=== PATIENT | male | born 1945 | race Caucasian/White ===

== ENCOUNTER 2019-05-20 14:52 | Outpatient (RCR) | payer SELFPAY | END 2019-06-13 23:59 | disposition home or self-care (01) | LOC: CR 14:52 | PROVIDERS: Family Provider Family Medicine; Referring Provider Internal Medicine Cardiovascular Disease; Visit Provider Internal Medicine Cardiovascular Disease | DX: I21.9 Acute myocardial infarction, unspecified (principal) ==

== ENCOUNTER 2020-01-30 13:54 | Outpatient (CLI) | payer MEDICARE, OTHER, SELFPAY ==
--- NOTE | 2020-01-30 14:00 | USCV_ITS ---
Rafy Sierra Age: 75 Gender: M : 1945 Exam Date: 01/30/2020 14:07 Ordering Phys: Allegra Jimenez MD Technologist: Harvey Rahman Exam Location: [facility] – [place] Indication: PAIN IN LLE RIGHT LEFT Brachial 131.00 mmHg Brachial 133.00 mmHg Pressure (mmHg) Waveform Pressure (mmHg) Waveform 118.00 Above Knee 104.00 126.00 Below Knee 107.00 136.00 NATUROPATH 122.00 130.00 DPA 112.00 1.02 Ankle/Brachial Index 0.92 93.00 Pre-Exercise Toe Pressure 57.00 Pre-Exercise Toe/Brachial Index 0.43 0.70 FINDINGS Normal resting JENNIE and TBI on the right side. Slightly diminished resting JENNIE on the left side with a diminished TBI Loss of dicrotic notch bilaterally on the PVR waveforms CONCLUSIONS Features of mild to moderate peripheral artery disease on the left side No significant arterial obstruction on the right side Features of extensive arterial sclerosis. No similar previous studies are available for comparison Dr Josephine Sewell MD LOCATED WITHIN [facility] (Electronically Signed) Final Date: 01 February 2020 19:04 S
== END 2020-01-30 13:55 | disposition home or self-care (01) ==
LOC: US 13:57
PROVIDERS: PCP Family Medicine; Visit Provider Family Medicine
DX: M79.662 Pain in left lower leg (principal)
CPT/HCPCS: 93923

== ENCOUNTER 2022-12-15 13:09 | Outpatient (CLI) | payer MEDICARE, OTHER, SELFPAY ==
--- NOTE | 2022-12-15 13:27 | XR_ITS ---
WS: [id number] Chest with left rib detail, 3 views, 12/15/2022 Clinical Data: CHONDROCOSTAL JUNCTION SYNDROME Comparison: Two-view chest, 03/04/2019 Findings: The lungs show no nodules, masses, or effusions. The heart is slightly enlarged. No pneumonia or pneu mothorax is seen. There is a left lateral seventh rib fracture of indeterminate age. The fracture line shows resorption which implies an old fracture.No subcutaneous emphysema is seen. XR/XR ribs LT mn 3V w CXR1V [id number] Impression: 1. Cardiomegaly. 2. Left lateral seventh rib fracture of indeterminate age.
== END 2022-12-15 13:10 | disposition home or self-care (01) ==
LOC: RAD 13:11
PROVIDERS: PCP Family Medicine; Visit Provider Family Medicine
DX: M94.0 Chondrocostal junction syndrome [Tietze] (principal); I51.7 Cardiomegaly; S22.32XD Fracture of one rib, left side, subsequent encounter for fracture with routine healing; X58.XXXD Exposure to other specified factors, subsequent encounter
CPT/HCPCS: 71101

== ENCOUNTER 2023-02-28 16:16 | Outpatient (CLI) | payer MEDICARE, OTHER, SELFPAY ==
--- NOTE | 2023-02-28 16:53 | CTR_ITS ---
PROCEDURE INFORMATION: Exam: CT Chest Without Contrast; Diagnostic Exam date and time: 02/28/2023 5:12 PM Age: 78 years old Clinical indication: Left-sided; Patient HX: Left side abdominal pain, patient says he hurt his rib back in September and thats when the pain started. ; Additional info: Chronic cough, costochondritis TECHNIQUE: Imaging protocol: Diagnostic computed tomography of the chest without contrast. Radiation optimization: All CT scans at this facility use at least one of these dose optimization techniques: automated exposure control; mA and/or kV adjustment per patient size (includes targeted exams where dose is matched to clinical indication); or iterative reconstruction. REPORTING DATA: Count of CT and Cardiac NM exams in prior 12 months: This patient has received 0 known CTs and 0 known cardiac nuclear medicine studies in the 12 months prior to the current study. COMPARISON: CR XR ribs LT mn 3V w CXR1V [id number] 12/15/2022 1:30 PM RADIATION DOSE METRICS: Total DLP (mGy-cm): 612.74 FINDINGS: Lungs: Tree-in-bud airspace opacities in the left upper lobe represent nonspecific inflammatory changes in the distal bronchial tree. A 2 cm peripheral mass or scar in the right lung apex. No lobar consolidation or pulmonary edema. Pleural spaces: Unremarkable. No pneumothorax. No pleural effusion. Heart: Unremarkable. No cardiomegaly. No pericardial effusion. Coronary arteries: Coronary artery calcifications. Lymph nodes: Unremarkable. No enlarged lymph nodes. Vasculature: Thoracic aorta calcifications. No thoracic aorta aneurysm. Bones/joints: A 3.2 cm osteolytic mass in T9 vertebral body, a 1.7 cm osteolytic mass in T11 vertebral body and a 2.6 cm osteolytic mass in the manubrium, suggestive of metastases. Soft tissues: Bilateral gynecomastia. CT/CT chest wo con [id number] IMPRESSION: 1. A 3.2 cm osteolytic mass in T9 vertebral body, a 1.7 cm osteolytic mass in T11 vertebral body and a 2.6 cm osteolytic mass in the manubrium, suggestive of metastases. 2. Tree-in-bud airspace opacities in the left upper lobe represent nonspecific inflammatory changes in the distal bronchial tree. 3. A 2 cm irregular peripheral mass in the left lung apex is known to represent lung cancer. 4. After conversation with Dr. Loya, I was informed that the patient has known metastatic right lung cancer. 5. The ordering physician, Dr. Loya was informed by phone by Dr. Be about the findings and recommendations on 03/01/2023 at 4:06 AM CDT. The ordering physician verbalized understanding.
--- NOTE | 2023-02-28 16:53 | CTR_ITS ---
PROCEDURE INFORMATION: Exam: CT Abdomen And Pelvis With Contrast Exam date and time: 02/28/2023 5:15 PM Age: 78 years old Clinical indication: Abdominal pain; Localized; Patient HX: Left abd pain; Additional info: Abdominal pain, rectal pain, rectosigmoid cancer TECHNIQUE: Imaging protocol: Computed tomography of the abdomen and pelvis with contrast. Radiation optimization: All CT scans at this facility use at least one of these dose optimization techniques: automated exposure control; mA and/or kV adjustment per patient size (includes targeted exams where dose is matched to clinical indication); or iterative reconstruction. Contrast material: OMNI 350; Contrast volume: 95 ml; Contrast route: INTRAVENOUS (IV); REPORTING DATA: Count of CT and Cardiac NM exams in prior 12 months: This patient has received 0 known CTs and 0 known cardiac nuclear medicine studies in the 12 months prior to the current study. COMPARISON: CT chest wo con [id number] 02/28/2023 5:12 PM RADIATION DOSE METRICS: Total DLP (mGy-cm): 878.68 FINDINGS: Lungs: Multiple punctate calcifications in the spleen suggestive of previous granulomatous process. Liver: Normal. No mass. Gallbladder and bile ducts: Small gallstones in the gallbladder. No gallbladder wall thickening or pericholecystic fluid. No common bile duct dilatation. Pancreas: Normal. No ductal dilation. Spleen: Normal. No splenomegaly. Adrenal glands: Normal. No mass. Kidneys and ureters: Normal. No hydronephrosis. Stomach and bowel: Unremarkable. No obstruction. No mucosal thickening. Appendix: No evidence of appendicitis. Intraperitoneal space: Unremarkable. No free air. No significant fluid collection. Vasculature: Atherosclerotic calcifications in the abdominal aorta, abdominal and pelvic arteries. Lymph nodes: Unremarkable. No enlarged lymph nodes. Urinary bladder: Unremarkable as visualized. Reproductive: Unremarkable as visualized. Bones/joints: An 8.1 cm x 4.5 cm by 4 cm soft tissue mass is seen in the left sacrum, extending into the left posterior pelvis, which likely represents a metastasis. A 3.2 cm osteolytic mass is partially seen in T9 vertebral body, which likely represents a metastasis. Soft tissues: There is an incidental benign 7.6 cm lipoma in the right upper lateral abdominal wall. A 1.8 cm fat containing umbilical hernia, which does not contain any bowel. CT/CT abdomen pelvis w con* [id number] IMPRESSION: 1. An 8.1 cm x 4.5 cm by 4 cm soft tissue mass is seen in the left sacrum, extending into the left posterior pelvis, which likely represents a metastasis. A 3.2 cm osteolytic mass is partially seen in T9 vertebral body, which likely represents a metastasis. 2. No acute findings. 3. Small gallstones in the gallbladder. No gallbladder wall thickening or pericholecystic fluid. No common bile duct dilatation. 4. A 1.8 cm fat containing umbilical hernia, which does not contain any bowel.
[2023-02-28] MEDS: iohexol 350 mg/mL 500 mL Btl (per mL) IV (17:31)
[2023-02-28] MEDS: iohexol 350 mg/mL 500 mL Btl (per mL) PO (17:31)
== END 2023-02-28 16:17 | disposition home or self-care (01) ==
PROVIDERS: PCP Family Medicine; Visit Provider Family Medicine
DX: C19 Malignant neoplasm of rectosigmoid junction (principal); M89.9 Disorder of bone, unspecified; R10.9 Unspecified abdominal pain; R05.3 Chronic cough; M94.0 Chondrocostal junction syndrome [Tietze]; C78.01 Secondary malignant neoplasm of right lung; K42.9 Umbilical hernia without obstruction or gangrene; K80.20 Calculus of gallbladder without cholecystitis without obstruction
CPT/HCPCS: 71250; 74177; Q9967

== ENCOUNTER 2023-03-01 02:30 | Emergency (ER) | payer MEDICARE, OTHER, SELFPAY ==
[2023-03-01 02:36] VITALS: BP 99/46; PULSE 66; RESP 20; O2SAT 94; BMI 36.3
--- NOTE | 2023-03-01 02:43 | W.ED.ABDPA2 ---
HPI - Abdominal Pain General: Chief Complaint: Abdominal Pain Stated Complaint: Abd Pain From Broken Rib In September Source: patient Mode of arrival: ambulatory Limitations: no limitations History of Present Illness: 78-year-old male who states has been having abdominal pain over the last 4 weeks. States been on his left side going down to his left bellybutton he states he actually had a CT scan done here yesterday outpatient CT has not been formally read yet. States that the pain did worsen a little at night was a 7 out of 10 he is resting comfortably currently Associated Symptoms: Denies chills, diarrhea, dysuria, fever(s), nausea and vomiting Review of Systems Const: Denies: fever(s), chills, body aches or change in appetite Eyes: Denies: blurry vision or eye discomfort ENMT: Denies: throat pain or dental pain Card: Denies: chest pain Resp: Denies: dyspnea GI: Reports: abdominal pain; Denies: nausea, vomiting or diarrhea : Denies: dysuria Musc: Denies: neck pain or back pain Skin/Breast: Denies: rash Neuro: Denies: headache(s) Physical Exam Const: COMMON NORMALS: no acute distress, patient oriented x3 and healthy appearing HENMT: COMMON NORMALS: normocephalic and atraumatic HEAD & SCALP: normocephalic and atraumatic Eye: COMMON NORMALS: Equal, round and reactive pupils present and EOMs intact bilaterally PUPIL: Yes Equal, round and reactive pupils present Neck/C-Spine: COMMON NORMALS: full ROM and supple Chest: COMMONS NORMALS: normal inspection of the chest and normal palpation of entire chest wall Resp: COMMON NORMALS: normal respiratory effort, No retractions, No use of accessory muscles and clear to auscultation bilaterally AUSCULTATION: clear to auscultation bilaterally Cardio: COMMON NORMALS: regular rate, regular rhythm and No murmurs present (Cardio) RATE: regular rate RHYTHM: regular rhythm GI: COMMON NORMALS: Normal to inspection, nondistended, normoactive bowel sounds present, Soft to palpation, non-tender and no masses PALPATION: Yes Soft to palpation Extremity: COMMON NORMALS: normal to inspection and full ROM Neuro: COMMON NORMALS: patient oriented x3, moves all extremities and no focal motor deficits Psych: COMMON NORMALS: mental status grossly normal, Normal thought process present and cooperative THOUGHT PROCESS: Normal thought process present Skin: COMMON NORMALS: no rashes or lesions noted and no wounds GENERAL SKIN EXAM: no rashes or lesions noted Course Vital Signs: Vital signs: Vital Signs Pulse Rate 56 L 03/01/23 04:34 Respiratory Rate 17 03/01/23 02:53 Blood Pressure 110/60 03/01/23 04:34 Pulse Oximetry 96 03/01/23 03:20 Oxygen Delivery Me thod Room Air 03/01/23 03:20 MDM - Abdominal Pain Medical Decision Making Patient presents here with left-sided rib and abdominal and flank pain CT does show a lung mass with likely mets that are new I did inform patient he states he seen the oncologist before in [place] would like to follow-up back today states he is in to talk to his primary care doctor tomorrow about it we will write him pain meds at this time Lab Data 03/01/23 02:45 03/01/23 02:45 Labs/Radiology: Laboratory Results WBC 5.21 10^3/uL (3.29-11.43) 03/01/23 02:45 RBC 3.18 10^6/uL (3.85-5.65) L 03/01/23 02:45 Hgb 10.70 g/dL (11.27-16.99) L 03/01/23 02:45 Hct 32.5 % (37-53) L 03/01/23 02:45 MCV 102.2 fl (82-101) H 03/01/23 02:45 MCH 33.6 pg (27-33) H 03/01/23 02:45 MCHC 32.9 g/dL (30-55) 03/01/23 02:45 RDW 14.0 % (12.1-15.1) 03/01/23 02:45 Plt Count 125 10^3/cmm (157-399) L 03/01/23 02:45 MPV 9.6 fL (7.4-10.4) 03/01/23 02:45 Neut % (Auto) 51.4 % 03/01/23 02:45 Lymph % (Auto) 27.3 % 03/01/23 02:45 [place] % (Auto) 13.6 % 03/01/23 02:45 Eos % (Auto) 6.5 % 03/01/23 02:45 Baso % (Auto) 0.4 % 03/01/23 02:45 Neut # (Auto) 2.68 10^3/uL (1.8-7.7) 03/01/23 02:45 Lymph # (Auto) 1.4 10^3/uL (0.8-4.8) 03/01/23 02:45 [place] # (Auto) 0.7 10^3/uL (0.2-0.9) 03/01/23 02:45 Eos # (Auto) 0.3 10^3/uL (0.0-0.8) 03/01/23 02:45 Baso # (Auto) 0.0 10^3/uL (0.0-0.1) 03/01/23 02:45 Nucleated RBC % (auto) 0 % 03/01/23 02:45 Nucleated RBCs # 0.0 /100WBC 03/01/23 02:45 Sodium 131 mmol/L (136-145) L 03/01/23 02:45 Potassium 4.7 mmol/L (3.5-5.1) 03/01/23 02:45 Chloride 98 mmol/L (98-107) 03/01/23 02:45 Carbon Dioxide 28 mmol/L (22-29) 03/01/23 02:45 Anion Gap 9.7 (5-19) 03/01/23 02:45 BUN 20 mg/dL (8-23) 03/01/23 02:45 Creatinine 1.1 mg/dL (0.7-1.2) 03/01/23 02:45 GFR Calculation Not Reportable 03/01/23 02:45 Glucose 118 mg/dL (65-115) H 03/01/23 02:45 Calculated Osmolality 276 mOsm/kg (285-295) L 03/01/23 02:45 Calcium 9.0 mg/dL (8.5-10.5) 03/01/23 02:45 Total Bilirubin 0.4 mg/dL (0.15-1.2) 03/01/23 02:45 AST 23 U/L (0-40) 03/01/23 02:45 ALT 9 U/L (0-41) 03/01/23 02:45 Alkaline Phosphatase 95 U/L (40-130) 03/01/23 02:45 Total Protein 9.5 g/dL (6.6-8.7) H 03/01/23 02:45 Albumin 3.7 g/dL (3.5-5.2) 03/01/23 02:45 Globulin 5.8 g/dL (1.3-4.6) H 03/01/23 02:45 Lipase 11 U/L (13-60) L 03/01/23 02:45 Urine Color Yellow (Yellow) 03/01/23 02:25 Urine Appearance Clear (CLEAR) 03/01/23 02:25 Urine pH 7 (5-7) 03/01/23 02:25 Ur Specific [place] 1.005 (1.005-1.030) 03/01/23 02:25 Urine Protein Neg (Negative) 03/01/23 02:25 Urine Glucose (UA) Norm (Normal) 03/01/23 02:25 Urine Ketones Negative (Negative) 03/01/23 02:25 Urine Blood Neg (Negative) 03/01/23 02:25 Urine Nitrate Negative (Negative) 03/01/23 02:25 Urine Bilirubin Neg (Negative) 03/01/23 02:25 Urine Urobilinogen 1 mg/dL (Negative) H 03/01/23 02:25 Ur Leukocyte Esterase Negative (Negative) 03/01/23 02:25 All radiology interpretation(s) finalized by discharge Discharge Plan Discharge Patient Disposition: Home Clinical Impression: Bone lesion, Lung mass Condition: Stable Prescriptions: New hydrocodone-acetaminophen 5-325 mg tablet 1 tab PO Q6H PRN (Reason: pain) Qty: 14 0RF Discharge Orders: Discharge ED (Routine); Ordered 03/01/23 Ordered By: Nasrin Feng Referrals: Allegra Jimenez MD [Primary Care Provider] - 1-3 days Discharge Diet: Advance as tolerated Discharge Activity: Resume usual activity Patient Instructions: Brain Metastasis (DC), Opioid Safety 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
[2023-03-01 02:49] LABS: Basophils % 0.4 %; Eosinophils # 0.3 10^3/uL (0.0-0.8); Eosinophils % 6.5 %; Hematocrit 32.5 % (37-53); Lymphocytes # 1.4 10^3/uL (0.8-4.8); Lymphocytes % 27.3 %; Mean Corpuscular HGB Conc 32.9 g/dL (30-55); Mean Corpuscular Hemoglobin 33.6 pg (27-33); Mean Corpuscular Volume 102.2 fl (82-101); Mean Platelet Volume 9.6 fL (7.4-10.4); Monocytes # 0.7 10^3/uL (0.2-0.9); Monocytes % 13.6 %; Neutrophils # 2.68 10^3/uL (1.8-7.7); Neutrophils % 51.4 %; Nucleated Red Blood Cells % 0 %; Platelet Count 125 10^3/cmm (157-399); Red Blood Count 3.18 10^6/uL (3.85-5.65); White Blood Count 5.21 10^3/uL (3.29-11.43)
[2023-03-01] MEDS: sodium chloride 0.9% 1,000 ML 999 ML IV (02:52)
[2023-03-01 02:53] VITALS: RESP 17
[2023-03-01] MEDS: morphine 4 mg/mL SDV 1 mL IVP (02:53)
[2023-03-01] MEDS: ondansetron 2 mg/ML SDV 2 mL 4 MG IVP (02:53)
[2023-03-01 03:06] LABS: Alanine Aminotransferase 9 U/L (0-41); Albumin Level 3.7 g/dL (3.5-5.2); Alkaline Phosphatase 95 U/L (40-130); Anion Gap 9.7 (5-19); Aspartate Amino Transferase 23 U/L (0-40); Blood Urea Nitrogen 20 mg/dL (8-23); Carbon Dioxide 28 mmol/L (22-29); Chloride 98 mmol/L (98-107); Globulin 5.8 g/dL (1.3-4.6); Glucose 118 mg/dL (65-115); Lipase 11 U/L (13-60); Osmolality Calculated 276 mOsm/kg (285-295); Potassium 4.7 mmol/L (3.5-5.1); Sodium 131 mmol/L (136-145); Total Bilirubin 0.4 mg/dL (0.15-1.2); Total Protein 9.5 g/dL (6.6-8.7)
[2023-03-01 03:20] VITALS: PULSE 51; O2SAT 96
[2023-03-01 03:30] LABS: Add Urine Microscopic? NO; Charge for UA Resulting for Rev
[2023-03-01 03:34] LABS: Bilirubin Urine Neg (Negative); Blood Urine Neg (Negative); Glucose Urine UA Norm (Normal); Ketones Urine Negative (Negative); Leukocyte Esterase Urine Negative (Negative); Nitrate Urine Negative (Negative); Protein Urine Neg (Negative); Specific Gravity, Urine 1.005 (1.005-1.030); Urine Appearance Clear (CLEAR); Urine Color Yellow (Yellow); Urobilinogen Urine 1 mg/dL (Negative); pH Urine 7 (5-7)
[2023-03-01 04:34] VITALS: BP 110/60; PULSE 56
== END 2023-03-01 04:36 | disposition home or self-care (01) ==
PROVIDERS: Emergency Provider Emergency Medicine; PCP Family Medicine
DX: M89.9 Disorder of bone, unspecified (principal); R91.8 Other nonspecific abnormal finding of lung field
CPT/HCPCS: 80053; 81003; 83690; 85025; 96374; 96375; 99284; J2270; J2405; J7030

== ENCOUNTER 2023-03-17 03:14 | Emergency (ER) | payer MEDICARE, OTHER, SELFPAY ==
[2023-03-17 03:15] VITALS: BP 113/67; PULSE 85; RESP 18; TEMP 36.7; O2SAT 97; BMI 36.6
--- NOTE | 2023-03-17 03:44 | XRR_ITS ---
PROCEDURE INFORMATION: Exam: XR Left Ankle Exam date and time: 03/17/2023 3:55 AM Age: 78 years old Clinical indication: Patient HX: C/O left ankle pain. History of colorectal cancer. ; Additional info: Ankle pain HX of cancer TECHNIQUE: Imaging protocol: Radiologic exam of the left ankle. Views: 1 or 2 views. COMPARISON: No relevant prior studies available. FINDINGS: Bones/joints: Large calcaneal insertional enthesophyte posteriorly. Corticated bone fragment at the inferior margin of the medial tibia. Negative for acute fracture. Unremarkable ankle mortise alignment. No bone erosion. Focal osseous spurring of the anterior distal tibia. Soft tissues: Mild diffuse soft tissue swelling. XR/XR ankle LT 2V [id number] IMPRESSION: Negative for acute osseous pathology.
--- NOTE | 2023-03-17 03:52 | W.ED.BACK ---
HPI - Back Pain/Injury General: Chief Complaint: Back Pain/Injury Stated Complaint: BACK PAIN Time Seen by Provider: 03/17/23 03:18 Source: patient and family History of Present Illness: 78-year-old male with known metastatic colon cancer to his sacrum pelvis and T9. He has outpatient PET scan set up for a week to 10 days from now. He presents after getting up to urinate around 2 AM, and having uncontrolled pain with generalized weakness associated with this. He notes it was hard to move. No significant numbness or tingling. His pain is improved currently. He is getting around with a walker. Last week he did not have to use his walker. MD elicited complaint: back pain Associated symptoms: Reports nausea; Deny abdominal pain, chills, fever(s) or vomiting Review of Systems Const: Denies: fever(s) or chills Eyes: Denies: change in vision ENMT: Denies: throat pain or uvular edema Card: Reports: chest pain and palpitations Resp: Reports: dyspnea; Denies: productive cough or non-productive cough GI: Reports: nausea; Denies: abdominal pain or vomiting : Reports: urinary frequency and urinary dribbling Musc: Reports: back pain and extremity pain; Denies: neck pain Skin/Breast: Denies: rash Physical Exam Const: COMMON NORMALS: no acute distress GENERAL APPEARANCE: cooperative and frail appearing; not ill appearing NUTRITIONAL APPEARANCE: overweight ORIENTATION/CONSCIOUSNESS: Yes awake, Yes oriented to person, Yes oriented to place and Yes oriented to time; not confused HENMT: COMMON NORMALS: normocephalic and atraumatic HEAD & SCALP: normocephalic and atraumatic THROAT: no uvular edema Eye: COMMON NORMALS: Equal, round and reactive pupils present and EOMs intact bilaterally PUPIL: Yes Equal, round and reactive pupils present Neck/C-Spine: COMMON NORMALS: full ROM Chest: COMMONS NORMALS: normal palpation of the breasts BREAST/AXILLA PALPATION: Yes normal palpation of the breasts Resp: COMMON NORMALS: normal respiratory effort, No retractions, No use of accessory muscles and clear to auscultation bilaterally AUSCULTATION: clear to auscultation bilaterally Cardio: COMMON NORMALS: regular rate and regular rhythm RATE: regular rate RHYTHM: regular rhythm GI: COMMON NORMALS: Normal to inspection, nondistended, normoactive bowel sounds present, Soft to palpation and non-tender INSPECTION: Yes normal to inspection PALPATION: Yes Soft to palpation Back/Pelvis: OTHER: Tenderness to palpation over the left greater than right sacrum. No deformity. Extremity: NARRATIVE EXTREMITY EXAM: Minimally reproducible tenderness in the left distal tibia and ankle. No joint effusion. No warmth. No deformity. Sensation and pulses are intact. Neuro: SENSORIUM/ORIENTATION: Yes oriented to person, Yes oriented to place and Yes oriented to time Course Vital Signs: Vital signs: Vital Signs Temperature 98.1 F 03/17/23 03:15 Pulse Rate 85 03/17/23 03:15 Respiratory Rate 18 03/17/23 03:15 Blood Pressure 113/67 03/17/23 03:15 Pulse Oximetry 97 03/17/23 03:15 Oxygen Delivery Me thod Room Air 03/17/23 03:15 MDM - Back Pain/Injury Medical Decision Making CT from prior shows sacral mass/lytic lesion consistent with malignancy. Ankle x-ray is negative for any acute change. Pain in the leg is likely radicular pain from sacral area. Treating with dexamethasone/Depo-Medrol injection. Home pain medication. A lift belt so that his can help him up will be prescribed. Close outpatient follow-up. Return for worsening symptoms despite that treatment. XR interpretation done by ED provider, pending radiology final review Discharge Plan Discharge Patient Disposition: Home Clinical Impression: Lumbosacral radiculitis Condition: Stable Prescriptions: No Action hydrocodone-acetaminophen 5-325 mg tablet 1 tab PO Q6H PRN (Reason: pain) Qty: 14 0RF Discharge Orders: Discharge ED (Routine); Ordered 03/17/23 Ordered By: Lacho Estrada Referrals: Allegra Jimenez MD [Primary Care Provider] - 1-3 days Patient Instructions: Opioid Safety, Pain Management Activity Restrictions/Additional Instructions: Your leg pain is coming from an irritated nerve in your lower back/sacrum. Medication you were injected with should begin to help this pain to some degree. Use your prescribed home pain medication as well. Ice may help to some degree. Follow-up with your doctor on Sunday. Let them know you were seen here. Return for fever, mental status changes, worsening weakness, inability to control pain, other concerning symptoms. 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
[2023-03-17] MEDS: HYDROmorphone 1 mg/mL INJ 1 mL IM (04:39)
[2023-03-17] MEDS: dexamethasone 10 mg/mL INJ 8 MG IM (05:08)
[2023-03-17] MEDS: methylPREDNISolone (DEPO) 80 MG/ML INJ 1 mL IM (05:08)
== END 2023-03-17 06:08 | disposition home or self-care (01) ==
PROVIDERS: Emergency Provider Emergency Medicine; PCP Family Medicine
DX: M54.17 Radiculopathy, lumbosacral region (principal); C18.9 Malignant neoplasm of colon, unspecified; C79.51 Secondary malignant neoplasm of bone
CPT/HCPCS: 73600; 96372; 99284; J1040; J1100; J1170

== ENCOUNTER 2023-08-05 21:18 | Inpatient (IN) | payer MEDICARE, OTHER, SELFPAY ==
[2023-08-05 21:23] VITALS: BP 113/63; PULSE 108; RESP 22; TEMP 37.1; O2SAT 96; BMI 36.6
[2023-08-05 21:42] VITALS: PULSE 83
--- NOTE | 2023-08-05 21:42 | XRR_ITS ---
PROCEDURE INFORMATION: Exam: XR Chest Exam date and time: 08/05/2023 9:50 PM Age: 78 years old Clinical indication: Cough and shortness of breath and wheezing; Prior surgery; Surgery date: 6+ months; Surgery type: Cardiac stent; Patient HX: SOB; Cough; Auditory rales TECHNIQUE: Imaging protocol: Radiologic exam of the chest. Views: 1 view. COMPARISON: [facility] [id number] 02/28/2023 5:12 PM FINDINGS: Lungs: Mild central vascular congestion. Nonspecific diffuse interstitial prominence. Patchy opacities in the lung bases , also nonspecific. Pleural spaces: Probable trace effusions. No pneumothorax. Heart/Mediastinum: Mild cardiomegaly. Bones/joints: Unremarkable. XR/XR chest 1V portable [id number] IMPRESSION: 1. Cardiomegaly with central vascular congestion and nonspecific interstitial prominence likely reflecting pulmonary edema. Trace effusions. Correlate with CHF. 2. Patchy basilar opacities likely reflecting confluent areas of edema though developing consolidation could have this appearance.
--- NOTE | 2023-08-05 21:58 | ED_ITS ---
HPI - SOB/Dyspnea 2 General: Chief Complaint: Shortness of Breath/Dyspnea Stated Complaint: RESP. DISTRESS Time Seen by Provider: 08/05/23 21:24 History of Present Illness: HPI Narrative: 78-year-old male patient with a history of multiple myeloma, and also history of recent GI bleed requiring hospitalization, presenting with shortness of breath. His notes that he has been short of breath for the past week to week and a half, but much worse the last couple of days. He exhibits noisy fast breathing on exam. He denies fever. Some cough but no sputum production. No chest pain. He has swollen legs he says. He has a history of atrial fibrillation, and was taken off his Xarelto recently due to the GI bleed. Associated symptoms: Deny abdominal pain, chest pain, fever(s), nausea, palpitations or vomiting Review of Systems 2 Const: Denies: fever(s) or chills ENMT: Denies: throat pain Card: Reports: irregular heart rhythm; Denies: chest pain or palpitations Resp: Reports: dyspnea and non-productive cough GI: Denies: abdominal pain, nausea or vomiting Musc: Reports: back pain Physical Exam 2 Const: GENERAL APPEARANCE: cooperative, ill appearing and frail appearing HENMT: COMMON NORMALS: normocephalic, atraumatic and Normal external nose present HEAD & SCALP: normocephalic and atraumatic FACE & SINUS: face symmetric NOSE: Normal external nose present Eye: COMMON NORMALS: Equal, round and reactive pupils present and EOMs intact bilaterally PUPIL: Yes Equal, round and reactive pupils present Neck/C-Spine: GENERAL: Yes trachea midline Chest: CHEST: Yes Symmetrical chest wall rise Resp: EFFORT & INSPECTION: Yes tachypneic and Yes labored AUSCULTATION: r ales diffuse Cardio: RATE: tachycardic RHYTHM: abnormal rhythm irregularly irregular GI: COMMON NORMALS: Normal to inspection, nondistended, normoactive bowel sounds present and Soft to palpation PALPATION: Yes Soft to palpation Extremity: GENERAL: Yes edema Course 2 Vital Signs: Vital signs: Vital Signs Temperature 98.7 F 08/05/23 21:23 Pulse Rate 85 08/05/23 23:34 Respiratory Rate 18 08/05/23 23:34 Blood Pressure 115/70 08/05/23 23:34 Pulse Oximetry 95 08/05/23 23:34 Oxygen Delivery Me thod Room Air 08/05/23 23:34 Oxygen Flow Rate 2 08/05/23 23:10 MDM - SOB/Dyspnea Medical Decision Making 78-year-old male with significant shortness of breath. He has rales on exam. His hemoglobin is down to 8.3. White blood cell count is 16. He has a significant elevation in his BNP as well as his troponin. His troponin elevation is likely rate dependent, as he was quite tachycardic on arrival, but with oxygenation, his heart rate is below 100 now. He is still in atrial fibrillation. Blood pressure is 108/65. Potassium is 3.8. Creatinine is 1.5. He is given 80 mg of Lasix IV in the ER with some diuresis here. He is on oxygen. He will be admitted for hypoxic respiratory failure, A-fib with RVR, pulmonary edema which is present on chest x-ray. Hospitalist will see the patient. Lab Data 08/05/23 21:07 08/05/23 21:07 Labs/Radiology: Radiology Impressions Chest X-Ray 08/05/23 21:42 IMPRESSION: 1. Cardiomegaly with central vascular congestion and nonspecific interstitial prominence likely reflecting pulmonary edema. Trace effusions. Correlate with CHF. 2. Patchy basilar opacities likely reflecting confluent areas of edema though developing consolidation could have this appearance. Laboratory Results WBC 16.12 10^3/uL (3.29-11.43) H 08/05/23 21:07 RBC 2.03 10^6/uL (3.85-5.65) L 08/05/23 21:07 Hgb 8.30 g/dL (11.27-16.99) L 08/05/23 21:07 Hct 22.1 % (37-53) L 08/05/23 21:07 MCV 108.9 fl (82-101) H 08/05/23 21:07 MCH 40.9 pg (27-33) H 08/05/23 21:07 MCHC 37.6 g/dL (30-55) 08/05/23 21:07 RDW 23.7 % (12.1-15.1) H 08/05/23 21:07 Plt Count 54 10^3/cmm (157-399) L 08/05/23 21:07 MPV Not Reportable 08/05/23 21:07 Neut % (Auto) 91.0 % 08/05/23 21:07 Lymph % (Auto) 1.0 % 08/05/23 21:07 [place] % (Auto) 7.1 % 08/05/23 21:07 Eos % (Auto) 0.1 % 08/05/23 21:07 Baso % (Auto) 0.2 % 08/05/23 21:07 Neut # (Auto) 14.68 10^3/uL (1.8-7.7) H 08/05/23 21:07 Lymph # (Auto) 0.2 10^3/uL (0.8-4.8) L 08/05/23 21:07 [place] # (Auto) 1.1 10^3/uL (0.2-0.9) H 08/05/23 21:07 Eos # (Auto) 0.0 10^3/uL (0.0-0.8) 08/05/23 21:07 Baso # (Auto) 0.0 10^3/uL (0.0-0.1) 08/05/23 21:07 Nucleated RBC % (auto) 0.2 % 08/05/23 21:07 Nucleated RBCs # 0.0 /100WBC 08/05/23 21:07 D-Dimer 0.82 ug/mLFEU (0-0.59) H 08/05/23 21:03 Sodium 132 mmol/L (136-145) L 08/05/23 21:07 Potassium 3.8 mmol/L (3.5-5.1) 08/05/23 21:07 Chloride 96 mmol/L (98-107) L 08/05/23 21:07 Carbon Dioxide 23 mmol/L (22-29) 08/05/23 21:07 Anion Gap 16.8 (5-19) 08/05/23 21:07 BUN 23 mg/dL (8-23) 08/05/23 21:07 Creatinine 1.5 mg/dL (0.7-1.2) H 08/05/23 21:07 GFR Calculation Not Reportable 08/05/23 21:07 Glucose 156 mg/dL (65-115) H 08/05/23 21:07 Estimat Average Glucose 103 08/05/23 21:03 Hemoglobin A1c 5.2 % (4.0-6.0) 08/05/23 21:03 Calculated Osmolality 281 mOsm/kg (285-295) L 08/05/23 21:07 Lactic Acid 2.1 mmol/L (0.5-2.2) 08/05/23 21:07 Calcium 8.0 mg/dL (8.5-10.5) L 08/05/23 21:07 Total Bilirubin 0.8 mg/dL (0.15-1.2) 08/05/23 21:07 AST 31 U/L (0-40) 08/05/23 21:07 ALT 17 U/L (0-41) 08/05/23 21:07 Alkaline Phosphatase 119 U/L (40-130) 08/05/23 21:07 Troponin T Baseline 115 ng/L (0-15) H* 08/05/23 21:07 Troponin T 120 Minute 104.1 ng/L (0-15) H 08/05/23 22:45 Delta Troponin T -10.9 ABS# (0-10) L 08/05/23 22:45 NT-Pro-B Natriuret Pep 4861 pg/mL (0-450) H 08/05/23 21:07 Total Protein 5.4 g/dL (6.6-8.7) L 08/05/23 21:07 Albumin 3.4 g/dL (3.5-5.2) L 08/05/23 21:07 Globulin 2.0 g/dL (1.3-4.6) 08/05/23 21:07 Blood Type A Positive 08/05/23 22:45 Rho(D) Type Rh positive 08/05/23 22:45 All radiology interpretation(s) finalized by discharge Discharge Plan Discharge Patient Disposition: Admitted As Inpatient Clinical Impression: Pulmonary edema, Anemia, Atrial fibrillation with rapid ventricular response, Acute hypoxemic respiratory failure Condition: Serious Coding Level of Care Code ED [employer] Inspector for Guerrero Tinoco
[2023-08-05 21:59] LABS: Basophils % 0.2 %; Eosinophils % 0.1 %; Hematocrit 22.1 % (37-53); Lymphocytes # 0.2 10^3/uL (0.8-4.8); Mean Corpuscular HGB Conc 37.6 g/dL (30-55); Mean Corpuscular Hemoglobin 40.9 pg (27-33); Mean Corpuscular Volume 108.9 fl (82-101); Monocytes # 1.1 10^3/uL (0.2-0.9); Monocytes % 7.1 %; Neutrophils # 14.68 10^3/uL (1.8-7.7); Nucleated Red Blood Cells % 0.2 %; Platelet Count 54 10^3/cmm (157-399); Red Blood Count 2.03 10^6/uL (3.85-5.65); Red Cell Distribution Width 23.7 % (12.1-15.1); White Blood Count 16.12 10^3/uL (3.29-11.43)
[2023-08-05 22:08] LABS: Lactic Sepsis W/Reflex 2.1 mmol/L (0.5-2.2)
[2023-08-05] MEDS: FUROsemide 10 mg/mL SDV 10mL 80 MG IVP (22:11)
[2023-08-05 22:21] VITALS: BP 110/69; PULSE 95; RESP 18; O2SAT 96
[2023-08-05 22:23] LABS: Troponin(5th) Baseline 115 ng/L (0-15)
[2023-08-05 22:29] LABS: Alanine Aminotransferase 17 U/L (0-41); Albumin Level 3.4 g/dL (3.5-5.2); Alkaline Phosphatase 119 U/L (40-130); Anion Gap 16.8 (5-19); Aspartate Amino Transferase 31 U/L (0-40); Blood Urea Nitrogen 23 mg/dL (8-23); Carbon Dioxide 23 mmol/L (22-29); Chloride 96 mmol/L (98-107); Creatinine Clr Calc Pharmacy 45.6194; Glucose 156 mg/dL (65-115); NT Pro B Type Natriuretic Pept 4861 pg/mL (0-450); Osmolality Calculated 281 mOsm/kg (285-295); Potassium 3.8 mmol/L (3.5-5.1); Sodium 132 mmol/L (136-145); Total Bilirubin 0.8 mg/dL (0.15-1.2); Total Protein 5.4 g/dL (6.6-8.7)
[2023-08-05 23:10] VITALS: BP 109/48; PULSE 103; RESP 20; O2SAT 96
[2023-08-05 23:32] LABS: Troponin 5 2HR Delta -10.9 ABS# (0-10)
[2023-08-05 23:33] LABS: Troponin 5 2HR 104.1 ng/L (0-15)
--- NOTE | 2023-08-05 23:33 | PM.HP ---
Providers/Chief Complaint Primary Care Provider: Allegra Jimenez MD Chief Complaint: RESP. DISTRESS History of Present Illness Rafy Sierra is a 78 year old male with history of multiple myeloma, currently on immunotherapy, finished 2 cycles, he is due for third cycle on 08/06, his oncologist and talent acquisition assistant both are at [facility], presented today with chief complaint orthopnea PND and shortness of breath. At baseline he does not use oxygen. He does not have any history of CHF but has established coronary disease with stent placed few years ago. Patient was at [facility] where he had EGD done with clipping of gastric and duodenal ulcer as per the family, we do not have the details, patient was given 2 units of blood as well. As per the platelets were lower than 50,000. Patient has not experienced fever, vomiting but endorsing diarrhea, shortness of breath orthopnea PND, wet cough, does not use oxygen at baseline, no chest pain at all. Patient wanted to go to [facility] but they do not have any beds as of now Troponin significantly elevated Not a good candidate to be started on aspirin Plavix or heparin at this point secondary to thrombocytopenia and anemia I would like him to be above 9 considering CHF and coronary disease He is in congestive heart failure with pulm edema requiring 2 L, Received IV Lasix I will place Disla catheter start him on BiPAP Review of Systems Const: Denies: fever(s) Eyes: Denies: change in vision ENMT: Denies: throat pain Card: Reports: swelling of feet/ankles Resp: Reports: dyspnea GI: Reports: diarrhea : Denies: flank pain Musc: Denies: neck pain Skin/Breast: Denies: rash Medications/Allergies Home Medications Medication Instructions Recorded Confirmed Last Taken Type hydrocodone 5 mg-acetaminophen 325 1 tab PO Q6H PRN pain #14 tabs 03/01/23 Unknown Rx mg tablet Allergies Allergy/AdvReac Type Severity Reaction Status Date / Time No Known Allergies Allergy Verified 08/05/23 22:17 PFSH Acute PFSH: Medical History (Updated 08/06/23 @ 00:39 by Keron Russell MD) Gastric ulcer GI bleed Multiple myeloma Coronary artery disease Surgical History (Updated 08/06/23 @ 00:39 by Keron Russell MD) H/O esophagogastroduodenoscopy Vitals/I&O/Wt Last Vital Signs Temp 98.7 F 08/05/23 21:23 Pulse 103 H 08/05/23 23:10 Resp 20 H 08/05/23 23:10 BP 109/48 08/05/23 23:10 Pulse Ox 96 08/05/23 23:10 O2 Del Method Nasal Cannula 08/05/23 23:10 O2 Flow Rate 2 08/05/23 23:10 Weight last 48 hrs Weight 102.965 kg Physical Exam Narrative: Clinical signs of fluid overload Conversational dyspnea Currently on 2 L GCS 15 3+ edema of legs Anasarca S1, S2 A-fib RVR Pleasant cooperative Nonfocal neuroexam Abdomen distended Wearing adult diapers Extremities are edematous Data 08/05/23 21:07 08/05/23 21:07 Micro: Microbiology 08/05/23 22:18 Blood Culture - Preliminary Blood SPECIMEN COLLECTED 08/05/23 22:17 Blood Culture - Preliminary Blood SPECIMEN COLLECTED A&P Assessment and plan (1) Atrial fibrillation with rapid ventricular response: (2) Anemia: (3) Pulmonary edema: (4) Acute hypoxemic respiratory failure: (5) Non-STEMI (non-ST elevated myocardial infarction): (6) Thrombocytopenia: (7) ARIE (acute kidney injury): Plan New onset CHF EF unknown No active chest pain Troponin similarly elevated Patient will need coronary angiogram for further evaluation Has history of coronary disease I will start him on IV Lasix To decrease work of breathing I will put him on BiPAP Acute hypoxia related to pulm edema BiPAP for now, Concern for pulmonary infiltrate with significant leukocytosis I will add ceftriaxone as well Request procalcitonin He is afebrile Acute on chronic anemia 5 weeks ago required 2 unit PRBC I would like to keep his hemoglobin above 9, will give him 1 unit PRBC in the morning for now I would like to diurese him Non-STEMI: Significant additional troponin, troponin trending down No active chest pain Ischemia or infarctive changes not evident on the EKG Not a candidate to be on anticoagulating agent secondary to anemia and thrombocytopenia New onset A-fib with RVR Not a candidate to be on anticoagulation Secondary to anemia and thrombocytopenia Requested echo TSH and B12 and mag level Multiple myeloma Finished 2 cycles of immunotherapy, third cycle to be started on 08/[address] [facility] GI bleed EGD was done 4 to 5 weeks ago, showed gastric and duodenal ulcer required 2 unit PRBC as well Chronic thrombocytopenia as per the family ARIE: Cardiorenal anticipate improvement with diuresis Full code Cardiac diet Will keep trying to get a bed at [facility], we tried to transfer him from the ER but [facility] has no beds at this point His talent acquisition assistant is Dr. Fields at [facility] DVT prophylaxis covered with SCDs Attestations Medical Necessity Statement*: More than 2 midnights anticipated Diagnoses Atrial fibrillation with rapid ventricular response I48.91 Anemia D64.9 Pulmonary edema J81.1 Acute hypoxemic respiratory failure J96.01 Non-STEMI (non-ST elevated myocardial infarction) I21.4 Thrombocytopenia D69.6 ARIE (acute kidney injury) N17.9
[2023-08-05 23:34] VITALS: BP 115/70; PULSE 85; RESP 18; O2SAT 95
[2023-08-05 23:35] LABS: Reflex Lactate Order REFLEX LACTIC ORDERD
--- NOTE | 2023-08-05 23:42 | ECG_ITS ---
[facility] Test Date: 2023-08-05 Pat Name: Rafy Sierra Department: Room: Gender: Male Sole Layer Hand: : 1945 Requested By: Lacho Becerra Order Number: [id number] Prince MD: Homar Tapia M.D. Measurements Intervals [place] Rate: 112 P: 0 PA: 0 QRS: 165 QRSD: 139 T: 33 QT: 359 QTc: 492 Interpretive Statements ATRIAL FIBRILLATION WITH RAPID VENTRICULAR RESPONSE WITH ABERRANT CONDUCTION OR VENTRICULAR PREMATURE COMPLEXES INTRAVENTRICULAR CONDUCTION DELAY [130+ ms QRS DURATION] POSSIBLE RIGHT VENTRICULAR HYPERTROPHY [SOME/ALL OF: PROMINENT R IN V1, LATE TRANSITION, RAD, TANVIR, SSS] ANTEROSEPTAL MYOCARDIAL INFARCTION , OF INDETERMINATE AGE [40+ ms Q WAVE IN V1-V4] ST DEPRESSION, CONSIDER SUBENDOCARDIAL INJURY [0.1+ mV ST DEPRESSION] No previous ECG available for comparison Electronically Signed On 08-05-2023 23:57:15 CDT by Homar Tapia M.D. [id number]
[2023-08-06] VITALS (102 sets, daily range): BP systolic 101–126; BP diastolic 55–83; PULSE 78–107; RESP 14–30; TEMP 36.6–36.7; O2SAT 89–98
[2023-08-06] LABS: D Dimer 0.82 ug/mLFEU (0-0.59)
[2023-08-06 00:07] LABS: Lactic Acid level (Lactate) 2.4 mmol/L (0.5-2.2)
[2023-08-06 00:07] LABS: Estmated Average Glucose 103; Hemoglobin A1C 5.2 % (4.0-6.0)
[2023-08-06 00:12] LABS: Thyroid Stimulating Hormone 0.72 uIU/mL (0.27-4.20)
[2023-08-06 01:03] LABS: Vitamin B12 1139 pg/mL (232-1245)
[2023-08-06] MEDS: pantoprazole 40 mg SDV IVP ×2 (02:07→12:54)
[2023-08-06 05:15] LABS: Basophils % 0.1 %; Hematocrit 21.7 % (37-53); Lymphocytes # 0.1 10^3/uL (0.8-4.8); Lymphocytes % 0.5 %; Mean Corpuscular HGB Conc 37.3 g/dL (30-55); Mean Corpuscular Hemoglobin 41.1 pg (27-33); Mean Corpuscular Volume 110.2 fl (82-101); Mean Platelet Volume 14.2 fL (7.4-10.4); Monocytes # 0.9 10^3/uL (0.2-0.9); Monocytes % 6.7 %; Neutrophils # 12.41 10^3/uL (1.8-7.7); Neutrophils % 91.5 %; Nucleated Red Blood Cells % 0 %; Platelet Count 50 10^3/cmm (157-399); Red Blood Count 1.97 10^6/uL (3.85-5.65); Red Cell Distribution Width 24.7 % (12.1-15.1); White Blood Count 13.57 10^3/uL (3.29-11.43)
[2023-08-06 05:25] LABS: Troponin 5 6HR 96.57 ng/L (0-15); Troponin 5 6HR Delta -18.43 ng/L (0-12)
[2023-08-06 05:35] LABS: Anion Gap 18.2 (5-19); Blood Urea Nitrogen 23 mg/dL (8-23); Calcium 7.8 mg/dL (8.5-10.5); Carbon Dioxide 24 mmol/L (22-29); Chloride 98 mmol/L (98-107); Creatinine Clr Calc Pharmacy 47.2964; Glucose 150 mg/dL (65-115); Magnesium 2.1 mg/dL (1.7-2.3); Osmolality Calculated 289 mOsm/kg (285-295); Potassium 4.2 mmol/L (3.5-5.1); Sodium 136 mmol/L (136-145)
[2023-08-06] MEDS: sucralfate 1 gm Tablet PO ×4 (06:21→20:47)
--- NOTE | 2023-08-06 07:42 | P.PN_ITS ---
Documented by User: MICHAEL Grimm STDSHELLY 08/06/23 09:50 Subjective 2 Subjective: Patient resting in bed on 1.5L nasal cannula, noted to be at bedside. Mr. Sierra reports that he is feeling overall better this morning, he is having easier time breathing than yesterday. Currently denies chest pain, nausea, and palpitations. Medications: Reviewed: Yes Vitals/I&O/Wt Last Vital Signs Temp 97.8 F 08/06/23 04:13 Pulse 83 08/06/23 06:00 Resp 17 08/06/23 04:13 BP 116/67 08/06/23 04:13 Pulse Ox 98 08/06/23 04:13 O2 Del Method Nasal Cannula 08/06/23 04:13 O2 Flow Rate 2 08/05/23 23:10 08/05/23 08/06/23 08/06/23 22:59 06:59 14:59 Output Total 1200 / 1200 Balance -1200 / -1200 Weight last 48 hrs Weight 245 lb Weight 243 lb 1.6 oz Weight 227 lb Physical Exam 2 Narrative: General exam is a white male, on 1.5 L NC. HEENT: Atraumatic normocephalic. Oropharynx clear. Neck is supple, no lymphadenopathy thyromegaly Cardiovascular currently regular, occasional premature beat, no murmur Lungs sounds noted to have expiratory wheezes. Denies coughing up anything. Abdomen is soft, non-tender with positive bowel sounds. exams deferred Extremities edema 2+ lower legs, cap refill brisk. Skin no rash Neuro no obvious focal deficits Urinary Catheter Management: Disla: Cath Placed During This Visit: yes Reason for Continuing Indwelling Catheter: Accurate Measurement of Urinary Output in Critically Ill Patients Urinary Catheter Date of Insertion: 08/06/23 Urinary Catheter Time of Insertion: 00:55 Data 08/06/23 04:12 08/06/23 04:12 Micro: Microbiology 08/05/23 22:18 Blood Culture - Preliminary Blood SPECIMEN COLLECTED 08/05/23 22:17 Blood Culture - Preliminary Blood SPECIMEN COLLECTED A&P Assessment and plan (1) Atrial fibrillation with rapid ventricular response: New onset A-fib with RVR. Patient not a candidate to be on anticoagulation, secondary to anemia and thrombocytopenia Echo ordered. TSH- 0.72 B12- 1139 Mag level- 2.1 (2) Anemia: Acute on chronic anemia Patient noted to have GI bleed, EGD was done 4 to 5 weeks ago. Showed gastric and duodenal ulcer required 2 unit PRBC as well Goal hemoglobin above 9 Plan to transfuse 1 unit PRBC in the morning 1100 Requested medical records from [facility]. (3) Pulmonary edema: New onset CHF, patient noted to have 1,200mL out in urine overnight. EF unknown, Echo ordered. No active chest pain Troponin similarly elevated on admission, trending down. Patient will need coronary angiogram for further evaluation, has known history of coronary disease Continue IV Lasix Requires 1.5 L nasal cannula, denies wearing oxygen at home BiPAP as needed (4) Acute hypoxemic respiratory failure: Acute hypoxia secondary to pulmonary edema On 2 L nasal cannula Concern for pulmonary infiltrate with significant leukocytosis, continue ceftriaxone (5) Non-STEMI (non-ST elevated myocardial infarction): Non-STEMI: Significant additional troponin on admission, troponin trending down Denies chest pain, palpitations currently. Ischemia or infarctive changes not evident on the EKG Not a candidate to be on anticoagulating agent secondary to anemia and thrombocytopenia (6) Thrombocytopenia: Chronic thrombocytopenia as per the family (7) ARIE (acute kidney injury): Cardiorenal anticipate improvement with diuresis Continue to monitor closely, CMP for am. Plan Multiple myeloma Finished 2 cycles of immunotherapy, third cycle to be started on 08/06, chemo precautions Oncologist at [facility] He is agreeable to staying for management here. His sap portal developer is Dr. Fields at [facility]. Add physical therapy. Full code Cardiac diet DVT prophylaxis covered with SCDs Close follow-up of electrolytes as he is on IV Lasix which is potentially renal toxic medication. High complexity. Coding Level of Care Code 36260 Diagnoses Atrial fibrillation with rapid ventricular response I48.91 Anemia D64.9 Pulmonary edema J81.1 Acute hypoxemic respiratory failure J96.01 Non-STEMI (non-ST elevated myocardial infarction) I21.4 Thrombocytopenia D69.6 ARIE (acute kidney injury) N17.9 Time Spent (min) 36 Documented by User: Todd Jimenez MD 08/06/23 10:03 Subjective 2 Subjective: Patient resting in bed on 1.5L nasal cannula, noted to be at bedside. Mr. Sierra reports that he is feeling overall better this morning, and is having easier time breathing than yesterday. Currently denies chest pain, nausea, and palpitations. Physical Exam 2 Urinary Catheter Management: Disla: Cath Placed During This Visit: yes Data 08/06/23 04:12 08/06/23 04:12 A&P Assessment and plan (1) Atrial fibrillation with rapid ventricular response: New onset A-fib with RVR. Patient not a candidate to be on anticoagulation, secondary to anemia and thrombocytopenia Repeat EKG this morning demonstrates sinus rhythm. In looking back on his previous EKG I wonder if he has sinus tachycardia with frequent PACs Echo ordered. Will need to compare to previous echo. TSH- 0.72 B12- 1139 Mag level- 2.1 (2) Anemia: Acute on chronic anemia Patient noted to have GI bleed, EGD and colonoscopy was done 4 to 5 weeks ago. He received 2 units of blood at that time. Goal hemoglobin above 9 Plan to transfuse 1 unit PRBC in the morning 1100 Requested medical records from [facility]. They were concerned at that time that he had a cecal erosion causing bleeding. EGD was unremarkable. (3) Pulmonary edema: New onset CHF, patient noted to have 1,200mL out in urine overnight. EF unknown, Echo ordered. No active chest pain Troponin similarly elevated on admission, trending down. Patient will need coronary angiogram for further evaluation, has known history of coronary disease Continue IV Lasix Requires 1.5 L nasal cannula, denies wearing oxygen at home BiPAP as needed He has acute systolic heart failure. Echocardiogram at [facility] recently done demonstrated EF of 40 to 45%, moderate to severe aortic stenosis, moderate to severe mitral regurgitation. Aortic valve area 0.6 (4) Acute hypoxemic respiratory failure: Acute hypoxia secondary to pulmonary edema On 2 L nasal cannula Concern for pulmonary infiltrate with significant leukocytosis, continue ceftriaxone Wean off oxygen as tolerated (5) Non-STEMI (non-ST elevated myocardial infarction): Appears to be a type II elevation Denies chest pain, palpitations currently. Ischemia or infarctive changes not evident on the EKG Not a candidate to be on anticoagulating agent secondary to anemia and thrombocytopenia Consider low-dose aspirin, but will need to review history of hospitalization at [facility] (6) Thrombocytopenia: (7) ARIE (acute kidney injury): Plan Multiple myeloma Finished 2 cycles of immunotherapy, third cycle to be started on 08/06 Oncologist at [facility] He is agreeable to staying for management here. His sap portal developer is Dr. Fields at [facility]. Add physical therapy. Full code Cardiac diet DVT prophylaxis covered with SCDs Close follow-up of electrolytes as he is on IV Lasix which is potentially renal toxic medication. High complexity. Attestations 2 Medical Necessity Statement*: Needs continued hospitalization for transfusion, diuresis secondary to acute heart failure, unknown type. Diagnoses Atrial fibrillation with rapid ventricular response I48.91 Anemia D64.9 Pulmonary edema J81.1 Acute hypoxemic respiratory failure J96.01 Non-STEMI (non-ST elevated myocardial infarction) I21.4 Thrombocytopenia D69.6 ARIE (acute kidney injury) N17.9 Time Spent (min) 36
--- NOTE | 2023-08-06 07:49 | ECG_ITS ---
[facility] Test Date: 2023-08-06 Pat Name: Rafy Sierra Department: Room: 105 Gender: Male Rehabilitation Services Director: : 1945 Requested By: Todd Teresa Order Number: [id number] Prince MD: Homar Tapia M.D. Measurements Intervals [place] Rate: 79 P: 81 MI: 224 QRS: 150 QRSD: 133 T: 70 QT: 416 QTc: 479 Interpretive Statements SINUS RHYTHM WITH FIRST DEGREE AV BLOCK RIGHT AXIS DEVIATION [QRS AXIS > 100] RIGHT BUNDLE BRANCH BLOCK [120+ ms QRS DURATION, UPRIGHT V1, 40+ ms S IN I/aVL/V4/V5/V6] SEPTAL MYOCARDIAL INFARCTION , PROBABLY OLD [40+ ms Q WAVE IN V1/V2] Compared to ECG 08/05/2023 22:04:47 First degree AV block now present Right-axis deviation now present Aberrant conduction of supraventricular beat(s) no longer present Ventricular premature complex(es) no longer present ST (T wave) deviation no longer present Myocardial infarct finding still present Electronically Signed On 08-06-2023 11:26:16 CDT by Homar Tapia M.D. [id number]
--- NOTE | 2023-08-06 07:49 | PC.PHAR ---
SPOUSE BROUGHT IN CANCER MEDICATION LENALIDOMIDE 10MG, IN CASE SHE NEEDS TO PROVIDE IT TODAY. 08/06/23
--- NOTE | 2023-08-06 09:00 | USCV_ITS ---
Rafy Sierra Age: 78 Gender: M : 1945 Exam Date: 08/06/2023 08:29 Ordering Phys: Keron Russell MD Technologist: Exam Location: [facility] [place] Indication: chf BP: 116 / 67 HR: 74 Rhythm: Sinus Technical Quality: Adequate MEASUREMENTS (Male / Female) Normal Values 2D ECHO LV Diastolic Diameter PLAX 5.4 cm 4.2 - 5.9 / 3.9 - 5.3 cm IVS Diastolic Thickness 1.3 cm 0.6 - 1.0 / 0.6 - 0.9 cm IVS Systolic Thickness 1.6 cm LVPW Diastolic Thickness 1.2 cm 0.6 - 1.0 / 0.6 - 0.9 cm LVPW Systolic Thickness 1.7 cm LVOT Diameter 2.0 cm LV Ejection Fraction 2D Teich 50.9 % LV Ejection Fraction MOD 2C 56.8 % LV Ejection Fraction 2C AL 54.4 % LA Diameter 3.8 cm RA Systolic Volume 4C AL 49.8 ml RA Systolic Volume 4C MOD 49.3 ml Aorta at Sinotubular Diameter 2.6 cm M-MODE LA Ao Ratio MM 1.3 AV Cusp Separation MM 1.3 cm DOPPLER AV Peak Velocity 322.0 cm/s AV Area Cont Eq vti 1.1 cm squared AV Area Cont Eq pk 0.9 cm squared MV Peak Velocity 330.7 cm/s MV Area PHT 3.8 cm squared Mitral E to A Ratio 1.2 TR Peak Velocity 315.0 cm/s TR Peak Gradient 39.7 mmHg PV Peak Velocity 124.0 cm/s FINDINGS Left Ventricle Mildly dilated LV cavity. Mild diffuse hypokinesia of the left ventricle. Ejection fraction of 45 to 50% Right Ventricle The right ventricle is normal in size and function. Right Atrium The right atrium is normal in size. Left Atrium Mildly increased left atrial size. Mitral Valve Mild mitral annular calcification. Possibly severe eccentric mitral regurgitation with the regurgitant jet circling around the left atrium. Moderate prolapse of the anterior mitral leaflet Aortic Valve Moderate aortic valve stenosis, mean gradient 20.4 mmHg, ANIKA 1.1 cm squared. Peak velocity of 3.22 m/s Tricuspid Valve Eair-em-xocrwkke tricuspid valve regurgitation. Pulmonic Valve Pulmonic valve not well visualized. Pericardium Normal pericardium without effusion. Aorta Normal ascending aorta dimension. IVC Dilated IVC with decreased respiratory variation. CONCLUSIONS Mildly dilated LV cavity. Mild diffuse hypokinesia of the left ventricle. Ejection fraction of 45 to 50%. Possibly severe eccentric mitral regurgitation with the regurgitant jet circling around the left atrium. Moderate prolapse of the anterior mitral leaflet. Mild mitral annular calcification. Moderate aortic valve stenosis, mean gradient 20.4 mmHg, ANIKA 1.1 cm squared. Peak velocity of 3.22 m/s. [id number] tricuspid valve regurgitation. Estimated pulmonary artery peak systolic pressure 55 mmHg- moderate pulmonary hypertension There is no pericardial effusion. There are no intracardiac masses. No similar previous studies are available for comparison Dr Josephine Sewell MD [facility] (Electronically Signed) Final Date: 06 August 2023 20:46 S
[2023-08-06] MEDS: ipratropium-albuterol 3 mL Neb INHALATION ×3 (09:24→20:19)
[2023-08-06] MEDS: atorvastatin 40 mg Tablet 80 MG PO (10:00)
[2023-08-06] MEDS: FUROsemide 10 mg/mL SDV 4mL 40 MG IVP ×3 (10:00→20:46)
[2023-08-06] MEDS: sennosides-docusate Tablet 1 TAB PO (10:00)
[2023-08-06] MEDS: gabapentin 300 mg Capsule 600 MG PO ×2 (10:00→18:40)
[2023-08-06] MEDS: sodium chloride 0.9% 100 mL Bag 50 ML IV (11:15)
[2023-08-06 12:49] LABS: Bilirubin Urine Neg (Negative); Blood Urine 3+ (Negative); Glucose Urine UA Norm (Normal); Ketones Urine Negative (Negative); Leukocyte Esterase Urine Negative (Negative); Nitrate Urine Negative (Negative); Protein Urine Trace (Negative); Urine Appearance Clear (CLEAR); Urine Color Yellow (Yellow); Urobilinogen Urine Norm (Negative); pH Urine 5 (5-7)
[2023-08-06 12:50] LABS: Add Urine Culture? No; Bacteria Urine TRACE /hpf; RBC Urine 0-4 /hpf (0-2)
[2023-08-06] MEDS: acyclovir 400 mg Tablet PO (18:40)
[2023-08-07] VITALS (11 sets, daily range): BP systolic 106–139; BP diastolic 57–80; PULSE 76–105; RESP 16–35; TEMP 36.3–36.9; O2SAT 92–96
[2023-08-07] MEDS: pantoprazole 40 mg SDV IVP ×2 (01:55→11:45)
[2023-08-07 03:53] LABS: Eosinophils % 0.2 %; Hematocrit 26.9 % (37-53); Lymphocytes # 0.2 10^3/uL (0.8-4.8); Lymphocytes % 1.9 %; Mean Corpuscular HGB Conc 33.1 g/dL (30-55); Mean Corpuscular Hemoglobin 32.1 pg (27-33); Mean Corpuscular Volume 97.1 fl (82-101); Monocytes # 0.9 10^3/uL (0.2-0.9); Monocytes % 9.1 %; Neutrophils # 8.14 10^3/uL (1.8-7.7); Nucleated Red Blood Cells % 0 %; Platelet Count 60 10^3/cmm (157-399); Red Blood Count 2.77 10^6/uL (3.85-5.65); Red Cell Distribution Width 18.8 % (12.1-15.1); White Blood Count 9.36 10^3/uL (3.29-11.43)
[2023-08-07 04:24] LABS: Alanine Aminotransferase 15 U/L (0-41); Albumin Level 3.2 g/dL (3.5-5.2); Alkaline Phosphatase 97 U/L (40-130); Anion Gap 15.6 (5-19); Aspartate Amino Transferase 27 U/L (0-40); Blood Urea Nitrogen 25 mg/dL (8-23); Calcium 7.5 mg/dL (8.5-10.5); Carbon Dioxide 25 mmol/L (22-29); Chloride 95 mmol/L (98-107); Creatinine Clr Calc Pharmacy 50.8867; Globulin 2.4 g/dL (1.3-4.6); Glucose 107 mg/dL (65-115); Osmolality Calculated 279 mOsm/kg (285-295); Potassium 3.6 mmol/L (3.5-5.1); Sodium 132 mmol/L (136-145); Total Bilirubin 1.1 mg/dL (0.15-1.2); Total Protein 5.6 g/dL (6.6-8.7)
[2023-08-07] MEDS: sucralfate 1 gm Tablet PO ×2 (06:46→11:45)
--- NOTE | 2023-08-07 07:55 | P.PN_ITS ---
Documented by User: MICHAEL Grimm STDSHELLY 08/07/23 08:33 Subjective 2 Subjective: Patient resting in bed on room air, noted to be at bedside. Mr. Sierra still complains of shortness of breath and states he has been using a flutter value intermittently and reports he is finally able to cough up sputum. Sputum noted to be thick and dark. Patient stated he got up in a chair yesterday and does plan to do the same today. Medications: Reviewed: Yes Vitals/I&O/Wt Last Vital Signs Temp 98.4 F 08/07/23 04:00 Pulse 81 08/07/23 06:00 Resp 16 08/07/23 04:00 BP 115/57 08/07/23 04:00 Pulse Ox 92 08/07/23 04:00 O2 Del Method Nasal Cannula 08/07/23 04:00 O2 Flow Rate 1.5 08/06/23 07:45 08/06/23 08/07/23 08/07/23 22:59 06:59 14:59 Intake Total 240 / 830 380 / 1210 Output Total 1200 / 1550 800 / 2350 Balance -960 / -720 -420 / -1140 Weight last 48 hrs Weight 236 lb 8 oz Weight 245 lb Weight 243 lb 1.6 oz Weight 227 lb Physical Exam 2 Narrative: General exam is a white male, on room air. No apparent distress. HEENT: Atraumatic normocephalic. Oropharynx clear. Neck is supple, no lymphadenopathy thyromegaly Cardiovascular currently regular, occasional premature beat, no murmur Lungs sounds noted to have expiratory wheezes. Reports coughing up thick dark sputum today. Abdomen is soft, non-tender with positive bowel sounds. exams deferred Extremities trace edema lower legs, cap refill brisk. Skin no rash Neuro no obvious focal deficits Urinary Catheter Management: Disla: Cath Placed During This Visit: yes Reason for Continuing Indwelling Catheter: Accurate Measurement of Urinary Output in Critically Ill Patients Urinary Catheter Date of Insertion: 08/06/23 Urinary Catheter Time of Insertion: 00:55 Data 08/07/23 03:23 08/07/23 03:23 Micro: Microbiology 08/05/23 22:18 Blood Culture - Preliminary Blood NEGATIVE TO DATE 08/05/23 22:17 Blood Culture - Preliminary Blood NEGATIVE TO DATE A&P Assessment and plan (1) Atrial fibrillation with rapid ventricular response: New onset A-fib with RVR. Patient not a candidate to be on anticoagulation, secondary to anemia and thrombocytopenia Repeat EKG 08/06/23 demonstrates sinus rhythm. In looking back on his previous EKG I wonder if he has sinus tachycardia with frequent PACs Echo 08/06/23 EF of 45-50% with severe eccentric Mitral regurgitation and moderate aortic valve stenosis. (2) Anemia: Acute on chronic anemia Patient noted to have GI bleed, EGD and colonoscopy was done 4 to 5 weeks ago. He received 2 units of blood at that time. Goal hemoglobin above 9 Patient received 1 unit of blood yesterday morning, hemoglobin 08/07/23 is 8.9 Requested medical records from [facility]. They were concerned at that time that he had a cecal erosion causing bleeding. EGD was unremarkable. (3) Pulmonary edema: New onset CHF, patient noted to have 1,210mL out in urine overnight. Echo this admission 08/07/23 demonstrated an EF of 45-50% with severe eccentric Mitral regurgitation and moderate aortic valve stenosis No active chest pain Patient will need coronary angiogram for further evaluation, has known history of coronary disease Continue IV Lasix 40mg BID Currently on room air, reports coughing up sputum this am He has acute systolic heart failure. Echocardiogram at [facility] recently done 5-6 Weeks ago demonstrated EF of 40 to 45%, moderate to severe aortic stenosis, moderate to severe mitral regurgitation. Aortic valve area 0.6 (4) Acute hypoxemic respiratory failure: Acute hypoxia secondary to pulmonary edema On room air, not requiring oxygen supplementation. Concern for pulmonary infiltrate with significant leukocytosis, Patient reports coughing up thick dark sputum this morning. Obtain sputum sample Initiate Rocephin IV and doxycycline PO Obtain Respiratory Panel Obtain MRSA swab (5) Non-STEMI (non-ST elevated myocardial infarction): Appears to be a type II elevation Denies chest pain, palpitations currently. Ischemia or infarctive changes not evident on the EKG Not a candidate to be on anticoagulating agent secondary to anemia and thrombocytopenia *Consider low-dose aspirin, but will need to review history of hospitalization at [facility] (6) Thrombocytopenia: Chronic thrombocytopenia as per the family (7) ARIE (acute kidney injury): Cardiorenal anticipate improvement with diuresis Continue to monitor closely, CMP for am. BUN 25, creatinine 1.5 this am (8) Pneumonia: Plan Multiple myeloma Finished 2 cycles of immunotherapy, third cycle to be started on 08/06, Reverse Isolation precautions. Oncologist at [facility] He is agreeable to staying for management here. His resp therapist is Dr. Fields at [facility]. Continue physical therapy. Full code Cardiac diet DVT prophylaxis covered with SCDs Close follow-up of electrolytes as he is on IV Lasix which is potentially renal toxic medication. High complexity. Coding Level of Care Code 28854 Diagnoses Atrial fibrillation with rapid ventricular response I48.91 Anemia D64.9 Pulmonary edema J81.1 Acute hypoxemic respiratory failure J96.01 Non-STEMI (non-ST elevated myocardial infarction) I21.4 Thrombocytopenia D69.6 ARIE (acute kidney injury) N17.9 Pneumonia J18.9 Time Spent (min) 22 Documented by User: Todd Jimenez MD 08/07/23 09:31 Physical Exam 2 Narrative: General exam is a white male, on room air. No apparent distress. HEENT: Atraumatic normocephalic. Oropharynx clear. Neck is supple, no lymphadenopathy thyromegaly Cardiovascular currently regular, occasional premature beat, no murmur Lungs sounds noted to have expiratory wheezes. Reports coughing up thick dark sputum today. Abdomen is soft, non-tender with positive bowel sounds. exam Disla noted Extremities trace edema lower legs, cap refill brisk. Skin no rash Neuro no obvious focal deficits Urinary Catheter Management: Disla: Cath Placed During This Visit: yes Data 08/07/23 03:23 08/07/23 03:23 A&P Assessment and plan (1) Atrial fibrillation with rapid ventricular response: New onset A-fib with RVR. Patient not a candidate to be on anticoagulation, secondary to anemia and thrombocytopenia Repeat EKG 08/06/23 demonstrates sinus rhythm. In looking back on his previous EKG I wonder if he has sinus tachycardia with frequent PACs Echo 08/06/23 EF of 45-50% with severe eccentric Mitral regurgitation and moderate aortic valve stenosis. This is similar to his echocardiogram at [facility]. Overall heart rate is controlled (2) Anemia: Acute on chronic anemia Patient noted to have GI bleed, EGD and colonoscopy was done 4 to 5 weeks ago. He received 2 units of blood at that time. Patient received 1 unit of blood 08/05, hemoglobin 08/07/23 is 8.9 Requested medical records from [facility]. They were concerned at that time that he had a cecal erosion causing bleeding. EGD was unremarkable. (3) Pulmonary edema: New onset CHF, patient noted to have 1,210mL out in urine overnight. Echo this admission 08/07/23 demonstrated an EF of 45-50% with severe eccentric Mitral regurgitation and moderate aortic valve stenosis No active chest pain Continue IV Lasix 40mg BID Currently on room air, reports coughing up sputum this am He has acute systolic heart failure. (4) Acute hypoxemic respiratory failure: Acute hypoxia secondary to pulmonary edema On room air, not requiring oxygen supplementation. Concern for pulmonary infiltrate with significant leukocytosis, Patient reports coughing up thick dark sputum this morning. Obtain sputum sample Initiate Rocephin IV and doxycycline PO Obtain Respiratory Panel Obtain MRSA swab Clinically consistent with pneumonia (5) Non-STEMI (non-ST elevated myocardial infarction): Appears to be a type II elevation Denies chest pain, palpitations currently. Ischemia or infarctive changes not evident on the EKG Not a candidate to be on anticoagulating agent secondary to anemia and thrombocytopenia *Consider low-dose aspirin. (6) Thrombocytopenia: Chronic thrombocytopenia as per the family. Improving slightly. His lenalidomide is also been held. (7) ARIE (acute kidney injury): Cardiorenal anticipate improvement with diuresis Continue to monitor closely, CMP for am. BUN 25, creatinine 1.4 this am (8) Pneumonia: See notations under hypoxic respiratory failure Attestations 2 Medical Necessity Statement*: Needs continued hospital stay for diuresis secondary to acute systolic heart failure with valvular dysfunction Diagnoses Atrial fibrillation with rapid ventricular response I48.91 Anemia D64.9 Pulmonary edema J81.1 Acute hypoxemic respiratory failure J96.01 Non-STEMI (non-ST elevated myocardial infarction) I21.4 Thrombocytopenia D69.6 ARIE (acute kidney injury) N17.9 Pneumonia J18.9 Time Spent (min) 22
[2023-08-07] MEDS: atorvastatin 40 mg Tablet 80 MG PO (08:48)
[2023-08-07] MEDS: gabapentin 300 mg Capsule 600 MG PO ×2 (08:48→16:44)
[2023-08-07] MEDS: doxycycline 100 mg Tablet PO ×2 (08:49→16:44)
[2023-08-07] MEDS: cefTRIAXone 1,000 MG in sodium chloride 0.9% (plus) 50 ML 100 MG IV (08:49)
[2023-08-07] MEDS: FUROsemide 10 mg/mL SDV 4mL 40 MG IVP (08:49)
[2023-08-07] MEDS: acyclovir 400 mg Tablet PO ×2 (08:49→16:44)
--- NOTE | 2023-08-07 10:00 | PC.CHAP ---
Pastoral Care Encounter/Spiritual Assessment Type of Contact [] Declined monument erector visit [] Patient/Family/Request visit [] Outpatient visit [] Follow-up visit [] Physician referral [] Code/Alert [x] Routine visit [] Staff referral [] Actively dying [] Patient sleeping [] Family support [] [] Out of room [] Palliative care [] [] Receiving care in room [] Pre-surgical visit [] Trauma [] Long length of stay [] ICU visit [] Other: Relational/Emotional Strength [x] Patient feels connected with others/family/visitors/staff [] Distress [] Loneliness/isolation [] Abandonment Spirituality of Patient [x] Person of Jennifer [] Attends Holiness of their Jennifer [x] Believes in Prayer [] Reads Bible or Methodist materials [] There are Spiritual issues to be addressed Wage Adjuster Interventions [x] Prayer [x] Active listening [] Non-anxious presence [x] Spiritual/emotional support [] Crisis/trauma care [] Spiritual counseling [] Bereavement support [] Provided bereavement packet [] Provided Bible/devotional materials [] Provided toy/stuffed animal, coloring book to patient or family member [] Provided Communion [] Anointing/[place] [] Salvation [x] Completed spiritual assessment [] Other: Impact on Illness or Injury [] Angry [] Fearful [] Anxious [] Often cries [] Exhaustion [] Unable to work [] Unable to attend gnosticist [] Unable to walk/stand [] Unable to read [] Unable to drive [] Unable to eat/drink [] Unable to sleep [] Unable to be with family [] Patient intubated [] Other: Summary Time spent with patient 5 min
[2023-08-07 14:10] LABS: Adenovirus Not Detected (NOT DETECT); Chlamydia Pneumoniae Not Detected (NOT DETECT); Coronavirus 229E,HKU1,NL63,OC4 Not Detected (NOT DETECT); Human Metapneumovirus Not Detected (NOT DETECT); Human Rhinovirus/Enterovirus Not Detected (NOT DETECT); Influenza A Not Detected (NOT DETECT); Influenza A H1 Not Detected (NOT DETECT); Influenza A H1-2009 Not Detected (NOT DETECT); Influenza A H3 Not Detected (NOT DETECT); Influenza B Not Detected (NOT DETECT); Mycoplasma Pneumoniae Not Detected (NOT DETECT); Parainfluenza Virus Type 1 Not Detected (NOT DETECT); Parainfluenza Virus Type 2 Not Detected (NOT DETECT); Parainfluenza Virus Type 3 Not Detected (NOT DETECT); Parainfluenza Virus Type 4 Not Detected (NOT DETECT); Respiratory Syncytial Virus A Not Detected (NOT DETECT); Respiratory Syncytial Virus B Not Detected (NOT DETECT); SARS-COV-2 Not Detected (NOT DETECT)
[2023-08-07] MEDS: sucralfate 1 gm/10 mL Oral Liq UDC PO ×2 (17:30→20:52)
[2023-08-07] MEDS: FUROsemide 10 mg/mL SDV 4mL 60 MG IVP (20:53)
[2023-08-08] VITALS (11 sets, daily range): BP systolic 86–119; BP diastolic 56–77; PULSE 61–115; RESP 16–29; TEMP 36.6–36.9; O2SAT 93–97; BMI 38.0
[2023-08-08] MEDS: pantoprazole 40 mg SDV IVP (01:11)
[2023-08-08 03:51] LABS: Basophils % 0.1 %; Eosinophils # 0.1 10^3/uL (0.0-0.8); Eosinophils % 1.3 %; Hematocrit 27.2 % (37-53); Lymphocytes # 0.2 10^3/uL (0.8-4.8); Lymphocytes % 2.3 %; Mean Corpuscular HGB Conc 32.4 g/dL (30-55); Mean Corpuscular Hemoglobin 31.7 pg (27-33); Mean Corpuscular Volume 97.8 fl (82-101); Mean Platelet Volume 13.7 fL (7.4-10.4); Monocytes # 1.1 10^3/uL (0.2-0.9); Neutrophils # 6.66 10^3/uL (1.8-7.7); Neutrophils % 81.7 %; Nucleated Red Blood Cells % 0 %; Platelet Count 74 10^3/cmm (157-399); Red Blood Count 2.78 10^6/uL (3.85-5.65); Red Cell Distribution Width 18.6 % (12.1-15.1); White Blood Count 8.16 10^3/uL (3.29-11.43)
[2023-08-08 04:26] LABS: Alanine Aminotransferase 16 U/L (0-41); Alkaline Phosphatase 100 U/L (40-130); Anion Gap 14.1 (5-19); Aspartate Amino Transferase 30 U/L (0-40); Blood Urea Nitrogen 27 mg/dL (8-23); Calcium 7.5 mg/dL (8.5-10.5); Carbon Dioxide 27 mmol/L (22-29); Chloride 95 mmol/L (98-107); Creatinine Clr Calc Pharmacy 53.7797; Globulin 2.6 g/dL (1.3-4.6); Glucose 94 mg/dL (65-115); Magnesium 1.9 mg/dL (1.7-2.3); Osmolality Calculated 281 mOsm/kg (285-295); Potassium 3.1 mmol/L (3.5-5.1); Sodium 133 mmol/L (136-145); Total Bilirubin 0.9 mg/dL (0.15-1.2); Total Protein 5.6 g/dL (6.6-8.7)
[2023-08-08] MEDS: ipratropium-albuterol 3 mL Neb INHALATION ×2 (04:35→07:32)
[2023-08-08] MEDS: sucralfate 1 gm/10 mL Oral Liq UDC PO ×4 (06:40→20:20)
[2023-08-08] MEDS: potassium chloride ER 20 mEq Tablet 40 MEQ PO ×2 (08:51→13:06)
[2023-08-08] MEDS: metoprolol tartrate 25 mg Tablet 12.5 MG PO (08:51)
[2023-08-08] MEDS: gabapentin 300 mg Capsule 600 MG PO ×2 (08:51→17:36)
[2023-08-08] MEDS: atorvastatin 40 mg Tablet 80 MG PO (08:51)
[2023-08-08] MEDS: doxycycline 100 mg Tablet PO ×2 (08:52→17:36)
[2023-08-08] MEDS: cefTRIAXone 1,000 MG in sodium chloride 0.9% (plus) 50 ML 100 MG IV (08:52)
[2023-08-08] MEDS: acyclovir 400 mg Tablet PO ×2 (08:52→17:36)
[2023-08-08] MEDS: aspirin 81 mg EC Tablet PO (08:52)
[2023-08-08] MEDS: FUROsemide 10 mg/mL SDV 4mL 60 MG IVP (08:52)
[2023-08-08] MEDS: sennosides-docusate Tablet 1 TAB PO (08:52)
--- NOTE | 2023-08-08 09:10 | PM.PN ---
Documented by User: MICHAEL Grimm STDSHELLY 08/08/23 09:38 Subjective Subjective: Patient is resting in bed on room air, noted to be at bed side this morning. Mr. Sierra states he feels he is having an easier time breathing this morning and complains of difficulty sleeping overnight due to some trouble breathing. He received a breathing treatment over night that help him significantly. Denies chest pain, palpitations, nausea this am. Medications: Reviewed: Yes Vitals/I&O/Wt Last Vital Signs Temp 97.8 F 08/08/23 04:44 Pulse 109 H 08/08/23 07:32 Resp 22 H 08/08/23 07:32 BP 114/60 08/08/23 04:44 Pulse Ox 96 08/08/23 07:32 O2 Del Method Room Air 08/08/23 07:32 O2 Flow Rate 1.5 08/06/23 07:45 08/07/23 08/08/23 08/08/23 22:59 06:59 14:59 Intake Total 600 / 1010 Output Total 2100 / 2100 400 / 2500 Balance -1500 / -1090 -400 / -1490 Weight last 48 hrs Weight 235 lb 5 oz Weight 236 lb 8 oz Physical Exam Narrative: General exam is a white male, on room air. No apparent distress. Neck is supple, no lymphadenopathy thyromegaly Cardiovascular currently regular, occasional premature beat, no murmur, intermittent tachycardia. Lungs sounds noted to be diminished. Reports breathing easier today. Abdomen is soft, non-tender with positive bowel sounds. exam Disla noted Extremities trace edema lower legs, cap refill brisk. Urinary Catheter Management: Disla: Cath Placed During This Visit: yes Reason for Continuing Indwelling Catheter: Other Urinary Catheter Date of Insertion: 08/06/23 Urinary Catheter Time of Insertion: 00:55 Data 08/08/23 03:25 08/08/23 03:25 A&P Assessment and plan (1) Atrial fibrillation with rapid ventricular response: New onset A-fib with RVR. Patient not a candidate to be on anticoagulation, secondary to anemia and thrombocytopenia Repeat EKG on 08/06/23 demonstrates sinus rhythm. In looking back on his previous EKG I wonder if he has sinus tachycardia with frequent PACs Echo 08/06/23 EF of 45-50% with severe eccentric Mitral regurgitation and moderate aortic valve stenosis. This is similar to his echocardiogram at [facility]. Heart rate this morning noted to have intermittent regulated tachycardia with frequent PVCs , initiate beta-rocio of metoprolol 12.5mg BID. (2) Anemia: Acute on chronic anemia Patient noted to have GI bleed, EGD and colonoscopy was done 4 to 5 weeks ago. He received 2 units of blood at that time. Patient received 1 unit of blood 08/05, hemoglobin 08/08/23 is 8.8 Requested medical records from [facility]. They were concerned at that time that he had a cecal erosion causing bleeding. EGD was unremarkable. (3) Pulmonary edema: New onset CHF. Echo this admission 08/07/23 demonstrated an EF of 45-50% with severe eccentric Mitral regurgitation and moderate aortic valve stenosis No active chest pain Continue IV Lasix 40mg BID. Potassium 3.1 08/08/23 supplemented with 40meq of oral potassium this morning and additional 40meq of potassium this afternoon. CMP in am, follow up. He has acute systolic heart failure. (4) Acute hypoxemic respiratory failure: Acute hypoxia secondary to pulmonary edema On room air, not requiring oxygen supplementation. Concern for pulmonary infiltrate with significant leukocytosis, Patient reports coughing up thick dark sputum this morning. Sputum sample pending. Continue Rocephin IV and doxycycline PO Respiratory Panel unremarkable 08/07/23 MRSA swab pending Clinically consistent with pneumonia (5) Non-STEMI (non-ST elevated myocardial infarction): Appears to be a type II elevation Denies chest pain, palpitations currently. Ischemia or infarctive changes not evident on the EKG Not a candidate to be on anticoagulating agent secondary to anemia and thrombocytopenia Discussion this morning about restarting aspirin 81mg this morning, patient is agreeable. (6) Thrombocytopenia: Chronic thrombocytopenia as per the family. Improving slightly. Continue to hold his lenalidomide is also been held. Discussion this morning about restarting aspirin 81mg this morning, patient is agreeable. CBC in am. (7) RAIE (acute kidney injury): Cardiorenal anticipate improvement with diuresis Continue to monitor closely, CMP for am. BUN 27, creatinine 1.3. this am (8) Pneumonia: See notations under hypoxic respiratory failure Plan Multiple myeloma Finished 2 cycles of immunotherapy, third cycle to be started on 08/13/23, Reverse Isolation precautions. Oncologist at [facility] He is agreeable to staying for management here. His senior qa tester is Dr. Fields at [facility]. Continue physical therapy. Full code Cardiac diet DVT prophylaxis covered with SCDs Close follow-up of electrolytes as he is on IV Lasix which is potentially renal toxic medication. High complexity. Coding Level of Care Code 61154 Diagnoses Atrial fibrillation with rapid ventricular response I48.91 Anemia D64.9 Pulmonary edema J81.1 Acute hypoxemic respiratory failure J96.01 Non-STEMI (non-ST elevated myocardial infarction) I21.4 Thrombocytopenia D69.6 ARIE (acute kidney injury) N17.9 Pneumonia J18.9 Time Spent (min) 26 Documented by User: Todd Jimenez MD 08/08/23 10:15 Physical Exam Urinary Catheter Management: Disla: Cath Placed During This Visit: yes Data 08/08/23 03:25 08/08/23 03:25 A&P Assessment and plan (1) Atrial fibrillation with rapid ventricular response: (2) Anemia: (3) Pulmonary edema: New onset CHF. Echo this admission 08/07/23 demonstrated an EF of 45-50% with severe eccentric Mitral regurgitation and moderate aortic valve stenosis No active chest pain Continue IV Lasix 60mg BID. Potassium 3.1 08/08/23 supplemented with 40meq of oral potassium this morning and additional 40meq of potassium this afternoon. Magnesium level is normal. CMP in am, follow up. He has acute systolic heart failure. (4) Acute hypoxemic respiratory failure: (5) Non-STEMI (non-ST elevated myocardial infarction): (6) Thrombocytopenia: Chronic thrombocytopenia as per the family. Continues to slowly improve, now up to 74,000 Continue to hold his lenalidomide. Discussion this morning about restarting aspirin 81mg this morning, patient is agreeable. CBC in am. (7) ARIE (acute kidney injury): (8) Pneumonia: Attestations Medical Necessity Statement*: Needs continued hospitalization for further diuresis secondary to acute systolic heart failure Diagnoses Atrial fibrillation with rapid ventricular response I48.91 Anemia D64.9 Pulmonary edema J81.1 Acute hypoxemic respiratory failure J96.01 Non-STEMI (non-ST elevated myocardial infarction) I21.4 Thrombocytopenia D69.6 ARIE (acute kidney injury) N17.9 Pneumonia J18.9 Time Spent (min) 26
--- NOTE | 2023-08-08 09:27 | PC.SOCIAL ---
IMM Update Pg. 2 of IMM updated and reviewed with patient and his . Copy provided. Copy in chart updated.
[2023-08-08 14:10] LABS: Methicillin-Resist S.aureu PCR NOT DETECTED (NOT DETECTED)
--- NOTE | 2023-08-08 17:15 | PC.NURSE ---
Physician orders: Discontinue lasix and metoprolol
[2023-08-08] MEDS: pantoprazole DR 40 mg Tablet PO (17:36)
[2023-08-09] VITALS (11 sets, daily range): BP systolic 98–121; BP diastolic 59–69; PULSE 68–103; RESP 16–23; TEMP 36.4–36.9; O2SAT 94–96
[2023-08-09 04:14] LABS: Eosinophils # 0.1 10^3/uL (0.0-0.8); Eosinophils % 2.5 %; Hematocrit 26.7 % (37-53); Lymphocytes # 0.2 10^3/uL (0.8-4.8); Lymphocytes % 3.3 %; Mean Corpuscular Hemoglobin 31.7 pg (27-33); Mean Platelet Volume 13.8 fL (7.4-10.4); Monocytes # 0.8 10^3/uL (0.2-0.9); Monocytes % 14.4 %; Neutrophils # 4.47 10^3/uL (1.8-7.7); Neutrophils % 78.2 %; Nucleated Red Blood Cells % 0 %; Platelet Count 100 10^3/cmm (157-399); Red Blood Count 2.78 10^6/uL (3.85-5.65); Red Cell Distribution Width 18.7 % (12.1-15.1); White Blood Count 5.71 10^3/uL (3.29-11.43)
[2023-08-09 04:33] LABS: Anion Gap 13.5 (5-19); Blood Urea Nitrogen 27 mg/dL (8-23); Calcium 7.4 mg/dL (8.5-10.5); Carbon Dioxide 26 mmol/L (22-29); Chloride 95 mmol/L (98-107); Creatinine Clr Calc Pharmacy 49.8057; Glucose 97 mg/dL (65-115); Magnesium 1.8 mg/dL (1.7-2.3); Osmolality Calculated 277 mOsm/kg (285-295); Potassium 3.5 mmol/L (3.5-5.1); Sodium 131 mmol/L (136-145)
[2023-08-09] MEDS: ipratropium-albuterol 3 mL Neb INHALATION (04:50)
[2023-08-09] MEDS: sucralfate 1 gm/10 mL Oral Liq UDC PO ×4 (06:42→20:35)
--- NOTE | 2023-08-09 08:39 | P.PN_ITS ---
Documented by User: MICHAEL Grimm STD 08/09/23 12:25 Subjective 2 Subjective: Patient resting in bed on room air, noted to be at the bedside. He states he is feeling overall better did report some trouble sleeping due to having some low blood pressure overnight. Medications to be readjusted. Denies chest pain, palpitations. Medications: Reviewed: Yes Vitals/I&O/Wt Last Vital Signs Temp 97.5 F L 08/09/23 08:08 Pulse 103 H 08/09/23 08:08 Resp 23 H 08/09/23 08:08 BP 103/59 08/09/23 08:08 Pulse Ox 96 08/09/23 08:08 O2 Del Method Room Air 08/09/23 04:50 O2 Flow Rate 1.5 08/06/23 07:45 08/08/23 08/09/23 08/09/23 22:59 06:59 14:59 Intake Total 400 / 690 Output Total 750 / 750 350 / 1100 Balance -750 / -460 50 / -410 Weight last 48 hrs Weight 229 lb 6.4 oz Weight 235 lb 5 oz Physical Exam 2 Narrative: General exam is a white male, on room air. No apparent distress. Neck is supple, no lymphadenopathy thyromegaly Cardiovascular currently regular, intermittent tachycardia. Lungs sounds noted to have wheezes at bases. Abdomen is soft, non-tender with positive bowel sounds. exam Disla noted Extremities trace edema lower legs, cap refill brisk. Urinary Catheter Management: Disla: Cath Placed During This Visit: yes Reason for Continuing Indwelling Catheter: Accurate Measurement of Urinary Output in Critically Ill Patients Urinary Catheter Date of Insertion: 08/06/23 Urinary Catheter Time of Insertion: 00:55 Data 08/09/23 03:37 08/09/23 03:37 Micro: Microbiology 08/08/23 04:13 Gram Stain - Final Sputum - Expectorated Sputum A&P Assessment and plan (1) Atrial fibrillation with rapid ventricular response: New onset A-fib with RVR. Patient not a candidate to be on anticoagulation, secondary to anemia and thrombocytopenia Repeat EKG on 08/06/23 demonstrates sinus rhythm. In looking back on his previous EKG I wonder if he has sinus tachycardia with frequent PACs Echo 08/06/23 EF of 45-50% with severe eccentric Mitral regurgitation and moderate aortic valve stenosis. This is similar to his echocardiogram at [facility]. Heart rate this morning noted to have intermittent regulated tachycardia with frequent PVCs , started a beta-rocio of metoprolol 12.5mg BID on 08/08/23. Patient blood pressure dropped overnight, readjust metoprolol dose to 12.5 dly ER. Patient agreeable. (2) Anemia: Acute on chronic anemia Patient noted to have GI bleed, EGD and colonoscopy was done 4 to 5 weeks ago. He received 2 units of blood at that time. Patient received 1 unit of blood 08/05, hemoglobin 08/09/23 is 8.8. Requested medical records from [facility]. They were concerned at that time that he had a cecal erosion causing bleeding. EGD was unremarkable. (3) Pulmonary edema: New onset CHF. Echo this admission 08/07/23 demonstrated an EF of 45-50% with severe eccentric Mitral regurgitation and moderate aortic valve stenosis IV Lasix discontinued, Bumex 1mg PO ordered. Potassium 3.5 08/09/23 supplemented with 40meq of oral potassium this morning. Magnesium level is normal at 1.8. CMP in am, follow up. He has acute systolic heart failure. (4) Acute hypoxemic respiratory failure: Acute hypoxia secondary to pulmonary edema On room air, not requiring oxygen supplementation. Concern for pulmonary infiltrate with significant leukocytosis, Patient reports he is not coughing up less sputum. Sputum sample pending. Continue Rocephin IV and doxycycline PO Respiratory Panel unremarkable 08/07/23 MRSA swab not detected. Clinically consistent with pneumonia (5) Non-STEMI (non-ST elevated myocardial infarction): Appears to be a type II elevation Denies chest pain, palpitations currently. Ischemia or infarctive changes not evident on the EKG Not a candidate to be on anticoagulating agent secondary to anemia and thrombocytopenia Continue aspirin 81mg (6) Thrombocytopenia: Chronic thrombocytopenia as per the family. Continues to slowly improve, now up to 74,000 Continue to hold his lenalidomide. Discussion this morning about restarting aspirin 81mg this morning, patient is agreeable. CBC in am. (7) ARIE (acute kidney injury): Cardiorenal anticipate improvement with diuresis Continue to monitor closely, CMP for am. BUN 27, creatinine 1.4. this am (8) Pneumonia: See notations under hypoxic respiratory failure Plan Multiple myeloma Finished 2 cycles of immunotherapy, third cycle to be started on 08/13/23, Reverse Isolation precautions. Oncologist at [facility] He is agreeable to staying for management here. His time study engineer is Dr. Fields at [facility] Continue physical therapy. Full code Cardiac diet DVT prophylaxis covered with SCDs Close follow-up of electrolytes as he is on IV Lasix which is potentially renal toxic medication. High complexity. Attestations 2 Medical Necessity Statement*: Needs continued hospitalization due needing transition to oral medication for arrhythmia and diuretics in this patient with borderline blood pressures. Coding Level of Care Code 38451 Diagnoses Atrial fibrillation with rapid ventricular response I48.91 Anemia D64.9 Pulmonary edema J81.1 Acute hypoxemic respiratory failure J96.01 Non-STEMI (non-ST elevated myocardial infarction) I21.4 Thrombocytopenia D69.6 ARIE (acute kidney injury) N17.9 Pneumonia J18.9 Time Spent (min) 23 Documented by User: Todd Jimenez MD 08/09/23 12:27 Physical Exam 2 Urinary Catheter Management: Disla: Cath Placed During This Visit: yes Data 08/09/23 03:37 08/09/23 03:37 A&P Assessment and plan (1) Atrial fibrillation with rapid ventricular response: (2) Anemia: (3) Pulmonary edema: (4) Acute hypoxemic respiratory failure: (5) Non-STEMI (non-ST elevated myocardial infarction): (6) Thrombocytopenia: Chronic thrombocytopenia as per the family. Continues to slowly improve, now up to 74,000 Continue to hold his lenalidomide. Continue aspirin CBC in am. (7) ARIE (acute kidney injury): (8) Pneumonia: Diagnoses Atrial fibrillation with rapid ventricular response I48.91 Anemia D64.9 Pulmonary edema J81.1 Acute hypoxemic respiratory failure J96.01 Non-STEMI (non-ST elevated myocardial infarction) I21.4 Thrombocytopenia D69.6 ARIE (acute kidney injury) N17.9 Pneumonia J18.9 Time Spent (min) 23
[2023-08-09] MEDS: metoprolol succinate ER (24 HR) 25 mg Tablet 12.5 MG PO (08:54)
[2023-08-09] MEDS: acyclovir 400 mg Tablet PO ×2 (08:54→17:36)
[2023-08-09] MEDS: bumetanide 1 mg Tablet PO (08:54)
[2023-08-09] MEDS: doxycycline 100 mg Tablet PO ×2 (08:54→17:36)
[2023-08-09] MEDS: atorvastatin 40 mg Tablet 80 MG PO (08:54)
[2023-08-09] MEDS: aspirin 81 mg EC Tablet PO (08:54)
[2023-08-09] MEDS: gabapentin 300 mg Capsule 600 MG PO ×2 (08:54→17:36)
[2023-08-09] MEDS: cefTRIAXone 1,000 MG in sodium chloride 0.9% (plus) 50 ML 100 MG IV (08:55)
[2023-08-09] MEDS: pantoprazole DR 40 mg Tablet PO ×2 (08:55→17:36)
[2023-08-09] MEDS: potassium chloride ER 20 mEq Tablet 40 MEQ PO (12:21)
[2023-08-10] VITALS (7 sets, daily range): BP systolic 122–130; BP diastolic 60–72; PULSE 76–100; RESP 15–20; TEMP 36.5–36.7; O2SAT 96–97
[2023-08-10] MEDS: ipratropium-albuterol 3 mL Neb INHALATION (02:43)
[2023-08-10 04:14] LABS: Basophils % 0.2 %; Eosinophils # 0.1 10^3/uL (0.0-0.8); Eosinophils % 2.1 %; Hematocrit 28.1 % (37-53); Lymphocytes # 0.3 10^3/uL (0.8-4.8); Lymphocytes % 5.3 %; Mean Corpuscular HGB Conc 33.1 g/dL (30-55); Mean Corpuscular Hemoglobin 32.2 pg (27-33); Mean Corpuscular Volume 97.2 fl (82-101); Mean Platelet Volume 13.4 fL (7.4-10.4); Monocytes # 0.9 10^3/uL (0.2-0.9); Monocytes % 16.9 %; Neutrophils # 3.97 10^3/uL (1.8-7.7); Neutrophils % 74.7 %; Nucleated Red Blood Cells % 0 %; Platelet Count 104 10^3/cmm (157-399); Red Blood Count 2.89 10^6/uL (3.85-5.65); Red Cell Distribution Width 18.6 % (12.1-15.1); White Blood Count 5.31 10^3/uL (3.29-11.43)
[2023-08-10 04:27] LABS: Anion Gap 14.3 (5-19); Blood Urea Nitrogen 24 mg/dL (8-23); Calcium 7.3 mg/dL (8.5-10.5); Carbon Dioxide 24 mmol/L (22-29); Chloride 98 mmol/L (98-107); Creatinine Clr Calc Pharmacy 62.5492; Glucose 104 mg/dL (65-115); Osmolality Calculated 280 mOsm/kg (285-295); Potassium 3.3 mmol/L (3.5-5.1); Sodium 133 mmol/L (136-145)
[2023-08-10] MEDS: sucralfate 1 gm/10 mL Oral Liq UDC PO (06:02)
[2023-08-10] MEDS: potassium chloride ER 20 mEq Tablet 40 MEQ PO (08:49)
[2023-08-10] MEDS: atorvastatin 40 mg Tablet 80 MG PO (08:51)
[2023-08-10] MEDS: bumetanide 1 mg Tablet 2 MG PO (08:51)
[2023-08-10] MEDS: acyclovir 400 mg Tablet PO (08:52)
[2023-08-10] MEDS: levoFLOXacin 750 mg Tablet PO (08:52)
[2023-08-10] MEDS: gabapentin 300 mg Capsule 600 MG PO (08:52)
[2023-08-10] MEDS: metoprolol succinate ER (24 HR) 25 mg Tablet 12.5 MG PO (08:52)
[2023-08-10] MEDS: pantoprazole DR 40 mg Tablet PO (08:53)
[2023-08-10] MEDS: aspirin 81 mg EC Tablet PO (08:53)
--- NOTE | 2023-08-10 10:12 | PC.SOCIAL ---
IMM Updated Updated pt on IMM. No questions voiced. Provided pt a copy. Initialed, dated, & timed copy in chart.
--- NOTE | 2023-08-10 10:13 | P.DS_ITS ---
Discharge Providers Date of Admission: 08/06/23 00:04 Date of Discharge: August 10, 2023 Attending Provider at Admission: Keron Russell MD Attending Provider at Discharge: Todd Jimenez MD Primary Care Provider: Allegra Jimenez MD Diagnoses at Discharge Discharge Diagnosis (1) Atrial fibrillation with rapid ventricular response: Status: Acute (2) Anemia: Status: Acute (3) Pulmonary edema: Status: Acute (4) Acute hypoxemic respiratory failure: Status: Acute (5) Non-STEMI (non-ST elevated myocardial infarction): Status: Acute (6) Thrombocytopenia: Status: Acute (7) ARIE (acute kidney injury): Status: Acute (8) Pneumonia: Status: Acute Reason for Visit Reason for Visit: RESP. DISTRESS Hospital Course Hospital Course Mr. Sierra presented to the hospital through the emergency department on August 04 with hypoxemia, pulmonary edema, concern of atrial fibrillation, acute kidney injury, thrombocytopenia, and significant anemia. For anemia he was given a unit of blood. Diuresis was initiated shortly after. His lenalidomide which she was on for multiple myeloma was held. With this treatment he had gradual improvement. Hemoglobin came up appropriately with blood transfusion and no further transfusions were needed during his hospital course. Platelet count slowly rebounded after holding his lenalidomide. He continued to be diuresed, but this was limited somewhat by his blood pressure. Very low-dose beta-rocio and aspirin were added back during his hospital course. Antibiotics were added secondary to increased cough, with sputum production and sputum culture was obtained. This ultimately showed Pseudomonas and he will be discharged on Levaquin for this. By time of discharge she was feeling much better. He was able to ambulate in the room. He still had approximately 1+ edema in his lower extremities. Further attempts at removal all of the edema was difficult secondary to his valvular heart disease and moderate to severe aortic stenosis and severe mitral regurgitation. His Lasix was changed to Bumex and transition the day prior to discharge which she tolerated. At discharge he and his were given opportunity ask questions, and a treatment plan was laid out for close follow-up with his primary care provider, lab work, as well as home health. They agreed with the plan. Echocardiogram performed while in the hospital demonstrated findings similar to previous 1 done at [facility]. Ejection fraction 45 to 50%, moderate aortic stenosis, severe mitral regurgitation. He is not a candidate for anticoagulation at this time. He will be on a 1500 cc fluid restriction at discharge. Physical Exam Narrative: General exam no distress Neck is supple Cardiovascular regular in rhythm with 2/6 systolic murmur Lungs clear Abdomen is soft extremities show 1+ edema. Urinary Catheter Management: Disla: Cath Placed During This Visit: yes Reason for Continuing Indwelling Catheter: Accurate Measurement of Urinary Output in Critically Ill Patients Urinary Catheter Date of Insertion: 08/06/23 Urinary Catheter Time of Insertion: 00:55 Discharge Data Studies Completed and Pending Completed Studies During Hospitalization Category Date Time Status XR chest 1V portable [id number] Stat Exams 08/05/23 21:42 Completed CV. echo complete* [id number] Routine Ultrasound 08/06/23 09:00 Completed Pending at discharge Category Date Time Status Blood Culture Stat Lab 08/05/23 22:18 Results Sputum Culture and Gram Stain Routine Lab 08/07/23 07:58 Results Radiology Impressions Chest X-Ray 08/05/23 21:42 IMPRESSION: 1. Cardiomegaly with central vascular congestion and nonspecific interstitial prominence likely reflecting pulmonary edema. Trace effusions. Correlate with CHF. 2. Patchy basilar opacities likely reflecting confluent areas of edema though developing consolidation could have this appearance. Laboratory Results WBC 5.31 10^3/uL (3.29-11.43) 08/10/23 03:16 RBC 2.89 10^6/uL (3.85-5.65) L 08/10/23 03:16 Hgb 9.30 g/dL (11.27-16.99) L 08/10/23 03:16 Hct 28.1 % (37-53) L 08/10/23 03:16 MCV 97.2 fl (82-101) 08/10/23 03:16 MCH 32.2 pg (27-33) 08/10/23 03:16 MCHC 33.1 g/dL (30-55) 08/10/23 03:16 RDW 18.6 % (12.1-15.1) H 08/10/23 03:16 Plt Count 104 10^3/cmm (157-399) L 08/10/23 03:16 MPV 13.4 fL (7.4-10.4) H 08/10/23 03:16 Neut % (Auto) 74.7 % 08/10/23 03:16 Lymph % (Auto) 5.3 % 08/10/23 03:16 [place] % (Auto) 16.9 % 08/10/23 03:16 Eos % (Auto) 2.1 % 08/10/23 03:16 Baso % (Auto) 0.2 % 08/10/23 03:16 Neut # (Auto) 3.97 10^3/uL (1.8-7.7) 08/10/23 03:16 Lymph # (Auto) 0.3 10^3/uL (0.8-4.8) L 08/10/23 03:16 [place] # (Auto) 0.9 10^3/uL (0.2-0.9) 08/10/23 03:16 Eos # (Auto) 0.1 10^3/uL (0.0-0.8) 08/10/23 03:16 Baso # (Auto) 0.0 10^3/uL (0.0-0.1) 08/10/23 03:16 Nucleated RBC % (auto) 0 % 08/10/23 03:16 Nucleated RBCs # 0.0 /100WBC 08/10/23 03:16 D-Dimer 0.82 ug/mLFEU (0-0.59) H 08/05/23 21:03 Sodium 133 mmol/L (136-145) L 08/10/23 03:16 Potassium 3.3 mmol/L (3.5-5.1) L 08/10/23 03:16 Chloride 98 mmol/L (98-107) 08/10/23 03:16 Carbon Dioxide 24 mmol/L (22-29) 08/10/23 03:16 Anion Gap 14.3 (5-19) 08/10/23 03:16 BUN 24 mg/dL (8-23) H 08/10/23 03:16 Creatinine 1.1 mg/dL (0.7-1.2) 08/10/23 03:16 GFR Calculation Not Reportable 08/10/23 03:16 Glucose 104 mg/dL (65-115) 08/10/23 03:16 Estimat Average Glucose 103 08/05/23 21:03 Hemoglobin A1c 5.2 % (4.0-6.0) 08/05/23 21:03 Calculated Osmolality 280 mOsm/kg (285-295) L 08/10/23 03:16 Lactic Acid 2.1 mmol/L (0.5-2.2) 08/05/23 21:07 Lactic Acid (Sepsis) 2.4 mmol/L (0.5-2.2) H 08/05/23 22:45 Calcium 7.3 mg/dL (8.5-10.5) L 08/10/23 03:16 Phosphorus 3.0 mg/dL (2.5-4.5) 08/06/23 04:12 Magnesium 1.8 mg/dL (1.7-2.3) 08/09/23 03:37 Total Bilirubin 0.9 mg/dL (0.15-1.2) 08/08/23 03:25 AST 30 U/L (0-40) 08/08/23 03:25 ALT 16 U/L (0-41) 08/08/23 03:25 Alkaline Phosphatase 100 U/L (40-130) 08/08/23 03:25 Troponin T Baseline 115 ng/L (0-15) H* 08/05/23 21:07 Troponin T 120 Minute 104.1 ng/L (0-15) H 08/05/23 22:45 Delta Troponin T -10.9 ABS# (0-10) L 08/05/23 22:45 Troponin T Hi Sens 6Hr 96.57 ng/L (0-15) H 08/06/23 04:12 Troponin T Hi Sens 6Hr Delta -18.43 ng/L (0-12) L 08/06/23 04:12 NT-Pro-B Natriuret Pep 4861 pg/mL (0-450) H 08/05/23 21:07 Total Protein 5.6 g/dL (6.6-8.7) L 08/08/23 03:25 Albumin 3.0 g/dL (3.5-5.2) L 08/08/23 03:25 Globulin 2.6 g/dL (1.3-4.6) 08/08/23 03:25 Vitamin B12 1139 pg/mL (232-1245) 08/05/23 21:03 TSH 0.72 uIU/mL (0.27-4.20) 08/05/23 21:03 Urine Color Yellow (Yellow) 08/06/23 11:35 Urine Appearance Clear (CLEAR) 08/06/23 11:35 Urine pH 5 (5-7) 08/06/23 11:35 Ur Specific [place] 1.010 (1.005-1.030) 08/06/23 11:35 Urine Protein Trace (Negative) 08/06/23 11:35 Urine Glucose (UA) Norm (Normal) 08/06/23 11:35 Urine Ketones Negative (Negative) 08/06/23 11:35 Urine Blood 3+ (Negative) H 08/06/23 11:35 Urine Nitrate Negative (Negative) 08/06/23 11:35 Urine Bilirubin Neg (Negative) 08/06/23 11:35 Urine Urobilinogen Norm mg/dL (Negative) 08/06/23 11:35 Ur Leukocyte Esterase Negative (Negative) 08/06/23 11:35 Urine RBC 0-4 /hpf (0-2) H 08/06/23 11:35 Urine WBC None /hpf (0-5) 08/06/23 11:35 Ur Squamous Epith Cells None /hpf (0-5) 08/06/23 11:35 Amorphous Sediment Not Reportable 08/06/23 11:35 Urine Bacteria Trace /hpf (NONE) 08/06/23 11:35 Adenovirus (PCR) Not detected (NOT DETECT) 08/07/23 12:11 C. pneumoniae DNA (PCR) Not detected (NOT DETECT) 08/07/23 12:11 Coronavirus 229E (PCR) Not detected (NOT DETECT) 08/07/23 12:11 Human Metapneumovir PCR Not detected (NOT DETECT) 08/07/23 12:11 Influenza A (H1) PCR Not detected (NOT DETECT) 08/07/23 12:11 Influ A (H1/09) PCR Not detected (NOT DETECT) 08/07/23 12:11 Influenza A (H3) PCR Not detected (NOT DETECT) 08/07/23 12:11 Influenza Type A (PCR) Not detected (NOT DETECT) 08/07/23 12:11 Influenza Type B (PCR) Not detected (NOT DETECT) 08/07/23 12:11 M. pneumoniae (PCR) Not detected (NOT DETECT) 08/07/23 12:11 Parainfluenza 1 (PCR) Not detected (NOT DETECT) 08/07/23 12:11 Parainfluenza 2 (PCR) Not detected (NOT DETECT) 08/07/23 12:11 Parainfluenza 3 (PCR) Not detected (NOT DETECT) 08/07/23 12:11 Parainfluenza 4 (PCR) Not detected (NOT DETECT) 08/07/23 12:11 RSV Type A (PCR) Not detected (NOT DETECT) 08/07/23 12:11 RSV Type B (PCR) Not detected (NOT DETECT) 08/07/23 12:11 Entero/Rhino (PCR) Not detected (NOT DETECT) 08/07/23 12:11 SARS-CoV-2 (PCR) Not detected (NOT DETECT) 08/07/23 12:11 MRSA (PCR) Not detected (NOT DETECTED) 08/07/23 12:11 Blood Type A Positive 08/06/23 00:52 Rho(D) Type Rh positive 08/06/23 00:52 Antibody Screen Positive 08/06/23 00:52 Prewarmed Antibody Srcn Negative 08/06/23 00:52 Antibody Identification Cold Auto Aintobody 08/06/23 00:52 Cold Antibody Screen Positive 08/06/23 00:52 NICHOLE, IgG Interpret Negative 08/06/23 00:52 NICHOLE, Poly Interpret Pos-polyspecific 08/06/23 00:52 NICHOLE, Complement Interp Pos-complement 08/06/23 00:52 Crossmatch See Detail 08/06/23 00:52 Vitals Last Vital Signs Temp 97.8 F 08/10/23 08:00 Pulse 100 08/10/23 08:00 Resp 15 08/10/23 08:00 BP 124/68 08/10/23 08:00 Pulse Ox 96 08/10/23 08:00 O2 Del Method Nasal Cannula 08/10/23 08:00 O2 Flow Rate 1.5 08/06/23 07:45 Discharge Plan Discharge Patient Disposition: Home Condition: Stable Prescriptions: New aspirin 81 mg Tablet,Delayed Release (Dr/Ec) 81 mg PO DAILY Qty: 30 0RF pantoprazole 40 mg Tablet,Delayed Release (Dr/Ec) 40 mg PO BID Qty: 60 0RF metoprolol succinate 25 mg Tablet Extended Release 24 Hr 12.5 mg PO DAILY Qty: 15 0RF levofloxacin 750 mg Tablet 750 mg PO DAILY@0600 Qty: 6 0RF bumetanide 1 mg tablet 1.5 mg PO DAILY Qty: 45 0RF potassium chloride 20 mEq tablet extended release 20 meq PO DAILY Qty: 30 0RF Continued atorvastatin 80 mg Tablet 80 mg PO QAM loperamide 2 mg Tablet 4 mg PO BID acyclovir 400 mg Tablet 400 mg PO BID sulfamethoxazole-trimethoprim [Bactrim DS] 800-160 mg Tablet 1 tab PO DIRECTED Rx Instructions: ON SUNDAY, SUNDAY, AND SUNDAY spironolactone 25 mg Tablet 25 mg PO QAM gabapentin 300 mg Capsule 600 mg PO BID sertraline 25 mg Tablet 12.5 mg PO QPM loratadine 10 mg Capsule 10 mg PO QAM Mag-Lactate SR 84 mg tablet 84 mg PO BID Men's Multivitamin 400-20-300 mcg Tablet 1 tab PO QAM Discontinued furosemide 40 mg Tablet 40 mg PO BID potassium chloride [Klor-Con M20] 20 mEq Tablet,Er Particles/Crystals 20 meq PO DIRECTED Rx Instructions: ON SUNDAY, SUNDAY, AND SUNDAY lenalidomide 10 mg Capsule 10 mg PO QNOON Rx Instructions: swallow whole with glass of water; do not open, crush, chew , break, or dissolve Discharge Orders: Discharge Order (Routine); Ordered 08/10/23 Ordered By: Todd Jimenez Referrals: Allegra Jimenez MD [Primary Care Provider] - 4-7 days (Follow-up Sunday with visit, CBC, CMP) Discharge Diet: Cardiac Discharge Activity: Increase activity as tolerated Patient Instructions: Opioid Safety, CHF Stoplight Activity Restrictions/Additional Instructions: Take all medicine as prescribed. 1500 cc fluid restriction daily CBC, CMP and physician visit on Sunday Return for any concerns Weigh yourself daily. If not greater than 2 pounds, 2 days, call your primary care provider Discharge Attestations Time Spent in Discharge Care*: greater than 30 min Quality Metrics Clinical Quality Measures [ No reported AMI, CVA or VTE this stay] Coding Level of Care Code 96876 Total time (in minutes) for Discharge: 37 Diagnoses Atrial fibrillation with rapid ventricular response I48.91 Anemia D64.9 Pulmonary edema J81.1 Acute hypoxemic respiratory failure J96.01 Non-STEMI (non-ST elevated myocardial infarction) I21.4 Thrombocytopenia D69.6 ARIE (acute kidney injury) N17.9 Pneumonia J18.9
--- NOTE | 2023-08-10 12:21 | PC.NURSE ---
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 educated pt and spouse in regards to chf s/s and its meds. provided pt with discharge packet for chf, afib, and chf stoplight. all belongings sent with pt and his .
== END 2023-08-10 12:20 | disposition home health service (06) | DRG 280 ==
LOC: ER 08-06 00:09 → CSU 08-06 00:33
PROVIDERS: Admitting Provider Internal Medicine; Emergency Provider Emergency Medicine; PCP Family Medicine; Visit Provider Internal Medicine
DX: I48.20 Chronic atrial fibrillation, unspecified (principal); I50.21 Acute systolic (congestive) heart failure; I21.4 Non-ST elevation (NSTEMI) myocardial infarction; J96.01 Acute respiratory failure with hypoxia; J15.1 Pneumonia due to Pseudomonas; N17.9 Acute kidney failure, unspecified; C90.00 Multiple myeloma not having achieved remission; K92.2 Gastrointestinal hemorrhage, unspecified; D64.9 Anemia, unspecified; D69.6 Thrombocytopenia, unspecified; I35.0 Nonrheumatic aortic (valve) stenosis; I34.0 Nonrheumatic mitral (valve) insufficiency; I25.10 Atherosclerotic heart disease of native coronary artery without angina pectoris; Z95.5 Presence of coronary angioplasty implant and graft
CPT/HCPCS: 36415; 36430; 51702; 71045; 80048; 80053; 80503; 81001; 82607; 83036; 83605; 83735; 83880; 84100; 84443; 84484; 85025; 85378; 86850; 86870; 86880; 86900; 86920; 87040; 87070; 87077; 87186; 87205; 87486; 87581; 87633; 87641; 93005; 93306; 94640; 96374; 96376; 97110; 97116; 97161; 99285; A9270; C9113; J0696; J1940; J8499; P9016

== ENCOUNTER 2023-11-01 09:48 | Emergency (ER) | payer MEDICARE, OTHER, SELFPAY ==
[2023-11-01 09:51] VITALS: BP 106/64; PULSE 72; RESP 18; TEMP 36.8; O2SAT 98; BMI 32.8
--- NOTE | 2023-11-01 09:56 | ED_ITS ---
HPI - Fall 2 General: Chief Complaint: Fall Stated Complaint: fall Time Seen by Provider: 11/01/23 09:50 Source: patient Mode of arrival: ambulatory History of Present Illness: 78-year-old male was using his cane dhaval g into a local business stumbled over a curb had a ground-level mechanical fall landed on the asphalt. He was wearing glasses at the time he has some superficial abrasion at and superficial lacerations on the left lateral orbital area. He did not lose consciousness he denies any other injury or any other pain. No chest pain no abdominal pain no difficulty breathing. He normally uses a walker but for the sake of convenience had use the cane when he left at home today. He was previously on anticoagulants but had stopped them and is only taking aspirin and they were stopped because of GI bleeding per family members. He has a history of atrial fibrillation he has taken all of his medications today has not had any rapid or racing heart rates. MD complaint: fall Onset (ago): minute(s) Fall from: standing Fall witnessed: no Place fall occurred: street Loss of consciousness: None Prolonged down time: no Symptoms prior to fall: none Context: tripped/slipped Location of injury: face Associated symptoms-after fall: Reports neck pain; Denies abdominal pain, chest pain, confusion, difficulty walking, headache(s), short of breath or vertigo Review of Systems 2 Const: Denies: fever(s) or chills Card: Denies: chest pain Resp: Denies: dyspnea GI: Denies: abdominal pain : Denies: dysuria, urinary frequency or urinary urgency Musc: Reports: neck pain; Denies: back pain Skin/Breast: Denies: rash Neuro: Denies: headache(s), difficulty walking, vertigo or confusion PFSH ED 2 PFSH: Medical History Gastric ulcer GI bleed Multiple myeloma Coronary artery disease Surgical History H/O esophagogastroduodenoscopy Physical Exam 2 Const: GENERAL APPEARANCE: cooperative and comfortable O RIENTATION/CONSCIOUSNESS: Yes awake, Yes oriented to person, Yes oriented to place and Yes oriented to time HENMT: COMMON NORMALS: normocephalic and hearing grossly normal bilaterally HEAD & SCALP: normocephalic OTHER: Superficial laceration abrasion lateral orbit on the left. He also has a small subconjunctival hematoma on the left left inferior temporal quadrant of the eye no hyphema Extraocular moods intact pupils equal reactive Resp: COMMON NORMALS: normal respiratory effort, No retractions, No use of accessory muscles and clear to auscultation bilaterally AUSCULTATION: clear to auscultation bilaterally Cardio: COMMON NORMALS: regular rate, regular rhythm and No murmurs present (Cardio) RATE: regular rate RHYTHM: regular rhythm GI: COMMON NORMALS: Soft to palpation and No hepatosplenomegaly present A USCULTATION: Yes normoactive bowel sounds PALPATION: Yes Soft to palpation, No Tenderness to palpation present (GI), No Guarding due to palpation present (GI) and Yes No hepatosplenomegaly present Extremity: COMMON NORMALS: normal to inspection, capillary refill normal, no clubbing, cyanosis or edema, no calf tenderness and no pedal edema OTHER: Full range of motion all extremities no deformities or pain. Skin tears on the left forearm. Neuro: SENSORIUM/ORIENTATION: Yes oriented to person, Yes oriented to place and Yes oriented to time Skin: COMMON NORMALS: no rashes or lesions noted GENERAL SKIN EXAM: no rashes or lesions noted Course 2 Vital Signs: Vital signs: Vital Signs Temperature 98.3 F 11/01/23 12:22 Pulse Rate 79 11/01/23 12:22 Respiratory Rate 16 11/01/23 12:22 Blood Pressure 108/70 11/01/23 12:22 Pulse Oximetry 99 11/01/23 12:22 Oxygen Delivery Me thod Room Air 11/01/23 09:59 MDM - Fall Medical Decision Making Tetanus updated. Abrasions at the left side of the eye do not require sutures at this point. Have him apply topical antibiotic ointment he also has skin tears on the left forearm these are not full-thickness and not amenable to suturing either can apply topical antibiotics. Imaging normal labs reviewed patient is anemic however this is chronic. Ground-level mechanical fall without significant injury at this time. Will discharge patient home have him follow-up with his primary care doctor return if is worsening or changes symptoms. Medical Records I reviewed the patient's medical records. Lab Data I reviewed the patient's lab results. 11/01/23 09:56 11/01/23 09:56 Radiology Impressions Cervical Spine CT 11/01/23 10:01 IMPRESSION: No acute findings. Face CT 11/01/23 10:01 IMPRESSION: No acute findings. Head CT 11/01/23 10:03 IMPRESSION: No acute intracranial abnormality. Laboratory Results WBC 4.79 10^3/uL (3.29-11.43) 11/01/23 09:56 RBC 2.74 10^6/uL (3.85-5.65) L 11/01/23 09:56 Hgb 9.10 g/dL (11.27-16.99) L 11/01/23 09:56 Hct 28.0 % (37-53) L 11/01/23 09:56 MCV 102.2 fl (82-101) H 11/01/23 09:56 MCH 33.2 pg (27-33) H 11/01/23 09:56 MCHC 32.5 g/dL (30-55) 11/01/23 09:56 RDW 17.8 % (12.1-15.1) H 11/01/23 09:56 Plt Count 108 10^3/cmm (157-399) L 11/01/23 09:56 MPV 12.4 fL (7.4-10.4) H 11/01/23 09:56 Neut % (Auto) 71.9 % 11/01/23 09:56 Lymph % (Auto) 11.5 % 11/01/23 09:56 [place] % (Auto) 11.1 % 11/01/23 09:56 Eos % (Auto) 3.8 % 11/01/23 09:56 Baso % (Auto) 1.5 % 11/01/23 09:56 Neut # (Auto) 3.45 10^3/uL (1.8-7.7) 11/01/23 09:56 Lymph # (Auto) 0.6 10^3/uL (0.8-4.8) L 11/01/23 09:56 [place] # (Auto) 0.5 10^3/uL (0.2-0.9) 11/01/23 09:56 Eos # (Auto) 0.2 10^3/uL (0.0-0.8) 11/01/23 09:56 Baso # (Auto) 0.1 10^3/uL (0.0-0.1) 11/01/23 09:56 Nucleated RBC % (auto) 0 % 11/01/23 09:56 Nucleated RBCs # 0.0 /100WBC 11/01/23 09:56 Sodium 136 mmol/L (136-145) 11/01/23 09:56 Potassium 4.2 mmol/L (3.5-5.1) 11/01/23 09:56 Chloride 100 mmol/L (98-107) 11/01/23 09:56 Carbon Dioxide 23 mmol/L (22-29) 11/01/23 09:56 Anion Gap 17.2 (5-19) 11/01/23 09:56 BUN 23 mg/dL (8-23) 11/01/23 09:56 Creatinine 1.9 mg/dL (0.7-1.2) H 11/01/23 09:56 GFR Calculation Not Reportable 11/01/23 09:56 Glucose 99 mg/dL (65-115) 11/01/23 09:56 Calculated Osmolality 286 mOsm/kg (285-295) 11/01/23 09:56 Calcium 7.6 mg/dL (8.5-10.5) L 11/01/23 09:56 Total Bilirubin 0.5 mg/dL (0.15-1.2) 11/01/23 09:56 AST 24 U/L (0-40) 11/01/23 09:56 ALT 11 U/L (0-41) 11/01/23 09:56 Alkaline Phosphatase 96 U/L (40-130) 11/01/23 09:56 Total Protein 5.9 g/dL (6.6-8.7) L 11/01/23 09:56 Albumin 3.7 g/dL (3.5-5.2) 11/01/23 09:56 Globulin 2.2 g/dL (1.3-4.6) 11/01/23 09:56 All radiology interpretation(s) finalized by discharge Discharge Plan Discharge Patient Disposition: Home Clinical Impression: Abrasion of face, Traumatic subconjunctival hemorrhage of left eye, Fall Condition: Stable Prescriptions: No Action atorvastatin 80 mg Tablet 80 mg PO QAM loperamide 2 mg Tablet 4 mg PO BID acyclovir 400 mg Tablet 400 mg PO BID sulfamethoxazole-trimethoprim [Bactrim DS] 800-160 mg Tablet 1 tab PO DIRECTED Rx Instructions: ON SUNDAY, SUNDAY, AND SUNDAY spironolactone 25 mg Tablet 25 mg PO QAM gabapentin 300 mg Capsule 600 mg PO BID sertraline 25 mg Tablet 12.5 mg PO QPM loratadine 10 mg Capsule 10 mg PO QAM Mag-Lactate SR 84 mg tablet 84 mg PO BID [id number] K-lycop 400-20-300 mcg Tablet 1 tab PO QAM aspirin 81 mg Tablet,Delayed Release (Dr/Ec) 81 mg PO DAILY Qty: 30 0RF pantoprazole 40 mg Tablet,Delayed Release (Dr/Ec) 40 mg PO BID Qty: 60 0RF metoprolol succinate 25 mg Tablet Extended Release 24 Hr 12.5 mg PO DAILY Qty: 15 0RF levofloxacin 750 mg Tablet 750 mg PO DAILY@0600 Qty: 6 0RF bumetanide 1 mg tablet 1.5 mg PO DAILY Qty: 45 0RF potassium chloride 20 mEq tablet extended release 20 meq PO DAILY Qty: 30 0RF Discharge Orders: Discharge ED (Routine); Ordered 11/01/23 Ordered By: Artem Nath Referrals: Allegra Jimenez MD [Primary Care Provider] - Discharge Diet: Usual diet Discharge Activity: Resume usual activity Patient Instructions: Opioid Safety, Pain Management Activity Restrictions/Additional Instructions: Thank you for choosing [facility] for your healthcare needs today. It is very important that you follow up as instructed or that you return to the Emergency Department should you have concerns or if your condition changes or worsens in any way. You were seen today after a fall CT of the head face and neck did not show any acute fractures. You do have a small subconjunctival hematoma (this is the blood in the white of the eye on the outer portion of the left eyeball). He also has some facial abrasions and superficial lacerations do not require suturing at this time. Recommend you apply topical antibiotic ointment to the wounds twice a day. We did update your tetanus as well. Coding Level of Care Code ED Yeast Supervisor for Guerrero Tinoco
[2023-11-01 09:59] VITALS: BP 106/64; PULSE 72; RESP 18; TEMP 36.8; O2SAT 98
--- NOTE | 2023-11-01 10:01 | CTR_ITS ---
PROCEDURE INFORMATION: Exam: CT Maxillofacial Without Contrast Exam date and time: 11/01/2023 10:42 AM Age: 78 years old Clinical indication: Injury or trauma; Fall; Blunt trauma (contusions or hematomas); Orbit/periorbital; Injury details: PT tripped over a curve and fell this am. PT has a lac and bruising around left eye TECHNIQUE: Imaging protocol: Computed tomography of the face without contrast. Radiation optimization: All CT scans at this facility use at least one of these dose optimization techniques: automated exposure control; mA and/or kV adjustment per patient size (includes targeted exams where dose is matched to clinical indication); or iterative reconstruction. COMPARISON: CT head wo con* [id number] 11/01/2023 10:42 AM RADIATION DOSE METRICS: Total DLP (mGy-cm): 690.7 FINDINGS: Orbital cavities: Orbits are normal. Globes are unremarkable. Paranasal sinuses: Chronic sinusitis with moderately opacified maxillary sinuses. There is viscous fluid also seen on the left. Minimal ethmoid mucosal thickening. Vasculature: Heavy carotid arterial calcifications. Bones: No acute fracture. Soft tissues: Unremarkable. CT/CT facial bones wo con* [id number] IMPRESSION: No acute findings.
--- NOTE | 2023-11-01 10:01 | CTR_ITS ---
PROCEDURE INFORMATION: Exam: CT Cervical Spine Without Contrast Exam date and time: 11/01/2023 10:42 AM Age: 78 years old Clinical indication: Injury or trauma; Fall; Blunt trauma; Injury details: PT tripped over a curve and fell this am. PT has a lac and bruising around left eye TECHNIQUE: Imaging protocol: Computed tomography of the cervical spine without contrast. Radiation optimization: All CT scans at this facility use at least one of these dose optimization techniques: automated exposure control; mA and/or kV adjustment per patient size (includes targeted exams where dose is matched to clinical indication); or iterative reconstruction. COMPARISON: CT facial bones wo con* [id number] 11/01/2023 10:42 AM RADIATION DOSE METRICS: Total DLP (mGy-cm): 591.7 FINDINGS: Bones: No acute fracture. Normal alignment. No significant disc bulge or herniation. No severe spinal canal stenosis. Mild disc space narrowing C4 through T1. Anterior spurring greatest at C3-C4. Cyst within the odontoid process. No lytic or sclerotic bone lesion. No significant neural foraminal narrowing. Lungs: Lung apices are normal. Vasculature: Heavy carotid artery calcifications. Soft tissues: Unremarkable. CT/CT cervical spin wo con* [id number] IMPRESSION: No acute findings.
--- NOTE | 2023-11-01 10:03 | CTR_ITS ---
PROCEDURE INFORMATION: Exam: CT Head Without Contrast Exam date and time: 11/01/2023 10:42 AM Age: 78 years old Clinical indication: Injury or trauma; Fall; Blunt trauma (contusions or hematomas); Injury details: PT tripped over a curve and fell this am. PT has a lac and bruising around left eye TECHNIQUE: Imaging protocol: Computed tomography of the head without contrast. Radiation optimization: All CT scans at this facility use at least one of these dose optimization techniques: automated exposure control; mA and/or kV adjustment per patient size (includes targeted exams where dose is matched to clinical indication); or iterative reconstruction. COMPARISON: CT facial bones wo con* [id number] 11/01/2023 10:42 AM RADIATION DOSE METRICS: Total DLP (mGy-cm): 2777.68 FINDINGS: Brain: Normal. No hemorrhage. Unremarkable white matter. No mass effect. Cerebral ventricles: No ventriculomegaly. Ventricular prominence proportionate to the degree of atrophy observed. Paranasal sinuses: Visualized sinuses are unremarkable. No fluid levels. Mastoid air cells: Visualized mastoid air cells are well aerated. Bones: Unremarkable. No acute fracture. Soft tissues: Unremarkable. CT/CT head wo con* [id number] IMPRESSION: No acute intracranial abnormality.
[2023-11-01 10:16] LABS: Basophils # 0.1 10^3/uL (0.0-0.1); Basophils % 1.5 %; Eosinophils # 0.2 10^3/uL (0.0-0.8); Eosinophils % 3.8 %; Lymphocytes # 0.6 10^3/uL (0.8-4.8); Lymphocytes % 11.5 %; Mean Corpuscular HGB Conc 32.5 g/dL (30-55); Mean Corpuscular Hemoglobin 33.2 pg (27-33); Mean Corpuscular Volume 102.2 fl (82-101); Mean Platelet Volume 12.4 fL (7.4-10.4); Monocytes # 0.5 10^3/uL (0.2-0.9); Monocytes % 11.1 %; Neutrophils # 3.45 10^3/uL (1.8-7.7); Neutrophils % 71.9 %; Nucleated Red Blood Cells % 0 %; Platelet Count 108 10^3/cmm (157-399); Red Blood Count 2.74 10^6/uL (3.85-5.65); Red Cell Distribution Width 17.8 % (12.1-15.1); White Blood Count 4.79 10^3/uL (3.29-11.43)
[2023-11-01 10:26] LABS: Alanine Aminotransferase 11 U/L (0-41); Albumin Level 3.7 g/dL (3.5-5.2); Alkaline Phosphatase 96 U/L (40-130); Anion Gap 17.2 (5-19); Aspartate Amino Transferase 24 U/L (0-40); Blood Urea Nitrogen 23 mg/dL (8-23); Calcium 7.6 mg/dL (8.5-10.5); Carbon Dioxide 23 mmol/L (22-29); Chloride 100 mmol/L (98-107); Creatinine Clr Calc Pharmacy 35.2428; Globulin 2.2 g/dL (1.3-4.6); Glucose 99 mg/dL (65-115); Osmolality Calculated 286 mOsm/kg (285-295); Potassium 4.2 mmol/L (3.5-5.1); Sodium 136 mmol/L (136-145); Total Bilirubin 0.5 mg/dL (0.15-1.2); Total Protein 5.9 g/dL (6.6-8.7)
[2023-11-01] MEDS: tetanus-dipt-pertussis 0.5 mL SDV IM (11:52)
[2023-11-01 12:22] VITALS: BP 108/70; PULSE 79; RESP 16; TEMP 36.8; O2SAT 99
== END 2023-11-01 12:12 | disposition home or self-care (01) ==
PROVIDERS: Emergency Provider Family Medicine; PCP Family Medicine
DX: S00.212A Abrasion of left eyelid and periocular area, initial encounter (principal); S51.812A Laceration without foreign body of left forearm, initial encounter; H11.32 Conjunctival hemorrhage, left eye; Z79.82 Long term (current) use of aspirin; I25.10 Atherosclerotic heart disease of native coronary artery without angina pectoris; W18.39XA Other fall on same level, initial encounter; Z23 Encounter for immunization
CPT/HCPCS: 70450; 70486; 72125; 80053; 85025; 90715; 99284

== ENCOUNTER → 2023-12-19 15:05 | Outpatient (BNVA) | payer MEDICARE, OTHER, SELFPAY | PROVIDERS: PCP Family Medicine; Visit Provider Podiatrist Foot & Ankle Surgery | DX: L60.3 Nail dystrophy (principal); G62.9 Polyneuropathy, unspecified; I73.9 Peripheral vascular disease, unspecified; M21.372 Foot drop, left foot | CPT/HCPCS: 99203 ==

== ENCOUNTER → 2024-01-01 14:43 | Outpatient (BNVA) | payer MEDICARE, OTHER, SELFPAY | PROVIDERS: PCP Family Medicine; Visit Provider Podiatrist Foot & Ankle Surgery | DX: Z51.89 Encounter for other specified aftercare (principal) | CPT/HCPCS: 99213 ==

== ENCOUNTER → 2024-02-21 13:47 | Outpatient (BNVA) | payer MEDICARE, OTHER, SELFPAY | PROVIDERS: PCP Family Medicine; Visit Provider Podiatrist Foot & Ankle Surgery | DX: L60.3 Nail dystrophy (principal); I73.9 Peripheral vascular disease, unspecified | CPT/HCPCS: 11721 ==

== ENCOUNTER → 2024-04-24 14:30 | Outpatient (BNVA) | payer MEDICARE, OTHER, SELFPAY | PROVIDERS: PCP Family Medicine; Visit Provider Podiatrist Foot & Ankle Surgery | DX: L60.3 Nail dystrophy (principal); I73.9 Peripheral vascular disease, unspecified | CPT/HCPCS: 11721 ==

== ENCOUNTER 2024-06-18 12:12 | Outpatient (CLI) | payer MEDICARE, OTHER, SELFPAY ==
--- NOTE | 2024-06-18 12:24 | XR_ITS ---
WS: [id number] PA and lateral chest, 06/18/2024 Clinical Data: rib pain right side, cough Comparison: Portable chest, 08/05/2023 Findings: There are bilateral pleural effusions and bilateral basilar opacities unchanged. The heart is enlarged. The pulmonary vascularity is minimally prominent. The aortic arch and descending thoracic aorta show calcification and tortuosity. No pneumothorax is seen. There is an old left lateral seventh rib fracture. There is a 1.2 cm oval calcification to the left of the L1-L2 disc level which could be in the left kidney. XR/XR chest 2V* [id number] Impression: 1. Cardiomegaly with pulmonary vascular congestion unchanged. 2. Bilateral pulmonary opacities with bilateral pleural effusions unchanged. 3. Atherosclerosis.
== END 2024-06-18 12:13 | disposition home or self-care (01) ==
LOC: RAD 12:22
PROVIDERS: PCP Family Medicine; Visit Provider Nurse Practitioner Family
DX: R07.81 Pleurodynia (principal); R05.9 Cough, unspecified; I51.7 Cardiomegaly; R09.89 Other specified symptoms and signs involving the circulatory and respiratory systems; R91.8 Other nonspecific abnormal finding of lung field; J90 Pleural effusion, not elsewhere classified; I70.0 Atherosclerosis of aorta; Q25.46 Tortuous aortic arch; Z87.81 Personal history of (healed) traumatic fracture; R93.89 Abnormal findings on diagnostic imaging of other specified body structures
CPT/HCPCS: 71046

== ENCOUNTER → 2024-06-26 14:21 | Outpatient (BNVA) | payer MEDICARE, OTHER, SELFPAY | PROVIDERS: PCP Family Medicine; Visit Provider Podiatrist Foot & Ankle Surgery | DX: I73.9 Peripheral vascular disease, unspecified (principal); L60.3 Nail dystrophy; L84 Corns and callosities | CPT/HCPCS: 11055; 11721 ==

== ENCOUNTER → 2024-09-08 13:34 | Outpatient (BNVA) | payer MEDICARE, OTHER, SELFPAY | PROVIDERS: PCP Family Medicine; Visit Provider Podiatrist Foot & Ankle Surgery | DX: I73.9 Peripheral vascular disease, unspecified (principal); L60.8 Other nail disorders; L60.3 Nail dystrophy; L84 Corns and callosities | CPT/HCPCS: 11055; 11721 ==

== ENCOUNTER 2024-09-09 10:48 | Outpatient (CLI) | payer MEDICARE, OTHER, SELFPAY ==
--- NOTE | 2024-09-09 10:58 | XRR_ITS ---
PROCEDURE INFORMATION: Exam: XR Chest Exam date and time: 09/09/2024 11:45 AM Age: 79 years old Clinical indication: Dyspnea and shortness of breath; HX of multiple myeloma. X2 weeks SOB, no cough or wheeze, SOB has happened before but subsided; Additional info: Dyspnea/edema TECHNIQUE: Imaging protocol: Radiologic exam of the chest. Views: 2 views. COMPARISON: CR XR chest 2V* [id number] 06/18/2024 12:29 PM FINDINGS: Lungs: Bibasilar atelectasis or infiltrates are stable. Pleural spaces: Slightly increasing right pleural effusion. Stable left pleural effusion. Each effusion is small. Heart/Mediastinum: Unremarkable. No cardiomegaly. Bones/joints: Unremarkable. XR/XR chest 2V* [id number] IMPRESSION: Slightly increasing right effusion. Otherwise no change.
[2024-09-09 11:39] LABS: Basophils # 0.1 10^3/uL (0.0-0.1); Basophils % 1.9 %; Eosinophils # 0.1 10^3/uL (0.0-0.8); Eosinophils % 4.4 %; Hematocrit 27.9 % (37-53); Lymphocytes # 0.4 10^3/uL (0.8-4.8); Lymphocytes % 15.9 %; Mean Corpuscular HGB Conc 32.3 g/dL (30-55); Mean Corpuscular Hemoglobin 35.2 pg (27-33); Mean Platelet Volume 12.6 fL (7.4-10.4); Monocytes # 0.5 10^3/uL (0.2-0.9); Monocytes % 17.8 %; Neutrophils # 1.62 10^3/uL (1.8-7.7); Nucleated Red Blood Cells % 0 %; Platelet Count 58 10^3/cmm (157-399); Red Blood Count 2.56 10^6/uL (3.85-5.65); Red Cell Distribution Width 17.5 % (12.1-15.1)
[2024-09-09 12:10] LABS: Anion Gap 15.1 (5-19); Blood Urea Nitrogen 26 mg/dL (8-23); Calcium 8.6 mg/dL (8.5-10.5); Carbon Dioxide 26 mmol/L (22-29); Chloride 99 mmol/L (98-107); Ferritin 171 ng/mL (30-400); Glucose 87 mg/dL (65-115); Iron 73 ug/dL (59-158); NT Pro B Type Natriuretic Pept 12703 pg/mL (0-450); Osmolality Calculated 286 mOsm/kg (285-295); Potassium 4.1 mmol/L (3.5-5.1); Sodium 136 mmol/L (136-145)
== END 2024-09-09 10:49 | disposition home or self-care (01) ==
LOC: LAB 10:54
PROVIDERS: PCP Family Medicine; Visit Provider Family Medicine
DX: R06.00 Dyspnea, unspecified (principal); D64.9 Anemia, unspecified; R60.9 Edema, unspecified; R91.8 Other nonspecific abnormal finding of lung field; J90 Pleural effusion, not elsewhere classified
CPT/HCPCS: 36415; 71046; 80048; 82728; 83540; 83880; 85025; 85378

== ENCOUNTER 2024-09-12 09:18 | Outpatient (CLI) | payer MEDICARE, OTHER, SELFPAY ==
--- NOTE | 2024-09-12 09:24 | CT_ITS ---
WS: [id number] CTA scan of the chest with IV contrast. Additional two-dimensional coronal and sagittal reconstruction and MIP images was performed. 09/12/2024 Clinical Data: SHORTNESS OF BREATH/HIGH D DIMER-? PE Comparison: CT chest, 02/28/2023 DLP: 366.[address] scans at [facility] use at least one of these dose optimization techniques: automated exposure control; mA and/or kV adjustment per patient size (includes targeted exams where dose is matched to clinical indication); or iterative reconstruction. Findings: The central pulmonary arteries arteries fill normally, but the peripheral pulmonary arteries do not fill, suggestive of small peripheral pulmonary embolic disease. There are large bilateral pleural effusions.. The heart size is enlarged with no pericardial effusion. The pulmonary arterial system and th oracic aorta are not dilatated. There is no axillary or significant mediastinal adenopathy. The trachea bifurcates into the bronchi. The thoracic spine shows multiple lytic lesions, more than the prior CT scan. The lytic lesion of the manubrium has increased in size. There is bilateral gynecomastia. The upper abdomen shows no abnormalities. The visualized liver, spleen, pancreas, gallbladder, adrenal glands and superior poles of the kidneys are not remarkable. There is a subcutaneous 3.3 cm cyst on the right side of the abdomen unchanged. CT/CT angio chest PE protcl [id number] Impression: 1. Probable small peripheral pulmonary embolic disease. 2. Cardiomegaly and large pleural effusions. 3. Lytic lesions of the thoracic vertebral bodies and the manubrium which have increased in size.
[2024-09-12] MEDS: iohexol 350 mg/mL 500 mL Btl (per mL) IV (10:02)
== END 2024-09-12 09:19 | disposition home or self-care (01) ==
PROVIDERS: PCP Family Medicine; Visit Provider Family Medicine
DX: Z53.9 Procedure and treatment not carried out, unspecified reason (principal)
CPT/HCPCS: 71275

== ENCOUNTER 2024-09-12 10:54 | Inpatient (IN) | payer MEDICARE, OTHER, SELFPAY ==
[2024-09-12] VITALS (10 sets, daily range): BP systolic 90–133; BP diastolic 54–74; PULSE 56–97; RESP 16–25; TEMP 36.3–36.7; O2SAT 94–99; BMI 27.8
--- NOTE | 2024-09-12 10:59 | ECG_ITS ---
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 Measurements Intervals [place] Rate: 64 P: 145 [place]: 110 QRS: 150 QRSD: 140 T: 20 QT: 483 QTc: 500 Interpretive Statements SINUS RHYTHM WITH SHORT [place] INTERVAL WITH FREQUENT SUPRAVENTRICULAR PREMATURE COMPLEXES RIGHT BUNDLE BRANCH BLOCK [120+ ms QRS DURATION, UPRIGHT V1, 40+ ms S IN I/aVL/V4/V5/V6] LEFT POSTERIOR FASCICULAR BLOCK [QRS AXIS > 109, INFERIOR Q] ANTEROSEPTAL MYOCARDIAL INFARCTION , PROBABLY OLD [40+ ms Q WAVE IN V1-V4] ST DEPRESSION, CONSIDER SUBENDOCARDIAL INJURY [0.1+ mV ST DEPRESSION] Compared to ECG 08/06/2023 09:18:07 Short [place] interval now present Left posterior fascicular block now present Right-axis deviation no longer present Myocardial infarct finding still present Electronically Signed On 09-15-2024 09:26:16 CDT by Homar Tapia M.D. [id number] [id number]
--- NOTE | 2024-09-12 11:07 | W.ED.SOB ---
HPI - SOB/Dyspnea General: Chief Complaint: Shortness of Breath/Dyspnea Stated Complaint: sob refer from [place] Time Seen by Provider: 09/12/24 10:58 Source: patient Mode of arrival: ambulatory Limitations: no limitations History of Present Illness: HPI Narrative: 79-year-old male states he has had some exertional dyspnea over the last week he had an elevated D-dimer and is PCP did order a CT scan that was done today that shows pleural effusions and a probable PE. Denies any chest pain denies any shortness of breath really at rest is mainly with exertion denies any cough or fever Associated symptoms: Deny abdominal pain, chest pain, fever(s), nausea or vomiting Related Data Home Medications ?Medication ?Instructions ?Recorded ?Confirmed Mag-Lactate SR 84 mg PO BID 08/06/23 09/08/24 acyclovir 400 mg tablet 400 mg PO BID 08/06/23 09/12/24 atorvastatin 80 mg tablet 80 mg PO QAM 08/06/23 09/12/24 gabapentin 300 mg capsule 600 mg PO BID 08/06/23 09/08/24 loperamide 2 mg tablet 4 mg PO BID 08/06/23 09/08/24 loratadine 10 mg capsule 10 mg PO QAM 08/06/23 09/08/24 acedwgrx-pnfgznbx-oiopj acid 400 1 tab PO QAM 08/06/23 09/08/24 mcg-vit K 20 mcg-lycop 300 mcg tablet sertraline 25 mg tablet 12.5 mg PO QPM 08/06/23 09/08/24 spironolactone 25 mg tablet 25 mg PO QAM 08/06/23 09/08/24 sulfamethoxazole 800 1 tab PO DIRECTED 08/06/23 09/08/24 mg-trimethoprim 160 mg tablet (Bactrim DS) doxycycline hyclate 100 mg capsule 100 mg PO BID 09/12/24 09/12/24 lenalidomide 10 mg capsule mg PO 09/12/24 Previous Rx's ?Medication ?Instructions ?Recorded aspirin 81 mg tablet,delayed 81 mg PO DAILY #30 tabs 08/10/23 release bumetanide 1 mg tablet 1.5 mg (1.5 x 1 mg) PO DAILY #45 08/10/23 tabs metoprolol succinate 25 mg 12.5 mg (1/2 x 25 mg) PO DAILY #15 08/10/23 tablet,extended release 24 hr tabs pantoprazole 40 mg tablet,delayed 40 mg PO BID #60 tabs 08/10/23 release potassium chloride 20 mEq 20 meq PO DAILY #30 tabs 08/10/23 tablet,extended release Left AFO #1 ea 12/19/23 Allergies Allergy/AdvReac Type Severity Reaction Status Date / Time No Known Allergies Allergy Verified 09/08/24 13:36 Review of Systems Const: Denies: fever(s), chills, body aches or change in appetite ENMT: Denies: throat pain or dental pain Card: Denies: chest pain Resp: Reports: dyspnea GI: Denies: abdominal pain, nausea, vomiting or diarrhea : Denies: dysuria Musc: Denies: neck pain or back pain Skin/Breast: Denies: rash Neuro: Denies: headache(s) PFSH ED PFSH: Medical History Gastric ulcer GI bleed Multiple myeloma Coronary artery disease Surgical History H/O esophagogastroduodenoscopy Social History Smoking and tobacco/nicotine status: former use of tobacco/nicotine Physical Exam Const: COMMON NORMALS: no acute distress, patient oriented x3 and healthy appearing HENMT: COMMON NORMALS: normocephalic and atraumatic HEAD & SCALP: normocephalic and atraumatic Eye: COMMON NORMALS: conjunctivae normal CONJUNCTIVA: Yes conjunctivae normal Neck/C-Spine: COMMON NORMALS: full ROM and supple Chest: COMMONS NORMALS: normal inspection of the chest Resp: COMMON NORMALS: No retractions, No use of accessory muscles and clear to auscultation bilaterally AUSCULTATION: clear to auscultation bilaterally Cardio: COMMON NORMALS: regular rate, regular rhythm and No murmurs present (Cardio) RATE: regular rate RHYTHM: regular rhythm Extremity: COMMON NORMALS: normal to inspection and full ROM Neuro: COMMON NORMALS: patient oriented x3, moves all extremities and no focal motor deficits Psych: COMMON NORMALS: mental status grossly normal, Normal thought process present and cooperative THOUGHT PROCESS: Normal thought process present Skin: COMMON NORMALS: no rashes or lesions noted and no wounds GENERAL SKIN EXAM: no rashes or lesions noted Course Vital Signs: Vital signs: Vital Signs Temperature 98.1 F 09/12/24 10:57 Pulse Rate 57 L 09/12/24 11:52 Respiratory Rate 17 09/12/24 11:52 Blood Pressure 120/58 09/12/24 11:52 Pulse Oximetry 97 09/12/24 11:52 Oxygen Delivery Me thod Room Air 09/12/24 11:52 MDM - SOB/Dyspnea Medical Decision Making Patient presents for shortness of breath he had an outpatient CTA showed pulmonary emboli along with pleural effusions of spoke to the hospitalist started patient on heparin will admit at this time Medical Records I reviewed the patient's medical records. Lab Data I reviewed the patient's lab results. 09/12/24 11:05 09/12/24 11:05 Labs/Radiology: Laboratory Results WBC 2.80 10^3/uL (3.29-11.43) L 09/12/24 11:05 RBC 2.72 10^6/uL (3.85-5.65) L 09/12/24 11:05 Hgb 9.70 g/dL (11.27-16.99) L 09/12/24 11:05 Hct 29.6 % (37-53) L 09/12/24 11:05 MCV 108.8 fl (82-101) H 09/12/24 11:05 MCH 35.7 pg (27-33) H 09/12/24 11:05 MCHC 32.8 g/dL (30-55) 09/12/24 11:05 RDW 17.2 % (12.1-15.1) H 09/12/24 11:05 Plt Count 60 10^3/cmm (157-399) L 09/12/24 11:05 MPV 13.2 fL (7.4-10.4) H 09/12/24 11:05 Neut % (Auto) 59.2 % 09/12/24 11:05 Lymph % (Auto) 16.8 % 09/12/24 11:05 [place] % (Auto) 15.4 % 09/12/24 11:05 Eos % (Auto) 6.4 % 09/12/24 11:05 Baso % (Auto) 1.8 % 09/12/24 11:05 Neut # (Auto) 1.66 10^3/uL (1.8-7.7) L 09/12/24 11:05 Lymph # (Auto) 0.5 10^3/uL (0.8-4.8) L 09/12/24 11:05 [place] # (Auto) 0.4 10^3/uL (0.2-0.9) 09/12/24 11:05 Eos # (Auto) 0.2 10^3/uL (0.0-0.8) 09/12/24 11:05 Baso # (Auto) 0.1 10^3/uL (0.0-0.1) 09/12/24 11:05 Nucleated RBC % (auto) 0 % 09/12/24 11:05 Nucleated RBCs # 0.0 /100WBC 09/12/24 11:05 PT 14.40 SECONDS (12.1-14.9) 09/12/24 11:05 INR 1.05 (0.8-1.2) 09/12/24 11:05 Sodium 135 mmol/L (136-145) L 09/12/24 11:05 Potassium 3.7 mmol/L (3.5-5.1) 09/12/24 11:05 Chloride 96 mmol/L (98-107) L 09/12/24 11:05 Carbon Dioxide 27 mmol/L (22-29) 09/12/24 11:05 Anion Gap 15.7 (5-19) 09/12/24 11:05 BUN 30 mg/dL (8-23) H 09/12/24 11:05 Creatinine 1.7 mg/dL (0.7-1.2) H 09/12/24 11:05 GFR Calculation Not Reportable 09/12/24 11:05 Glucose 91 mg/dL (65-115) 09/12/24 11:05 Calculated Osmolality 286 mOsm/kg (285-295) 09/12/24 11:05 Calcium 8.2 mg/dL (8.5-10.5) L 09/12/24 11:05 Total Bilirubin 1.2 mg/dL (0.15-1.2) 09/12/24 11:05 AST 21 U/L (0-40) 09/12/24 11:05 ALT 10 U/L (0-41) 09/12/24 11:05 Alkaline Phosphatase 89 U/L (40-130) 09/12/24 11:05 Troponin T Baseline 147 ng/L (0-15) H* 09/12/24 11:05 NT-Pro-B Natriuret Pep 9578 pg/mL (0-450) H 09/12/24 11:05 Total Protein 5.4 g/dL (6.6-8.7) L 09/12/24 11:05 Albumin 3.7 g/dL (3.5-5.2) 09/12/24 11:05 Globulin 1.7 g/dL (1.3-4.6) 09/12/24 11:05 All radiology interpretation(s) finalized by discharge Discharge Plan Discharge Patient Disposition: Admitted As Inpatient Clinical Impression: Pulmonary embolism, Breath shortness Condition: Stable Coding Level of Care Code ED Supervisor Braiding for Guerrero Tinoco
[2024-09-12 11:12] LABS: Basophils # 0.1 10^3/uL (0.0-0.1); Basophils % 1.8 %; Eosinophils # 0.2 10^3/uL (0.0-0.8); Eosinophils % 6.4 %; Hematocrit 29.6 % (37-53); Lymphocytes # 0.5 10^3/uL (0.8-4.8); Lymphocytes % 16.8 %; Mean Corpuscular HGB Conc 32.8 g/dL (30-55); Mean Corpuscular Hemoglobin 35.7 pg (27-33); Mean Corpuscular Volume 108.8 fl (82-101); Mean Platelet Volume 13.2 fL (7.4-10.4); Monocytes # 0.4 10^3/uL (0.2-0.9); Monocytes % 15.4 %; Neutrophils # 1.66 10^3/uL (1.8-7.7); Neutrophils % 59.2 %; Nucleated Red Blood Cells % 0 %; Platelet Count 60 10^3/cmm (157-399); Red Blood Count 2.72 10^6/uL (3.85-5.65); Red Cell Distribution Width 17.2 % (12.1-15.1)
[2024-09-12 11:22] LABS: INR 1.05 (0.8-1.2)
[2024-09-12 11:35] LABS: Troponin(5th) Baseline 147 ng/L (0-15)
[2024-09-12 11:37] LABS: Alanine Aminotransferase 10 U/L (0-41); Albumin Level 3.7 g/dL (3.5-5.2); Alkaline Phosphatase 89 U/L (40-130); Anion Gap 15.7 (5-19); Aspartate Amino Transferase 21 U/L (0-40); Blood Urea Nitrogen 30 mg/dL (8-23); Calcium 8.2 mg/dL (8.5-10.5); Carbon Dioxide 27 mmol/L (22-29); Chloride 96 mmol/L (98-107); Creatinine Clr Calc Pharmacy 35.8602; Globulin 1.7 g/dL (1.3-4.6); Glucose 91 mg/dL (65-115); NT Pro B Type Natriuretic Pept 9578 pg/mL (0-450); Osmolality Calculated 286 mOsm/kg (285-295); Potassium 3.7 mmol/L (3.5-5.1); Sodium 135 mmol/L (136-145); Total Bilirubin 1.2 mg/dL (0.15-1.2); Total Protein 5.4 g/dL (6.6-8.7)
[2024-09-12] MEDS: heparin 5,000 unit/mL INJ 1 mL IVP (12:01)
[2024-09-12] MEDS: heparin drip 25,000 UNIT/500 ML PREMIX 22 UNIT IV (12:05)
--- NOTE | 2024-09-12 12:59 | ECG_ITS ---
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 Measurements Intervals [place] Rate: 61 P: -46 SD: 147 QRS: 154 QRSD: 166 T: 40 QT: 514 QTc: 521 Interpretive Statements SINUS RHYTHM WITH OCCASIONAL SUPRAVENTRICULAR PREMATURE COMPLEXES RIGHT BUNDLE BRANCH BLOCK [120+ ms QRS DURATION, UPRIGHT V1, 40+ ms S IN I/aVL/V4/V5/V6] LEFT POSTERIOR FASCICULAR BLOCK [QRS AXIS > 109, INFERIOR Q] POSSIBLE ANTERIOR MYOCARDIAL INFARCTION , PROBABLY OLD [30 ms Q WAVE IN V3/V4, OR R < 0.2 mV IN V4] Compared to ECG 09/12/2024 12:07:15 Short SD interval no longer present ST (T wave) deviation no longer present Myocardial infarct finding still present Electronically Signed On 09-15-2024 10:28:50 CDT by Homar Tapia M.D. [id number] [id number]
[2024-09-12 13:02] LABS: Troponin 5 2HR 127.7 ng/L (0-15); Troponin 5 2HR Delta -19.3 ABS# (0-10)
--- NOTE | 2024-09-12 16:39 | PM.HP ---
Providers/Chief Complaint Admitting Physician: Valerie Fuentes MD Primary Care Provider: Allegra Jimenez MD Chief Complaint: sob refer from [facility] History of Present Illness Rafy Sierra is a 79 year old male with past medical history of multiple myeloma, congestive heart failure with a EF of 45%, anemia, history of CAD post PCI presents to the ER today because of difficulty in breathing which has been getting worse for the last 2 weeks. Difficulty in breathing get worse on laying down flat. He was sent into the ER to get a CT imaging by her PCP. In this CTA he was found to have pulmonary embolism along with concerns for bilateral pleural effusion. Seen on [facility] floor. Currently saturating well on room air on heparin drip. Denies any active chest pain. Seen with spouse at bedside. States recently he has not been maintaining his lifestyle modification. He has been taking more salt and liquids than usual. He has been checking his weight regularly which has been stable but has not been noticing or monitoring for any lower limb edema. Review of Systems General: Reports: 10 or more systems reviewed and unremarkable except in HPI and below Const: Denies: fever(s), chills, body aches, change in appetite, change in weight, malaise, night sweats, diaphoresis, change in sleep pattern, daytime sleepiness or snoring Eyes: Denies: change in vision, blurry vision, photophobia, eye discomfort or eye discharge ENMT: Denies: throat pain, enlarged tonsils, hoarseness, mouth pain, oral sores, dry mouth, tinnitus, nasal congestion or post nasal drip Card: Denies: chest pain, palpitations, irregular heart rhythm, edema, swelling of feet/ankles, lightheadedness, syncope, pre-syncope, dyspnea on exertion, orthopnea, leg pain with exertion or acrocyanosis Resp: Denies: dyspnea, productive cough, non-productive cough, wheezing, stridor, pain on inspiration, change in phlegm color, hemoptysis or chest congestion GI: Denies: abdominal pain, nausea, vomiting, hematemesis, coffee ground emesis, dysphagia, heartburn, diarrhea, constipation, bloating, GI cramping, change in bowel habits, pain on defecation, hematochezia or melena : Denies: flank pain, difficulty urinating, dysuria, urinary frequency, urinary urgency, urinary hesitancy, urinary dribbling, difficulty starting urination, change in urine stream, nocturia or hematuria Musc: Denies: neck pain, back pain, extremity pain, joint pain, joint swelling, joint redness, joint stiffness or limited range of motion Neuro: Denies: headache(s), numbness in extremities, weakness in extremities, sensory changes, lack of coordination, difficulty walking, frequent falls, dizziness, vertigo, confusion, Slurred speech present, difficulty communicating thoughts or seizure-like activity Psych: Denies: anxiety, depression, mood swings, panic attacks, hopelessness or irritability Endo: Denies: polyuria, polydipsia, tired all the time, cold intolerance, excessive sweating, flushing or heat intolerance Jorge/Lymph: Denies: easy bruising or easy bleeding All/Imm: Denies: tongue swelling, facial swelling or acute wheezing Medications/Allergies Home Medications ?Medication ?Instructions ?Recorded ?Confirmed ?Last Taken ?Type Mag-Lactate SR 84 mg PO BID 08/06/23 09/12/24 09/12/24 History acyclovir 400 mg tablet 400 mg PO BID 08/06/23 09/12/24 09/12/24 07:00 History atorvastatin 80 mg tablet 80 mg PO [facility] 08/06/23 09/12/24 09/12/24 07:00 History gabapentin 300 mg capsule 600 mg PO TID 08/06/23 09/12/24 09/12/24 History loperamide 2 mg tablet 4 mg PO BID 08/06/23 09/12/24 09/11/24 History loratadine 10 mg capsule 10 mg PO [facility] 08/06/23 09/12/24 09/12/24 History nmmotdws-usanowbk-wtmgg acid 400 1 tab PO [facility] 08/06/23 09/12/24 09/12/24 History mcg-vit K 20 mcg-lycop 300 mcg tablet sertraline 25 mg tablet 12.5 mg PO QPM 08/06/23 09/12/24 09/12/24 History spironolactone 25 mg tablet 25 mg PO [facility] 08/06/23 09/12/24 09/12/24 History aspirin 81 mg tablet,delayed 81 mg PO DAILY #30 tabs 08/10/23 09/12/24 09/11/24 20:00 Rx release bumetanide 1 mg tablet 1.5 mg (1.5 x 1 mg) PO DAILY #45 08/10/23 09/12/24 09/12/24 Rx tabs metoprolol succinate 25 mg 12.5 mg (1/2 x 25 mg) PO DAILY #15 08/10/23 09/12/24 09/12/24 Rx tablet,extended release 24 hr tabs pantoprazole 40 mg tablet,delayed 40 mg PO BID #60 tabs 08/10/23 09/12/24 09/12/24 Rx release potassium chloride 20 mEq 20 meq PO DAILY #30 tabs 08/10/23 09/12/24 09/12/24 Rx tablet,extended release Left AFO #1 ea 12/19/23 09/12/24 Unknown Rx acetaminophen 325 mg tablet 325 - 350 mg PO QID PRN Pain 09/12/24 09/12/24 Unknown History (Tylenol) albuterol sulfate 2.5 mg/3 mL 2.5 mg inhalation Q4H PRN 09/12/24 09/12/24 Unknown History (0.083 %) solution for nebulization Shortness Of Breath daratumumab 20 mg/mL intravenous 20 mg IV Q30D 09/12/24 09/12/24 08/22/24 History solution (Darzalex) diphenoxylate-atropine 2.5 1 tab PO QID PRN loose stools 09/12/24 09/12/24 09/11/24 History mg-0.025 mg tablet doxycycline hyclate 100 mg capsule 100 mg PO BID 09/12/24 09/12/24 09/12/24 History lenalidomide 10 mg capsule 10 mg PO DAILY 09/12/24 09/12/24 09/12/24 History zoledronic acid 4 mg intravenous 4 mg IV Q3M 09/12/24 09/12/24 Unknown History solution Allergies Allergy/AdvReac Type Severity Reaction Status Date / Time No Known Allergies Allergy Verified 09/08/24 13:36 PFSH Acute PFSH: Medical History (Updated 09/12/24 @ 17:20 by Joe Rubalcava MD) CKD (chronic kidney disease) Mitral valve prolapse Systolic congestive heart failure Gastric ulcer GI bleed Multiple myeloma Coronary artery disease Surgical History H/O esophagogastroduodenoscopy Social History Smoking and tobacco/nicotine status: former use of tobacco/nicotine Vitals/I&O/Wt Last Vital Signs Temp 97.6 F 09/12/24 15:38 Pulse 56 L 09/12/24 15:38 Resp 18 09/12/24 15:38 BP 117/56 09/12/24 15:38 Pulse Ox 99 09/12/24 15:38 O2 Del Method Room Air 09/12/24 15:38 Weight last 48 hrs Weight 80.739 kg Physical Exam Narrative: General: No acute distress, AO x3 HEENT: PERRLA, pupils bilaterally equal and reactive Chest: Normal vesicular breath sounds, no added sounds, decreased air entry bilaterally in lower zone, right more than left CVS: S1-S2 regular, no murmurs, no tachycardia, no gallops, no rubs Abdomen: Soft, nontender, no organomegaly, bowel sounds present Neuro: No focal deficits, no facial deformity, AO x3, power 5/5 in all limbs Lower limb extremity: 1+ bilateral pitting edema Data 09/12/24 11:05 09/12/24 11:05 A&P Assessment and plan (1) Breath shortness: In setting of congestive heart failure with EF last known of 45%, new diagnosis of pulm embolism. Orthopnea positive. Supplementation keeping saturation over 90%. (2) Pulmonary embolism: Seen on CTA. Low concerns for right heart strain. Check echocardiogram. Continue with heparin drip for now. Will transition to full dose Eliquis 10 mg twice daily for 7 days followed by 5 mg twice daily on discharge. (3) Systolic congestive heart failure: Last echocardiogram showed EF of 45 to 50%. Showed eccentric MR with possible prolapse of left AML. Fluid restriction to less than 1500 cc. IV Bumex 2 mg twice daily. Strict input charting, daily weights. Monitor BMP daily. (4) Mitral valve prolapse: (5) CKD (chronic kidney disease): Baseline creatinine 1.4-1.7. Currently 1.7. Monitor BMP daily. Monitor electrolytes. Medical reconciliation done for nephrotoxic drugs. (6) Elevated troponin: Most likely in setting of type II OR. Baseline troponin more than 140. Trending down in 2 hours. Continue to monitor. Patient already on heparin drip. Continue home dose of aspirin, statin. Patient denies any chest pain. If troponin continues to trend down most likely will get outpatient stress test with advised to follow-up with his outpatient endorsement clerk. (7) Pleural effusion: Most likely in setting of systolic congestive heart failure. Patient remains on room air. No need for thoracentesis for now. Plan Continue other chronic medications including aspirin, atorvastatin, gabapentin. Hypertension: Goal blood pressure less than 140/90 mmHg. Continue with home dose of metoprolol for now. Telemetry. Full code Cardiac diet Fluid restriction. Heparin drip will be sufficient for DVT prophylaxis and Protonix OPD prophylaxis. PDMP PDMP Reviewed: Not Reviewed Attestations Medical Necessity Statement*: Admission for more than 2 midnights for management shortness of breath in setting of pulmonary embolism, pleural effusion, systolic congestive heart failure Diagnoses Breath shortness R06.02 Pulmonary embolism I26.99 Systolic congestive heart failure I50.20 Mitral valve prolapse I34.1 CKD (chronic kidney disease) N18.9 Elevated troponin R79.89 Pleural effusion J90
--- NOTE | 2024-09-12 17:11 | ECG_ITS ---
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 Measurements Intervals [place] Rate: 66 P: 4 SC: 181 QRS: 163 QRSD: 166 T: 28 QT: 515 QTc: 541 Interpretive Statements SINUS RHYTHM WITH OCCASIONAL VENTRICULAR PREMATURE COMPLEXES RIGHT BUNDLE BRANCH BLOCK [120+ ms QRS DURATION, UPRIGHT V1, 40+ ms S IN I/aVL/V4/V5/V6] LEFT POSTERIOR FASCICULAR BLOCK [QRS AXIS > 109, INFERIOR Q] POSSIBLE ANTERIOR MYOCARDIAL INFARCTION , PROBABLY OLD [30 ms Q WAVE IN V3/V4, OR R < 0.2 mV IN V4] Compared to ECG 09/12/2024 12:53:44 Ventricular premature complex(es) now present Myocardial infarct finding still present Electronically Signed On 09-15-2024 10:26:42 CDT by Homar Tapia M.D. [id number]
[2024-09-12 17:33] LABS: Estmated Average Glucose 85; Hemoglobin A1C 4.6 % (4.0-6.0)
[2024-09-12 17:55] LABS: Procalcitonin 0.11 ng/mL (0-0.5); Thyroid Stimulating Hormone 0.96 uIU/mL (0.27-4.20); Vitamin B12 507 pg/mL (232-1245)
[2024-09-12 17:57] LABS: Troponin 5 6HR 130.9 ng/L (0-15); Troponin 5 6HR Delta -16.1 ng/L (0-12)
[2024-09-12] MEDS: cefTRIAXone 1,000 mg SDV 1000 MG IVP (17:59)
[2024-09-12] MEDS: azithromycin 250 mg Tablet 500 MG PO (17:59)
[2024-09-12] MEDS: bumetanide 0.25 mg/mL SDV 10 mL 2 MG IVP (18:00)
[2024-09-12] MEDS: pantoprazole DR 40 mg Tablet PO (18:00)
[2024-09-12 18:06] LABS: Iron 75 ug/dL (59-158); Percent Saturation 30.2 % (20-50); Total Iron Binding Capacity 248 mcg/dl; Unsaturated Iron Binding 173 ug/dL (112-347)
[2024-09-12 18:12] LABS: Partial Thromboplastin Time > 250.0 SECONDS (23.9-36.7)
--- NOTE | 2024-09-12 18:19 | PC.NURSE ---
Critical of greater then 250 was called on this patient Heparin drip. Dr. Martin notified. Dr. Martin states to stop the Heparin drip for 3 hours and restart it at half the dose it was at. It currently running at 22. At 2100 restart the Heparin drip at 11 and repeat the PTT at 4 hours.
[2024-09-12 19:50] LABS: MRSA PCR OZH (swab) NOT DETECTED (Negative)
[2024-09-12] MEDS: budesonide 0.5 mg/2 mL Neb INHALATION (20:04)
[2024-09-12] MEDS: gabapentin 300 mg Capsule 600 MG PO (20:45)
[2024-09-12 21:20] LABS: Partial Thromboplastin Time 46.5 SECONDS (23.9-36.7)
--- NOTE | 2024-09-12 21:35 | PC.NURSE ---
Heparin drip paused, by previous shift, prior to titration. Heparin drip restarted by this nurse at 11 ml/hr per doctor's order. PTT to be redrawn in 4 hours.
--- NOTE | 2024-09-13 00:14 | ECG_ITS ---
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 Measurements Intervals [place] Rate: 83 P: 0 MD: 0 QRS: 164 QRSD: 170 T: 36 QT: 469 QTc: 554 Interpretive Statements ATRIAL FIBRILLATION RIGHT BUNDLE BRANCH BLOCK [120+ ms QRS DURATION, UPRIGHT V1, 40+ ms S IN I/aVL/V4/V5/V6] LEFT POSTERIOR FASCICULAR BLOCK [QRS AXIS > 109, INFERIOR Q] Compared to ECG 09/12/2024 17:11:45 Sinus rhythm no longer present Ventricular premature complex(es) no longer present Myocardial infarct finding no longer present Electronically Signed On 09-15-2024 09:21:43 CDT by Homar Tapia M.D. [email or web address]
[2024-09-13 00:23] VITALS: BP 98/65
[2024-09-13 00:43] VITALS: PULSE 99
[2024-09-13 01:36] LABS: Basophils # 0.1 10^3/uL (0.0-0.1); Basophils % 2.3 %; Eosinophils # 0.2 10^3/uL (0.0-0.8); Eosinophils % 6.9 %; Hematocrit 28.2 % (37-53); Lymphocytes # 0.5 10^3/uL (0.8-4.8); Mean Corpuscular HGB Conc 32.3 g/dL (30-55); Mean Corpuscular Volume 108.5 fl (82-101); Monocytes # 0.4 10^3/uL (0.2-0.9); Monocytes % 16.2 %; Neutrophils # 1.41 10^3/uL (1.8-7.7); Neutrophils % 54.2 %; Nucleated Red Blood Cells % 0 %; Platelet Count 56 10^3/cmm (157-399); Red Cell Distribution Width 17.3 % (12.1-15.1)
[2024-09-13 01:50] LABS: Alanine Aminotransferase 10 U/L (0-41); Albumin Level 3.6 g/dL (3.5-5.2); Alkaline Phosphatase 86 U/L (40-130); Anion Gap 15.4 (5-19); Aspartate Amino Transferase 21 U/L (0-40); Blood Urea Nitrogen 32 mg/dL (8-23); Calcium 8.5 mg/dL (8.5-10.5); Carbon Dioxide 27 mmol/L (22-29); Chloride 98 mmol/L (98-107); Creatinine Clr Calc Pharmacy 35.8602; Glucose 103 mg/dL (65-115); Magnesium 1.8 mg/dL (1.7-2.3); Osmolality Calculated 291 mOsm/kg (285-295); Phosphorus 3.5 mg/dL (2.5-4.5); Potassium 3.4 mmol/L (3.5-5.1); Sodium 137 mmol/L (136-145); Total Bilirubin 0.8 mg/dL (0.15-1.2); Total Protein 5.6 g/dL (6.6-8.7)
[2024-09-13 02:04] LABS: Chol HDL Ratio 1.65 mg/dL (1.0-5.00); Cholesterol 91 mg/dL (0-200); HDL Cholesterol 55 mg/dL (60-100); LDL Cholesterol Calculated 23 mg/dL (50-129); LDL HDL Ratio 0.42 RATIO (0.00-3.22); Triglycerides 63 mg/dL (0-150)
[2024-09-13] MEDS: heparin 5,000 unit/mL INJ 1 mL IVP (02:12)
[2024-09-13 02:25] LABS: Procalcitonin 0.11 ng/mL (0-0.5)
[2024-09-13 02:36] LABS: Folate Level 15.1 ng/mL (4.5-32.2)
[2024-09-13 04:00] VITALS: BP 106/67; PULSE 58; RESP 16; TEMP 36.7; O2SAT 98
[2024-09-13] MEDS: sodium chloride 0.9% 500 ML IV (04:01)
[2024-09-13] MEDS: atorvastatin 40 mg Tablet 80 MG PO (06:31)
[2024-09-13] MEDS: spironolactone 25 mg Tablet PO (06:31)
[2024-09-13 06:41] VITALS: PULSE 58
[2024-09-13 08:00] VITALS: BP 139/81; PULSE 68; RESP 18; TEMP 36.4; O2SAT 95
--- NOTE | 2024-09-13 08:09 | USR_ITS ---
PROCEDURE INFORMATION: Exam: US Duplex Lower Extremity Veins, Bilateral Exam date and time: 09/13/2024 8:17 AM Age: 79 years old Clinical indication: Screening exam; Dvt TECHNIQUE: Imaging protocol: Real-time duplex ultrasound of the bilateral extremities with 2-D hemphill scale, color Doppler flow and spectral waveform analysis including responses to compression and other maneuvers (when performed) with image documentation. Complete exam focused on the lower extremity veins. COMPARISON: CT abdomen pelvis w con* [id number] 02/28/2023 5:15 PM FINDINGS: The common femoral, femoral, popliteal and posterior tibial veins are patent. There is appropriate compression and augmentation. Doppler interogation reveals venous blood flow. US/[place] [id number] IMPRESSION: No evidence of deep venous thrombosis.
--- NOTE | 2024-09-13 08:10 | USCV_ITS ---
Rafy Sierra Age: 79 Gender: M : 1945 Exam Date: 09/13/2024 08:57 Ordering Phys: Joe Rubalcava MD Technologist: Harvey Rahman Exam Location: [facility] [place] Indication: chf, pe BP: 106 / 67 HR: 67 Rhythm: Atrial fibrillation Technical Quality: Adequate MEASUREMENTS (Male / Female) Normal Values 2D ECHO LV Diastolic Diameter PLAX 5.3 cm 4.2 - 5.9 / 3.9 - 5.3 cm IVS Diastolic Thickness 0.8 cm 0.6 - 1.0 / 0.6 - 0.9 cm IVS Systolic Thickness 1.0 cm LVPW Diastolic Thickness 0.9 cm 0.6 - 1.0 / 0.6 - 0.9 cm LVPW Systolic Thickness 1.2 cm LVOT Diameter 2.0 cm LV Ejection Fraction 2D Teich 50.2 % LV Ejection Fraction MOD 4C 38.1 % LV Ejection Fraction MOD 2C 42.4 % LV Ejection Fraction 2C AL 39.5 % LA Diameter 3.8 cm RA Systolic Volume 4C AL 46.7 ml RA Systolic Volume 4C MOD 47.2 ml LA Sys Volume AL 50.2 cm cubed LA Sys Volume Index AL 25.4 cm cubed/m squared Aorta at Sinotubular Diameter 2.0 cm IVC Diameter 1.8 cm M-MODE LA Ao Ratio MM 1.5 AV Cusp Separation MM 0.6 cm DOPPLER AV Peak Velocity 456.0 cm/s LVOT Peak Velocity 94.0 cm/s AV Area Cont Eq vti 0.5 cm squared AV Area Cont Eq pk 0.7 cm squared MV Peak Velocity 225.0 cm/s MV Area PHT 3.7 cm squared Mitral E to A Ratio 2.5 TV Peak Velocity 318.0 cm/s TR Peak Velocity 360.0 cm/s TR Peak Gradient 51.8 mmHg TR Mean Velocity 272.0 cm/s TR Mean Gradient 33.3 mmHg TR Velocity Time Integral 101.6 cm PV Peak Velocity 103.0 cm/s RV Ejection Time 0.3 s FINDINGS Left Ventricle Left ventricle is normal in size. LV systolic function is moderately reduced with EF of 35-40%. Moderate global hypokinesis. Right Ventricle Normal in size and function Right Atrium Normal in size Left Atrium Normal in size Mitral Valve Severe mitral annular calcification. Mild to moderate mitral stenosis with mean gradient across mitral valve of 5.11mmHg. Severe eccentric mitral regurgitation. Aortic Valve Severe aortic valve calcification. Severe low flow low gradient aortic stenosis with aortic valve area of 0.73cm2 and mean grandient across aortic valve of 35mmHg. Vmax is 3.56m/s. Mild aortic regurgitation. Tricuspid Valve Insuffiecient TR jet to calculate RVSP Pulmonic Valve Not well visualized Pericardium Normal Aorta Normal in size IVC Appears to be normal CONCLUSIONS LV systolic function is moderately reduced with EF of 35-40% Mild to moderate mitral stenosis Severe eccentric mitral regurgitation Severe low flow low gradient aortic stenosis Compared to prior echcoardiogram from 2023, patient has lower LV function, aortic stenosis has progressed and has mild to moderate mitral stenosis Homar Tapia MD (Electronically Signed) Final Date: 13 Sep 2024 21:37 S
[2024-09-13 08:26] LABS: Partial Thromboplastin Time 99.6 SECONDS (23.9-36.7)
[2024-09-13] MEDS: budesonide 0.5 mg/2 mL Neb INHALATION (08:35)
[2024-09-13] MEDS: aspirin 81 mg EC Tablet PO (09:54)
[2024-09-13] MEDS: gabapentin 300 mg Capsule 600 MG PO (09:54)
[2024-09-13] MEDS: azithromycin 250 mg Tablet 500 MG PO (09:54)
[2024-09-13] MEDS: pantoprazole DR 40 mg Tablet PO (09:55)
[2024-09-13] MEDS: bumetanide 0.25 mg/mL SDV 10 mL 2 MG IVP (09:55)
--- NOTE | 2024-09-13 11:33 | P.DS_ITS ---
Discharge Providers Date of Admission: 09/12/24 13:16 Date of Discharge: September 13, 2024 Attending Provider at Admission: Valerie Fuentes MD Attending Provider at Discharge: Joe Rubalcava MD Primary Care Provider: Allegra Jimenez MD Diagnoses at Discharge Discharge Diagnosis (1) Breath shortness: Status: Acute (2) Pulmonary embolism: Status: Acute (3) Systolic congestive heart failure: Status: Acute (4) Mitral valve prolapse: Status: Acute (5) CKD (chronic kidney disease): Status: Chronic (6) Elevated troponin: Status: Acute (7) Pleural effusion: Status: Acute Reason for Visit Reason for Visit: sob refer from [facility] Hospital Course Hospital Course Rafy Sierra is a 79 year old male with past medical history of multiple myeloma, congestive heart failure with a EF of 45%, anemia, history of CAD post PCI presents to the ER today because of difficulty in breathing which has been getting worse for the last 2 weeks. Difficulty in breathing get worse on laying down flat. He was sent into the ER to get a CT imaging by her PCP. In this CTA he was found to have pulmonary embolism along with concerns for bilateral pleural effusion. Seen on [facility] floor. Currently saturating well on room air on heparin drip. Denies any active chest pain. Seen with spouse at bedside. States recently he has not been maintaining his lifestyle modification. He has been taking more salt and liquids than usual. He has been checking his weight regularly which has been stable but has not been noticing or monitoring for any lower limb edema. Patient was sent to the hospital evaluation and management of shortness of breath in setting of pulmonary embolism and acute decompensated chronic heart failure. He was started on IV Bumex. He was continued on heparin drip for PE. Echocardiogram was done though results are awaited. Patient responded well to the treatment and his shortness of breath improved quicker than expected. He has been discharged in hemodynamically stable condition on oral Bumex 2 mg twice daily for next 2 weeks and after that 2 mg daily. He has been counseled in detail about lifestyle modification with congestive heart failure. He will be discharged on Eliquis 10 mg twice daily for next 7 days followed by 5 mg twice daily. He is to follow-up with his primary care provider within next 1 week. Physical Exam Narrative: General: No acute distress, AO x3 HEENT: PERRLA, pupils bilaterally equal and reactive Chest: Normal vesicular breath sounds, no added sounds, decreased air entry bilaterally in lower zone, right more than left CVS: S1-S2 regular, no murmurs, no tachycardia, no gallops, no rubs Abdomen: Soft, nontender, no organomegaly, bowel sounds present Neuro: No focal deficits, no facial deformity, AO x3, power 5/5 in all limbs Lower limb extremity: 1+ bilateral pitting edema Discharge Data Studies Completed and Pending Completed Studies During Hospitalization Category [place] [id number] Routine Ultrasound 09/13/24 08:09 Completed Pending at discharge Category Date Time Status Complete Blood Count w/Auto AM LABS Lab 09/14/24 04:00 Ordered Complete Blood Count w/Auto AM LABS Lab 09/15/24 04:00 Ordered Comprehensive Metabolic Panel AM LABS Lab 09/14/24 04:00 Ordered Comprehensive Metabolic Panel AM LABS Lab 09/15/24 04:00 Ordered Magnesium AM LABS Lab 09/14/24 04:00 Ordered Magnesium AM LABS Lab 09/15/24 04:00 Ordered PTT [Partial Thromboplastin Time] Timed Lab 09/13/24 13:45 Ordered Phosphorus AM LABS Lab 09/14/24 04:00 Ordered Phosphorus AM LABS Lab 09/15/24 04:00 Ordered Platelet Count Q2D Lab 09/14/24 04:00 Ordered Platelet Count Q2D Lab 09/16/24 04:00 Ordered Urinalysis Routine Lab 09/12/24 16:36 Ordered CV. echo complete* [id number] Routine Ultrasound 09/13/24 08:10 Taken Radiology Impressions Venous Duplex 09/13/24 08:09 IMPRESSION: No evidence of deep venous thrombosis. Laboratory Results WBC 2.60 10^3/uL (3.29-11.43) L 09/13/24 01:20 RBC 2.60 10^6/uL (3.85-5.65) L 09/13/24 01:20 Hgb 9.10 g/dL (11.27-16.99) L 09/13/24 01:20 Hct 28.2 % (37-53) L 09/13/24 01:20 MCV 108.5 fl (82-101) H 09/13/24 01:20 MCH 35.0 pg (27-33) H 09/13/24 01:20 MCHC 32.3 g/dL (30-55) 09/13/24 01:20 RDW 17.3 % (12.1-15.1) H 09/13/24 01:20 Plt Count 56 10^3/cmm (157-399) L 09/13/24 01:20 MPV 12.0 fL (7.4-10.4) H 09/13/24 01:20 Neut % (Auto) 54.2 % 09/13/24 01:20 Lymph % (Auto) 20.0 % 09/13/24 01:20 [place] % (Auto) 16.2 % 09/13/24 01:20 Eos % (Auto) 6.9 % 09/13/24 01:20 Baso % (Auto) 2.3 % 09/13/24 01:20 Neut # (Auto) 1.41 10^3/uL (1.8-7.7) L 09/13/24 01:20 Lymph # (Auto) 0.5 10^3/uL (0.8-4.8) L 09/13/24 01:20 [place] # (Auto) 0.4 10^3/uL (0.2-0.9) 09/13/24 01:20 Eos # (Auto) 0.2 10^3/uL (0.0-0.8) 09/13/24 01:20 Baso # (Auto) 0.1 10^3/uL (0.0-0.1) 09/13/24 01:20 Nucleated RBC % (auto) 0 % 09/13/24 01:20 Nucleated RBCs # 0.0 /100WBC 09/13/24 01:20 PT 14.40 SECONDS (12.1-14.9) 09/12/24 11:05 INR 1.05 (0.8-1.2) 09/12/24 11:05 APTT 99.6 SECONDS (23.9-36.7) H D 09/13/24 07:57 Sodium 137 mmol/L (136-145) 09/13/24 01:20 Potassium 3.4 mmol/L (3.5-5.1) L 09/13/24 01:20 Chloride 98 mmol/L (98-107) 09/13/24 01:20 Carbon Dioxide 27 mmol/L (22-29) 09/13/24 01:20 Anion Gap 15.4 (5-19) 09/13/24 01:20 BUN 32 mg/dL (8-23) H 09/13/24 01:20 Creatinine 1.7 mg/dL (0.7-1.2) H 09/13/24 01:20 GFR Calculation Not Reportable 09/13/24 01:20 Glucose 103 mg/dL (65-115) 09/13/24 01:20 Estimat Average Glucose 85 09/12/24 11:05 Hemoglobin A1c 4.6 % (4.0-6.0) 09/12/24 11:05 Calculated Osmolality 291 mOsm/kg (285-295) 09/13/24 01:20 Lactic Acid 1.0 mmol/L (0.5-2.2) 09/12/24 17:25 Calcium 8.5 mg/dL (8.5-10.5) 09/13/24 01:20 Phosphorus 3.5 mg/dL (2.5-4.5) 09/13/24 01:20 Magnesium 1.8 mg/dL (1.7-2.3) 09/13/24 01:20 Iron 75 ug/dL (59-158) 09/12/24 11:05 TIBC 248 mcg/dl 09/12/24 11:05 % Saturation 30.2 % (20-50) 09/12/24 11:05 Unsat Iron Binding 173 ug/dL (112-347) 09/12/24 11:05 Total Bilirubin 0.8 mg/dL (0.15-1.2) 09/13/24 01:20 AST 21 U/L (0-40) 09/13/24 01:20 ALT 10 U/L (0-41) 09/13/24 01:20 Alkaline Phosphatase 86 U/L (40-130) 09/13/24 01:20 Troponin T Baseline 147 ng/L (0-15) H* 09/12/24 11:05 Troponin T 120 Minute 127.7 ng/L (0-15) H 09/12/24 12:33 Delta Troponin T -19.3 ABS# (0-10) L 09/12/24 12:33 Troponin T Hi Sens 6Hr 130.9 ng/L (0-15) H 09/12/24 17:25 Troponin T Hi Sens 6Hr Delta -16.1 ng/L (0-12) L 09/12/24 17:25 NT-Pro-B Natriuret Pep 9578 pg/mL (0-450) H 09/12/24 11:05 Total Protein 5.6 g/dL (6.6-8.7) L 09/13/24 01:20 Albumin 3.6 g/dL (3.5-5.2) 09/13/24 01:20 Globulin 2.0 g/dL (1.3-4.6) 09/13/24 01:20 Triglycerides 63 mg/dL (0-150) 09/13/24 01:20 Cholesterol 91 mg/dL (0-200) 09/13/24 01:20 LDL Cholesterol, Calc 23 mg/dL (50-129) L 09/13/24 01:20 HDL Cholesterol 55 mg/dL (60-100) L 09/13/24 01:20 LDL/HDL Ratio 0.42 RATIO (0.00-3.22) 09/13/24 01:20 Cholesterol/HDL Ratio 1.65 mg/dL (1.0-5.00) 09/13/24 01:20 Vitamin B12 507 pg/mL (232-1245) 09/12/24 11:05 Folate 15.1 ng/mL (4.5-32.2) 09/13/24 01:20 Procalcitonin 0.11 ng/mL (0-0.5) 09/13/24 01:20 TSH 0.96 uIU/mL (0.27-4.20) 09/12/24 11:05 Nasal MRSA (PCR) Not detected (Negative) 09/12/24 18:25 Vitals Last Vital Signs Temp 97.6 F 09/13/24 08:00 Pulse 68 09/13/24 08:00 Resp 18 09/13/24 08:00 BP 139/81 09/13/24 08:00 Pulse Ox 95 09/13/24 08:00 O2 Del Method Room Air 09/13/24 08:00 Discharge Plan Discharge Patient Disposition: Home Condition: Stable Prescriptions: New Eliquis 5 mg tablet 5 mg PO BID Qty: 90 3RF Rx Instructions: 10 bid for 7 days then 5 mg bid Continued (DME) Left AFO See Rx Instructions .Route .MEDSUPPLY Qty: 1 0RF Rx Instructions: As directed to the buck huang lenalidomide 10 mg capsule 10 mg PO DAILY diphenoxylate-atropine 2.5-0.025 mg tablet 1 tab PO QID PRN (Reason: loose stools) zoledronic acid 4 mg Recon Soln 4 mg IV Q3M Darzalex 20 mg/mL Solution 20 mg IV Q30D acetaminophen [Tylenol] 325 mg Tablet 325 - 350 mg PO QID PRN (Reason: Pain) albuterol sulfate 2.5 mg /3 mL (0.083 %) solution for nebulization 2.5 mg inhalation Q4H PRN (Reason: Shortness Of Breath) atorvastatin 80 mg Tablet 80 mg PO QAM loperamide 2 mg Tablet 4 mg PO BID acyclovir 400 mg Tablet 400 mg PO BID spironolactone 25 mg Tablet 25 mg PO QAM gabapentin 300 mg Capsule 600 mg PO TID sertraline 25 mg Tablet 12.5 mg PO QPM loratadine 10 mg Capsule 10 mg PO QAM Mag-Lactate SR 84 mg tablet 84 mg PO BID lvatrkoh-ikh-koead-vit K-lycop 400-20-300 mcg Tablet 1 tab PO QAM aspirin 81 mg Tablet,Delayed Release (Dr/Ec) 81 mg PO DAILY Qty: 30 0RF pantoprazole 40 mg Tablet,Delayed Release (Dr/Ec) 40 mg PO BID Qty: 60 0RF metoprolol succinate 25 mg Tablet Extended Release 24 Hr 12.5 mg PO DAILY Qty: 15 0RF potassium chloride 20 mEq tablet extended release 20 meq PO DAILY Qty: 30 0RF Changed bumetanide 1 mg tablet 2 mg PO DAILY 30 Days Qty: 60 0RF Discontinued doxycycline hyclate 100 mg capsule 100 mg PO BID Discharge Orders: Discharge Order (Routine); Ordered 09/13/24 Ordered By: Joe Rubalcava Referrals: Allegra Jimenez MD [Primary Care Provider, Family Practice] - 4-7 days Referral Note: We have notified your physician's clinic of the need for a follow-up appointment to be scheduled. If you have not heard from them within the next 2 business days, please call them directly. Discharge Diet: Cardiac Discharge Activity: Resume usual activity and Increase activity as tolerated Patient Instructions: Apixaban (By mouth), Pulmonary Embolism (DC), Pulmonary Edema (DC), Opioid Safety Activity Restrictions/Additional Instructions: For next 2 weeks take Bumex 2 mg twice daily. After that start taking Bumex 2 mg oral daily. Your body weight in next 1 week will be your dry weight. Restrict fluid intake to less than 1500 cc, salt intake to less than 2 g daily. Advised to check his weight daily at home. Is advised that weight today would be the dry weight and if body weight increases by around 3 pounds, patient is to take an extra dose of Bumex daily till body weight comes down to weight today. If not able to come down to dry body weight in 1 week, then is to call cardiology office for further recommendations. Patient was counseled in detail to take medications regularly as prescribed. Take Eliquis 10 mg twice daily for next 1 week followed by 5 mg twice daily. Discharge Attestations Time Spent in Discharge Care*: greater than 30 min Specific Discharge Activities: educating patient, educating and/or supporting family/caregiver, discussing with pcp/other providers, discussing with rehabilitation case coordinator/social workers/dc planners, documenting/other paperwork and evaluating patient/reviewing data Status at Discharge: Cognitive status at discharge: cognitively intact , Behavioral status at discharge: cooperative , Functional status at discharge: independent ambulation , Overall status at discharge: patient is back to baseline Quality Metrics Clinical Quality Measures [ Venous Thromboembolism { Contraindication to Overlap Therapy: None; Overlap threrpy ordered; VTE Discharge Education: Education about anticoagulant therapy/Care Notes given, Education about treatment options/disease process, Medication side effects education, INR/lab monitoring education as applicable, Follow-up arranged, Other; Deep Vein Thrombosis/Pulmonary Embolism Present on Admission: Yes;}. No reported AMI, CVA or VTE this stay] Coding Level of Care Code 20985 Total time (in minutes) for Discharge: 70 Diagnoses Breath shortness R06.02 Pulmonary embolism I26.99 Systolic congestive heart failure I50.20 Mitral valve prolapse I34.1 CKD (chronic kidney disease) N18.9 Elevated troponin R79.89 Pleural effusion J90
[2024-09-13] MEDS: heparin drip 25,000 UNIT/500 ML PREMIX 8 UNIT IV (11:57)
== END 2024-09-13 13:58 | disposition home or self-care (01) | DRG 175 ==
LOC: ER 12:19 → MEDSURG 13:16
PROVIDERS: Admitting Provider Student in an Organized Health Care Education/Training Program; Emergency Provider Emergency Medicine; PCP Family Medicine; Visit Provider Student in an Organized Health Care Education/Training Program
DX: I26.99 Other pulmonary embolism without acute cor pulmonale (principal); I21.A1 Myocardial infarction type 2; I50.23 Acute on chronic systolic (congestive) heart failure; I13.0 Hypertensive heart and chronic kidney disease with heart failure and stage 1 through stage 4 chronic kidney disease, or unspecified chronic kidney disease; C90.00 Multiple myeloma not having achieved remission; N18.9 Chronic kidney disease, unspecified; I34.1 Nonrheumatic mitral (valve) prolapse; I25.10 Atherosclerotic heart disease of native coronary artery without angina pectoris; D63.1 Anemia in chronic kidney disease; Z95.5 Presence of coronary angioplasty implant and graft; Z79.82 Long term (current) use of aspirin; Z79.60 Long term (current) use of unspecified immunomodulators and immunosuppressants
CPT/HCPCS: 36415; 80053; 80061; 82607; 82746; 83036; 83540; 83550; 83605; 83735; 83880; 84100; 84145; 84443; 84484; 85025; 85610; 85730; 93005; 93306; 93970; 94640; 94664; 96365; 96366; 96375; 99285; 99291; J0696; J1644; J3490; J7040; J7626; J9999; Q0144

== ENCOUNTER → 2024-09-23 12:58 | Outpatient (BNVA) | payer MEDICARE, OTHER, SELFPAY | PROVIDERS: PCP Family Medicine; Visit Provider Podiatrist Foot & Ankle Surgery | DX: L60.8 Other nail disorders (principal); L60.3 Nail dystrophy; I73.9 Peripheral vascular disease, unspecified | CPT/HCPCS: 99213 ==

== ENCOUNTER 2024-09-27 23:44 | Inpatient (IN) | payer MEDICARE, OTHER, SELFPAY ==
[2024-09-27 23:45] VITALS: BP 106/52; PULSE 74; RESP 16; TEMP 36.3; O2SAT 95; BMI 28.5
[2024-09-28] VITALS (26 sets, daily range): BP systolic 96–148; BP diastolic 42–79; PULSE 50–69; RESP 15–26; TEMP 35.9–36.5; O2SAT 94–100; BMI 28.5
--- NOTE | 2024-09-28 00:09 | XRR_ITS ---
PROCEDURE INFORMATION: Exam: XR Chest Exam date and time: 09/28/2024 12:52 AM Age: 79 years old Clinical indication: Shortness of breath; C/O SOB. Wearing external heart monitor. Recent hospitalization for pleural effusion. TECHNIQUE: Imaging protocol: Radiologic exam of the chest. Views: 1 view. COMPARISON: CT angio chest PE protcl [id number] 09/12/2024 9:59 AM FINDINGS: Lungs: No infiltrate. Pleural spaces: [id number]-ib-[id number] bilateral pleural effusions. Heart/Mediastinum: There is moderate cardiomegaly with vascular congestion. Bones/joints: Unremarkable. XR/XR chest 1V portable [id number] IMPRESSION: 1. Moderate cardiomegaly with vascular congestion. 2. Yprro-ob-esrwpaqy bilateral pleural effusions.
[2024-09-28 00:20] LABS: Basophils # 0.1 10^3/uL (0.0-0.1); Basophils % 1.4 %; Eosinophils # 0.2 10^3/uL (0.0-0.8); Eosinophils % 5.4 %; Hematocrit 25.3 % (37-53); Lymphocytes # 0.8 10^3/uL (0.8-4.8); Lymphocytes % 21.4 %; Mean Corpuscular HGB Conc 32.4 g/dL (30-55); Mean Corpuscular Hemoglobin 36.9 pg (27-33); Mean Platelet Volume 12.8 fL (7.4-10.4); Monocytes # 0.6 10^3/uL (0.2-0.9); Monocytes % 15.4 %; Neutrophils # 2.08 10^3/uL (1.8-7.7); Neutrophils % 56.1 %; Nucleated Red Blood Cells % 0 %; Platelet Count 80 10^3/cmm (157-399); Red Blood Count 2.22 10^6/uL (3.85-5.65); Red Cell Distribution Width 17.3 % (12.1-15.1)
[2024-09-28 00:54] LABS: Alanine Aminotransferase 14 U/L (0-41); Albumin Level 3.7 g/dL (3.5-5.2); Alkaline Phosphatase 105 U/L (40-130); Anion Gap 15.2 (5-19); Aspartate Amino Transferase 27 U/L (0-40); Blood Urea Nitrogen 35 mg/dL (8-23); Calcium 8.2 mg/dL (8.5-10.5); Carbon Dioxide 27 mmol/L (22-29); Chloride 96 mmol/L (98-107); Creatinine Clr Calc Pharmacy 35.0822; Globulin 2.2 g/dL (1.3-4.6); Glucose 156 mg/dL (65-115); Osmolality Calculated 289 mOsm/kg (285-295); Potassium 4.2 mmol/L (3.5-5.1); Sodium 134 mmol/L (136-145); Total Bilirubin 0.7 mg/dL (0.15-1.2); Total Protein 5.9 g/dL (6.6-8.7)
[2024-09-28 01:00] LABS: NT Pro B Type Natriuretic Pept 12378 pg/mL (0-450)
[2024-09-28 01:05] LABS: Influenza A NEGATIVE (Negative); Influenza B NEGATIVE (Negative); Respiratory Syncytial Virus Ce NEGATIVE (Negative); SARS-CoV-2 PCR NEGATIVE (Negative)
[2024-09-28] MEDS: bumetanide 0.25 mg/mL SDV 10 mL 2 MG IVP ×2 (02:05→17:49)
--- NOTE | 2024-09-28 02:13 | W.ED.SOB ---
HPI - SOB/Dyspnea General: Chief Complaint: Shortness of Breath/Dyspnea Stated Complaint: sob Time Seen by Provider: 09/28/24 00:04 History of Present Illness: HPI Narrative: 79-year-old male patient with a history of anemia, pulmonary embolism, heart failure. He presents with shortness of breath worsening over the last few days. He was recently admitted here for pulmonary embolism. He does not use oxygen normally. He states that his shortness of breath is worsened. He had been taking 4 mg of Bumex twice daily. He had just yesterday move down to 2 mg of Bumex twice daily. Shortness of breath seemed worse tonight. He denies fever. He denies cough or sputum production. His legs are mildly swollen. Related Data Home Medications ?Medication ?Instructions ?Recorded ?Confirmed Mag-Lactate SR 84 mg PO BID 08/06/23 09/23/24 acyclovir 400 mg tablet 400 mg PO BID 08/06/23 09/23/24 atorvastatin 80 mg tablet 80 mg PO QAM 08/06/23 09/23/24 gabapentin 300 mg capsule 600 mg PO TID 08/06/23 09/23/24 loperamide 2 mg tablet 4 mg PO BID 08/06/23 09/23/24 loratadine 10 mg capsule 10 mg PO QAM 08/06/23 09/23/24 exlxyfsg-pkucgaxu-tedjc acid 400 1 tab PO QAM 08/06/23 09/23/24 mcg-vit K 20 mcg-lycop 300 mcg tablet sertraline 25 mg tablet 12.5 mg PO QPM 08/06/23 09/23/24 spironolactone 25 mg tablet 25 mg PO QAM 08/06/23 09/23/24 acetaminophen 325 mg tablet 325 - 350 mg PO QID PRN Pain 09/12/24 09/23/24 (Tylenol) albuterol sulfate 2.5 mg/3 mL 2.5 mg inhalation Q4H PRN 09/12/24 09/23/24 (0.083 %) solution for nebulization Shortness Of Breath daratumumab 20 mg/mL intravenous 20 mg IV Q30D 09/12/24 09/23/24 solution (Darzalex) diphenoxylate-atropine 2.5 1 tab PO QID PRN loose stools 09/12/24 09/23/24 mg-0.025 mg tablet lenalidomide 10 mg capsule 10 mg PO DAILY 09/12/24 09/23/24 zoledronic acid 4 mg intravenous 4 mg IV Q3M 09/12/24 09/23/24 solution Previous Rx's ?Medication ?Instructions ?Recorded aspirin 81 mg tablet,delayed 81 mg PO DAILY #30 tabs 08/10/23 release metoprolol succinate 25 mg 12.5 mg (1/2 x 25 mg) PO DAILY #15 08/10/23 tablet,extended release 24 hr tabs pantoprazole 40 mg tablet,delayed 40 mg PO BID #60 tabs 08/10/23 release potassium chloride 20 mEq 20 meq PO DAILY #30 tabs 08/10/23 tablet,extended release Left AFO #1 ea 12/19/23 apixaban 5 mg tablet (Eliquis) 5 mg PO BID #90 tabs 09/13/24 bumetanide 1 mg tablet 2 mg (2 x 1 mg) PO DAILY 30 days 09/13/24 #60 tabs Allergies Allergy/AdvReac Type Severity Reaction Status Date / Time No Known Allergies Allergy Verified 09/23/24 13:02 PFS ED PFSH: Medical History CKD (chronic kidney disease) Mitral valve prolapse Systolic congestive heart failure Gastric ulcer GI bleed Multiple myeloma Coronary artery disease Surgical History H/O esophagogastroduodenoscopy Social History Smoking and tobacco/nicotine status: former use of tobacco/nicotine Physical Exam Const: GENERAL APPEARANCE: cooperative, ill appearing and frail appearing HENMT: COMMON NORMALS: normocephalic, atraumatic and Normal external nose present HEAD & SCALP: normocephalic and atraumatic FACE & SINUS: normal facial exam and face symmetric NOSE: Normal external nose present Eye: COMMON NORMALS: Equal, round and reactive pupils present and EOMs intact bilaterally PUPIL: Yes Equal, round and reactive pupils present Neck/C-Spine: GENERAL: Yes trachea midline Chest: CHEST: Yes Symmetrical chest wall rise Resp: COMMON NORMALS: normal respiratory effort, No retractions, No use of accessory muscles and clear to auscultation bilaterally AUSCULTATION: clear to auscultation bilaterally Cardio: COMMON NORMALS: regular rate and regular rhythm RATE: regular rate RHYTHM: regular rhythm HEART SOUNDS: Murmur heart sound present GI: COMMON NORMALS: Normal to inspection, nondistended, normoactive bowel sounds present Extremity: GENERAL: Yes edema (1+) Neuro: RADHA COMA SCALE: document GCS findings [place] coma scale eye opening: Spontaneous Radha coma scale verbal response: Orientated [place] coma scale motor response: Obey commands [place] coma scale total score: 15 SENSORY EXAM: Yes extremities (intact) Psych: COMMON NORMALS: speech normal SPEECH: Yes normal speech Skin: COMMON NORMALS: no rashes or lesions noted GENERAL SKIN EXAM: no rashes or lesions noted Course Vital Signs: Vital signs: Vital Signs Temperature 97.4 F L 09/27/24 23:45 Pulse Rate 61 09/28/24 02:23 Respiratory Rate 21 H 09/28/24 02:23 Blood Pressure 104/59 09/28/24 02:09 Pulse Oximetry 96 09/28/24 02:23 Oxygen Delivery Me thod Nasal Cannula 09/28/24 02:23 MDM - SOB/Dyspnea Medical Decision Making Creatinine is 1.7 which is near baseline. However BNP is up to 12,000, which is significantly increased. Chest x-ray shows pulmonary edema. His hemoglobin is down to 8.2. This is concerning given his history of heart failure, and shortness of breath. He is on oxygen currently. He is given IV Bumex. He is starting to diurese. He will be admitted. Hospitalist agrees and will see the patient. Lab Data 09/28/24 00:00 09/28/24 00:00 Labs/Radiology: Laboratory Results WBC 3.70 10^3/uL (3.29-11.43) 09/28/24 00:00 RBC 2.22 10^6/uL (3.85-5.65) L 09/28/24 00:00 Hgb 8.20 g/dL (11.27-16.99) L 09/28/24 00:00 Hct 25.3 % (37-53) L 09/28/24 00:00 MCV 114.0 fl (82-101) H 09/28/24 00:00 MCH 36.9 pg (27-33) H 09/28/24 00:00 MCHC 32.4 g/dL (30-55) 09/28/24 00:00 RDW 17.3 % (12.1-15.1) H 09/28/24 00:00 Plt Count 80 10^3/cmm (157-399) L 09/28/24 00:00 MPV 12.8 fL (7.4-10.4) H 09/28/24 00:00 Neut % (Auto) 56.1 % 09/28/24 00:00 Lymph % (Auto) 21.4 % 09/28/24 00:00 [place] % (Auto) 15.4 % 09/28/24 00:00 Eos % (Auto) 5.4 % 09/28/24 00:00 Baso % (Auto) 1.4 % 09/28/24 00:00 Neut # (Auto) 2.08 10^3/uL (1.8-7.7) 09/28/24 00:00 Lymph # (Auto) 0.8 10^3/uL (0.8-4.8) 09/28/24 00:00 [place] # (Auto) 0.6 10^3/uL (0.2-0.9) 09/28/24 00:00 Eos # (Auto) 0.2 10^3/uL (0.0-0.8) 09/28/24 00:00 Baso # (Auto) 0.1 10^3/uL (0.0-0.1) 09/28/24 00:00 Nucleated RBC % (auto) 0 % 09/28/24 00:00 Nucleated RBCs # 0.0 /100WBC 09/28/24 00:00 Sodium 134 mmol/L (136-145) L 09/28/24 00:00 Potassium 4.2 mmol/L (3.5-5.1) 09/28/24 00:00 Chloride 96 mmol/L (98-107) L 09/28/24 00:00 Carbon Dioxide 27 mmol/L (22-29) 09/28/24 00:00 Anion Gap 15.2 (5-19) 09/28/24 00:00 BUN 35 mg/dL (8-23) H 09/28/24 00:00 Creatinine 1.7 mg/dL (0.7-1.2) H 09/28/24 00:00 GFR Calculation Not Reportable 09/28/24 00:00 Glucose 156 mg/dL (65-115) H 09/28/24 00:00 Calculated Osmolality 289 mOsm/kg (285-295) 09/28/24 00:00 Calcium 8.2 mg/dL (8.5-10.5) L 09/28/24 00:00 Total Bilirubin 0.7 mg/dL (0.15-1.2) 09/28/24 00:00 AST 27 U/L (0-40) 09/28/24 00:00 ALT 14 U/L (0-41) 09/28/24 00:00 Alkaline Phosphatase 105 U/L (40-130) 09/28/24 00:00 NT-Pro-B Natriuret Pep 73776 pg/mL (0-450) H 09/28/24 00:00 Total Protein 5.9 g/dL (6.6-8.7) L 09/28/24 00:00 Albumin 3.7 g/dL (3.5-5.2) 09/28/24 00:00 Globulin 2.2 g/dL (1.3-4.6) 09/28/24 00:00 Influenza A (PCR) Negative (Negative) 09/28/24 00:15 Influenza Type B (PCR) Negative (Negative) 09/28/24 00:15 RSV (PCR) Negative (Negative) 09/28/24 00:15 SARS-CoV-2 (PCR) Negative (Negative) 09/28/24 00:15 No radiology studies performed this visit Discharge Plan Discharge Patient Disposition: Admitted As Inpatient Clinical Impression: Anemia, Pleural effusion, Pulmonary edema Condition: Fair Coding Level of Care Code 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
--- NOTE | 2024-09-28 02:21 | PM.HP ---
Providers/Chief Complaint Admitting Physician: Patricia Lincoln MD Primary Care Provider: Allegra Jimenez MD Chief Complaint: sob History of Present Illness Mrs. 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 The patient states that after discharge, he was doing well, and then he began to progressively feel dypsnea with exertion and dizzy and light headed. He decided to go to bed and lie on his side instead of on his back because he would be dyspneic when lying down. On lying on his side, he became dyspneic, panicked and his helped him get up and called the EMS. He endorses pedal edema, but states that he did not have a lot of pedal edema when he was discharged 09/13/2024 and that the pedal edema has not changed since 09/13/2024. He denies f/c, headaches, syncope, coughing, wheezing, palpitations, malaise. He states that every once in a while, he would have an occasional nonpleuritic, non-positional, sharp but fleeting, L. sided chest pain that lasts about a second that is associated w/ the SOB. He states that sometimes when he eats, it rosales, but states it is milder than when he was getting chemo for his rectal cancer in 2011. He states that a heart monitor was placed at [facility] in [place]. In the ED, patient was tachypneic to 26, but did not require O2. His CXR showed moderate cardiomegaly with vascular congestion and small to moderate b/l pleural effusions. His troponin T was initially moderately elevated but trended downwards. His proBNP was 12, 378. He was given Bumex 2mg IVP x 1 and admitted. On admission, acetazolamide was added to his inhospital list. Review of Systems Const: Reports: malaise; Denies: fever(s), chills or change in appetite Eyes: Reports: blurry vision (chronic - b/l R>L cataracts); Denies: change in vision ENMT: Reports: nasal discharge (chronic ) and other (no dysphagia); Denies: odynophagia, ear or mastoid pain, ear discharge or nasal congestion Card: Reports: chest pain and palpitations Resp: Reports: dyspnea; Denies: productive cough, non-productive cough or wheezing GI: Denies: abdominal pain, nausea, vomiting, diarrhea, constipation, hematochezia or melena : Denies: difficulty urinating, dysuria, urinary frequency, urinary urgency or hematuria Musc: Reports: other (no myalgias); Denies: joint pain Skin/Breast: Denies: rash or new lesions Neuro: Reports: dizziness; Denies: headache(s) Psych: Denies: anxiety, depression, suicidal ideation or homicidal ideation Endo: Denies: cold intolerance or heat intolerance Jorge/Lymph: Reports: easy bruising and easy bleeding (on eliquis) All/Imm: Denies: food intolerance Medications/Allergies Home Medications ?Medication ?Instructions ?Recorded ?Confirmed ?Last Taken ?Type acyclovir 400 mg tablet 400 mg PO BID 08/06/23 09/28/24 09/27/24 History atorvastatin 80 mg tablet 80 mg PO [facility] 08/06/23 09/28/24 09/27/24 History gabapentin 300 mg capsule 600 mg PO TID 08/06/23 09/28/24 09/27/24 History loratadine 10 mg capsule 10 mg PO [facility] 08/06/23 09/28/24 09/12/24 History ypnqsmiu-mfrpbfxv-dotlw acid 400 1 tab PO QA 08/06/23 09/28/24 09/27/24 History mcg-vit K 20 mcg-lycop 300 mcg tablet sertraline 25 mg tablet 12.5 mg PO QPM 08/06/23 09/28/24 09/27/24 History spironolactone 25 mg tablet 25 mg PO QA 08/06/23 09/28/24 09/27/24 History aspirin 81 mg tablet,delayed 81 mg PO DAILY #30 tabs 0309/28/24 09/27/24 Rx release metoprolol succinate 25 mg 12.5 mg (1/2 x 25 mg) PO DAILY #15 08/10/23 09/28/24 09/27/24 Rx tablet,extended release 24 hr tabs pantoprazole 40 mg tablet,delayed 40 mg PO BID #60 tabs 08/10/23 09/28/24 09/27/24 Rx release potassium chloride 20 mEq 20 meq PO DAILY #30 tabs 08/10/23 09/28/24 09/27/24 Rx tablet,extended release Left AFO #1 ea 12/19/23 09/28/24 Unknown Rx acetaminophen 325 mg tablet 325 - 350 mg PO QID PRN Pain 09/12/24 09/28/24 Unknown History (Tylenol) albuterol sulfate 2.5 mg/3 mL 2.5 mg inhalation Q4H PRN 09/12/24 09/28/24 Unknown History (0.083 %) solution for nebulization Shortness Of Breath daratumumab 20 mg/mL intravenous 20 mg IV Q30D 09/12/24 09/28/24 09/19/24 History solution (Darzalex) lenalidomide 10 mg capsule 10 mg PO DAILY 09/12/24 09/28/24 09/27/24 History zoledronic acid 4 mg intravenous 4 mg IV Q3M 09/12/24 09/28/24 Unknown History solution apixaban 5 mg tablet (Eliquis) 5 mg PO BID #90 tabs 09/13/24 09/28/24 09/27/24 Rx bumetanide 1 mg tablet 2 mg (2 x 1 mg) PO DAILY 30 days 09/13/24 09/28/24 09/27/24 Rx #60 tabs diphenoxylate-atropine 2.5 1 tab PO DAILY PRN loose stools 09/28/24 09/28/24 09/27/24 History mg-0.025 mg tablet (Lomotil) magnesium L-lactate 84 mg 84 mg PO DAILY 09/28/24 09/28/24 09/27/24 History tablet,extended release Allergies Allergy/AdvReac Type Severity Reaction Status Date / Time No Known Allergies Allergy Verified 09/23/24 13:02 PFSH Acute PFSH: Medical History CKD (chronic kidney disease) Mitral valve prolapse Systolic congestive heart failure Gastric ulcer GI bleed Multiple myeloma Coronary artery disease Surgical History H/O esophagogastroduodenoscopy Social History Smoking and tobacco/nicotine status: former use of tobacco/nicotine Vitals/I&O/Wt Last Vital Signs Temp 97.4 F L 09/27/24 23:45 Pulse 60 09/28/24 02:09 Resp 26 H 09/28/24 02:09 BP 104/59 09/28/24 02:09 Pulse Ox 97 09/28/24 02:09 O2 Del Method Nasal Cannula 09/27/24 23:45 09/27/24 09/27/24 09/28/24 14:59 22:59 06:59 Intake Total 0 / 0 Balance 0 / 0 Weight last 48 hrs Weight 80.286 kg Physical Exam Const: GENERAL APPEARANCE: cooperative and comfortable ORIENTATION/CONSCIOUSNESS: Yes awake, Yes oriented to person, Yes oriented to place and Yes oriented to time HENMT: HEAD & SCALP: normocephalic and atraumatic NOSE: Normal external nose present EXTERNAL EAR: Yes external ears normal MOUTH: Normal oral and palatal mucosa present THROAT: posterior oropharynx normal Eye: CONJUNCTIVA: Yes conjunctivae normal PUPIL: Yes Equal, round and reactive pupils present EOM: No EOM abnormal Neck/C-Spine: THYROID: Thyroid normal CAROTIDS: No bruit CERVICAL SPINE: Yes cervical ROM normal Lymph: OTHER: no cervical or supraclavicular LAD Resp: OTHER: Decreased breath sounds in the R. lower lung yost. Cardio: OTHER: Irregular rate and rhythm, rate controlled. heart murmurs appreciated. 2+ radial and DP pulses. GI: OTHER: BS+, NT, ND, no guarding, no rigidity, no rebound tenderness or hepatosplenomegaly. Extremity: GENERAL: No clubbing, No cyanosis and No edema Neuro: CRANIAL NERVES: Yes CN normal except as noted SPEECH: speech normal SENSORY EXAM: No sensory level loss detected MOTOR EXAM: 5/5 motor strength present throughout and Normal motor muscle tone present throughout Psych: APPEARANCE: Yes grossly normal ATTITUDE: Yes calm and Yes engaged SPEECH: Yes normal speech MOOD & AFFECT: Yes euthymic mood THOUGHT PROCESS: Normal thought process present THOUGHT CONTENT: Yes Normal thought content present ATTENTION/CONCENTRATION: Yes attention grossly intact MEMORY/COGNITION: Yes memory grossly intact Skin: GENERAL SKIN EXAM: no rashes or lesions noted Data 09/28/24 06:11 09/28/24 06:11 A&P Assessment and plan (1) Acute on chronic HFrEF (heart failure with reduced ejection fraction): Plan Rafy Sierra is a 79 year old male w/ rectal surgery s/p radiation, surgery (requiring creation of a colostomy that was later reversed), chemo in 2011, Multiple Myeloma w/ lytic lesions to the bone on Lenalidomide, CAD, [place] in 2013 during a cruise s/p 1 stent, chronic HFrEF (EF 35-40%) w/ severe mitral regurg, PE dx'ed on 09/12/2024, who presents on 09/27/2024 w/ progressive SOB that worsened in the last 2 days. #Acute on chronic HFrEF (EF 35-40%) w/ severe mitral regurg - Started Lasix w/ albumin, metolazone and acetazolamide. Held Bumex and Spironolactone - Strict Is and Os. - duonebs q4h prn. #CKDIII - Monitor renal function and avoid nephrotoxins #Rate controlled Afib #PE dx'ed on 09/12/2024 - On Apixaban at home. Started full dose Lovenox - On Toprol xl at home. Held. 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 Resume #Allergic rhinitis - Resume home meds DVT ppx: PDMP PDMP Reviewed: Not Reviewed Attestations Medical Necessity Statement*: The patient will need to be hospitalized for greater than 2 midnights for acute on chronic HFrEF. Coding Level of Care Code 88968 High Time for a total of 80 minutes, includes reviewing past or interval history, examining/interviewing patient, placing orders, counseling patient/family/other support, updating patient/family/other support, discussing plan of care with staff, communicating with other healthcare providers, documenting encounter and coordinating care Other Coding Information Focused coding review requested Diagnoses Acute on chronic HFrEF (heart failure with reduced ejection fraction) I50.23
[2024-09-28] MEDS: acetaZOLAMIDE 250 mg Tablet 500 MG PO (02:36)
[2024-09-28 06:18] LABS: Basophils % 1.2 %; Eosinophils # 0.2 10^3/uL (0.0-0.8); Eosinophils % 5.3 %; Hematocrit 24.4 % (37-53); Lymphocytes # 0.6 10^3/uL (0.8-4.8); Lymphocytes % 17.7 %; Mean Corpuscular HGB Conc 32.4 g/dL (30-55); Mean Corpuscular Hemoglobin 36.7 pg (27-33); Mean Corpuscular Volume 113.5 fl (82-101); Mean Platelet Volume 12.2 fL (7.4-10.4); Monocytes # 0.5 10^3/uL (0.2-0.9); Monocytes % 16.8 %; Neutrophils # 1.89 10^3/uL (1.8-7.7); Neutrophils % 58.7 %; Nucleated Red Blood Cells % 0 %; Platelet Count 77 10^3/cmm (157-399); Red Blood Count 2.15 10^6/uL (3.85-5.65); Red Cell Distribution Width 17.4 % (12.1-15.1); White Blood Count 3.22 10^3/uL (3.29-11.43)
[2024-09-28 06:33] LABS: INR 1.52 (0.8-1.2)
[2024-09-28 06:34] LABS: Partial Thromboplastin Time 34.7 SECONDS (23.9-36.7)
[2024-09-28 06:35] LABS: Anion Gap 12.7 (5-19); Blood Urea Nitrogen 33 mg/dL (8-23); Calcium 8.1 mg/dL (8.5-10.5); Carbon Dioxide 29 mmol/L (22-29); Chloride 97 mmol/L (98-107); Glucose 107 mg/dL (65-115); Osmolality Calculated 288 mOsm/kg (285-295); Phosphorus 3.6 mg/dL (2.5-4.5); Potassium 3.7 mmol/L (3.5-5.1); Sodium 135 mmol/L (136-145)
[2024-09-28 06:41] LABS: Creatinine Clr Calc Pharmacy 35.0822
[2024-09-28] MEDS: pantoprazole DR 40 mg Tablet PO ×2 (07:34→17:33)
[2024-09-28] MEDS: pantoprazole 40 mg SDV IVP (07:34)
[2024-09-28] MEDS: atorvastatin 40 mg Tablet 80 MG PO (07:34)
[2024-09-28] MEDS: albumin 25 G/100 ML BAG 60 G IV (09:35)
[2024-09-28] MEDS: acyclovir 400 mg Tablet PO ×2 (09:42→17:33)
[2024-09-28] MEDS: aspirin 81 mg EC Tablet PO (09:43)
[2024-09-28] MEDS: metOLazone 5 MG Tablet PO (09:43)
[2024-09-28] MEDS: gabapentin 300 mg Capsule 600 MG PO ×3 (09:43→20:21)
[2024-09-28] MEDS: docusate sodium 100 mg Capsule 200 MG PO (09:44)
[2024-09-28] MEDS: enoxaparin 100 mg/mL Syringe 80 MG SUBCUT (09:45)
--- NOTE | 2024-09-28 10:04 | PC.NURSE ---
Spoke with Dr. Martin regarding possibly placing a phipps in the patient since he is incontinent and we are giving him diuretics. Dr. Martin agreed with placing a phipps if the pt wants it. Dr. Martin also instructed me not to give the patient the Diamox that was ordered since he had been given a different diuretic.
--- NOTE | 2024-09-28 11:25 | ECG_ITS ---
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 Measurements Intervals [place] Rate: 64 P: -67 TN: 194 QRS: 174 QRSD: 134 T: 66 QT: 458 QTc: 473 Interpretive Statements ECTOPIC ATRIAL RHYTHM RIGHT BUNDLE BRANCH BLOCK [120+ ms QRS DURATION, UPRIGHT V1, 40+ ms S IN I/aVL/V4/V5/V6] LEFT POSTERIOR FASCICULAR BLOCK [QRS AXIS > 109, INFERIOR Q] ANTEROLATERAL MYOCARDIAL INFARCTION , PROBABLY OLD [40+ ms Q WAVE IN I/aVL/V3-V6] Compared to ECG 09/13/2024 00:14:48 Ectopic atrial rhythm now present Myocardial infarct finding now present Baseline artifacts, need to repeat Electronically Signed On 09-30-2024 06:35:06 CDT by Josephine Sewell M.D. [email or web address]
--- OUTSIDE RECORDS SUMMARY | 2024-09-28 13:54 | XMS_ITS | Clinical Summary ---
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
--- OUTSIDE RECORDS SUMMARY | 2024-09-28 13:54 | XMS_ITS | Encounter Summary ---
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[employer]ic Name Role Phone Unavailable Primary Care Provider Unavailabl e Encounter Details Date Type Department Care Team (Latest Contact Info) Description 09/06/2006 Outpatient Historical [facility] [address] [place] [address] Umesh Collins MD [address] [place] [address] Benign Neoplasm of Skin of Trunk, except Scrotum (Primary Dx) Social History Tobacco Use Types Packs/Day Years Used Date Smoking Tobacco: Never Assessed Sex and Gender Information Value Date Recorded Sex Assigned at Not on file 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
--- NOTE | 2024-09-28 19:04 | PC.NURSE ---
pt has phipps with worsening hematuria, notified dr. joseph, received order to flush phipps and to hold pts 2100 dose of lovenox
[2024-09-29] VITALS (9 sets, daily range): BP systolic 91–123; BP diastolic 55–88; PULSE 64–92; RESP 17–19; TEMP 36.6–37.1; O2SAT 94–96
[2024-09-29 04:10] LABS: Basophils # 0.1 10^3/uL (0.0-0.1); Basophils % 1.4 %; Eosinophils # 0.2 10^3/uL (0.0-0.8); Eosinophils % 5.4 %; Hematocrit 23.2 % (37-53); Lymphocytes # 0.4 10^3/uL (0.8-4.8); Mean Corpuscular HGB Conc 32.3 g/dL (30-55); Mean Corpuscular Hemoglobin 36.6 pg (27-33); Mean Corpuscular Volume 113.2 fl (82-101); Mean Platelet Volume 11.7 fL (7.4-10.4); Monocytes # 0.5 10^3/uL (0.2-0.9); Monocytes % 13.1 %; Neutrophils # 2.37 10^3/uL (1.8-7.7); Neutrophils % 67.5 %; Nucleated Red Blood Cells % 0 %; Platelet Count 63 10^3/cmm (157-399); Red Blood Count 2.05 10^6/uL (3.85-5.65); Red Cell Distribution Width 17.3 % (12.1-15.1); White Blood Count 3.51 10^3/uL (3.29-11.43)
[2024-09-29 04:29] LABS: INR 1.39 (0.8-1.2)
[2024-09-29 04:30] LABS: Partial Thromboplastin Time 38.6 SECONDS (23.9-36.7)
[2024-09-29 04:44] LABS: Alanine Aminotransferase 11 U/L (0-41); Albumin Level 3.4 g/dL (3.5-5.2); Alkaline Phosphatase 83 U/L (40-130); Aspartate Amino Transferase 20 U/L (0-40); Blood Urea Nitrogen 31 mg/dL (8-23); Calcium 8.3 mg/dL (8.5-10.5); Carbon Dioxide 29 mmol/L (22-29); Chloride 95 mmol/L (98-107); Creatinine Clr Calc Pharmacy 35.0822; Globulin 1.8 g/dL (1.3-4.6); Glucose 97 mg/dL (65-115); Magnesium 2.2 mg/dL (1.7-2.3); Osmolality Calculated 286 mOsm/kg (285-295); Phosphorus 3.8 mg/dL (2.5-4.5); Sodium 135 mmol/L (136-145); Total Protein 5.2 g/dL (6.6-8.7)
[2024-09-29] MEDS: atorvastatin 40 mg Tablet 80 MG PO (05:41)
[2024-09-29] MEDS: pantoprazole DR 40 mg Tablet PO ×2 (06:34→17:23)
--- NOTE | 2024-09-29 09:52 | P.PN_ITS ---
Subjective 2 Subjective: No acute events overnight. Seen with spouse at bedside. States feeling a lot better. Did have episode of hematuria after Disla catheter placement yesterday which seems to be resolving. Vitals/I&O/Wt Last Vital Signs Temp 98.1 F 09/29/24 08:49 Pulse 64 09/29/24 08:49 Resp 18 09/29/24 08:49 BP 91/59 09/29/24 08:49 Pulse Ox 96 09/29/24 08:49 O2 Del Method Room Air 09/29/24 08:49 O2 Flow Rate 2 09/28/24 04:58 09/28/24 09/29/24 09/29/24 22:59 06:59 14:59 Intake Total 240 / 340 480 / 480 Output Total 3750 / 3750 1000 / 4750 Balance -3510 / -3410 -1000 / -4410 480 / 480 Weight last 48 hrs Weight 80.343 kg Weight 80.286 kg Weight 80.286 kg Physical Exam 2 Narrative: General: No acute distress, AO x3, pleasant HEENT: PERRLA, pupils bilaterally equal and reactive Chest: Normal vesicular breath sounds, mildly decreased air entry bilaterally in lower zone, equal good air entry bilaterally CVS: S1-S2 regular, Ejection systolic murmur at aortic region radiating to carotids 2/6, no tachycardia, no gallops, no rubs Abdomen: Soft, nontender, no organomegaly, bowel sounds present Neuro: No focal deficits, no facial deformity, AO x3, power 5/5 in all limbs Urinary Catheter Management: 2-way Urethral: Cath Placed During This Visit: yes Reason for Continuing Indwelling Catheter: Other Urinary Catheter Date of Insertion: 09/28/24 Data 09/29/24 03:29 09/29/24 03:29 A&P Assessment and plan (1) Acute on chronic HFrEF (heart failure with reduced ejection fraction): (2) Symptomatic severe aortic stenosis with low ejection fraction: (3) Mitral stenosis with regurgitation: (4) Hematuria: (5) CKD (chronic kidney disease): (6) Pulmonary embolism: (7) Chronic anticoagulation: Plan Rafy Sierra is a 79 year old male w/ rectal surgery s/p radiation, surgery (requiring creation of a colostomy that was later reversed), chemo in 2011, 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 #Acute on chronic HFrEF (EF 35-40%) w/ severe mitral regurg and severe low-flow aortic stenosis Fluid restriction to less than 1500 cc. IV Bumex 2 mg twice daily. Patient takes 2 mg daily Bumex at home which was recently decreased from twice daily after which he started having difficulty in breathing. Continue with metolazone 5 mg oral daily for 1 more day. Strict input output charting, daily weights. Hematuria: Most likely in setting of traumatic Disla catheterization. Resolving. Hold off on full dose anticoagulation for 1 more day. Monitor hemoglobin daily for now. Continue with flushing of Disla catheter #CKDIII: Baseline creatinine seems to be around 1.7-2. Currently at 1.7. Medical reconciliation done for nephrotoxic drugs. - Monitor renal function and avoid nephrotoxins #Rate controlled Afib: Telemetry. #PE dx'ed on 09/12/2024 - On Apixaban at home. Holding off on Lovenox as above. Continue with home dose of metoprolol. Switch to tartrate 12.5 mg twice daily. 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 Resume #Allergic rhinitis - Resume home meds SCD for DVT prophylaxis Cardiac diet. Fluid restriction. Protonix OPD prophylaxis PDMP PDMP Reviewed: Not Reviewed Attestations 2 Medical Necessity Statement*: Requires further hospitalization for management of acute on chronic systolic heart failure with severe aortic stenosis, mitral stenosis with MR, hematuria, CKD Diagnoses Acute on chronic HFrEF (heart failure with reduced ejection fraction) I50.23 Symptomatic severe aortic stenosis with low ejection fraction I35.0 Mitral stenosis with regurgitation I05.2 Hematuria R31.9 CKD (chronic kidney disease) N18.9 Pulmonary embolism I26.99 Chronic anticoagulation Z79.01
--- NOTE | 2024-09-29 10:11 | PC.CHAP ---
Pastoral Care Encounter/Spiritual Assessment Type of Contact [] Declined rn acute dialysis visit [] Patient/Family/Request visit [] Outpatient visit [] Follow-up visit [] Physician referral [] Code/Alert [x] Routine visit [] Staff referral [] Actively dying [] Patient sleeping [] Family support [] [] Out of room [] Palliative care [] [] Receiving care in room [] Pre-surgical visit [] Trauma [] Long length of stay [] ICU visit [] Other: Relational/Emotional Strength [] Patient feels connected with others/family/visitors/staff [] Distress [] Loneliness/isolation [] Abandonment Spirituality of Patient [x] Person of Jennifer [] Attends Druze of their Jennifer [x] Believes in Prayer [] Reads Bible or Jehovah'S Witness materials [] There are Spiritual issues to be addressed Senior Service Technician Interventions [x] Prayer [x Active listening [] Non-anxious presence [] Spiritual/emotional support [] Crisis/trauma care [] Spiritual counseling [] Bereavement support [] Provided bereavement packet [x] Provided Bible/devotional materials [] Provided toy/stuffed animal, coloring book to patient or family member [] Provided Communion [] Anointing/[place] [] Salvation [x] Completed spiritual assessment [] Other: Impact on Illness or Injury [] Angry [] Fearful [] Anxious [] Often cries [] Exhaustion [] Unable to work [] Unable to attend rastafari [] Unable to walk/stand [] Unable to read [] Unable to drive [] Unable to eat/drink [] Unable to sleep [] Unable to be with family [] Patient intubated [] Other: Summary Time spent with patient 10 min
[2024-09-29] MEDS: aspirin 81 mg EC Tablet PO (10:40)
[2024-09-29] MEDS: gabapentin 300 mg Capsule 600 MG PO ×3 (10:40→21:03)
[2024-09-29] MEDS: acyclovir 400 mg Tablet PO ×2 (10:40→17:23)
[2024-09-29] MEDS: bumetanide 0.25 mg/mL SDV 10 mL 2 MG IVP ×2 (10:41→17:24)
[2024-09-29 15:01] LABS: Anion Gap 15.1 (5-19); Blood Urea Nitrogen 34 mg/dL (8-23); Calcium 8.7 mg/dL (8.5-10.5); Carbon Dioxide 29 mmol/L (22-29); Chloride 92 mmol/L (98-107); Creatinine Clr Calc Pharmacy 31.3995; Glucose 136 mg/dL (65-115); Osmolality Calculated 286 mOsm/kg (285-295); Potassium 3.1 mmol/L (3.5-5.1); Sodium 133 mmol/L (136-145)
[2024-09-29] MEDS: potassium chloride ER 20 mEq Tablet 40 MEQ PO (17:23)
[2024-09-29] MEDS: metoprolol tartrate 25 mg Tablet 12.5 MG PO (21:04)
[2024-09-30] VITALS (7 sets, daily range): BP systolic 73–112; BP diastolic 37–64; PULSE 58–85; RESP 16–18; TEMP 36.4–36.7; O2SAT 93–98
[2024-09-30 05:22] LABS: Basophils % 1.2 %; Eosinophils # 0.1 10^3/uL (0.0-0.8); Eosinophils % 3.2 %; Hematocrit 22.7 % (37-53); Lymphocytes # 0.5 10^3/uL (0.8-4.8); Lymphocytes % 15.9 %; Mean Corpuscular HGB Conc 33.5 g/dL (30-55); Mean Corpuscular Hemoglobin 36.7 pg (27-33); Mean Corpuscular Volume 109.7 fl (82-101); Mean Platelet Volume 12.5 fL (7.4-10.4); Monocytes # 0.5 10^3/uL (0.2-0.9); Monocytes % 13.9 %; Neutrophils # 2.21 10^3/uL (1.8-7.7); Neutrophils % 65.2 %; Nucleated Red Blood Cells % 0 %; Platelet Count 75 10^3/cmm (157-399); Red Blood Count 2.07 10^6/uL (3.85-5.65); Red Cell Distribution Width 16.8 % (12.1-15.1); White Blood Count 3.39 10^3/uL (3.29-11.43)
[2024-09-30] MEDS: atorvastatin 40 mg Tablet 80 MG PO (05:28)
[2024-09-30 05:56] LABS: Alanine Aminotransferase 10 U/L (0-41); Albumin Level 3.3 g/dL (3.5-5.2); Alkaline Phosphatase 89 U/L (40-130); Anion Gap 12.3 (5-19); Aspartate Amino Transferase 18 U/L (0-40); Blood Urea Nitrogen 37 mg/dL (8-23); Calcium 8.4 mg/dL (8.5-10.5); Carbon Dioxide 31 mmol/L (22-29); Chloride 93 mmol/L (98-107); Creatinine Clr Calc Pharmacy 29.8343; Globulin 1.9 g/dL (1.3-4.6); Glucose 100 mg/dL (65-115); Osmolality Calculated 285 mOsm/kg (285-295); Potassium 3.3 mmol/L (3.5-5.1); Sodium 133 mmol/L (136-145); Total Bilirubin 0.9 mg/dL (0.15-1.2); Total Protein 5.2 g/dL (6.6-8.7)
[2024-09-30 05:57] LABS: Magnesium 2.2 mg/dL (1.7-2.3); Phosphorus 4.3 mg/dL (2.5-4.5)
[2024-09-30] MEDS: pantoprazole DR 40 mg Tablet PO ×2 (06:02→17:10)
[2024-09-30] MEDS: metoprolol tartrate 25 mg Tablet 12.5 MG PO (08:23)
[2024-09-30] MEDS: gabapentin 300 mg Capsule 600 MG PO ×3 (08:25→20:26)
[2024-09-30] MEDS: acyclovir 400 mg Tablet PO ×2 (08:25→17:10)
[2024-09-30] MEDS: potassium chloride ER 20 mEq Tablet 60 MEQ PO (08:25)
[2024-09-30] MEDS: aspirin 81 mg EC Tablet PO (08:25)
--- NOTE | 2024-09-30 09:08 | P.PN_ITS ---
Subjective 2 Subjective: I saw the patient yesterday in the evening when he stood up he had dizziness 1 time along with cold sweats which subsided when he rested. No nursing notation seen in the chart. Today morning examination he sitting comfortably sitting in chair. States he is feeling a lot better. Able to lie down and sleep. Appreciate urine output. No gross hematuria. Vitals/I&O/Wt Last Vital Signs Temp 98.0 F 09/30/24 07:27 Pulse 70 09/30/24 07:27 Resp 17 09/30/24 07:27 BP 105/62 09/30/24 07:27 Pulse Ox 97 09/30/24 07:27 O2 Del Method Room Air 09/30/24 07:27 O2 Flow Rate 2 09/28/24 04:58 09/29/24 09/30/24 09/30/24 22:59 06:59 14:59 Intake Total 360 / 1200 480 / 1680 Output Total 3300 / 3300 1000 / 4300 Balance -2940 / -2100 -520 / -2620 Weight last 48 hrs Weight 80.371 kg Weight 80.343 kg Weight 80.286 kg Physical Exam 2 Narrative: General: No acute distress, AO x3, pleasant HEENT: PERRLA, pupils bilaterally equal and reactive Chest: Normal vesicular breath sounds, mildly decreased air entry bilaterally in lower zone, equal good air entry bilaterally CVS: S1-S2 regular, Ejection systolic murmur at aortic region radiating to carotids 2/6, no tachycardia, no gallops, no rubs Abdomen: Soft, nontender, no organomegaly, bowel sounds present Neuro: No focal deficits, no facial deformity, AO x3, power 5/5 in all limbs Urinary Catheter Management: 2-way Urethral: Cath Placed During This Visit: yes Reason for Continuing Indwelling Catheter: Other Urinary Catheter Date of Insertion: 09/28/24 Data 09/30/24 04:36 09/30/24 04:36 A&P Assessment and plan (1) Acute on chronic HFrEF (heart failure with reduced ejection fraction): (2) Symptomatic severe aortic stenosis with low ejection fraction: (3) Mitral stenosis with regurgitation: (4) Hematuria: (5) CKD (chronic kidney disease): (6) Pulmonary embolism: (7) Chronic anticoagulation: Plan Rafy Sierra is a 79 year old male w/ rectal surgery s/p radiation, surgery (requiring creation of a colostomy that was later reversed), chemo in 2011, Multiple Myeloma w/ lytic lesions to the bone on Lenalidomide, CAD, [place] in 2013 during a [place] s/p 1 stent, chronic HFrEF (EF 35-40%) w/ severe mitral regurg, PE dx'ed on 09/12/2024, who presents on 09/27/2024 w/ progressive SOB that worsened in the last 2 days. #Acute on chronic HFrEF (EF 35-40%) w/ severe mitral regurg and severe low-flow aortic stenosis Fluid restriction to less than 1500 cc. IV Bumex 2 mg twice daily. Patient takes 2 mg daily Bumex at home which was recently decreased from twice daily after which he started having difficulty in breathing. Continue with metolazone 5 mg oral daily for 1 more day. Strict input output charting, daily weights. Hematuria: Most likely in setting of traumatic Disla catheterization. Resolving. Hold off on full dose anticoagulation for 1 more day. Monitor hemoglobin daily for now. Continue with flushing of Disla catheter #CKDIII: Baseline creatinine seems to be around 1.7-2. Currently at 1.7. Medical reconciliation done for nephrotoxic drugs. - Monitor renal function and avoid nephrotoxins #Rate controlled Afib: Telemetry. #PE dx'ed on 09/12/2024 - On Apixaban at home. Holding off on Lovenox as above. Continue with home dose of metoprolol. Switch to tartrate 12.5 mg twice daily. #CAD, [place] in 2013 during a cruise s/p 1 stent #HTN #HLD - Aspirin and Atorvastatin #Multiple Myeloma w/ lytic lesions to the bone on Lenalidomide - Resumed Acyclovir - Zolendronic acid q3M #Peripheral Neuropathy - SIde effect of chemo drugs. Resume #Allergic rhinitis - Resume home meds SCD for DVT prophylaxis Cardiac diet. Fluid restriction. Protonix OPD prophylaxis Plan for the day: Creatinine slightly up to 2 today. Hold off on morning dose of Bumex. Continue with the evening dose. Replete 60 mg of oral potassium. Continue fluid restriction. DC Disla catheter. Plan for voiding trial. Check orthostatic one-time. Continue with home dose of metoprolol. Discharge plan: Plan to discharge in next 24 hours to back home if kidney functions and volume status remain stable. PDMP PDMP Reviewed: Not Reviewed Attestations 2 Medical Necessity Statement*: Requires further hospitalization for management of acute on chronic decompensated congestive heart failure, CKD, hematuria, hypokalemia Diagnoses Acute on chronic HFrEF (heart failure with reduced ejection fraction) I50.23 Symptomatic severe aortic stenosis with low ejection fraction I35.0 Mitral stenosis with regurgitation I05.2 Hematuria R31.9 CKD (chronic kidney disease) N18.9 Pulmonary embolism I26.99 Chronic anticoagulation Z79.01
[2024-09-30] MEDS: midodrine 5 mg TABLET PO ×2 (16:35→21:45)
[2024-10-01] VITALS (13 sets, daily range): BP systolic 92–126; BP diastolic 41–63; PULSE 48–76; RESP 15–18; TEMP 36.3–36.7; O2SAT 90–100
[2024-10-01] MEDS: midodrine 5 mg TABLET PO ×3 (04:18→20:32)
[2024-10-01 05:44] LABS: Basophils % 0.8 %; Eosinophils # 0.2 10^3/uL (0.0-0.8); Eosinophils % 3.9 %; Hematocrit 22.1 % (37-53); Lymphocytes # 0.7 10^3/uL (0.8-4.8); Lymphocytes % 16.8 %; Mean Corpuscular Hemoglobin 36.3 pg (27-33); Mean Platelet Volume 12.7 fL (7.4-10.4); Monocytes # 0.6 10^3/uL (0.2-0.9); Neutrophils # 2.43 10^3/uL (1.8-7.7); Nucleated Red Blood Cells % 0 %; Platelet Count 80 10^3/cmm (157-399); Red Blood Count 2.01 10^6/uL (3.85-5.65); Red Cell Distribution Width 17.1 % (12.1-15.1); White Blood Count 3.86 10^3/uL (3.29-11.43)
[2024-10-01 06:07] LABS: Alanine Aminotransferase 10 U/L (0-41); Albumin Level 3.2 g/dL (3.5-5.2); Alkaline Phosphatase 86 U/L (40-130); Anion Gap 13.4 (5-19); Aspartate Amino Transferase 19 U/L (0-40); Blood Urea Nitrogen 43 mg/dL (8-23); Calcium 8.1 mg/dL (8.5-10.5); Carbon Dioxide 28 mmol/L (22-29); Chloride 94 mmol/L (98-107); Creatinine Clr Calc Pharmacy 29.8343; Globulin 1.7 g/dL (1.3-4.6); Glucose 100 mg/dL (65-115); Osmolality Calculated 285 mOsm/kg (285-295); Potassium 3.4 mmol/L (3.5-5.1); Sodium 132 mmol/L (136-145); Total Bilirubin 0.8 mg/dL (0.15-1.2); Total Protein 4.9 g/dL (6.6-8.7)
[2024-10-01 06:08] LABS: Magnesium 2.3 mg/dL (1.7-2.3); Phosphorus 4.2 mg/dL (2.5-4.5)
[2024-10-01] MEDS: pantoprazole DR 40 mg Tablet PO ×2 (06:14→17:52)
[2024-10-01] MEDS: atorvastatin 40 mg Tablet 80 MG PO (06:14)
[2024-10-01 08:37] LABS: Cortisol Random 12.42 ug/dL (2.47-19.5)
[2024-10-01] MEDS: gabapentin 300 mg Capsule 600 MG PO ×3 (10:36→20:32)
[2024-10-01] MEDS: acyclovir 400 mg Tablet PO ×2 (10:37→17:51)
[2024-10-01] MEDS: aspirin 81 mg EC Tablet PO (10:37)
[2024-10-01 11:13] LABS: C.Diff PCR (Lab) NEGATIVE (Negative)
--- NOTE | 2024-10-01 11:29 | P.PN_ITS ---
Subjective 2 Subjective: Patient overnight have had few episodes of soft blood pressure. Yesterday he was started on oral midodrine as needed for hypotension. He denies any difficulty in breathing. States he is feeling a lot better from breathing point of view but does complain of feeling shaky on standing up. Denies any nausea, vomiting headache or chest pain. Vitals/I&O/Wt Last Vital Signs Temp 97.5 F L 10/01/24 07:39 Pulse 68 10/01/24 08:54 Resp 16 10/01/24 08:54 BP 109/63 10/01/24 07:39 Pulse Ox 97 10/01/24 08:59 O2 Del Method Room Air 10/01/24 08:59 O2 Flow Rate 2 09/28/24 04:58 09/30/24 10/01/24 10/01/24 22:59 06:59 14:59 Intake Total 720 / 1200 240 / 240 Output Total 600 / 600 250 / 850 Balance 120 / 600 -250 / 350 240 / 240 Weight last 48 hrs Weight 80.286 kg Weight 80.371 kg Physical Exam 2 Narrative: General: No acute distress, AO x3, pleasant HEENT: PERRLA, pupils bilaterally equal and reactive Chest: Normal vesicular breath sounds, mildly decreased air entry bilaterally in lower zone, equal good air entry bilaterally CVS: S1-S2 regular, Ejection systolic murmur at aortic region radiating to carotids 2/6, no tachycardia, no gallops, no rubs Abdomen: Soft, nontender, no organomegaly, bowel sounds present Neuro: No focal deficits, no facial deformity, AO x3, power 5/5 in all limbs Urinary Catheter Management: 2-way Urethral: Cath Placed During This Visit: yes, but has since been removed by the nurse Reason for Continuing Indwelling Catheter: Decision to DC Catheter Urinary Catheter Date of Insertion: 09/28/24 Date Urinary Catheter Removed: 09/30/24 Time Urinary Catheter Discontinued: 08:15 Data 10/01/24 05:00 10/01/24 05:00 Micro: Microbiology 10/01/24 10:07 Occult Blood (FIT) - Final Stool Routine Collection A&P Assessment and plan (1) Acute on chronic HFrEF (heart failure with reduced ejection fraction): (2) Symptomatic severe aortic stenosis with low ejection fraction: (3) Mitral stenosis with regurgitation: (4) Hematuria: (5) CKD (chronic kidney disease): (6) Pulmonary embolism: (7) Chronic anticoagulation: (8) Anemia: (9) Hypotension: Plan Rafy Sierra is a 79 year old male w/ rectal surgery s/p radiation, surgery (requiring creation of a colostomy that was later reversed), chemo in 2011, Multiple Myeloma w/ lytic lesions to the bone on Lenalidomide, CAD, [place] in 2013 during a cruise s/p 1 stent, chronic HFrEF (EF 35-40%) w/ severe mitral regurg, PE dx'ed on 09/12/2024, who presents on 09/27/2024 w/ progressive SOB that worsened in the last 2 days. #Acute on chronic HFrEF (EF 35-40%) w/ severe mitral regurg and severe low-flow aortic stenosis Fluid restriction to less than 1500 cc. Currently patient is euvolemic. Overall around 6.5 L negative. Did develop mild ARIE on CKD with diuresis. Have not received diuresis over last 24 hours. Hold off on Bumex for now. Will restart as per fluid status. Strict input output charting, daily weights. Hematuria: Resolved. Disla catheter removed on 09/30. Able to urinate afterwards. Will do bladder scan as needed. Hold off on anticoagulation for 1 more day. Anemia: A combination of chronic disease given multiple myeloma and CKD. Baseline creatinine has been around 9. 8.2 on admission. Currently down to 7.3. Patient denies any melena. Will check stool for occult blood. Holding off on anticoagulation as above. Continue with Protonix twice daily. Add Carafate ACHS. Will transfuse 1 unit of PRBC. Appreciate normal iron panel. Hypotension: Could be in setting of worsening anemia versus early cardiogenic shock or over dehydration from diuresis. Getting blood transfusion as above. Goal blood pressure less than 140/90 mmHg with mean over 65. Check cortisol level. Change midodrine 5 mg 3 times daily to scheduled. #CKDIII: Baseline creatinine seems to be around 1.7-2. Creatinine stable around 2. Medical reconciliation done for nephrotoxic drugs. - Monitor renal function and avoid nephrotoxins Does have concerns for hypokalemia. Replaced 40 mg of oral potassium. #Rate controlled Afib: Telemetry. #PE dx'ed on 09/12/2024 - On Apixaban at home. Holding off on Lovenox as above. Continue with home dose of metoprolol. Switch to tartrate 12.5 mg twice daily. #CAD, [place] in 2013 during a cruise s/p 1 stent #HTN #HLD - Aspirin and Atorvastatin #Multiple Myeloma w/ lytic lesions to the bone on Lenalidomide - Resumed Acyclovir - Zolendronic acid q3M #Peripheral Neuropathy - SIde effect of chemo drugs. Resume #Allergic rhinitis - Resume home meds SCD for DVT prophylaxis Cardiac diet. Fluid restriction. Protonix OPD prophylaxis CODE STATUS: Again discussed in detail with the patient with spouse at bedside. Discussed that unfortunately patient is chronically sick specially with CKD, congestive heart failure with valvular disorder and multiple myeloma. Discussed an unfortunate event of cardiac arrest if he is to undergo chest compressions or need for mechanical ventilator there is a risk of worsening of his baseline lifestyle. Patient verbalized understanding and would want to remain full code for now. PDMP PDMP Reviewed: Not Reviewed Attestations 2 Medical Necessity Statement*: Requires further hospitalization for management of hypotension in setting of anemia requiring blood transfusion, acute on chronic systolic and diastolic heart failure in setting of mitral regurgitation and severe aortic stenosis, CKD with hypokalemia requiring repletion and monitoring. Diagnoses Acute on chronic HFrEF (heart failure with reduced ejection fraction) I50.23 Symptomatic severe aortic stenosis with low ejection fraction I35.0 Mitral stenosis with regurgitation I05.2 Hematuria R31.9 CKD (chronic kidney disease) N18.9 Pulmonary embolism I26.99 Chronic anticoagulation Z79.01 Anemia D64.9 Hypotension I95.9
--- NOTE | 2024-10-01 13:15 | PC.SOCIAL ---
IMM Updated Updated pt on IMM. No questions voiced. Provided pt a copy. Initialed, dated, & timed a copy & placed in chart.
[2024-10-01] MEDS: bumetanide 0.25 mg/mL SDV 10 mL 2 MG IVP (17:28)
[2024-10-01] MEDS: sucralfate 1 gm Tablet PO ×2 (17:52→20:32)
[2024-10-01 18:00] LABS: Hematocrit 28.2 % (37-53)
[2024-10-01] MEDS: metoprolol tartrate 25 mg Tablet 12.5 MG PO (20:32)
[2024-10-01] MEDS: acetaminophen 325 mg Tablet 650 MG PO (23:09)
[2024-10-02 01:03] VITALS: BP 120/58; PULSE 58; RESP 18; TEMP 36.6; O2SAT 95
[2024-10-02 04:22] VITALS: BP 115/58; PULSE 59; RESP 18; TEMP 36.4; O2SAT 93
[2024-10-02 05:38] LABS: Basophils # 0.1 10^3/uL (0.0-0.1); Basophils % 1.3 %; Eosinophils # 0.2 10^3/uL (0.0-0.8); Eosinophils % 4.9 %; Hematocrit 28.6 % (37-53); Lymphocytes # 0.7 10^3/uL (0.8-4.8); Lymphocytes % 15.2 %; Mean Corpuscular HGB Conc 33.9 g/dL (30-55); Mean Corpuscular Hemoglobin 35.3 pg (27-33); Monocytes # 0.6 10^3/uL (0.2-0.9); Monocytes % 12.2 %; Neutrophils # 3.08 10^3/uL (1.8-7.7); Nucleated Red Blood Cells % 0 %; Platelet Count 99 10^3/cmm (157-399); Red Blood Count 2.75 10^6/uL (3.85-5.65); Red Cell Distribution Width 20.6 % (12.1-15.1); White Blood Count 4.67 10^3/uL (3.29-11.43)
[2024-10-02 05:58] LABS: Alanine Aminotransferase 11 U/L (0-41); Albumin Level 3.5 g/dL (3.5-5.2); Alkaline Phosphatase 99 U/L (40-130); Anion Gap 14.1 (5-19); Aspartate Amino Transferase 22 U/L (0-40); Blood Urea Nitrogen 43 mg/dL (8-23); Calcium 8.4 mg/dL (8.5-10.5); Carbon Dioxide 29 mmol/L (22-29); Chloride 94 mmol/L (98-107); Creatinine Clr Calc Pharmacy 28.1802; Globulin 2.2 g/dL (1.3-4.6); Glucose 96 mg/dL (65-115); Osmolality Calculated 289 mOsm/kg (285-295); Potassium 3.1 mmol/L (3.5-5.1); Sodium 134 mmol/L (136-145); Total Protein 5.7 g/dL (6.6-8.7)
[2024-10-02] MEDS: atorvastatin 40 mg Tablet 80 MG PO (06:25)
[2024-10-02] MEDS: sucralfate 1 gm Tablet PO (06:25)
[2024-10-02] MEDS: pantoprazole DR 40 mg Tablet PO (06:25)
[2024-10-02 07:49] VITALS: BP 106/45; PULSE 68; RESP 18; TEMP 36.7; O2SAT 94
[2024-10-02] MEDS: metoprolol tartrate 25 mg Tablet 12.5 MG PO (07:59)
[2024-10-02] MEDS: acyclovir 400 mg Tablet PO (07:59)
[2024-10-02] MEDS: midodrine 5 mg TABLET PO (07:59)
[2024-10-02] MEDS: gabapentin 300 mg Capsule 600 MG PO (08:00)
[2024-10-02] MEDS: docusate sodium 100 mg Capsule 200 MG PO (08:00)
[2024-10-02] MEDS: aspirin 81 mg EC Tablet PO (08:00)
--- NOTE | 2024-10-02 08:03 | P.DS_ITS ---
Discharge Providers Date of Admission: 09/28/24 02:23 Date of Discharge: October 02, 2024 Attending Provider at Admission: Patricia Lincoln MD Attending Provider at Discharge: Joe Rubalcava MD Primary Care Provider: Allegra Jimenez MD Diagnoses at Discharge Discharge Diagnosis (1) Acute on chronic HFrEF (heart failure with reduced ejection fraction): Status: Acute (2) Symptomatic severe aortic stenosis with low ejection fraction: Status: Acute (3) Mitral stenosis with regurgitation: Status: Acute (4) Hematuria: Status: Acute (5) CKD (chronic kidney disease): Status: Chronic (6) Pulmonary embolism: Status: Acute (7) Chronic anticoagulation: Status: Acute (8) Anemia: Status: Acute (9) Hypotension: Status: Acute Reason for Visit Reason for Visit: sob Brief History: History per HPI: Mrs. Kacy Sierra () - [phone] Rafy Sierra is a 79 year old male w/ rectal surgery s/p radiation, surgery (requiring creation of a colostomy that was later reversed), chemo in 2011, Multiple Myeloma w/ lytic lesions to the bone on Lenalidomide, CAD, [place] in 2013 during a cruise s/p 1 stent, chronic HFrEF (EF 35-40%) w/ severe mitral regurg, PE dx'ed on 09/12/2024, who presents on 09/27/2024 w/ progressive SOB that worsened in the last 2 days. The patient states that after discharge, he was doing well, and then he began to progressively feel dypsnea with exertion and dizzy and light headed. He decided to go to bed and lie on his side instead of on his back because he would be dyspneic when lying down. On lying on his side, he became dyspneic, panicked and his helped him get up and called the EMS. He endorses pedal edema, but states that he did not have a lot of pedal edema when he was discharged 09/13/2024 and that the pedal edema has not changed since 09/13/2024. He denies f/c, headaches, syncope, coughing, wheezing, palpitations, malaise. He states that every once in a while, he would have an occasional nonpleuritic, non-positional, sharp but fleeting, L. sided chest pain that lasts about a second that is associated w/ the SOB. He states that sometimes when he eats, it rosales, but states it is milder than when he was getting chemo for his rectal cancer in 2012. He states that a heart monitor was placed at [facility] in [place]. In the ED, patient was tachypneic to 26, but did not require O2. His CXR showed moderate cardiomegaly with vascular congestion and small to moderate b/l pleural effusions. His troponin T was initially moderately elevated but trended downwards. His proBNP was 12, 378. He was given Bumex 2mg IVP x 1 and admitted. Hospital Course Hospital Course Patient was admitted to the hospital for evaluation and management of acute on chronic decompensated congestive heart failure in setting of severe aortic low- flow stenosis and mitral regurgitation. He was started on aggressive IV diuresis. Patient responded well to the treatment and his oxygen supplementation came to his baseline. He did develop mild ARIE and hypotension which was managed by managing fluid status. Oral midodrine was added to his medication list. Given stable worsening anemia with hemoglobin down to 7-7.9 on this admission as compared to 8-9 on his previous admissions he was transfused 1 unit of PRBC. His blood pressures and symptoms improved after blood transfusion. He has been discharged in hemodynamically stable condition on oral Bumex 2 mg daily with advised to take extra Bumex if body weight increases by 3 pounds. He is to follow-up with his primary care provider for repeat CBC in 1 week. If hemoglobin trends down to below 8 again he would benefit from outpatient follow- up with surgery for a colonoscopy. He is also discharged on midodrine 5 mg 3 times a day which is to be withheld for systolic blood pressure of less than 100 mmHg. Discharge instructions were discussed in detail with patient and patient's spouse at bedside and all the questions were answered. Physical Exam Narrative: General: No acute distress, AO x3, pleasant HEENT: PERRLA, pupils bilaterally equal and reactive Chest: Normal vesicular breath sounds, mildly decreased air entry bilaterally in lower zone, equal good air entry bilaterally CVS: S1-S2 regular, Ejection systolic murmur at aortic region radiating to carotids 2/6, no tachycardia, no gallops, no rubs Abdomen: Soft, nontender, no organomegaly, bowel sounds present Neuro: No focal deficits, no facial deformity, AO x3, power 5/5 in all limbs Urinary Catheter Management: 2-way Urethral: Cath Placed During This Visit: yes, but has since been removed by the nurse Reason for Continuing Indwelling Catheter: Decision to DC Catheter Urinary Catheter Date of Insertion: 09/28/24 Date Urinary Catheter Removed: 09/30/24 Time Urinary Catheter Discontinued: 08:15 Discharge Data Studies Completed and Pending Completed Studies During Hospitalization Category Date Time Status XR chest 1V portable [id number] Stat Exams 09/28/24 00:09 Completed Radiology Impressions Chest X-Ray 09/28/24 00:09 IMPRESSION: 1. Moderate cardiomegaly with vascular congestion. 2. Mtyye-dw-oawiylnb bilateral pleural effusions. Laboratory Results WBC 4.67 10^3/uL (3.29-11.43) 10/02/24 04:41 RBC 2.75 10^6/uL (3.85-5.65) L 10/02/24 04:41 Hgb 9.70 g/dL (11.27-16.99) L 10/02/24 04:41 Hct 28.6 % (37-53) L 10/02/24 04:41 MCV 104.0 fl (82-101) H D 10/02/24 04:41 MCH 35.3 pg (27-33) H 10/02/24 04:41 MCHC 33.9 g/dL (30-55) 10/02/24 04:41 RDW 20.6 % (12.1-15.1) H 10/02/24 04:41 Plt Count 99 10^3/cmm (157-399) L 10/02/24 04:41 MPV 13.0 fL (7.4-10.4) H 10/02/24 04:41 Neut % (Auto) 66.0 % 10/02/24 04:41 Lymph % (Auto) 15.2 % 10/02/24 04:41 [place] % (Auto) 12.2 % 10/02/24 04:41 Eos % (Auto) 4.9 % 10/02/24 04:41 Baso % (Auto) 1.3 % 10/02/24 04:41 Neut # (Auto) 3.08 10^3/uL (1.8-7.7) 10/02/24 04:41 Lymph # (Auto) 0.7 10^3/uL (0.8-4.8) L 10/02/24 04:41 [place] # (Auto) 0.6 10^3/uL (0.2-0.9) 10/02/24 04:41 Eos # (Auto) 0.2 10^3/uL (0.0-0.8) 10/02/24 04:41 Baso # (Auto) 0.1 10^3/uL (0.0-0.1) 10/02/24 04:41 Nucleated RBC % (auto) 0 % 10/02/24 04:41 Nucleated RBCs # 0.0 /100WBC 10/02/24 04:41 PT 18.00 SECONDS (12.1-14.9) H 09/29/24 03:29 INR 1.39 (0.8-1.2) H 09/29/24 03:29 APTT 38.6 SECONDS (23.9-36.7) H 09/29/24 03:29 Sodium 134 mmol/L (136-145) L 10/02/24 04:41 Potassium 3.1 mmol/L (3.5-5.1) L 10/02/24 04:41 Chloride 94 mmol/L (98-107) L 10/02/24 04:41 Carbon Dioxide 29 mmol/L (22-29) 10/02/24 04:41 Anion Gap 14.1 (5-19) 10/02/24 04:41 BUN 43 mg/dL (8-23) H 10/02/24 04:41 Creatinine 2.1 mg/dL (0.7-1.2) H 10/02/24 04:41 GFR Calculation Not Reportable 10/02/24 04:41 Glucose 96 mg/dL (65-115) 10/02/24 04:41 Calculated Osmolality 289 mOsm/kg (285-295) 10/02/24 04:41 Calcium 8.4 mg/dL (8.5-10.5) L 10/02/24 04:41 Phosphorus 4.2 mg/dL (2.5-4.5) 10/01/24 05:00 Magnesium 2.3 mg/dL (1.7-2.3) 10/01/24 05:00 Total Bilirubin 1.0 mg/dL (0.15-1.2) 10/02/24 04:41 AST 22 U/L (0-40) 10/02/24 04:41 ALT 11 U/L (0-41) 10/02/24 04:41 Alkaline Phosphatase 99 U/L (40-130) 10/02/24 04:41 NT-Pro-B Natriuret Pep 06250 pg/mL (0-450) H 09/28/24 00:00 Total Protein 5.7 g/dL (6.6-8.7) L 10/02/24 04:41 Albumin 3.5 g/dL (3.5-5.2) 10/02/24 04:41 Globulin 2.2 g/dL (1.3-4.6) 10/02/24 04:41 Random Cortisol 12.42 ug/dL (2.47-19.5) 10/01/24 05:00 C. difficile (PCR) Negative (Negative) 10/01/24 10:07 Influenza A (PCR) Negative (Negative) 09/28/24 00:15 Influenza Type B (PCR) Negative (Negative) 09/28/24 00:15 RSV (PCR) Negative (Negative) 09/28/24 00:15 SARS-CoV-2 (PCR) Negative (Negative) 09/28/24 00:15 Blood Type A Positive 10/01/24 09:13 Rho(D) Type Rh positive 10/01/24 09:13 Antibody Screen Positive 10/01/24 09:13 Prewarmed Antibody Srcn Negative 10/01/24 09:13 Antibody Identification Cold Auto Antibody 10/01/24 09:13 Cold Antibody Screen Positive 10/01/24 09:13 Crossmatch See Detail 10/01/24 09:13 Vitals Last Vital Signs Temp 98.0 F 10/02/24 07:49 Pulse 68 10/02/24 07:49 Resp 18 10/02/24 07:49 BP 106/45 10/02/24 07:49 Pulse Ox 94 10/02/24 07:49 O2 Del Method Room Air 10/02/24 07:49 O2 Flow Rate 2 09/28/24 04:58 Discharge Plan Discharge Patient Disposition: Home Condition: Stable Prescriptions: New sucralfate 1 gram Tablet 1 g PO AC&BEDTIME 28 Days Qty: 60 0RF midodrine 5 mg Tablet 5 mg PO TID Qty: 90 0RF Continued (DME) Left AFO See Rx Instructions .Route .MEDSUPPLY Qty: 1 0RF Rx Instructions: As directed to the buck huang lenalidomide 10 mg capsule 10 mg PO DAILY zoledronic acid 4 mg Recon Soln 4 mg IV Q3M Darzalex 20 mg/mL Solution 20 mg IV Q30D acetaminophen [Tylenol] 325 mg Tablet 325 - 350 mg PO QID PRN (Reason: Pain) albuterol sulfate 2.5 mg /3 mL (0.083 %) solution for nebulization 2.5 mg inhalation Q4H PRN (Reason: Shortness Of Breath) bumetanide 1 mg tablet 2 mg PO DAILY 30 Days Qty: 60 0RF Eliquis 5 mg tablet 5 mg PO BID Qty: 90 3RF Rx Instructions: 10 bid for 7 days then 5 mg bid diphenoxylate-atropine [Lomotil] 2.5-0.025 mg Tablet 1 tab PO DAILY PRN (Reason: loose stools ) magnesium L-lactate 84 mg Tablet Extended Release 84 mg PO DAILY atorvastatin 80 mg Tablet 80 mg PO QAM acyclovir 400 mg Tablet 400 mg PO BID gabapentin 300 mg Capsule 600 mg PO TID sertraline 25 mg Tablet 12.5 mg PO QPM loratadine 10 mg Capsule 10 mg PO QAM pudrejvd-gha-nzzyb-vit K-lycop 400-20-300 mcg Tablet 1 tab PO QAM aspirin 81 mg Tablet,Delayed Release (Dr/Ec) 81 mg PO DAILY Qty: 30 0RF pantoprazole 40 mg Tablet,Delayed Release (Dr/Ec) 40 mg PO BID Qty: 60 0RF metoprolol succinate 25 mg Tablet Extended Release 24 Hr 12.5 mg PO DAILY Qty: 15 0RF potassium chloride 20 mEq tablet extended release 20 meq PO DAILY Qty: 30 0RF Discontinued spironolactone 25 mg Tablet 25 mg PO QAM Discharge Orders: Discharge Order (Routine); Ordered 10/02/24 Ordered By: Joe Rubalcava Referrals: Bruce Rees DO [Staff Physician, Family Practice] - 10/09/24 9:50 am Discharge Diet: Cardiac Discharge Activity: Resume usual activity and Increase activity as tolerated Patient Instructions: Anemia, Sucralfate (By mouth), Midodrine (By mouth), Heart Failure (DC), Pulmonary Embolism (DC), Hypotension (DC), CHF Stoplight, Opioid Safety Activity Restrictions/Additional Instructions: Goal blood pressure between 100-140 systolic. Take midodrine 5 mg 3 times a day. You can hold if the systolic blood pressure is more than 120 mmHg. Restrict fluid intake to less than 1500 cc, salt intake to less than 2 g daily. Advised to check his weight daily at home. Is advised that weight today would be the dry weight and if body weight increases by around 5 pounds, patient is to take an extra dose of Bumex daily till body weight comes down to weight today. If not able to come down to dry body weight in 1 week, then is to call cardiology office for further recommendations. Patient was counseled in detail to take medications regularly as prescribed. Follow-up with your primary care provider within next 1 week for repeat CBC. If hemoglobin trends down again you need to follow-up with surgical team as an outpatient for a possible colonoscopy. Discharge Attestations Time Spent in Discharge Care*: greater than 30 min Specific Discharge Activities: educating patient, educating and/or supporting family/caregiver, discussing with pcp/other providers, discussing with caser in/social workers/dc planners, documenting/other paperwork and evaluating patient/reviewing data Status at Discharge: Cognitive status at discharge: cognitively intact , Behavioral status at discharge: cooperative , Functional status at discharge: uses cane/walker , Overall status at discharge: patient is progressing back to baseline Quality Metrics Clinical Quality Measures [ No reported AMI, CVA or VTE this stay] Coding Level of Care Code 45807 Total time (in minutes) for Discharge: 65 Diagnoses Acute on chronic HFrEF (heart failure with reduced ejection fraction) I50.23 Symptomatic severe aortic stenosis with low ejection fraction I35.0 Mitral stenosis with regurgitation I05.2 Hematuria R31.9 CKD (chronic kidney disease) N18.9 Pulmonary embolism I26.99 Chronic anticoagulation Z79.01 Anemia D64.9 Hypotension I95.9
[2024-10-02] MEDS: bumetanide 0.25 mg/mL SDV 10 mL 2 MG IVP (08:09)
[2024-10-02 09:40] VITALS: BP 110/50; PULSE 62; O2SAT 97
== END 2024-10-02 09:40 | disposition home or self-care (01) | DRG 291 ==
LOC: ER 09-28 04:02 → ER IP 09-28 05:02 → MEDSURG 09-28 13:52
PROVIDERS: Admitting Provider Internal Medicine; Emergency Provider Emergency Medicine; PCP Family Medicine; Visit Provider Student in an Organized Health Care Education/Training Program
DX: I13.0 Hypertensive heart and chronic kidney disease with heart failure and stage 1 through stage 4 chronic kidney disease, or unspecified chronic kidney disease (principal); I50.23 Acute on chronic systolic (congestive) heart failure; C90.00 Multiple myeloma not having achieved remission; N17.9 Acute kidney failure, unspecified; N18.30 Chronic kidney disease, stage 3 unspecified; I08.0 Rheumatic disorders of both mitral and aortic valves; R31.9 Hematuria, unspecified; D63.1 Anemia in chronic kidney disease; I25.10 Atherosclerotic heart disease of native coronary artery without angina pectoris; E87.6 Hypokalemia; G62.0 Drug-induced polyneuropathy; T45.1X5A Adverse effect of antineoplastic and immunosuppressive drugs, initial encounter; I48.91 Unspecified atrial fibrillation; I95.9 Hypotension, unspecified; I25.2 Old myocardial infarction; Z79.01 Long term (current) use of anticoagulants; Z79.61 Long term (current) use of immunomodulator; Z79.82 Long term (current) use of aspirin; Z86.711 Personal history of pulmonary embolism; Z85.048 Personal history of other malignant neoplasm of rectum, rectosigmoid junction, and anus; Z92.3 Personal history of irradiation; Z95.5 Presence of coronary angioplasty implant and graft
CPT/HCPCS: 36415; 36430; 51702; 71045; 80048; 80053; 82274; 82533; 83735; 83880; 84100; 85014; 85018; 85025; 85610; 85730; 86850; 86870; 86900; 86920; 87493; 87637; 93005; 94664; 96365; 96372; 96375; 99285; J1650; J2470; J3490; J8499; J9999; P9016; P9046

== ENCOUNTER 2024-10-15 03:33 | Inpatient (IN) | payer MEDICARE, OTHER, SELFPAY ==
[2024-10-15] VITALS (28 sets, daily range): BP systolic 94–122; BP diastolic 49–81; PULSE 57–80; RESP 15–23; TEMP 35.9–36.8; O2SAT 92–99; BMI 26.7
--- NOTE | 2024-10-15 03:46 | ECG_ITS ---
[facility] Test Date: 2024-10-15 Pat Name: Rafy Sierra Department: Room: Gender: Male [employer] Operator: : 1945 Requested By: Dewayne Celeste Order Number: [id number] Prince MD: JOSE ELIAS ESCAMILLA Measurements Intervals [place] Rate: 60 P: 51 [place]: 214 QRS: 168 QRSD: 160 T: 51 QT: 491 QTc: 494 Interpretive Statements SINUS RHYTHM WITH FIRST DEGREE AV BLOCK WITH OCCASIONAL VENTRICULAR PREMATURE COMPLEXES POSSIBLE LEFT ATRIAL ENLARGEMENT [-0.1mV P-WAVE IN V1/V2] RIGHT AXIS DEVIATION [QRS AXIS > 100] RIGHT BUNDLE BRANCH BLOCK [120+ ms QRS DURATION, UPRIGHT V1, 40+ ms S IN I/aVL/V4/V5/V6] POSSIBLE ANTERIOR MYOCARDIAL INFARCTION , PROBABLY OLD [30 ms Q WAVE IN V3/V4, OR R < 0.2 mV IN V4] Compared to ECG 09/27/2024 23:49:05 Ventricular premature complex(es) now present First degree AV block now present Electronically Signed On 10-15-2024 22:51:06 CDT by JOSE ELIAS ESCAMILLA [email or web address]
--- NOTE | 2024-10-15 03:54 | XRR_ITS ---
PROCEDURE INFORMATION: Exam: XR Chest Exam date and time: 10/15/2024 4:00 AM Age: 79 years old Clinical indication: Dyspnea; Additional info: Shortness of breath TECHNIQUE: Imaging protocol: Radiologic exam of the chest. Views: 1 view. COMPARISON: CR (CHEST, ) 09/28/2024 12:52 AM FINDINGS: Lungs: Streaky infrahilar peribronchial opacities with reduced lung volumes are similar to comparison. Pleural spaces: Bilateral pleural effusions redemonstrated without significant changes. Negative for pneumothorax. Heart/Mediastinum: Enlarged cardiomediastinal contour is unchanged. Bones/joints: Unremarkable. XR/XR chest 1V portable [id number] IMPRESSION: No significant changes demonstrating bilateral pleural effusions.
[2024-10-15] MEDS: bumetanide 0.25 mg/mL SDV 10 mL 2 MG IVP (04:40)
[2024-10-15 04:41] LABS: Basophils % 1.3 %; Eosinophils # 0.2 10^3/uL (0.0-0.8); Eosinophils % 6.1 %; Hematocrit 21.7 % (37-53); Lymphocytes # 0.4 10^3/uL (0.8-4.8); Lymphocytes % 12.2 %; Mean Corpuscular HGB Conc 31.8 g/dL (30-55); Mean Corpuscular Hemoglobin 35.6 pg (27-33); Mean Corpuscular Volume 111.9 fl (82-101); Mean Platelet Volume 12.5 fL (7.4-10.4); Monocytes # 0.5 10^3/uL (0.2-0.9); Neutrophils # 1.99 10^3/uL (1.8-7.7); Neutrophils % 63.8 %; Nucleated Red Blood Cells % 0 %; Platelet Count 70 10^3/cmm (157-399); Red Blood Count 1.94 10^6/uL (3.85-5.65); Red Cell Distribution Width 19.8 % (12.1-15.1); White Blood Count 3.12 10^3/uL (3.29-11.43)
[2024-10-15 05:00] LABS: Troponin(5th) Baseline 167 ng/L (0-15)
[2024-10-15 05:12] LABS: Alanine Aminotransferase 13 U/L (0-41); Albumin Level 3.4 g/dL (3.5-5.2); Alkaline Phosphatase 111 U/L (40-130); Aspartate Amino Transferase 23 U/L (0-40); Blood Urea Nitrogen 43 mg/dL (8-23); Carbon Dioxide 25 mmol/L (22-29); Chloride 95 mmol/L (98-107); Creatinine Clr Calc Pharmacy 28.5173; Globulin 1.6 g/dL (1.3-4.6); Glucose 109 mg/dL (65-115); NT Pro B Type Natriuretic Pept 16174 pg/mL (0-450); Osmolality Calculated 285 mOsm/kg (285-295); Sodium 132 mmol/L (136-145); Total Bilirubin 0.9 mg/dL (0.15-1.2)
--- NOTE | 2024-10-15 05:50 | W.ED.SOB ---
Documented by User: Dewayne Damon MD 10/15/24 05:56 HPI - SOB/Dyspnea General: Chief Complaint: Shortness of Breath/Dyspnea Stated Complaint: sob Time Seen by Provider: 10/15/24 03:38 History of Present Illness: HPI Narrative: Patient is a 79-year-old male from home with past history of multiple myeloma, CHF, with recent hospitalization for fluid overload requiring IV diuresis who states that he is up roughly 7 pounds from discharge weight and now has worsening shortness of breath and orthopnea. He was unable to sleep due to his shortness of breath. He does not wear oxygen at home. He felt anxious and decided to come to the emergency department. He is gaining weight and States that he tries to limit his water intake but readily admits that he is likely drinking too much water. Related Data Home Medications ?Medication ?Instructions ?Recorded ?Confirmed acyclovir 400 mg tablet 400 mg PO BID 08/06/23 10/15/24 atorvastatin 80 mg tablet 80 mg PO QAM 08/06/23 10/15/24 gabapentin 300 mg capsule 600 mg PO TID 08/06/23 10/15/24 feiniqib-pjuevtaz-ibjka acid 400 1 tab PO QAM 08/06/23 10/15/24 mcg-vit K 20 mcg-lycop 300 mcg tablet sertraline 25 mg tablet 12.5 mg PO QPM 08/06/23 10/15/24 acetaminophen 325 mg tablet 325 - 350 mg PO QID PRN Pain 09/12/24 10/15/24 (Tylenol) albuterol sulfate 2.5 mg/3 mL 2.5 mg inhalation Q4H PRN 09/12/24 10/15/24 (0.083 %) solution for nebulization Shortness Of Breath daratumumab 20 mg/mL intravenous 20 mg IV .Q30D 09/12/24 10/15/24 solution (Darzalex) lenalidomide 10 mg capsule 10 mg PO DAILY 09/12/24 10/15/24 zoledronic acid 4 mg intravenous 4 mg IV .[id number] 09/12/24 10/15/24 solution diphenoxylate-atropine 2.5 1 tab PO DAILY PRN loose stools 09/28/24 10/15/24 mg-0.025 mg tablet (Lomotil) magnesium L-lactate 84 mg 84 mg PO DAILY 09/28/24 10/15/24 tablet,extended release loratadine 10 mg tablet 10 mg PO DAILY 10/15/24 10/15/24 Previous Rx's ?Medication ?Instructions ?Recorded aspirin 81 mg tablet,delayed 81 mg PO DAILY #30 tabs 08/10/23 release metoprolol succinate 25 mg 12.5 mg (1/2 x 25 mg) PO DAILY #15 08/10/23 tablet,extended release 24 hr tabs pantoprazole 40 mg tablet,delayed 40 mg PO BID #60 tabs 08/10/23 release potassium chloride 20 mEq 20 meq PO DAILY #30 tabs 08/10/23 tablet,extended release Left AFO #1 ea 12/19/23 apixaban 5 mg tablet (Eliquis) 5 mg PO BID #90 tabs 09/13/24 bumetanide 1 mg tablet 2 mg (2 x 1 mg) PO DAILY 30 days 09/13/24 #60 tabs midodrine 5 mg tablet 5 mg PO TID #90 tabs 10/02/24 sucralfate 1 gram tablet 1 g PO AC&BEDTIME 4 weeks #60 tabs 10/02/24 Allergies Allergy/AdvReac Type Severity Reaction Status Date / Time No Known Allergies Allergy Verified 09/23/24 13:02 [facility] PFSH: Medical History Chronic anticoagulation Mitral stenosis with regurgitation Symptomatic severe aortic stenosis with low ejection fraction CKD (chronic kidney disease) Mitral valve prolapse Systolic congestive heart failure Gastric ulcer GI bleed Multiple myeloma Coronary artery disease Surgical History H/O esophagogastroduodenoscopy Social History Smoking and tobacco/nicotine status: former use of tobacco/nicotine Physical Exam Const: COMMON NORMALS: no acute distress, patient oriented x3 and alert HENMT: COMMON NORMALS: normocephalic and atraumatic HEAD & SCALP: normocephalic and atraumatic Eye: COMMON NORMALS: Equal, round and reactive pupils present, EOMs intact bilaterally and no scleral icterus PUPIL: Yes Equal, round and reactive pupils present Resp: COMMON NORMALS: No retractions OTHER: Mild crackles in both bases and diminished sounds in both bases. Cardio: COMMON NORMALS: regular rate and regular rhythm RATE: regular rate RHYTHM: regular rhythm OTHER: 3+ holosystolic murmur GI: COMMON NORMALS: Normal to inspection, nondistended, normoactive bowel sounds present, Soft to palpation and non-tender PALPATION: Yes Soft to palpation Extremity: OTHER: 1+ pitting edema to the knees. Neuro: COMMON NORMALS: patient oriented x3 SENSORIUM/ORIENTATION: Yes alert Skin: COMMON NORMALS: no rashes or lesions noted GENERAL SKIN EXAM: no rashes or lesions noted OTHER: Pale Course Vital Signs: Vital signs: Vital Signs Temperature 96.9 F L 10/15/24 13:50 Pulse Rate 71 10/15/24 13:50 Respiratory Rate 15 10/15/24 13:50 Blood Pressure 120/72 10/15/24 13:50 Pulse Oximetry 96 10/15/24 13:50 Oxygen Delivery Me thod Room Air 10/15/24 13:38 Oxygen Flow Rate 2 10/15/24 03:48 MDM - SOB/Dyspnea Medical Decision Making In summary, patient is a generally well-appearing 79-year-old male seen for what appears to be gradually worsening fluid overload with bilateral pleural effusion seen on chest x-ray and worsening orthopnea. He was given 2 mg IV Bumex. Labs show significantly elevated BNP when compared with prior studies as well as new anemia. He will be typed and crossed for 1 unit of blood cells. Oxygen saturation is 95% on room air. There may be a component of anxiety also contributing to the symptoms prompting his visit. He admits roughly 7 to 10 pounds water weight gain since leaving the hospital and we discussed that he really needs to curb his water intake. Pertinent details of the case were shared with the on-call emergency physician who will facilitate ultimate disposition once blood transfusion has been performed. At this time, I think it will be reasonable for him to return home with plan to very careful about water intake and keep taking his medications as prescribed Lab Data 10/15/24 04:35 10/15/24 04:35 Labs/Radiology: Radiology Impressions Chest X-Ray 10/15/24 03:54 IMPRESSION: No significant changes demonstrating bilateral pleural effusions. Abdomen/Pelvis CT 10/15/24 08:21 IMPRESSION: 1. Cystitis with diffuse bladder wall thickening. Associated diffuse ureterectasis with moderate hydronephrosis suspicious for cystitis with bladder outlet obstruction and UTI. Prostate does not appear enlarged. 2. Cholelithiasis. 3. Small RIGHT greater than LEFT pleural effusion with compressive atelectasis in the lung bases. 4. Numerous lytic lesions throughout the bony structures compatible with history of multiple myeloma. 5. Well-corticated fracture LEFT sacral ala with surrounding sclerosis likely pathologic is new compared to 2022. 6. Associated soft tissue sacral mass is persistent but appears improved compatible with treatment related changes. 7. Progressed lytic lesion T11. 8. Partially visualized destructive lesion T9 involving the posterior vertebral body with a soft tissue component is partially visualized and similar in appearance. Laboratory Results WBC 3.12 10^3/uL (3.29-11.43) L 10/15/24 04:35 Corrected WBC Cancelled 10/15/24 04:16 RBC 1.94 10^6/uL (3.85-5.65) L 10/15/24 04:35 Hgb 6.90 g/dL (11.27-16.99) L 10/15/24 04:35 Hct 21.7 % (37-53) L 10/15/24 04:35 MCV 111.9 fl (82-101) H 10/15/24 04:35 MCH 35.6 pg (27-33) H 10/15/24 04:35 MCHC 31.8 g/dL (30-55) 10/15/24 04:35 RDW 19.8 % (12.1-15.1) H 10/15/24 04:35 Plt Count 70 10^3/cmm (157-399) L 10/15/24 04:35 MPV 12.5 fL (7.4-10.4) H 10/15/24 04:35 Gran % Cancelled 10/15/24 04:16 Neut % (Auto) 63.8 % 10/15/24 04:35 Lymph % (Auto) 12.2 % 10/15/24 04:35 [place] % (Auto) 16.0 % 10/15/24 04:35 Eos % (Auto) 6.1 % 10/15/24 04:35 Baso % (Auto) 1.3 % 10/15/24 04:35 Neut # (Auto) 1.99 10^3/uL (1.8-7.7) 10/15/24 04:35 Lymph # (Auto) 0.4 10^3/uL (0.8-4.8) L 10/15/24 04:35 [place] # (Auto) 0.5 10^3/uL (0.2-0.9) 10/15/24 04:35 Eos # (Auto) 0.2 10^3/uL (0.0-0.8) 10/15/24 04:35 Baso # (Auto) 0.0 10^3/uL (0.0-0.1) 10/15/24 04:35 Absolute Gran (auto) Cancelled 10/15/24 04:16 Nucleated RBC % (auto) 0 % 10/15/24 04:35 Nucleated RBCs # 0.0 /100WBC 10/15/24 04:35 Sodium 132 mmol/L (136-145) L 10/15/24 04:35 Potassium 4.0 mmol/L (3.5-5.1) 10/15/24 04:35 Chloride 95 mmol/L (98-107) L 10/15/24 04:35 Carbon Dioxide 25 mmol/L (22-29) 10/15/24 04:35 Anion Gap 16.0 (5-19) 10/15/24 04:35 BUN 43 mg/dL (8-23) H 10/15/24 04:35 Creatinine 2.1 mg/dL (0.7-1.2) H 10/15/24 04:35 GFR Calculation Not Reportable 10/15/24 04:35 Glucose 109 mg/dL (65-115) 10/15/24 04:35 Calculated Osmolality 285 mOsm/kg (285-295) 10/15/24 04:35 Calcium 8.0 mg/dL (8.5-10.5) L 10/15/24 04:35 Total Bilirubin 0.9 mg/dL (0.15-1.2) 10/15/24 04:35 AST 23 U/L (0-40) 10/15/24 04:35 ALT 13 U/L (0-41) 10/15/24 04:35 Alkaline Phosphatase 111 U/L (40-130) 10/15/24 04:35 Troponin T Baseline 167 ng/L (0-15) H* 10/15/24 04:35 Troponin T 120 Minute 161.1 ng/L (0-15) H 10/15/24 06:36 Delta Troponin T -5.9 ABS# (0-10) L 10/15/24 06:36 Troponin T Hi Sens 6Hr 155.7 ng/L (0-15) H 10/15/24 10:12 Troponin T Hi Sens 6Hr Delta -11.3 ng/L (0-12) L 10/15/24 10:12 NT-Pro-B Natriuret Pep 04416 pg/mL (0-450) H 10/15/24 04:35 Total Protein 5.0 g/dL (6.6-8.7) L 10/15/24 04:35 Albumin 3.4 g/dL (3.5-5.2) L 10/15/24 04:35 Globulin 1.6 g/dL (1.3-4.6) 10/15/24 04:35 Urine Color Yellow (Yellow) 10/15/24 10:44 Urine Appearance Turbid (CLEAR) A 10/15/24 10:44 Urine pH 5.5 (5-7) 10/15/24 10:44 Ur Specific [place] 1.008 (1.005-1.030) 10/15/24 10:44 Urine Protein 1+ (Negative) A 10/15/24 10:44 Urine Glucose (UA) Negative (Normal) 10/15/24 10:44 Urine Ketones Negative (Negative) 10/15/24 10:44 Urine Blood 2+ (Negative) A 10/15/24 10:44 Urine Nitrate Negative (Negative) 10/15/24 10:44 Urine Bilirubin Negative (Negative) 10/15/24 10:44 Urine Urobilinogen 0.2 mg/dL (Negative) 10/15/24 10:44 Ur Leukocyte Esterase 3+ (Negative) A 10/15/24 10:44 Urine RBC 0-2 /hpf (0-2) 10/15/24 10:44 Urine WBC >100 /hpf (0-5) H 10/15/24 10:44 Ur Squamous Epith Cells 0-5 /hpf (0-5) 10/15/24 10:44 Amorphous Sediment Not Reportable 10/15/24 10:44 Urine Bacteria 4+ /hpf (NONE) H 10/15/24 10:44 Hyaline Casts 5.77 /lpf 10/15/24 10:44 Blood Type A Positive 10/15/24 05:10 Rho(D) Type Rh positive 10/15/24 05:10 Antibody Screen Positive 10/15/24 05:10 Prewarmed Antibody Srcn Negative 10/15/24 05:10 Antibody Identification Cold Auto Antibody 10/15/24 05:10 Cold Antibody Screen Positive 10/15/24 05:10 Crossmatch See Detail 10/15/24 05:10 Pre-Trans Antibody Scrn Cancelled 10/15/24 05:10 EKG Data EKG 1: Interpretation: Time?0346?sinus rhythm with first-degree block, right bundle branch block pattern, infrequent PVCs, rate of 60, no ST segment elevation or depression, no T wave inversions. QTc = 493. Discharge Plan Discharge Patient Disposition: Admitted As Inpatient Admit Provider: Pavan Wiley Clinical Impression: GI bleed, Acute exacerbation of CHF (congestive heart failure), Anemia, Pleural effusion, bilateral, Thrombocytopenia, CKD (chronic kidney disease), Chronic anticoagulation, Aortic stenosis Condition: Stable Sign Out Sign Out Data: Patient Sign Out occurred on 10/15/24 at 08:11. Patient's care was discussed, and care was transferred from Dewayne Damon MD to Artem Nath DO. Coding Level of Care Code ED Share Dairy Farmer for Chg Fwd Documented by User: Artem Nath DO 10/15/24 14:44 HPI - SOB/Dyspnea General: Chief Complaint: Shortness of Breath/Dyspnea Stated Complaint: sob Time Seen by Provider: 10/15/24 03:38 History of Present Illness: Associated symptoms: Deny abdominal pain, chest pain or fever(s) Related Data Home Medications ?Medication ?Instructions ?Recorded ?Confirmed acyclovir 400 mg tablet 400 mg PO BID 08/06/23 10/15/24 atorvastatin 80 mg tablet 80 mg PO QAM 08/06/23 10/15/24 gabapentin 300 mg capsule 600 mg PO TID 08/06/23 10/15/24 uxtnnouc-zskxuydi-gaaxh acid 400 1 tab PO QAM 08/06/23 10/15/24 mcg-vit K 20 mcg-lycop 300 mcg tablet sertraline 25 mg tablet 12.5 mg PO QPM 08/06/23 10/15/24 acetaminophen 325 mg tablet 325 - 350 mg PO QID PRN Pain 09/12/24 10/15/24 (Tylenol) albuterol sulfate 2.5 mg/3 mL 2.5 mg inhalation Q4H PRN 09/12/24 10/15/24 (0.083 %) solution for nebulization Shortness Of Breath daratumumab 20 mg/mL intravenous 20 mg IV .Q30D 09/12/24 10/15/24 solution (Darzalex) lenalidomide 10 mg capsule 10 mg PO DAILY 09/12/24 10/15/24 zoledronic acid 4 mg intravenous 4 mg IV .[id number] 09/12/24 10/15/24 solution diphenoxylate-atropine 2.5 1 tab PO DAILY PRN loose stools 09/28/24 10/15/24 mg-0.025 mg tablet (Lomotil) magnesium L-lactate 84 mg 84 mg PO DAILY 09/28/24 10/15/24 tablet,extended release loratadine 10 mg tablet 10 mg PO DAILY 10/15/24 10/15/24 Previous Rx's ?Medication ?Instructions ?Recorded aspirin 81 mg tablet,delayed 81 mg PO DAILY #30 tabs 08/10/23 release metoprolol succinate 25 mg 12.5 mg (1/2 x 25 mg) PO DAILY #15 08/10/23 tablet,extended release 24 hr tabs pantoprazole 40 mg tablet,delayed 40 mg PO BID #60 tabs 08/10/23 release potassium chloride 20 mEq 20 meq PO DAILY #30 tabs 08/10/23 tablet,extended release Left AFO #1 ea 12/19/23 apixaban 5 mg tablet (Eliquis) 5 mg PO BID #90 tabs 09/13/24 bumetanide 1 mg tablet 2 mg (2 x 1 mg) PO DAILY 30 days 09/13/24 #60 tabs midodrine 5 mg tablet 5 mg PO TID #90 tabs 10/02/24 sucralfate 1 gram tablet 1 g PO AC&BEDTIME 4 weeks #60 tabs 10/02/24 Allergies Allergy/AdvReac Type Severity Reaction Status Date / Time No Known Allergies Allergy Verified 09/23/24 13:02 Review of Systems Const: Denies: fever(s) or chills Card: Denies: chest pain Resp: Reports: dyspnea GI: Denies: abdominal pain : Denies: dysuria, urinary frequency or urinary urgency Musc: Denies: neck pain or back pain Skin/Breast: Denies: rash PFSH ED PFSH: Medical History Chronic anticoagulation Mitral stenosis with regurgitation Symptomatic severe aortic stenosis with low ejection fraction CKD (chronic kidney disease) Mitral valve prolapse Systolic congestive heart failure Gastric ulcer GI bleed Multiple myeloma Coronary artery disease Surgical History H/O esophagogastroduodenoscopy Social History Smoking and tobacco/nicotine status: former use of tobacco/nicotine Physical Exam Const: GENERAL APPEARANCE: cooperative and comfortable ORIENTATION/CONSCIOUSNESS: Yes awake, Yes oriented to person, Yes oriented to place and Yes oriented to time Resp: COMMON NORMALS: clear to auscultation bilaterally AUSCULTATION: clear to auscultation bilaterally GI: AUSCULTATION: Yes normoactive bowel sounds Extremity: COMMON NORMALS: normal to inspection, capillary refill normal, no clubbing, cyanosis or edema, no calf tenderness and no pedal edema Neuro: SENSORIUM/ORIENTATION: Yes oriented to person, Yes oriented to place and Yes oriented to time Course Vital Signs: Vital signs: Vital Signs Temperature 96.9 F L 10/15/24 13:50 Pulse Rate 71 10/15/24 13:50 Respiratory Rate 15 10/15/24 13:50 Blood Pressure 120/72 10/15/24 13:50 Pulse Oximetry 96 10/15/24 13:50 Oxygen Delivery Me thod Room Air 10/15/24 13:38 Oxygen Flow Rate 2 10/15/24 03:48 MDM - SOB/Dyspnea Medical Decision Making In summary, patient is a generally well-appearing 79-year-old male seen for what appears to be gradually worsening fluid overload with bilateral pleural effusion seen on chest x-ray and worsening orthopnea. He was given 2 mg IV Bumex. Labs show significantly elevated BNP when compared with prior studies as well as new anemia. He will be typed and crossed for 1 unit of blood cells. Oxygen saturation is 95% on room air. There may be a component of anxiety also contributing to the symptoms prompting his visit. He admits roughly 7 to 10 pounds water weight gain since leaving the hospital and we discussed that he really needs to curb his water intake. Pertinent details of the case were shared with the on-call emergency physician who will facilitate ultimate disposition once blood transfusion has been performed. At this time, I think it will be reasonable for him to return home with plan to very careful about water intake and keep taking his medications as prescribed Care assumed at change of shift. Patient has pleural effusions having difficult time typing and crossing. He also has a history of severe aortic stenosis. According to his he previously had a colonic bleed which required endoscopy and clipping of a bleeding area to control. Additionally he will need to continue anticoagulation because of his recent diagnosis of pulmonary embolism discussed with hospitalist as well as with surgery patient will be placed on admission for further evaluation observation. Orders written Medical Records I reviewed the patient's medical records. Lab Data I reviewed the patient's lab results. 10/15/24 04:35 10/15/24 04:35 Labs/Radiology: Radiology Impressions Chest X-Ray 10/15/24 03:54 IMPRESSION: No significant changes demonstrating bilateral pleural effusions. Abdomen/Pelvis CT 10/15/24 08:21 IMPRESSION: 1. Cystitis with diffuse bladder wall thickening. Associated diffuse ureterectasis with moderate hydronephrosis suspicious for cystitis with bladder outlet obstruction and UTI. Prostate does not appear enlarged. 2. Cholelithiasis. 3. Small RIGHT greater than LEFT pleural effusion with compressive atelectasis in the lung bases. 4. Numerous lytic lesions throughout the bony structures compatible with history of multiple myeloma. 5. Well-corticated fracture LEFT sacral ala with surrounding sclerosis likely pathologic is new compared to 2022. 6. Associated soft tissue sacral mass is persistent but appears improved compatible with treatment related changes. 7. Progressed lytic lesion T11. 8. Partially visualized destructive lesion T9 involving the posterior vertebral body with a soft tissue component is partially visualized and similar in appearance. Laboratory Results WBC 3.12 10^3/uL (3.29-11.43) L 10/15/24 04:35 Corrected WBC Cancelled 10/15/24 04:16 RBC 1.94 10^6/uL (3.85-5.65) L 10/15/24 04:35 Hgb 6.90 g/dL (11.27-16.99) L 10/15/24 04:35 Hct 21.7 % (37-53) L 10/15/24 04:35 MCV 111.9 fl (82-101) H 10/15/24 04:35 MCH 35.6 pg (27-33) H 10/15/24 04:35 MCHC 31.8 g/dL (30-55) 10/15/24 04:35 RDW 19.8 % (12.1-15.1) H 10/15/24 04:35 Plt Count 70 10^3/cmm (157-399) L 10/15/24 04:35 MPV 12.5 fL (7.4-10.4) H 10/15/24 04:35 Gran % Cancelled 10/15/24 04:16 Neut % (Auto) 63.8 % 10/15/24 04:35 Lymph % (Auto) 12.2 % 10/15/24 04:35 [place] % (Auto) 16.0 % 10/15/24 04:35 Eos % (Auto) 6.1 % 10/15/24 04:35 Baso % (Auto) 1.3 % 10/15/24 04:35 Neut # (Auto) 1.99 10^3/uL (1.8-7.7) 10/15/24 04:35 Lymph # (Auto) 0.4 10^3/uL (0.8-4.8) L 10/15/24 04:35 [place] # (Auto) 0.5 10^3/uL (0.2-0.9) 10/15/24 04:35 Eos # (Auto) 0.2 10^3/uL (0.0-0.8) 10/15/24 04:35 Baso # (Auto) 0.0 10^3/uL (0.0-0.1) 10/15/24 04:35 Absolute Gran (auto) Cancelled 10/15/24 04:16 Nucleated RBC % (auto) 0 % 10/15/24 04:35 Nucleated RBCs # 0.0 /100WBC 10/15/24 04:35 Sodium 132 mmol/L (136-145) L 10/15/24 04:35 Potassium 4.0 mmol/L (3.5-5.1) 10/15/24 04:35 Chloride 95 mmol/L (98-107) L 10/15/24 04:35 Carbon Dioxide 25 mmol/L (22-29) 10/15/24 04:35 Anion Gap 16.0 (5-19) 10/15/24 04:35 BUN 43 mg/dL (8-23) H 10/15/24 04:35 Creatinine 2.1 mg/dL (0.7-1.2) H 10/15/24 04:35 GFR Calculation Not Reportable 10/15/24 04:35 Glucose 109 mg/dL (65-115) 10/15/24 04:35 Calculated Osmolality 285 mOsm/kg (285-295) 10/15/24 04:35 Calcium 8.0 mg/dL (8.5-10.5) L 10/15/24 04:35 Total Bilirubin 0.9 mg/dL (0.15-1.2) 10/15/24 04:35 AST 23 U/L (0-40) 10/15/24 04:35 ALT 13 U/L (0-41) 10/15/24 04:35 Alkaline Phosphatase 111 U/L (40-130) 10/15/24 04:35 Troponin T Baseline 167 ng/L (0-15) H* 10/15/24 04:35 Troponin T 120 Minute 161.1 ng/L (0-15) H 10/15/24 06:36 Delta Troponin T -5.9 ABS# (0-10) L 10/15/24 06:36 Troponin T Hi Sens 6Hr 155.7 ng/L (0-15) H 10/15/24 10:12 Troponin T Hi Sens 6Hr Delta -11.3 ng/L (0-12) L 10/15/24 10:12 NT-Pro-B Natriuret Pep 83064 pg/mL (0-450) H 10/15/24 04:35 Total Protein 5.0 g/dL (6.6-8.7) L 10/15/24 04:35 Albumin 3.4 g/dL (3.5-5.2) L 10/15/24 04:35 Globulin 1.6 g/dL (1.3-4.6) 10/15/24 04:35 Urine Color Yellow (Yellow) 10/15/24 10:44 Urine Appearance Turbid (CLEAR) A 10/15/24 10:44 Urine pH 5.5 (5-7) 10/15/24 10:44 Ur Specific [place] 1.008 (1.005-1.030) 10/15/24 10:44 Urine Protein 1+ (Negative) A 10/15/24 10:44 Urine Glucose (UA) Negative (Normal) 10/15/24 10:44 Urine Ketones Negative (Negative) 10/15/24 10:44 Urine Blood 2+ (Negative) A 10/15/24 10:44 Urine Nitrate Negative (Negative) 10/15/24 10:44 Urine Bilirubin Negative (Negative) 10/15/24 10:44 Urine Urobilinogen 0.2 mg/dL (Negative) 10/15/24 10:44 Ur Leukocyte Esterase 3+ (Negative) A 10/15/24 10:44 Urine RBC 0-2 /hpf (0-2) 10/15/24 10:44 Urine WBC >100 /hpf (0-5) H 10/15/24 10:44 Ur Squamous Epith Cells 0-5 /hpf (0-5) 10/15/24 10:44 Amorphous Sediment Not Reportable 10/15/24 10:44 Urine Bacteria 4+ /hpf (NONE) H 10/15/24 10:44 Hyaline Casts 5.77 /lpf 10/15/24 10:44 Blood Type A Positive 10/15/24 05:10 Rho(D) Type Rh positive 10/15/24 05:10 Antibody Screen Positive 10/15/24 05:10 Prewarmed Antibody Srcn Negative 10/15/24 05:10 Antibody Identification Cold Auto Antibody 10/15/24 05:10 Cold Antibody Screen Positive 10/15/24 05:10 Crossmatch See Detail 10/15/24 05:10 Pre-Trans Antibody Scrn Cancelled 10/15/24 05:10 All radiology interpretation(s) finalized by discharge Discharge Plan Discharge Patient Disposition: Admitted As Inpatient Admit Provider: Pavan Wiley Clinical Impression: GI bleed, Acute exacerbation of CHF (congestive heart failure), Anemia, Pleural effusion, bilateral, Thrombocytopenia, CKD (chronic kidney disease), Chronic anticoagulation, Aortic stenosis Condition: Stable Sign Out Sign Out Data: Patient Sign Out occurred on 10/15/24 at 08:11. Patient's care was discussed, and care was transferred from Dewayne Damon MD to Artem Naht DO. Coding Level of Care Code ED Share Dairy Farmer for geno [place]
--- NOTE | 2024-10-15 06:58 | PC.NURSE ---
THIS NURSE ASSUMED CARE AT 0645.
[2024-10-15 07:14] LABS: Troponin 5 2HR 161.1 ng/L (0-15); Troponin 5 2HR Delta -5.9 ABS# (0-10)
--- NOTE | 2024-10-15 08:21 | CT_ITS ---
WS: [id number] CT ABDOMEN PELVIS TECHNIQUE: Noncontrast CT of the abdomen and pelvis with coronal and sagittal reformatted images. CLINICAL INFORMATION: abd pain COMPARISON: 02/28/2023 DLP: 675.[address] scans at [facility] use at least one of these dose optimization techniques: automated exposure control; mA and/or kV adjustment per patient size (includes targeted exams where dose is matched to clinical indication); or iterative reconstruction. FINDINGS: Small bilateral pleural effusions with bibasilar compressive atelectasis RIGHT greater than LEFT. Slightly cirrhotic configuration to the liver. Cholelithiasis. Spleen splenic granulomas. Tiny esophageal hiatal hernia. Fatty atrophy of the pancreas. Adrenal glands are normal. Moderate bilateral hydronephrosis with extrarenal pelvis. Diffuse bilateral ureterectasis extending to the UVJ. Diffuse bladder wall thickening. Findings suspicious for bladder outlet obstruction and/or UTI with cystitis and pyelonephritis. Kidney enhancement not assessed in this noncontrast study. Pro state does not appear enlarged. Mild sigmoid constipation. Few sigmoid diverticuli. Small fat-containing umbilical hernia. Advanced degenerative changes lumbar spine. Mild compression superior endplates of L2 and L4. Lytic lesion T11 appears new from previous. Lytic lesion with soft tissue component posterior T9 is similar to the prior study 2022 with associated soft tissue component. Pathologic or insufficiency fracture LEFT sacral ala with surrounding sclerosis is new compared to previous. Soft tissue mass in the LEFT sacrum appears improved but persistent CT/CT abdomen pelvis wo con [id number] IMPRESSION: 1. Cystitis with diffuse bladder wall thickening. Associated diffuse ureterect asis with moderate hydronephrosis suspicious for cystitis with bladder outlet o bstruction and UTI. Prostate does not appear enlarged. 2. Cholelithiasis. 3. Small RIGHT greater than LEFT pleural effusion with compressive atelectasis in the lung bases. 4. Numerous lytic lesions throughout the bony structures compatible with histo ry of multiple myeloma. 5. Well-corticated fracture LEFT sacral ala with surrounding sclerosis likely pathologic is new compared to 2022. 6. Associated soft tissue sacral mass is persistent but appears improved shy tible with treatment related changes. 7. Progressed lytic lesion T11. 8. Partially visualized destructive lesion T9 involving the posterior vertebra l body with a soft tissue component is partially visualized and similar in appe arance.
[2024-10-15] MEDS: sodium chloride 0.9% 500 ML IV (08:30)
--- NOTE | 2024-10-15 10:38 | PC.PHAR ---
Spouse has pts' current med list available to review. She states pt has Eliquis 5mg bid-on hold currently.
[2024-10-15 10:45] LABS: Troponin 5 6HR 155.7 ng/L (0-15); Troponin 5 6HR Delta -11.3 ng/L (0-12)
--- NOTE | 2024-10-15 10:53 | USR_ITS ---
PROCEDURE INFORMATION: Exam: US Duplex Lower Extremity Veins, Bilateral Exam date and time: 10/15/2024 3:55 PM Age: 79 years old Clinical indication: Screening exam; Assess for dvt TECHNIQUE: Imaging protocol: Real-time duplex ultrasound of the bilateral extremities with 2-D hemphill scale, color Doppler flow and spectral waveform analysis including responses to compression and other maneuvers (when performed) with image documentation. Complete exam focused on the lower extremity veins. COMPARISON: [place] [id number] 09/13/2024 8:17 AM FINDINGS: Right deep veins: Unremarkable. The common femoral, femoral, proximal profunda femoral and popliteal veins are patent without thrombus. Normal Doppler waveforms. Normal compressibility and/or augmentation response. Left deep veins: Unremarkable. The common femoral, femoral, proximal profunda femoral and popliteal veins are patent without thrombus. Normal Doppler waveforms. Normal compressibility and/or augmentation response. Superficial veins: Greater saphenous veins at the saphenofemoral junctions are patent bilaterally without thrombus. Soft tissues: Unremarkable. US/[place] [id number] IMPRESSION: No evidence of deep vein thrombosis.
[2024-10-15 10:55] LABS: Bilirubin Urine Negative (Negative); Blood Urine 2+ (Negative); Glucose Urine UA Negative (Normal); Ketones Urine Negative (Negative); Leukocyte Esterase Urine 3+ (Negative); Nitrate Urine Negative (Negative); Protein Urine 1+ (Negative); Specific Gravity, Urine 1.008 (1.005-1.030); Urine Appearance Turbid (CLEAR); Urine Color Yellow (Yellow); Urobilinogen Urine 0.2 mg/dL (Negative); pH Urine 5.5 (5-7)
[2024-10-15 11:00] LABS: Add Urine Microscopic? YES; Bacteria Urine 4+ /hpf; Hyaline Casts Urine 5.77 /lpf; RBC Urine 0-2 /hpf (0-2); Squamous Epithelial Cell Urine 0-5 /hpf (0-5); WBC Urine >100 /hpf (0-5)
[2024-10-15 11:02] LABS: Add Urine Culture? Yes
[2024-10-15] MEDS: cefTRIAXone 1,000 mg SDV 1000 MG IVP (11:54)
--- NOTE | 2024-10-15 12:01 | PM.CONSULT ---
Providers/Reason For Consult Consulting Physician/Specialty*: dr. velarde general surgery Reason for Consult*: occult GIB Attending Physician: Pavan Wiley Primary Care Provider: Allegra Jimenez MD History of Present Illness History of Present Illness Rafy Sierra is a 79 year old male with multiple medical problems including PE on Eliquis, heart failure, severe aortic stenosis who came into the emergency department for shortness of breath. Surgery was consulted for anemia for consideration of EGD and colonoscopy. Patient has had a colonoscopy in the past where they identified a bleeding source that was addressed. No further details available. Hospitalist concerned that the patient is high risk for anesthesia and therefore I have requested Dr. Olmos to review his case and determine if his risk is acceptable for endoscopy to be performed at our institution. No hematochezia, no melena. Abdomen benign. Medications/Allergies Home Medications ?Medication ?Instructions ?Recorded ?Confirmed ?Last Taken ?Type acyclovir 400 mg tablet 400 mg PO BID 08/06/23 10/15/24 10/14/24 History atorvastatin 80 mg tablet 80 mg PO QAM 08/06/23 10/15/24 10/14/24 History gabapentin 300 mg capsule 600 mg PO TID 08/06/23 10/15/24 10/14/24 History lnjaagdp-kiznzimi-qmdcr acid 400 1 tab PO QAM 08/06/23 10/15/24 10/14/24 History mcg-vit K 20 mcg-lycop 300 mcg tablet sertraline 25 mg tablet 12.5 mg PO QPM 08/06/23 10/15/24 10/14/24 History aspirin 81 mg tablet,delayed 81 mg PO DAILY #30 tabs 08/10/23 10/15/24 10/14/24 Rx release metoprolol succinate 25 mg 12.5 mg (1/2 x 25 mg) PO DAILY #15 08/10/23 10/15/24 10/14/24 Rx tablet,extended release 24 hr tabs pantoprazole 40 mg tablet,delayed 40 mg PO BID #60 tabs 08/10/23 10/15/24 10/14/24 Rx release potassium chloride 20 mEq 20 meq PO DAILY #30 tabs 08/10/23 10/15/24 10/14/24 Rx tablet,extended release Left AFO #1 ea 12/19/23 10/15/24 Unknown Rx acetaminophen 325 mg tablet 325 - 350 mg PO QID PRN Pain 09/12/24 10/15/24 Unknown History (Tylenol) albuterol sulfate 2.5 mg/3 mL 2.5 mg inhalation Q4H PRN 09/12/24 10/15/24 Unknown History (0.083 %) solution for nebulization Shortness Of Breath daratumumab 20 mg/mL intravenous 20 mg IV .Q30D 09/12/24 10/15/24 09/19/24 History solution (Darzalex) lenalidomide 10 mg capsule 10 mg PO DAILY 09/12/24 10/15/24 10/14/24 History zoledronic acid 4 mg intravenous 4 mg IV .[id number] 09/12/24 10/15/24 09/12/24 History solution apixaban 5 mg tablet (Eliquis) 5 mg PO BID #90 tabs 09/13/24 10/15/24 09/27/24 Rx bumetanide 1 mg tablet 2 mg (2 x 1 mg) PO DAILY 30 days 09/13/24 10/15/24 10/14/24 Rx #60 tabs diphenoxylate-atropine 2.5 1 tab PO DAILY PRN loose stools 09/28/24 10/15/24 09/27/24 History mg-0.025 mg tablet (Lomotil) magnesium L-lactate 84 mg 84 mg PO DAILY 09/28/24 10/15/24 10/14/24 History tablet,extended release midodrine 5 mg tablet 5 mg PO TID #90 tabs 10/02/24 10/15/24 10/14/24 Rx sucralfate 1 gram tablet 1 g PO AC&BEDTIME 4 weeks #60 tabs 10/02/24 10/15/24 10/14/24 Rx loratadine 10 mg tablet 10 mg PO DAILY 10/15/24 10/15/24 10/14/24 History Allergies Allergy/AdvReac Type Severity Reaction Status Date / Time No Known Allergies Allergy Verified 09/23/24 13:02 PFSH Acute PFSH: Medical History Chronic anticoagulation Mitral stenosis with regurgitation Symptomatic severe aortic stenosis with low ejection fraction CKD (chronic kidney disease) Mitral valve prolapse Systolic congestive heart failure Gastric ulcer GI bleed Multiple myeloma Coronary artery disease Surgical History H/O esophagogastroduodenoscopy Social History Smoking and tobacco/nicotine status: former use of tobacco/nicotine Vitals/I&O/Wt Last Vital Signs Temp 98.0 F 10/15/24 03:40 Pulse 66 10/15/24 11:57 Resp 18 10/15/24 11:15 BP 119/81 10/15/24 11:57 Pulse Ox 96 10/15/24 11:57 O2 Del Method Room Air 10/15/24 11:57 O2 Flow Rate 2 10/15/24 03:48 Weight last 48 hrs Weight 171 lb Physical Exam Narrative: Chest: Tachypneic on nasal cannula Heart: Regular rate and rhythm. Abdomen: Soft, nontender, nondistended. No masses or lymphadenopathy. Urinary Catheter Management: Disla: Cath Placed During This Visit: yes Urinary Catheter Date of Insertion: 10/15/24 Urinary Catheter Time of Insertion: 10:46 Data 10/15/24 04:35 10/15/24 04:35 A&P Assessment and plan (1) Anemia: Plan 79-year-old male with multiple medical problems including severe aortic stenosis and heart failure, PE on Eliquis, whom surgery was consulted for consideration of EGD and colonoscopy for anemia. Anesthesia will review case and determine if endoscopy can be performed in our institution or if a transfer to higher level of care is warranted. The patient and family understand that he is at high risk for complications. Otherwise I have discussed the risk and benefits and the patient and family are in agreement to proceed with EGD and colonoscopy at [facility] if the risk is acceptable. Rest of care per hospitalist. PDMP PDMP Reviewed: Not Reviewed Coding Level of Care Code 52479 Diagnoses Anemia D64.9
--- NOTE | 2024-10-15 12:19 | PM.HP ---
Providers/Chief Complaint Admitting Physician: Pavan Wiley Primary Care Provider: Allegra Jimenez MD Chief Complaint: sob History of Present Illness Rafy Sierra is a 79 year old male with a history of multiple myeloma, prior GI bleeding, aortic stenosis, mitral valve regurgitation, and prior pulmonary embolism presents with increasing shortness of breath, especially with exertion, and fatigue. The patient's blood count has dropped to as low as 6.9, and there is concern for ongoing anemia. There have been reports of dark stools, and prior testing revealed occult blood in the stool. The patient had a GI bleed about a year ago, which was treated with endoscopic clipping. The patient is currently off Eliquis (apixaban) for one day in preparation for a planned heart angiogram. The patient denies recent fevers, chills, sore throat, sneezing, coughing, nausea, vomiting, or blood in the urine. The patient reports recurrent diarrhea, believed to be related to lenalidomide, occurring in a three-week cycle and managed with medication. The patient denies alcohol use and quit smoking in 1989. There is a history of falls, and a recent CT scan revealed a left sacral ala fracture, likely pathologic due to myeloma and multiiple lytic lesions. The patient has not had new left-sided lower back pain but has had chronic pain for a while. The patient is on multiple medications, including omeprazole twice daily, and has a history of stents in the circumflex artery and possibly in the leg/groin area. The patient wishes to be resuscitated in the event of cardiac or respiratory arrest. He stopped his Eliquis yesterday and anticipation of going for a core angiogram tomorrow with his heavy equipment operator at [facility]. Review of Systems Const: Reports: fatigue; Denies: fever(s), chills, body aches or malaise ENMT: Denies: throat pain Card: Reports: dyspnea on exertion; Denies: chest pain, edema or pre-syncope Resp: Denies: dyspnea, productive cough, change in phlegm color or hemoptysis GI: Reports: melena; Denies: abdominal pain, nausea, vomiting, diarrhea, constipation or hematochezia : Denies: flank pain, difficulty urinating, urinary frequency or hematuria Musc: Denies: back pain, joint swelling or joint redness Skin/Breast: Denies: rash or new lesions Neuro: Reports: frequent falls; Denies: headache(s) or confusion Medications/Allergies Home Medications ?Medication ?Instructions ?Recorded ?Confirmed ?Last Taken ?Type acyclovir 400 mg tablet 400 mg PO BID 08/06/23 10/15/24 10/14/24 History atorvastatin 80 mg tablet 80 mg PO QAM 08/06/23 10/15/24 10/14/24 History gabapentin 300 mg capsule 600 mg PO TID 08/06/23 10/15/24 10/14/24 History zdfdlwkg-krakhhzu-mgmrl acid 400 1 tab PO QAM 08/06/23 10/15/24 10/14/24 History mcg-vit K 20 mcg-lycop 300 mcg tablet sertraline 25 mg tablet 12.5 mg PO QPM 08/06/23 10/15/24 10/14/24 History aspirin 81 mg tablet,delayed 81 mg PO DAILY #30 tabs 08/10/23 10/15/24 10/14/24 Rx release metoprolol succinate 25 mg 12.5 mg (1/2 x 25 mg) PO DAILY #15 08/10/23 10/15/24 10/14/24 Rx tablet,extended release 24 hr tabs pantoprazole 40 mg tablet,delayed 40 mg PO BID #60 tabs 08/10/23 10/15/24 10/14/24 Rx release potassium chloride 20 mEq 20 meq PO DAILY #30 tabs 08/10/23 10/15/24 10/14/24 Rx tablet,extended release Left AFO #1 ea 12/19/23 10/15/24 Unknown Rx acetaminophen 325 mg tablet 325 - 350 mg PO QID PRN Pain 09/12/24 10/15/24 Unknown History (Tylenol) albuterol sulfate 2.5 mg/3 mL 2.5 mg inhalation Q4H PRN 09/12/24 10/15/24 Unknown History (0.083 %) solution for nebulization Shortness Of Breath daratumumab 20 mg/mL intravenous 20 mg IV .Q30D 09/12/24 10/15/24 09/19/24 History solution (Darzalex) lenalidomide 10 mg capsule 10 mg PO DAILY 09/12/24 10/15/24 10/14/24 History zoledronic acid 4 mg intravenous 4 mg IV .[id number] 09/12/24 10/15/24 09/12/24 History solution apixaban 5 mg tablet (Eliquis) 5 mg PO BID #90 tabs 09/13/24 10/15/24 09/27/24 Rx bumetanide 1 mg tablet 2 mg (2 x 1 mg) PO DAILY 30 days 09/13/24 10/15/24 10/14/24 Rx #60 tabs diphenoxylate-atropine 2.5 1 tab PO DAILY PRN loose stools 09/28/24 10/15/24 09/27/24 History mg-0.025 mg tablet (Lomotil) magnesium L-lactate 84 mg 84 mg PO DAILY 09/28/24 10/15/24 10/14/24 History tablet,extended release midodrine 5 mg tablet 5 mg PO TID #90 tabs 10/02/24 10/15/24 10/14/24 Rx sucralfate 1 gram tablet 1 g PO AC&BEDTIME 4 weeks #60 tabs 10/02/24 10/15/24 10/14/24 Rx loratadine 10 mg tablet 10 mg PO DAILY 10/15/24 10/15/24 10/14/24 History Allergies Allergy/AdvReac Type Severity Reaction Status Date / Time No Known Allergies Allergy Verified 09/23/24 13:02 PFSH Acute PFSH: Medical History Chronic anticoagulation Mitral stenosis with regurgitation Symptomatic severe aortic stenosis with low ejection fraction CKD (chronic kidney disease) Mitral valve prolapse Systolic congestive heart failure Gastric ulcer GI bleed Multiple myeloma Coronary artery disease Surgical History H/O esophagogastroduodenoscopy Social History Smoking and tobacco/nicotine status: former use of tobacco/nicotine Vitals/I&O/Wt Last Vital Signs Temp 98.0 F 10/15/24 03:40 Pulse 66 10/15/24 11:57 Resp 18 10/15/24 11:15 BP 119/81 10/15/24 11:57 Pulse Ox 96 10/15/24 11:57 O2 Del Method Room Air 10/15/24 11:57 O2 Flow Rate 2 10/15/24 03:48 10/14/24 10/15/24 10/15/24 22:59 06:59 14:59 Intake Total 500 / 500 Balance 500 / 500 Weight last 48 hrs Weight 77.564 kg Physical Exam Narrative: Accompanied by his for initial visit and to revisits. Const: COMMON NORMALS: patient oriented x3 and alert GENERAL APPEARANCE: cooperative ORIENTATION/CONSCIOUSNESS: Yes awake HENMT: COMMON NORMALS: oropharynx normal Neck/C-Spine: COMMON NORMALS: no JVD Resp: COMMON NORMALS: normal respiratory effort and clear to auscultation bilaterally AUSCULTATION: clear to auscultation bilaterally Cardio: COMMON NORMALS: no JVD, regular rhythm, S1 normal heart sound present, S2 normal heart sound present and No murmurs present (Cardio) RHYTHM: regular rhythm HEART SOUNDS: S1 normal heart sound present and S2 normal heart sound present GI: COMMON NORMALS: Normal to inspection, nondistended, normoactive bowel sounds present, Soft to palpation and non-tender PALPATION: Yes Soft to palpation Extremity: COMMON NORMALS: no joint enlargement GENERAL: Yes edema (Trace) Neuro: COMMON NORMALS: patient oriented x3 and moves all extremities SENSORIUM/ORIENTATION: Yes alert Skin: COMMON NORMALS: no rashes or lesions noted GENERAL SKIN EXAM: no rashes or lesions noted Urinary Catheter Management: Disla: Cath Placed During This Visit: yes Urinary Catheter Date of Insertion: 10/15/24 Urinary Catheter Time of Insertion: 10:46 Data 10/15/24 04:35 10/15/24 04:35 A&P Assessment and plan (1) GI bleed: Anemia due to GI bleeding : The patient presents with symptomatic anemia (hemoglobin as low as 6.9) and dark stools, with prior history of GI bleeding. Occult blood was found in the stool. The patient is off anticoagulation due to concern for ongoing GI bleeding. There is a plan for surgical evaluation to identify and potentially treat the bleeding source. The patient is at risk for further bleeding, especially given the history of prior GI bleed and current anticoagulation needs. Reviewed vitals, CBC, CMP, troponin, CT abdomen pelvis, echocardiogram. Discussed with ED provider, surgery. - IV PPI q12h - Surgical consultation for evaluation of GI bleeding source - Consideration of upper and lower endoscopy as discussed - Receiving RBC transfusion. Monitor for any transfusion reaction. - Monitor hemoglobin and clinical status. Requested repeat hemoglobin - Hold Eliquis and aspirin until further evaluation As per discussion with surgery anesthesia too high risk to be able to undergo procedure here, with recommendation for transfer to higher level of care. Discussed with patient and his . Reaching out to [facility], although no beds there at the time. Reaching out again. No beds at [facility] but placed on a wait list there after discussion with hospitalist team. He and his would like to hold off on seeking further places of transfer intending to transfer to [facility] where his providers are, alternatively [facility]. (2) UTI (urinary tract infection): Ceftriaxone. Follow-up urine culture. (3) Valvular heart disease: Held his Eliquis yesterday in anticipation of angiogram tomorrow. Sounds like evaluation with regards to heart valve repair/replacement per discussion with patient and his . Requesting records from Dr. Lujan's office. (4) Pulmonary embolism: Diagnosed last month with peripheral PE. Discussed with him and his . Eliquis stopped yesterday in anticipation of angiogram by his heavy equipment operator tomorrow. Discussed holding Eliquis at this time. Discussed consideration of options including consideration of IVC filter. In agreement on current time to obtain venous duplex ultrasound to assess for any DVT. Reviewed ultrasound, noted no DVT, at this time continue to hold anticoagulation, SCD DVT prophylaxis. Plan Incidentally noted pathologic fracture and ORIF left sacral ala on CT, discussed with him and his . Reached out to orthopedic surgery who will review imaging, although not anticipating that he is a candidate for any kind of stabilization surgery and fracture not deemed unstable. He has not been symptomatic although has had pain there for a while. Does have recurrent falls. Discussed should maintain fall precautions. CAD: With history of LCx stent. Hold aspirin for time being due to GI bleed. Continue statin, low-dose beta-rocio, monitor for risk of hypotension. Monitor on telemetry. CHF: Continue Bumex. Monitor intake and output. Multiple myeloma: Treated maintain fall precautions. With noted multiple lytic lesions as per discussion with him and his on CT. Left ala soft tissue mass persistent but appears improved, double with treatment. With noted chronic thrombocytopenia, leukopenia. Reassess blood counts. CKD: Creatinine appears close to recent baseline currently 2.1 on review. Avoid nephrotoxins. Recurrent diarrhea (secondary to lenalidomide) : The patient experiences chronic diarrhea, believed to be related to lenalidomide, occurring in a three-week cycle and managed with medication. - Continue current antidiarrheal regimen (Lomotil) - Monitor for dehydration or electrolyte disturbances PDMP PDMP Reviewed: Not Reviewed Attestations Medical Necessity Statement*: Admission over 2 midnights anticipated for assessment management of GI bleed, acute blood loss anemia, interment after PE diagnosed a month ago, on anticoagulation, with underlying CAD, severe valvular heart disease, UTI, additional comorbidities. , High MDM includes amount and/or complexity of data reviewed/ordered [ previous or external records, resulted lab(s)/test(s), ordered lab(s)/test(s) and other healthcare professional discussion] and described risk of complication, morbidity or mortality of management as documented and High Time for a total of 95 minutes, includes reviewing past or interval history, examining/interviewing patient, placing orders, counseling patient/family/other support, updating patient/family/other support, discussing plan of care with staff, communicating with other healthcare providers, documenting encounter and coordinating care Diagnoses GI bleed K92.2 UTI (urinary tract infection) N39.0 Valvular heart disease I38 Pulmonary embolism I26.99
[2024-10-15] MEDS: pantoprazole 40 mg SDV 80 MG IVP (13:39)
[2024-10-15] MEDS: acyclovir 400 mg Tablet PO (18:19)
[2024-10-15 19:00] LABS: Basophils % 1.2 %; Eosinophils # 0.1 10^3/uL (0.0-0.8); Eosinophils % 3.2 %; Hematocrit 25.9 % (37-53); Lymphocytes # 0.4 10^3/uL (0.8-4.8); Lymphocytes % 10.4 %; Mean Corpuscular Volume 108.8 fl (82-101); Mean Platelet Volume 12.5 fL (7.4-10.4); Monocytes # 0.4 10^3/uL (0.2-0.9); Monocytes % 12.4 %; Neutrophils % 72.2 %; Nucleated Red Blood Cells % 0 %; Platelet Count 65 10^3/cmm (157-399); Red Blood Count 2.38 10^6/uL (3.85-5.65); Red Cell Distribution Width 21.1 % (12.1-15.1); White Blood Count 3.46 10^3/uL (3.29-11.43)
[2024-10-15] MEDS: gabapentin 300 mg Capsule PO (21:35)
[2024-10-15] MEDS: midodrine 5 mg TABLET PO (21:35)
[2024-10-15] MEDS: sucralfate 1 gm Tablet PO (21:35)
--- NOTE | 2024-10-16 08:21 | PM.TDS ---
Transfer Summary Providers Date of Admission: 10/15/24 11:43 Date of Discharge/Transfer: 10/16/24 Attending Provider at Admission: Pavan Wiley Attending Provider at Transfer: Pavan Wiley Primary Care Provider: Allegra Jimenez MD Transfer Plans: Anticipated date of transfer: 10/16/24. Diagnoses at Discharge Discharge Diagnosis (1) GI bleed: Status: Acute (2) UTI (urinary tract infection): Status: Acute (3) Valvular heart disease: Status: Acute (4) Pulmonary embolism: Status: Acute Reason for Visit Reason for Visit sob Brief History: Rafy Sierra is a 79 year old male with a history of multiple myeloma, prior GI bleeding, aortic stenosis, mitral valve regurgitation, and prior pulmonary embolism presents with increasing shortness of breath, especially with exertion, and fatigue. The patient's blood count has dropped to as low as 6.9, and there is concern for ongoing anemia. There have been reports of dark stools, and prior testing revealed occult blood in the stool. The patient had a GI bleed about a year ago, which was treated with endoscopic clipping. The patient is currently off Eliquis (apixaban) for one day in preparation for a planned heart angiogram. The patient denies recent fevers, chills, sore throat, sneezing, coughing, nausea, vomiting, or blood in the urine. The patient reports recurrent diarrhea, believed to be related to lenalidomide, occurring in a three-week cycle and managed with medication. The patient denies alcohol use and quit smoking in 1989. There is a history of falls, and a recent CT scan revealed a left sacral ala fracture, likely pathologic due to myeloma and multiiple lytic lesions. The patient has not had new left-sided lower back pain but has had chronic pain for a while. The patient is on multiple medications, including omeprazole twice daily, and has a history of stents in the circumflex artery and possibly in the leg/groin area. The patient wishes to be resuscitated in the event of cardiac or respiratory arrest. He stopped his Eliquis yesterday and anticipation of going for a core angiogram tomorrow with his plastic cutter at [facility] [address]. Hospital Course Hospital Course He was hospitalized and surgery was consulted for further assessment management of suspected upper GI bleed, although possible lower GI with prior similar presentation with proximal colonic bleeding vessel clipped about a year ago on colonoscopy at [facility]. He was treated with IV PPI twice daily and given 1 unit RBC transfusion. He was also started on ceftriaxone for UTI with finding of urinary bladder wall thickening, cystitis on CT as well as chronic hydronephrosis and ureterectasis unchanged from prior with concern for urinary bladder outlet obstruction. Disla catheter was placed for decompression. Urine culture so far growing gram-negative rods, final cultures pending. Troponin was trended and noted with initial elevation 167, with flat trend, 161 in 2 hours, and 155 at 6 hours. With chronic troponin elevation noted, 147 back in the beginning of September in the setting of CKD. Not had chest pain or pressure. Possible demand ischemia versus chronic elevation. Eliquis was held as well as aspirin for now with suspected GI bleed. Records requested from his plastic cutter office given an angiogram is being planned by his plastic cutter, it sounds like in preparation for repair/replacement of valvular heart disease with severe low-flow high gradient aortic valve stenosis as well as severe mitral valve regurgitation with low ejection fraction 35-40% on last echo here at the beginning of September. Recently also with finding of PE about a month ago since when he had been on Eliquis, options were discussed for consideration of IVC filter, at present venous duplex of lower extremities was obtained and was negative for DVT. Blood counts were followed up with multiple myeloma with noted mild pancytopenia, platelets 65-70,000. With multiple lytic bony lesions as well as incidental finding of pathologic left sacral ala fracture with associated soft tissue mass unchanged, fracture being new, although without new symptoms, patient has been having some pain in the left lower back for a while, without new symptoms. He does have intermittent falls. On anesthesia evaluation, found to be too high risk for this facility for sedation and endoscopy with recommendation for transfer to higher level care. [facility] was contacted as this is where his providers are, however, no beds have been available in the morning or on check-in later in the evening as well. He was currently excepted for additional assessment management after discussion of his presentation and the above assessment and care with the receiving hospitalist team. Physical Exam Narrative: Exam from 10/15 evening. Accompanied by his for initial visit and to revisits. Const: COMMON NORMALS: patient oriented x3 and alert GENERAL APPEARANCE: cooperative ORIENTATION/CONSCIOUSNESS: Yes awake HENMT: COMMON NORMALS: oropharynx normal Neck/C-Spine: COMMON NORMALS: no JVD Resp: COMMON NORMALS: normal respiratory effort and clear to auscultation bilaterally AUSCULTATION: clear to auscultation bilaterally Cardio: COMMON NORMALS: no JVD, regular rhythm, S1 normal heart sound present, S2 normal heart sound present and No murmurs present (Cardio) RHYTHM: regular rhythm HEART SOUNDS: S1 normal heart sound present and S2 normal heart sound present GI: COMMON NORMALS: Normal to inspection, nondistended, normoactive bowel sounds present, Soft to palpation and non-tender PALPATION: Yes Soft to palpation Extremity: COMMON NORMALS: no joint enlargement GENERAL: Yes edema (Trace) Neuro: COMMON NORMALS: patient oriented x3 and moves all extremities SENSORIUM/ORIENTATION: Yes alert Skin: COMMON NORMALS: no rashes or lesions noted GENERAL SKIN EXAM: no rashes or lesions noted Urinary Catheter Management: Disla: Cath Placed During This Visit: yes Reason for Continuing Indwelling Catheter: Perioperative Use in Selected Surgeries Urinary Catheter Date of Insertion: 10/15/24 Urinary Catheter Time of Insertion: 10:46 TS Data Studies Completed and Pending Pending at discharge Category Date Time Status Urine Culture Stat Lab 10/15/24 10:44 Results Completed Studies During Hospitalization Category Date Time Status CT abdomen pelvis wo con [id number] Stat Cat Scan 10/15/24 08:21 Completed XR chest 1V portable [id number] Stat Exams 10/15/24 03:54 [place] [id number] Routine Ultrasound 10/15/24 10:53 Completed Laboratory Last Values WBC 3.46 10^3/uL (3.29-11.43) 10/15/24 18:32 Corrected WBC Cancelled 10/15/24 04:16 RBC 2.38 10^6/uL (3.85-5.65) L 10/15/24 18:32 Hgb 8.80 g/dL (11.27-16.99) L 10/15/24 18:32 Hct 25.9 % (37-53) L 10/15/24 18:32 MCV 108.8 fl (82-101) H 10/15/24 18:32 MCH 37.0 pg (27-33) H 10/15/24 18:32 MCHC 34.0 g/dL (30-55) D 10/15/24 18:32 RDW 21.1 % (12.1-15.1) H 10/15/24 18:32 Plt Count 65 10^3/cmm (157-399) L 10/15/24 18: MPV 12.5 fL (7.4-10.4) H 10/15/24 18:32 Gran % Cancelled 10/15/24 04:16 Neut % (Auto) 72.2 % 10/15/24 18:32 Lymph % (Auto) 10.4 % 10/15/24 18:32 [place] % (Auto) 12.4 % 10/15/24 18:32 Eos % (Auto) 3.2 % 10/15/24 18:32 Baso % (Auto) 1.2 % 10/15/24 18: Neut # (Auto) 2.50 10^3/uL (1.8-7.7) 10/15/24 18:32 Lymph # (Auto) 0.4 10^3/uL (0.8-4.8) L 10/15/24 18:32 [place] # (Auto) 0.4 10^3/uL (0.2-0.9) 10/15/24 18:32 Eos # (Auto) 0.1 10^3/uL (0.0-0.8) 10/15/24 18:32 Baso # (Auto) 0.0 10^3/uL (0.0-0.1) 10/15/24 18:32 Absolute Gran (auto) Cancelled 10/15/24 04:16 Nucleated RBC % (auto) 0 % 10/15/24 18: Nucleated RBCs # 0.0 /100WBC 10/15/24 18:32 Sodium 132 mmol/L (136-145) L 10/15/24 04:35 Potassium 4.0 mmol/L (3.5-5.1) 10/15/24 04:35 Chloride 95 mmol/L (98-107) L 10/15/24 04:35 Carbon Dioxide 25 mmol/L (22-29) 10/15/24 04:35 Anion Gap 16.0 (5-19) 10/15/24 04:35 BUN 43 mg/dL (8-23) H 10/15/24 04:35 Creatinine 2.1 mg/dL (0.7-1.2) H 10/15/24 04:35 GFR Calculation Not Reportable 10/15/24 04:35 Glucose 109 mg/dL (65-115) 10/15/24 04:35 Calculated Osmolality 285 mOsm/kg (285-295) 10/15/24 04:35 Calcium 8.0 mg/dL (8.5-10.5) L 10/15/24 04:35 Total Bilirubin 0.9 mg/dL (0.15-1.2) 10/15/24 04:35 AST 23 U/L (0-40) 10/15/24 04:35 ALT 13 U/L (0-41) 10/15/24 04:35 Alkaline Phosphatase 111 U/L (40-130) 10/15/24 04:35 Troponin T Baseline 167 ng/L (0-15) H* 10/15/24 04:35 Troponin T 120 Minute 161.1 ng/L (0-15) H 10/15/24 06:36 Delta Troponin T -5.9 ABS# (0-10) L 10/15/24 06:36 Troponin T Hi Sens 6Hr 155.7 ng/L (0-15) H 10/15/24 10:12 Troponin T Hi Sens 6Hr Delta -11.3 ng/L (0-12) L 10/15/24 10:12 NT-Pro-B Natriuret Pep 73028 pg/mL (0-450) H 10/15/24 04:35 Total Protein 5.0 g/dL (6.6-8.7) L 10/15/24 04:35 Albumin 3.4 g/dL (3.5-5.2) L 10/15/24 04:35 Globulin 1.6 g/dL (1.3-4.6) 10/15/24 04:35 Urine Color Yellow (Yellow) 10/15/24 10:44 Urine Appearance Turbid (CLEAR) A 10/15/24 10:44 Urine pH 5.5 (5-7) 10/15/24 10:44 Ur Specific [place] 1.008 (1.005-1.030) 10/15/24 10:44 Urine Protein 1+ (Negative) A 10/15/24 10:44 Urine Glucose (UA) Negative (Normal) 10/15/24 10:44 Urine Ketones Negative (Negative) 10/15/24 10:44 Urine Blood 2+ (Negative) A 10/15/24 10:44 Urine Nitrate Negative (Negative) 10/15/24 10:44 Urine Bilirubin Negative (Negative) 10/15/24 10:44 Urine Urobilinogen 0.2 mg/dL (Negative) 10/15/24 10:44 Ur Leukocyte Esterase 3+ (Negative) A 10/15/24 10:44 Urine RBC 0-2 /hpf (0-2) 10/15/24 10:44 Urine WBC >100 /hpf (0-5) H 10/15/24 10:44 Ur Squamous Epith Cells 0-5 /hpf (0-5) 10/15/24 10:44 Amorphous Sediment Not Reportable 10/15/24 10:44 Urine Bacteria 4+ /hpf (NONE) H 10/15/24 10:44 Hyaline Casts 5.77 /lpf 10/15/24 10:44 Blood Type A Positive 10/15/24 05:10 Rho(D) Type Rh positive 10/15/24 05:10 Antibody Screen Positive 10/15/24 05:10 Prewarmed Antibody Srcn Negative 10/15/24 05:10 Antibody Identification Cold Auto Antibody 10/15/24 05:10 Cold Antibody Screen Positive 10/15/24 05:10 Crossmatch See Detail 10/15/24 05:10 Pre-Trans Antibody Scrn Cancelled 10/15/24 05:10 Radiology Impressions Chest X-Ray 10/15/24 03:54 IMPRESSION: No significant changes demonstrating bilateral pleural effusions. Abdomen/Pelvis CT 10/15/24 08:21 IMPRESSION: 1. Cystitis with diffuse bladder wall thickening. Associated diffuse ureterectasis with moderate hydronephrosis suspicious for cystitis with bladder outlet obstruction and UTI. Prostate does not appear enlarged. 2. Cholelithiasis. 3. Small RIGHT greater than LEFT pleural effusion with compressive atelectasis in the lung bases. 4. Numerous lytic lesions throughout the bony structures compatible with history of multiple myeloma. 5. Well-corticated fracture LEFT sacral ala with surrounding sclerosis likely pathologic is new compared to 2022. 6. Associated soft tissue sacral mass is persistent but appears improved compatible with treatment related changes. 7. Progressed lytic lesion T11. 8. Partially visualized destructive lesion T9 involving the posterior vertebral body with a soft tissue component is partially visualized and similar in appearance. Venous Duplex 10/15/24 10:53 IMPRESSION: No evidence of deep vein thrombosis. Recent Clincial Data Last Vital Signs Temp 98.2 F 10/15/24 22:29 Pulse 77 10/15/24 22:29 Resp 18 10/15/24 22:29 BP 107/55 10/15/24 22:29 Pulse Ox 95 10/15/24 22:29 O2 Del Method Room Air 10/15/24 19:49 O2 Flow Rate 2 10/15/24 03:48 Vital Signs Temp Pulse Resp BP Pulse Ox 10/15/24 22:29 98.2 F 77 18 107/55 95 Intake & Output/Weight 10/14/24 10/15/24 10/16/24 10/17/24 06:59 06:59 06:59 06:59 Intake Total 1350 / 1350 Output Total 750 / 750 Balance 600 / 600 Weight 77.564 kg 77.564 kg Vitals Last Vital Signs Temp 98.2 F 10/15/24 22:29 Pulse 77 10/15/24 22:29 Resp 18 10/15/24 22:29 BP 107/55 10/15/24 22:29 Pulse Ox 95 10/15/24 22:29 O2 Del Method Room Air 10/15/24 19:49 O2 Flow Rate 2 10/15/24 03:48 TS Medications Medications Discontinued Medications Acetaminophen (Acetaminophen 325 Mg Tablet) 650 mg PO Q6H PRN PRN Reason: Mild/Mod Pain Or Temp >/= 101 Acyclovir (Acyclovir 400 Mg Tablet) 400 mg PO BID [facility] Last Admin: 10/15/24 18:19 Dose: 400 mg Atorvastatin Calcium (Atorvastatin 40 Mg Tablet) 80 mg PO QAM [facility] Bisacodyl (Bisacodyl 5 Mg Tablet) 40 mg PO ONCE ONE Stop: 10/15/24 12:57 Last Admin: 10/15/24 14:46 Dose: Not Given Bisacodyl (Bisacodyl 5 Mg Tablet) 40 mg PO ONCE ONE Stop: 10/15/24 20:01 Bumetanide (Bumetanide 0.25 Mg/Ml Sdv 10 Ml) 2 mg IVP ONCE ONE Stop: 10/15/24 04:18 Last Admin: 10/15/24 04:40 Dose: 2 mg Bumetanide (Bumetanide 1 Mg Tablet) 2 mg PO DAILY [facility] Ceftriaxone Sodium (Ceftriaxone 1,000 Mg Sdv) 1,000 mg IVP ONCE ONE; Protocol Stop: 10/15/24 11:31 Last Admin: 10/15/24 11:54 Dose: 1,000 mg Ceftriaxone Sodium (Ceftriaxone 1,000 Mg Sdv) 1,000 mg IVP Q24H [facility]; Protocol Diphenoxylate HCl/Atropine (Diphenoxylate/Atropine Tablet) 1 tab PO Q4H PRN PRN Reason: DIARRHEA Gabapentin (Gabapentin 300 Mg Capsule) 300 mg PO TID [facility] Last Admin: 10/15/24 21:35 Dose: 300 mg Sodium Chloride (Sodium Chloride 0.9%) 500 mls @ 500 mls/hr IV ONCE ONE Stop: 10/15/24 09:19 Last Infusion: 10/15/24 12:10 Dose: Infused Loratadine (Loratadine 10 Mg Tablet) 10 mg PO DAILY [facility] Magnesium Citrate (Magnesium Citrate Btl 296 Ml) 296 ml PO 1200,1999 [facility] Stop: 10/15/24 20:01 Last Admin: 10/15/24 14:47 Dose: Not Given Magnesium Lactate (Magnesium Lactate 84 Mg Tablet) 84 mg PO DAILY [facility] Metoprolol Succinate (Metoprolol Succinate Er (24 Hr) 25 Mg Tablet) 12.5 mg PO DAILY [facility] Midodrine (Midodrine 5 Mg Tablet) 5 mg PO TID [facility] Last Admin: 10/15/24 21:35 Dose: 5 mg Non-Formulary Medication (Lenalidomide) 10 mg PO DAILY [facility] Non-Formulary Medication (Sertraline) 12.5 mg PO QPM [facility] Ondansetron HCl (Ondansetron 2 Mg/Ml Sdv 2 Ml) 4 mg IVP Q8H PRN PRN Reason: vomiting, or N/V if npo Pantoprazole Sodium (Pantoprazole 40 Mg Sdv) 80 mg IVP ONCE ONE Stop: 10/15/24 12:57 Last Admin: 10/15/24 13:39 Dose: 80 mg Pantoprazole Sodium (Pantoprazole 40 Mg Sdv) 40 mg IVP Q12H [facility] Last Admin: 10/15/24 13:42 Dose: Not Given Sodium Chloride (Sodium Chloride 0.9% 100 Ml Bag) 50 ml IV PRN PRN PRN Reason: Blood transfusion prime and flush Stop: 10/16/24 04:53 Sucralfate (Sucralfate 1 Gm Tablet) 1 gm PO AC&BEDTIME EDWARD Last Admin: 10/15/24 21:35 Dose: 1 gm Allergies No Known Allergies Allergy (Verified 09/23/24 13:02) Home Medications acyclovir 400 mg tablet 400 mg PO BID 08/06/23 [History Confirmed 10/15/24] atorvastatin 80 mg tablet 80 mg PO QAM 08/06/23 [History Confirmed 10/15/24] gabapentin 300 mg capsule 600 mg PO TID 08/06/23 [History Confirmed 10/15/24] gjuothqu-vwogdfnf-bpcwb acid 400 mcg-vit K 20 mcg-lycop 300 mcg tablet 1 tab PO QAM 08/06/23 [History Confirmed 10/15/24] sertraline 25 mg tablet 12.5 mg PO QPM 08/06/23 [History Confirmed 10/15/24] aspirin 81 mg tablet,delayed release 81 mg PO DAILY #30 tabs 08/10/23 [Rx Confirmed 10/15/24] metoprolol succinate 25 mg tablet,extended release 24 hr 12.5 mg (1/2 x 25 mg) PO DAILY #15 tabs 08/10/23 [Rx Confirmed 10/15/24] pantoprazole 40 mg tablet,delayed release 40 mg PO BID #60 tabs 08/10/23 [Rx Confirmed 10/15/24] potassium chloride 20 mEq tablet,extended release 20 meq PO DAILY #30 tabs 08/10/23 [Rx Confirmed 10/15/24] Left AFO #1 ea 12/19/23 [Rx Confirmed 10/15/24] acetaminophen 325 mg tablet (Tylenol) 325 - 350 mg PO QID PRN Pain 09/12/24 [History Confirmed 10/15/24] albuterol sulfate 2.5 mg/3 mL (0.083 %) solution for nebulization 2.5 mg inhalation Q4H PRN Shortness Of Breath 09/12/24 [History Confirmed 10/15/24] daratumumab 20 mg/mL intravenous solution (Darzalex) 20 mg IV .Q30D 09/12/24 [History Confirmed 10/15/24] lenalidomide 10 mg capsule 10 mg PO DAILY 09/12/24 [History Confirmed 10/15/24] zoledronic acid 4 mg intravenous solution 4 mg IV .[id number] 09/12/24 [History Confirmed 10/15/24] apixaban 5 mg tablet (Eliquis) 5 mg PO BID #90 tabs 09/13/24 [Rx Confirmed 10/15/24] bumetanide 1 mg tablet 2 mg (2 x 1 mg) PO DAILY 30 days #60 tabs 09/13/24 [Rx Confirmed 10/15/24] diphenoxylate-atropine 2.5 mg-0.025 mg tablet (Lomotil) 1 tab PO DAILY PRN loose stools 09/28/24 [History Confirmed 10/15/24] magnesium L-lactate 84 mg tablet,extended release 84 mg PO DAILY 09/28/24 [History Confirmed 10/15/24] midodrine 5 mg tablet 5 mg PO TID #90 tabs 10/02/24 [Rx Confirmed 10/15/24] sucralfate 1 gram tablet 1 g PO AC&BEDTIME 4 weeks #60 tabs 10/02/24 [Rx Confirmed 10/15/24] loratadine 10 mg tablet 10 mg PO DAILY 10/15/24 [History Confirmed 10/15/24] Discharge Plan Discharge Patient Disposition: Xfer Short-Term Hosp Condition: Stable Prescriptions: No Action (DME) Left AFO See Rx Instructions .Route .MEDSUPPLY Qty: 1 0RF Rx Instructions: As directed to the buck huang lenalidomide 10 mg capsule 10 mg PO DAILY zoledronic acid 4 mg Recon Soln 4 mg IV .[id number] Darzalex 20 mg/mL Solution 20 mg IV .Q30D acetaminophen [Tylenol] 325 mg Tablet 325 - 350 mg PO QID PRN (Reason: Pain) albuterol sulfate 2.5 mg /3 mL (0.083 %) solution for nebulization 2.5 mg inhalation Q4H PRN (Reason: Shortness Of Breath) bumetanide 1 mg tablet 2 mg PO DAILY 30 Days Qty: 60 0RF Eliquis 5 mg tablet 5 mg PO BID Qty: 90 3RF Rx Instructions: 10 bid for 7 days then 5 mg bid diphenoxylate-atropine [Lomotil] 2.5-0.025 mg Tablet 1 tab PO DAILY PRN (Reason: loose stools ) magnesium L-lactate 84 mg Tablet Extended Release 84 mg PO DAILY sucralfate 1 gram Tablet 1 g PO AC&BEDTIME 28 Days Qty: 60 0RF midodrine 5 mg Tablet 5 mg PO TID Qty: 90 0RF loratadine 10 mg Tablet 10 mg PO DAILY atorvastatin 80 mg Tablet 80 mg PO QAM acyclovir 400 mg Tablet 400 mg PO BID gabapentin 300 mg Capsule 600 mg PO TID sertraline 25 mg Tablet 12.5 mg PO QPM pvhoaoeu-rmh-jcwci-vit K-lycop 400-20-300 mcg Tablet 1 tab PO QAM aspirin 81 mg Tablet,Delayed Release (Dr/Ec) 81 mg PO DAILY Qty: 30 0RF pantoprazole 40 mg Tablet,Delayed Release (Dr/Ec) 40 mg PO BID Qty: 60 0RF metoprolol succinate 25 mg Tablet Extended Release 24 Hr 12.5 mg PO DAILY Qty: 15 0RF potassium chloride 20 mEq tablet extended release 20 meq PO DAILY Qty: 30 0RF Referrals: Allegra Jimenez MD [Primary Care Provider, [facility]] Patient Instructions: GI Post Discharge Instructions w/ Anesthesia, Opioid Safety Transfer Attestations Time Spent in Transfer Care: greater than 30 min Status at Transfer: Cognitive status at transfer: cognitively intact; Behavioral status at transfer: cooperative; Quality Metrics Clinical Quality Measures [ No reported AMI, CVA or VTE this stay] Coding Level of Care Code 95002 Total time (in minutes) for Discharge: 50 Diagnoses GI bleed K92.2 UTI (urinary tract infection) N39.0 Valvular heart disease I38 Pulmonary embolism I26.99
== END 2024-10-15 22:30 | disposition short-term general hospital (02) | DRG 378 ==
LOC: ER 08:11 → MEDSURG 11:43
PROVIDERS: Student in an Organized Health Care Education/Training Program; Admitting Provider Internal Medicine; Emergency Provider Family Medicine; PCP Family Medicine; Visit Provider Internal Medicine
DX: K92.2 Gastrointestinal hemorrhage, unspecified (principal); C90.00 Multiple myeloma not having achieved remission; N13.30 Unspecified hydronephrosis; I50.20 Unspecified systolic (congestive) heart failure; D62 Acute posthemorrhagic anemia; N30.90 Cystitis, unspecified without hematuria; I08.0 Rheumatic disorders of both mitral and aortic valves; G89.29 Other chronic pain; I25.10 Atherosclerotic heart disease of native coronary artery without angina pectoris; N18.9 Chronic kidney disease, unspecified; Z95.5 Presence of coronary angioplasty implant and graft; Z79.01 Long term (current) use of anticoagulants; Z79.60 Long term (current) use of unspecified immunomodulators and immunosuppressants; Z79.83 Long term (current) use of bisphosphonates; Z79.82 Long term (current) use of aspirin; Z91.81 History of falling; Z86.711 Personal history of pulmonary embolism; Z87.891 Personal history of nicotine dependence
CPT/HCPCS: 36415; 36430; 51702; 71045; 74176; 80053; 81001; 83880; 84484; 85025; 86850; 86870; 86900; 86920; 87077; 87086; 87186; 93005; 93970; 96361; 96374; 99285; J0696; J2470; J3490; J7040; J8499; J9999; P9040

== ENCOUNTER → 2024-11-11 12:48 | Outpatient (BNVA) | payer MEDICARE, OTHER, SELFPAY | PROVIDERS: PCP Family Medicine; Visit Provider Podiatrist Foot & Ankle Surgery | DX: I73.9 Peripheral vascular disease, unspecified (principal); L60.3 Nail dystrophy; L84 Corns and callosities | CPT/HCPCS: 11055; 11721 ==

== ENCOUNTER → 2025-01-21 13:13 | Outpatient (BNVA) | payer MEDICARE, OTHER, SELFPAY | PROVIDERS: PCP Electrodiagnostic Medicine; Visit Provider Podiatrist Foot & Ankle Surgery | DX: E11.8 Type 2 diabetes mellitus with unspecified complications (principal); L60.3 Nail dystrophy; L84 Corns and callosities; I73.9 Peripheral vascular disease, unspecified | CPT/HCPCS: 11055; 11721 ==

== ENCOUNTER 2025-02-20 23:14 | Emergency (ER) | payer MEDICARE, OTHER, SELFPAY ==
--- OUTSIDE RECORDS SUMMARY | 2025-02-20 23:25 | XMS_ITS | Encounter Summary ---
Author Organization [employer] [facility] Address [address] [place] [address] Care Team Providers Care Technical Trainer Name Role Phone Unavailable Primary Care Provider Unavailabl e Encounter Details Date Type Department Care Team (Latest Contact Info) Description 09/06/2006 Outpatient Historical [facility] [address] [place] [address] Umesh Collins MD [address] [place] [address] Benign Neoplasm of Skin of Trunk, except Scrotum (Primary Dx) Social History Tobacco Use Types Packs/Day Years Used Date Smoking Tobacco: Never Assessed Sex and Gender Information Value Date Recorded Sex Assigned at Not on file 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
--- OUTSIDE RECORDS SUMMARY | 2025-02-20 23:25 | XMS_ITS | Clinical Summary ---
Author Organization [facility] Address [address] [place] [address] Phone Care Team Providers Care Assistant Secretary Name Role Phone Bruce Rees Primary Care Provider Allergies No known active allergies Medications lenalidomide (REVLIMID) 10 mg capsule Take 10 mg by mouth daily. Active daratumumab (DARZALEX) 20 mg/mL Solution Inject 20 mg by intravenous injection one time only. [id number] Active sucralfate (CARAFATE) 1 gram tablet Take 1 Gram by mouth 4 times daily before meals and at bedtime. Active albuterol (PROVENTIL,RAYRAY ZAHEER) 2.5 mg /3 mL (0.083 %) Solution for Nebulization Take 2.5 mg by inhalation every 4 hours as needed for Shortness of Breath. Active bumetanide (BUMEX) 2 mg tablet Take 2 mg by mouth daily. Active apixaban (Eliquis) 5 mg tablet Take 5 mg by mouth 2 times daily. Active diphenoxylate-at ropine 2.5 mg-0.025 mg tablet Take 1 Tablet by mouth 4 times daily as needed for Diarrhea/Loose Stools. Active MAGNESIUM L-LACTATE ORAL Take 84 mg by mouth daily. Active atorvastatin (LIPITOR) 80 mg tablet Take 80 mg by mouth daily. Active gabapentin (NEURONTIN) 300 mg capsule Take 300 mg by mouth 3 times daily. Active loratadine (CLARITIN) 10 mg tablet Take 10 mg by mouth daily. Active aspirin (ECOTRIN EC) 81 mg Tablet, Delayed Release (E.C.) Take 81 mg by mouth daily. Active pantoprazole (PROTONIX) 40 mg Tablet, Delayed Release (E.C.) Take 40 mg by mouth daily. Active Active Problems Problem Noted Date Diagnosed Date Hypokalemia 10/18/2024 Acute blood loss anemia 10/17/2024 GI bleed 10/16/2024 Hyperlipidemia 10/16/2024 History of pulmonary embolism 10/16/2024 Thrombocytopenia 10/16/2024 Acute cystitis 10/16/2024 CAD (coronary atherosclerotic disease) Hypoxia 10/16/2024 Anemia 10/16/2024 Anticoagulated 10/16/2024 Acute on chronic combined sy stolic (congestive) and diastolic (congestive) heart failure 10/16/2024 Multiple myeloma not having achieved remission 0 05/23/2023 Resolved Problems Problem Noted Date Diagnosed Date Resolved Date Heart failure 10/16/2024 10/18/2024 Encounters Date Type Department Care Team Description 12/30/2024 External Device Data [facility]STRACTION Provider, Abstract 12/30/2024 External Device Data [facility] Provider, Abstract 11/26/2024 External Device Data [facility] Provider, Abstract 11/25/2024 External Device Data [facility] Provider, Abstract from Last 3 Months Social History Tobacco Use Types Packs/Day Years Used Date Smoking Tobacco: Never Smokeless Tobacco: Never Tobacco Cessation:Counseling Given: Not Answered Alcohol Use Standard Drinks/Week Comments Never 0 (1 standard drink = 0.6 oz pur e alcohol) Feeling Safe Answer Date Recorded Are you in a relationship wi th someone who hurts you emotionally and/or physically? 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 Gender Identity Not on file Sexual Orientation Not on file Last Filed Vital Signs Vital Sign Reading Time Taken Comments Blood Pressure 135/57 10/20/2024 11:45 AM CDT Pulse 77 10/20/2024 11:45 AM CDT Temperature 36.1 C (96.9 F) 10/20/2024 11:45 AM CDT Respiratory Rate 18 10/20/2024 11:45 AM CDT Oxygen Saturation 99% 10/20/2024 11:45 AM CDT Inhaled Oxygen Concentration - - Weight 82.3 kg (181 lb 7 oz) 10/17/2024 5:02 AM CDT Height 167.6 cm (5' 6 ) 10/16/2024 12:52 AM CDT Body Mass Index 29.28 10/16/2024 12:52 AM CDT Plan of Treatment Health Maintenance Due Date Last Done Comments DTAP/TDAP/TD VACCINES (1 - Tdap) 01/20/1964 ZOSTER VACCINE (1 of 2) 02/06/2009 12/12/2008 RSV VACCINE (60+ or ) (1 - 1-dose 75+ series) 01/20/2020 COVID-19 Vaccine (3 - Pfizer risk series) 08/06/2020 07/09/2020, 06/11/2020 INFLUENZA VACCINE (#1) 2024 9, 02/07/2018, 02/23/2017, Additional history exists PNEUMOCOCCAL VACCINE 50+ YEARS Completed 08/01/2018 , 03/13/2018 COLORECTAL SCREENING Discontinued 10/17/2024, 10/18/19 25 Colorectal Cancer Screening Discontinued FIT-DNA Q 3 years Discontinued FIT/FOBT Q 1 year Discontinued Flex Sig/CT Colonography Q 5 years Discontinued Procedures Procedure Name Priority Date/Time Associated Diagnosis Comments COLONOSCOPY REPORT 10/17/2024 10 :27 AM CDT from Last 3 Months or Most Recently Relevant to Health Maintenance Results * COLONOSCOPY REPORT (10/17/2024 10:27 AM CDT) Narrative Procedure Note Ricardo Lieberman MD - 10/17/2024 10:27 AM CDT [facility] GI Patient Name: Rafy Sierra Procedure Date: 10/17/2024 Date of : 1945 Admit Type: Inpatient Age: 79 Attending MD: Ricardo Lieberman MD, Procedure: Colonoscopy Indications: acute blood loss anemia Providers: Ricardo Lieberman MD Referring MD: Medicines: Monitored Anesthesia Care Complications: No immediate complications. Procedure: After I obtained informed consent, the scope was passed under direct vision. Throughout the procedure, the patient's blood pressure, pulse, and oxygen saturations were monitored continuously. The Colonoscope was introduced through the anus and advanced to the cecum, identified by appendiceal orifice and ileocecal valve. The entire colon was examined. Estimated Blood Loss: Estimated blood loss was minimal. Findings: There was a scant amount of blood noted in the mid colon, this was flushed and suctioned however there was no active bleeding observed. There was a punctate ectasia in the ascending colon that was cauterized with a 7 Thai gold probe at 15 W. There was a punctate ectasia in the left colon that was cauterized with a 7 Thai gold probe at 15 W. There were grade 1 internal hemorrhoids that were not actively bleeding and not thrombosed Impression: Scant amount of old blood in the colon without any active bleeding 2 punctate ectasias in the colon cauterized to prevent bleeding Internal hemorrhoids Recommendation: Continue to monitor for bleeding Ricardo Lieberman MD 10/17/2024 10:17:46 AM Number of Addenda: 0 Note Initiated On: 10/17/2024 9:34 AM Scope Withdrawal Time 0 hours 9 minutes 45 seconds Scope In: 10:01:09 AM Scope Out: 10:13:17 AM [address] [place], [place] Ricardo Lieberman MD GI PROCEDURE ORDERABLES F inal Result from Last 3 Months or Most Recently Relevant to Health Maintenance Additional Health Concerns Infection Onset Date Last Indicated 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
--- OUTSIDE RECORDS SUMMARY | 2025-02-20 23:25 | XMS_ITS | Clinical Summary ---
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
[2025-02-20 23:36] VITALS: BP 117/60; PULSE 81; RESP 18; TEMP 37.1; O2SAT 96; BMI 28.5
--- NOTE | 2025-02-21 00:04 | CTR_ITS ---
PROCEDURE INFORMATION: Exam: CT Head Without Contrast Exam date and time: 02/21/2025 1:35 AM Age: 80 years old Clinical indication: Syncope and collapse TECHNIQUE: Imaging protocol: Computed tomography of the head without contrast. Radiation optimization: All CT scans at this facility use at least one of these dose optimization techniques: automated exposure control; mA and/or kV adjustment per patient size (includes targeted exams where dose is matched to clinical indication); or iterative reconstruction. COMPARISON: CT head wo con* [id number] 11/01/2023 10:42 AM RADIATION DOSE METRICS: Total DLP (mGy-cm): 1123.08 FINDINGS: Brain: Small subarachnoid hemorrhage overlies the convexities of the left anterior superior parietal lobe series 8, image 25-38. No midline shift. No other significant change with comparison made to 11/01/2023. The basal cisterns are patent. No sulcal effacement. Global cortical atrophy commensurate with the patient's age. Cerebral ventricles: No ventriculomegaly. Paranasal sinuses: Opacification of the right maxillary sinus which is incompletely characterized on this examination can be seen in sinusitis. Mastoid air cells: Visualized mastoid air cells are well aerated. Bones: Unremarkable. No acute fracture. Soft tissues: Unremarkable. CT/CT head wo con* [id number] IMPRESSION: 1. Small subarachnoid hemorrhage overlies the convexities of the left anterior superior parietal lobe series 8, image 25-38. No midline shift. No other significant change with comparison made to 11/01/2023. 2. Opacification of the right maxillary sinus which is incompletely characterized on this examination can be seen in sinusitis. COMMENT: THIS REPORT CONTAINS FINDINGS THAT MAY BE CRITICAL TO PATIENT CARE. The exam findings were verbally communicated by me to JULIETA ROBERTO via telephone conference at 2:03 AM CDT on 02/21/2025. The findings were acknowledged and understood.
--- NOTE | 2025-02-21 00:04 | CTR_ITS ---
PROCEDURE INFORMATION: Exam: CT Abdomen And Pelvis Without Contrast Exam date and time: 02/21/2025 1:37 AM Age: 80 years old Clinical indication: Other: Diarrhea; Additional info: Syncope, diarrhea TECHNIQUE: Imaging protocol: Computed tomography of the abdomen and pelvis without contrast. Radiation optimization: All CT scans at this facility use at least one of these dose optimization techniques: automated exposure control; mA and/or kV adjustment per patient size (includes targeted exams where dose is matched to clinical indication); or iterative reconstruction. COMPARISON: CT abdomen pelvis w con* [id number] 02/28/2023 5:15 PM RADIATION DOSE METRICS: Total DLP (mGy-cm): 640.1 FINDINGS: Lungs: There is slight mosaic pattern of attenuation of the lungs, in association with ground-glass opacities, mild paraseptal thickening and small bilateral pleural effusions, which in the setting of cardiomegaly is consistent with pulmonary edema. Compressive bilateral atelectasis noted. Pneumonia should be excluded clinically. No pneumothorax. Heart: Mildly enlarged heart. Coronary atherosclerotic calcifications seen. No pericardial effusion. Liver: The liver demonstrates microlobulated contour, concerning for cirrhosis. No discrete mass identified. Gallbladder and biliary ducts: Cholelithiasis is present. No pericholecystic inflammatory changes to suggest cholecystitis. The gallbladder has been surgically removed. Pancreas: Fatty atrophy of the pancreas seen. Spleen: There are tiny calcific densities scattered throughout the spleen, likely sequela of previous granulomatous disease. The spleen is otherwise unremarkable. Adrenal glands: Normal. No mass. Kidneys and ureters: Renal vascular calcifications seen. No kidney stone. No hydronephrosis. Stomach and bowel: Patent colorectal anastomosis. There is diffuse circumferential wall thickening of the descending and sigmoid colon, in association with haziness of the surrounding fat. No obstruction. Appendix: No evidence of appendicitis. Intraperitoneal space: Unremarkable. No free air. No significant fluid collection. Vasculature: Stents noted in the bilateral common iliac arteries. Lymph nodes: Unremarkable. No enlarged lymph nodes. Urinary bladder: Unremarkable as visualized. Reproductive: Unremarkable as visualized. Bones/joints: Degenerative changes of the spine seen. Old healed fracture deformities noted in the ribcage bilaterally. Scattered osseous lytic lesions re-identified, the largest centered in the left sacral ala. Insufficiency fractures re-identified in the sacral ala bilaterally. Mild loss of height of the L2, L3 and L4 vertebral bodies, involving the superior endplates, and T12, involving the inferior endplate seen. Soft tissues: 3.9 cm lipoma seen along the right lateral lower chest wall. CT/CT abdomen pelvis wo con [id number] IMPRESSION: 1. Imaging findings of colitis, involving the descending and sigmoid colon. Infectious, inflammatory and ischemic etiologies should be considered. 2. Imaging findings of pulmonary edema with small bilateral pleural effusions. 3. Scattered osseous lytic lesions and fractures re-identified.
--- NOTE | 2025-02-21 00:04 | XRR_ITS ---
PROCEDURE INFORMATION: Exam: XR Chest Exam date and time: 02/21/2025 12:11 AM Age: 80 years old Clinical indication: Other: Syncope; Prior surgery; Surgery date: 1-6 months; Surgery type: Aortic valve, coronary stent TECHNIQUE: Imaging protocol: Radiologic exam of the chest. Views: 1 view. COMPARISON: CR XR chest 2V* [id number] 01/28/2025 2:54 PM FINDINGS: Tubes, catheters and devices: Mild cardiomegaly with aortic valve prosthesis. Lungs: Lower lung zone atelectasis. Pleural spaces: Small to moderate bilateral pleural effusions similar to prior. Heart/Mediastinum: Unremarkable. No cardiomegaly. Bones/joints: Unremarkable. XR/XR chest 1V portable [id number] IMPRESSION: 1. Small to moderate bilateral pleural effusions similar to prior. 2. Mild cardiomegaly with aortic valve prosthesis.
--- NOTE | 2025-02-21 00:17 | ECG_ITS ---
[employer] Test Date: 2025-02-21 Pat Name: Rafy Sierra Department: Room: Gender: Male Last Putter Away: : 1945 Requested By: Lacho Becerra Order Number: [id number] Prince MD: JOSE ELIAS ESCAMILLA Measurements Intervals [place] Rate: 80 P: 0 IA: 0 QRS: 182 QRSD: 157 T: 109 QT: 444 QTc: 515 Interpretive Statements ATRIAL FIBRILLATION WITH ABERRANT CONDUCTION OR VENTRICULAR PREMATURE COMPLEXES RIGHT AXIS DEVIATION [QRS AXIS > 100] RIGHT BUNDLE BRANCH BLOCK [120+ ms QRS DURATION, UPRIGHT V1, 40+ ms S IN I/aVL/V4/V5/V6] POSSIBLE ANTERIOR MYOCARDIAL INFARCTION , PROBABLY OLD [30 ms Q WAVE IN V3/V4, OR R < 0.2 mV IN V4] Compared to ECG 10/15/2024 03:46:43 Aberrant conduction of supraventricular beat(s) now present Sinus rhythm no longer present First degree AV block no longer present Myocardial infarct finding still present Electronically Signed On 02-22-2025 23:14:07 CDT by JOSE ELIAS ESCAMILLA [email or web address]
[2025-02-21 00:40] LABS: Hematocrit 30.6 % (37-53); Hemoglobin 9.70 g/dL (11.27-16.99); Mean Corpuscular HGB Conc 31.7 g/dL (30-55); Mean Corpuscular Hemoglobin 30.6 pg (27-33); Mean Corpuscular Volume 96.5 fl (82-101); Nucleated Red Blood Cells % 0 %; Platelet Count 133 10^3/cmm (157-399); Red Blood Count 3.17 10^6/uL (3.85-5.65); White Blood Count 15.23 10^3/uL (3.29-11.43)
[2025-02-21 00:46] VITALS: BP 100/68; BP 82/43; BP 91/42; PULSE 74; PULSE 75; PULSE 79
[2025-02-21 01:10] LABS: INR 0.96 (0.8-1.2); Prothrombin Time 13.40 SECONDS (12.1-14.9)
[2025-02-21 01:11] LABS: Partial Thromboplastin Time 30.1 SECONDS (23.9-36.7)
[2025-02-21 01:16] LABS: Lactic Sepsis W/Reflex 2.0 mmol/L (0.5-2.2)
[2025-02-21 01:19] LABS: Troponin(5th) Baseline 105 ng/L (0-15)
[2025-02-21 01:23] VITALS: BP 109/52; PULSE 71; O2SAT 97
[2025-02-21 01:26] LABS: Alanine Aminotransferase 10 U/L (0-41); Albumin Level 3.6 g/dL (3.5-5.2); Alkaline Phosphatase 132 U/L (40-130); Aspartate Amino Transferase 26 U/L (0-40); Blood Urea Nitrogen 30 mg/dL (8-23); Calcium 8.1 mg/dL (8.5-10.5); Carbon Dioxide 24 mmol/L (22-29); Chloride 96 mmol/L (98-107); Creatinine Clr Calc Pharmacy 30.8747; Globulin 2.5 g/dL (1.3-4.6); Glucose 131 mg/dL (65-115); Magnesium 1.9 mg/dL (1.7-2.3); NT Pro B Type Natriuretic Pept 5784 pg/mL (0-450); Osmolality Calculated 282 mOsm/kg (285-295); Sodium 132 mmol/L (136-145); Total Protein 6.1 g/dL (6.6-8.7)
[2025-02-21 01:27] LABS: Troponin 5 2HR 93.09 ng/L (0-15); Troponin 5 2HR Delta -11.91 ABS# (0-10)
[2025-02-21 01:27] LABS: Anion Gap 17.0 (5-19); Potassium 5.0 mmol/L (3.5-5.1)
--- NOTE | 2025-02-21 02:04 | W.ED.FALL ---
HPI - Fall General: Chief Complaint: Fall Stated Complaint: ams, fall Time Seen by Provider: 02/20/25 23:48 History of Present Illness: Patient is an elderly male who presents after being found on the floor by his . The patient does not recall falling or the events leading up to the fall. He denies any pain following the incident. Per his , he has been experiencing diarrhea for approximately one week, which improved briefly but has worsened today. The patient reports occasional dizziness, particularly when standing and beginning to walk, requiring him to sit down and rest before continuing. Despite this, he states he can walk around his two-acre backyard without issues. He denies chest pain or shortness of breath. The syncopal episode was brief, lasting approximately one minute per the 's report. The patient was breathing throughout the episode, did not turn blue, and was not observed to have seizure activity, though the notes he was sweating. Related Data Home Medications ?Medication ?Instructions ?Recorded ?Confirmed atorvastatin 80 mg tablet 80 mg PO QAM 08/06/23 01/21/25 gabapentin 300 mg capsule 600 mg PO TID 08/06/23 01/21/25 uiomoymb-njeilezh-gszxd acid 400 1 tab PO QAM 08/06/23 01/21/25 mcg-vit K 20 mcg-lycop 300 mcg tablet acetaminophen 325 mg tablet 325 - 350 mg PO QID PRN Pain 09/12/24 01/21/25 (Tylenol) albuterol sulfate 2.5 mg/3 mL 2.5 mg inhalation Q4H PRN 09/12/24 01/21/25 (0.083 %) solution for nebulization Shortness Of Breath daratumumab 20 mg/mL intravenous 20 mg IV .Q30D 09/12/24 01/21/25 solution (Darzalex) lenalidomide 10 mg capsule 10 mg PO DAILY 09/12/24 01/21/25 zoledronic acid 4 mg intravenous 4 mg IV .[id number] 09/12/24 01/21/25 solution diphenoxylate-atropine 2.5 1 tab PO DAILY PRN loose stools 09/28/24 01/21/25 mg-0.025 mg tablet (Lomotil) magnesium L-lactate 84 mg 84 mg PO DAILY 09/28/24 01/21/25 tablet,extended release loratadine 10 mg tablet 10 mg PO DAILY 10/15/24 01/21/25 Previous Rx's ?Medication ?Instructions ?Recorded aspirin 81 mg tablet,delayed 81 mg PO DAILY #30 tabs 08/10/23 release metoprolol succinate 25 mg 12.5 mg (1/2 x 25 mg) PO DAILY #15 08/10/23 tablet,extended release 24 hr tabs pantoprazole 40 mg tablet,delayed 40 mg PO BID #60 tabs 08/10/23 release Left AFO #1 ea 12/19/23 apixaban 5 mg tablet (Eliquis) 5 mg PO BID #90 tabs 09/13/24 bumetanide 1 mg tablet 2 mg (2 x 1 mg) PO DAILY 30 days 09/13/24 #60 tabs midodrine 5 mg tablet 5 mg PO TID #90 tabs 10/02/24 Allergies Allergy/AdvReac Type Severity Reaction Status Date / Time No Known Allergies Allergy Verified 01/21/25 11:10 [facility] ED PFSH: Medical History (Updated 02/21/25 @ 16:08 by Lacho Roberto DO) Chronic anticoagulation Mitral stenosis with regurgitation Symptomatic severe aortic stenosis with low ejection fraction CKD (chronic kidney disease) Mitral valve prolapse Systolic congestive heart failure Gastric ulcer GI bleed Multiple myeloma Coronary artery disease Surgical History H/O esophagogastroduodenoscopy Social History Smoking and tobacco/nicotine status: former use of tobacco/nicotine Physical Exam Const: GENERAL APPEARANCE: cooperative and ill appearing; not in distress ORIENTATION/CONSCIOUSNESS: Yes awake, Yes oriented to person and Yes oriented to place; not oriented to time HENMT: COMMON NORMALS: normocephalic and Normal external nose present HEAD & SCALP: normocephalic FACE & SINUS: ecchymosis (very small near left christian); no edema NOSE: Normal external nose present Eye: COMMON NORMALS: Equal, round and reactive pupils present and EOMs intact bilaterally PUPIL: Yes Equal, round and reactive pupils present Neck/C-Spine: GENERAL: Yes trachea midline CERVICAL SPINE: No Cervical spine tenderness Chest: CHEST: Yes Symmetrical chest wall rise Resp: COMMON NORMALS: normal respiratory effort and clear to auscultation bilaterally AUSCULTATION: clear to auscultation bilaterally and diminished lung sounds Cardio: COMMON NORMALS: regular rate and regular rhythm RATE: regular rate RHYTHM: regular rhythm GI: COMMON NORMALS: Normal to inspection, nondistended, normoactive bowel sounds present and Soft to palpation PALPATION: Yes Soft to palpation and Yes Tenderness to palpation present (GI) (mild, diffuse) Extremity: NARRATIVE EXTREMITY EXAM: atraumatic Neuro: SENSORIUM/ORIENTATION: Yes oriented to person, Yes oriented to place and No oriented to time COORDINATION/BALANCE: mlhqpi-br-tpyq test normal and inte-oh-lrcv test normal SPEECH: speech normal SENSORY EXAM: Yes extremities (intact) MOTOR EXAM: Pronator motor function not present COORDINATION: zmlbae-wv-udhx test normal and onlr-vh-cclz test normal Psych: COMMON NORMALS: speech normal SPEECH: Yes normal speech Skin: NARRATIVE SKIN EXAM: see above Course Vital Signs: Vital signs: Vital Signs Temperature 98.7 F 02/20/25 23:36 Pulse Rate 75 02/21/25 03:13 Respiratory Rate 17 02/21/25 02:36 Blood Pressure 109/60 02/21/25 03:13 Pulse Oximetry 96 02/21/25 03:13 Oxygen Delivery Me thod Room Air 02/21/25 02:36 MDM - Fall Medical Decision Making Blood pressure sank on standing on orthostatics. He has had 1 L of fluid. Blood pressure currently 102/52. Saturation is 97% on room air. His pulse rate is 70. He is on Eliquis. Head CT shows a small subarachnoid hemorrhage at the left anterior superior parietal lobe. There is no midline shift. Reversal agent Andexxa and TXA are given. Will clear his C-spine before he goes. We have no neurosurgery service available at this facility. We talked to our counterparts in the ER at [facility], and they are willing to take in transfer. Due to critical nature of subarachnoid bleeding, lack of ground transport resources, he will likely go by air if weather permits. upon repeat questioning, the patient has actually been off of Eliquis since July. He does take aspirin and Plavix. We have canceled the andexxa order, but we will continue with txa. His vitals have remained stable. He is alert. His hemoglobin is down to 9.7. he had one episode of diarrhea prior to transfer, which was bloody. There was not a large amount of blood. Abdominal CT does show findings of colitis. We did not have time to administer antibiotics prior to his transfer, as he was transferred before CT findings were resulted nearly 2 1/2 hours later. Chest x-ray reveals small to moderate bilateral jennifer effusion, which are chronic. His white blood cell count is 15, with 87% neutrophils. This could be due to the colitis present on CT. His lactic acid is only 2. His CRP is 24. Air services were not available, so the patient was transferred by ground EMS. He was stable at the time of transfer. Again, he went to [facility] emergency department. Lab Data 02/20/25 22:54 02/20/25 22:54 Radiology Impressions Abdomen/Pelvis CT 02/21/25 00:04 IMPRESSION: 1. Imaging findings of colitis, involving the descending and sigmoid colon. Infectious, inflammatory and ischemic etiologies should be considered. 2. Imaging findings of pulmonary edema with small bilateral pleural effusions. 3. Scattered osseous lytic lesions and fractures re-identified. Chest X-Ray 02/21/25 00:04 IMPRESSION: 1. Small to moderate bilateral pleural effusions similar to prior. 2. Mild cardiomegaly with aortic valve prosthesis. Head CT 02/21/25 00:04 IMPRESSION: 1. Small subarachnoid hemorrhage overlies the convexities of the left anterior superior parietal lobe series 8, image 25-38. No midline shift. No other significant change with comparison made to 11/01/2023. 2. Opacification of the right maxillary sinus which is incompletely characterized on this examination can be seen in sinusitis. COMMENT: THIS REPORT CONTAINS FINDINGS THAT MAY BE CRITICAL TO PATIENT CARE. The exam findings were verbally communicated by me to LACHO ROBERTO via telephone conference at 2:03 AM CDT on 02/21/2025. The findings were acknowledged and understood. Cervical Spine CT 02/21/25 02:14 IMPRESSION: 1. No acute cervical fracture or subluxation. 2. Ill-defined right thyroid nodule incompletely characterized on this examination. Consider further evaluation with thyroid ultrasound. COMMENTS: Consistent with the [employer]'s Incidental Findings Committee white paper (J Am Mabel Radiol 2015): In patients aged 35 years and older with an incidental thyroid nodule equal to or greater than 1.[address], MRI or extrathyroidal US, further evaluation with dedicated thyroid US is recommended for patients with normal life expectancy and without comorbidities. For smaller nodules without suspicious features, no further evaluation or follow up is recommended. Laboratory Results WBC 15.23 10^3/uL (3.29-11.43) H 02/20/25 22:54 RBC 3.17 10^6/uL (3.85-5.65) L 02/20/25 22:54 Hgb 9.70 g/dL (11.27-16.99) L 02/20/25:54 Hct 30.6 % (37-53) L 02/20/25: MCV 96.5 fl (82-101) 02/20/25: MCH 30.6 pg (27-33) 02/20/25: MCHC 31.7 g/dL (30-55) 02/20/25: RDW 16.4 % (12.1-15.1) H 02/20/25:54 Plt Count 133 10^3/cmm (157-399) L 02/20/25:54 MPV 11.0 fL (7.4-10.4) H 02/20/25 22:54 Neut % (Auto) 86.6 % 02/20/25:54 Lymph % (Auto) 4.3 % 02/20/25:54 [place] % (Auto) 8.1 % 02/20/25:54 Eos % (Auto) 0.1 % 02/20/25:54 Baso % (Auto) 0.3 % 02/20/25:54 Neut # (Auto) 13.20 10^3/uL (1.8-7.7) H 02/20/25 22:54 Lymph # (Auto) 0.7 10^3/uL (0.8-4.8) L 02/20/25:54 [place] # (Auto) 1.2 10^3/uL (0.2-0.9) H 02/20/25 22:54 Eos # (Auto) 0.0 10^3/uL (0.0-0.8) 02/20/25 22:54 Baso # (Auto) 0.0 10^3/uL (0.0-0.1) 02/20/25:54 Nucleated RBC % (auto) 0 % 02/20/25 22:54 Nucleated RBCs # 0.0 /100WBC 02/20/25 22:54 PT 13.40 SECONDS (12.1-14.9) 02/20/25 22:54 INR 0.96 (0.8-1.2) 02/20/25 22:54 APTT 30.1 SECONDS (23.9-36.7) 02/20/25 22:54 Sodium 132 mmol/L (136-145) L 02/20/25 22:54 Potassium 5.0 mmol/L (3.5-5.1) 02/20/25 22:54 Chloride 96 mmol/L (98-107) L 02/20/25 22:54 Carbon Dioxide 24 mmol/L (22-29) 02/20/25 22:54 Anion Gap 17.0 (5-19) 02/20/25 22:54 BUN 30 mg/dL (8-23) H 02/20/25 22:54 Creatinine 1.9 mg/dL (0.7-1.2) H 02/20/25 22:54 GFR Calculation Not Reportable 02/20/25 22:54 Glucose 131 mg/dL (65-115) H 02/20/25 22:54 Calculated Osmolality 282 mOsm/kg (285-295) L 02/20/25 22:54 Lactic Acid 2.0 mmol/L (0.5-2.2) 02/20/25 22:54 Calcium 8.1 mg/dL (8.5-10.5) L 02/20/25 22:54 Phosphorus 2.4 mg/dL (2.5-4.5) L 02/20/25 22:54 Magnesium 1.9 mg/dL (1.7-2.3) 02/20/25 22:54 Total Bilirubin 0.4 mg/dL (0.15-1.2) 02/20/25 22:54 AST 26 U/L (0-40) 02/20/25 22:54 ALT 10 U/L (0-41) 02/20/25 22:54 Alkaline Phosphatase 132 U/L (40-130) H 02/20/25 22:54 Creatine Kinase 41 U/L (39-308) 02/20/25 22:54 Troponin T Baseline 105 ng/L (0-15) H* 02/20/25 22:54 Troponin T 120 Minute 93.09 ng/L (0-15) H 02/21/25 01:02 Delta Troponin T -11.91 ABS# (0-10) L 02/21/25 01:02 C-Reactive Protein 24.4 mg/L (0.0-4.9) H 02/20/25 22:54 NT-Pro-B Natriuret Pep 5784 pg/mL (0-450) H 02/20/25 22:54 Total Protein 6.1 g/dL (6.6-8.7) L 02/20/25 22:54 Albumin 3.6 g/dL (3.5-5.2) 02/20/25 22:54 Globulin 2.5 g/dL (1.3-4.6) 02/20/25 22:54 XR interpretation done by ED provider, pending radiology final review Critical Care Time Critical Care Time: Critical Care Time: Yes Total Critical Care Time: 40 Attestation: This case had a high probability of a clinically significant, sudden, or life threatening deterioration of this patient's condition which required my full and direct attention, intervention and personal management. time is indepedent of any procedures performed. Discharge Plan Discharge Patient Disposition: Xfer Short-Term Hosp Clinical Impression: Subarachnoid hemorrhage, Pleural effusion, Colitis Condition: Critical Referrals: Bruce Rees DO [Primary Care Provider, [facility]] Print Language: Macedonian Coding Level of Care Code ED Scientific Artist for Guerrero Tinoco
--- NOTE | 2025-02-21 02:14 | CTR_ITS ---
PROCEDURE INFORMATION: Exam: CT Cervical Spine Without Contrast Exam date and time: 02/21/2025 2:21 AM Age: 80 years old Clinical indication: Injury or trauma; Fall; Blunt trauma; Additional info: Fall head inj TECHNIQUE: Imaging protocol: Computed tomography of the cervical spine without contrast. Radiation optimization: All CT scans at this facility use at least one of these dose optimization techniques: automated exposure control; mA and/or kV adjustment per patient size (includes targeted exams where dose is matched to clinical indication); or iterative reconstruction. COMPARISON: CT cervical spin wo con* [id number] 11/01/2023 10:42 AM RADIATION DOSE METRICS: Total DLP (mGy-cm): 209.37 FINDINGS: Bones: No acute cervical fracture or subluxation. Multilevel degenerative changes of the cervical spine including moderate anterior osteophytes most prominent C3-C4. Lungs: Lung apices are normal. Thyroid: Ill-defined right thyroid nodule incompletely characterized on this examination. Consider further evaluation with thyroid ultrasound. Soft tissues: Unremarkable. CT/CT cervical spin wo con* [id number] IMPRESSION: 1. No acute cervical fracture or subluxation. 2. Ill-defined right thyroid nodule incompletely characterized on this examination. Consider further evaluation with thyroid ultrasound. COMMENTS: Consistent with the [employer]'s Incidental Findings Committee white paper (J Am Mabel Radiol 2015): In patients aged 35 years and older with an incidental thyroid nodule equal to or greater than 1.[address], MRI or extrathyroidal US, further evaluation with dedicated thyroid US is recommended for patients with normal life expectancy and without comorbidities. For smaller nodules without suspicious features, no further evaluation or follow up is recommended.
[2025-02-21] MEDS: tranexamic acid 1,000 MG/100 ML PREMIX 600 MG IV (02:33)
[2025-02-21 02:36] VITALS: PULSE 77; RESP 17; O2SAT 97
[2025-02-21 02:46] VITALS: BP 130/59
[2025-02-21 03:13] VITALS: BP 109/60; PULSE 75; O2SAT 96
== END 2025-02-21 03:13 | disposition short-term general hospital (02) ==
PROVIDERS: Emergency Provider Emergency Medicine; PCP Electrodiagnostic Medicine
DX: S06.6XAA Traumatic subarachnoid hemorrhage with loss of consciousness status unknown, initial encounter (principal); J90 Pleural effusion, not elsewhere classified; K52.9 Noninfective gastroenteritis and colitis, unspecified; W19.XXXA Unspecified fall, initial encounter; I25.10 Atherosclerotic heart disease of native coronary artery without angina pectoris; N18.9 Chronic kidney disease, unspecified; I50.20 Unspecified systolic (congestive) heart failure
CPT/HCPCS: 36415; 70450; 71045; 72125; 74176; 80053; 82550; 83605; 83735; 83880; 84100; 84484; 85025; 85610; 85730; 86140; 93005; 96374; 99285; J7030; J9999

== ENCOUNTER 2025-03-06 23:25 | Emergency (ER) | payer MEDICARE, OTHER, SELFPAY ==
[2025-03-06 23:35] VITALS: BP 113/66; PULSE 70; RESP 18; TEMP 36.6; O2SAT 98; BMI 27.4
--- NOTE | 2025-03-06 23:35 | XRR_ITS ---
PROCEDURE INFORMATION: Exam: XR Left Shoulder Exam date and time: 03/06/2025 11:49 PM Age: 80 years old Clinical indication: Injury or trauma; Fall; Blunt trauma (contusions or hematomas); Shoulder; Left TECHNIQUE: Imaging protocol: Radiologic exam of the left shoulder. Views: 2 or more views. COMPARISON: CT cervical spin wo con* [id number] 02/21/2025 2:21 AM FINDINGS: Bones/joints: Displaced and angulated fracture of the left humerus neck. Soft tissues: Soft tissues appear swollen about the lateral shoulder. XR/XR shoulder LT min 2V* [id number] IMPRESSION: Displaced and angulated fracture of the left humerus neck.
--- NOTE | 2025-03-06 23:35 | XRR_ITS ---
PROCEDURE INFORMATION: Exam: XR Left Wrist Exam date and time: 03/06/2025 11:49 PM Age: 80 years old Clinical indication: Injury or trauma; Fall; Blunt trauma (contusions or hematomas); Wrist; Left TECHNIQUE: Imaging protocol: Radiologic exam of the left wrist. Views: 3 or more views. COMPARISON: CR (UP EX, ) 03/06/2025 11:49 PM FINDINGS: Bones/joints: Questionable nondisplaced fracture of the distal radius, involving the greater radius styloid. Soft tissues: Superficial soft tissues appear within normal limits. XR/XR wrist LT min 3V* [id number] IMPRESSION: Questionable nondisplaced fracture of the distal radius, involving the greater radius styloid. Lack of significant soft tissue swelling suggests that this may represent a nutrient channel. If patient is exquisitely tender at this location, this likely represents an acute nondisplaced fracture.
--- NOTE | 2025-03-06 23:38 | XRR_ITS ---
PROCEDURE INFORMATION: Exam: XR Left Elbow Exam date and time: 03/06/2025 11:49 PM Age: 80 years old Clinical indication: Injury or trauma; Fall; Blunt trauma (contusions or hematomas); Elbow; Left TECHNIQUE: Imaging protocol: Radiologic exam of the left elbow. Views: 3 or more views. COMPARISON: CR (CHEST, ) 03/06/2025 11:49 PM FINDINGS: Bones/joints: Normal. Soft tissues: Normal. XR/XR elbow LT min 3V* [id number] IMPRESSION: No acute findings.
--- NOTE | 2025-03-06 23:39 | W.ED.FALL ---
HPI - Fall General: Chief Complaint: Fall Stated Complaint: FALL Time Seen by Provider: 03/06/25 23:29 History of Present Illness: Patient is an 80-year-old male with recent intracranial bleed, multiple fall issues, comes back to the ED with a fall. He admits to lightheadedness, dizziness, and fall tonight. He has a left shoulder deformity, and multiple skin tears. He complains of pain in his left shoulder. Blood pressure on arrival was 90/50. Patient states his intake of water is poor, due to his CHF. No sensory changes. Associated symptoms-after fall: Denies abdominal pain or chest pain Related Data Home Medications ?Medication ?Instructions ?Recorded ?Confirmed atorvastatin 80 mg tablet 80 mg PO QAM 08/06/23 01/21/25 gabapentin 300 mg capsule 600 mg PO TID 08/06/23 01/21/25 qlmpuhre-audhpzxm-yqagb acid 400 1 tab PO QAM 08/06/23 01/21/25 mcg-vit K 20 mcg-lycop 300 mcg tablet acetaminophen 325 mg tablet 325 - 350 mg PO QID PRN Pain 09/12/24 01/21/25 (Tylenol) albuterol sulfate 2.5 mg/3 mL 2.5 mg inhalation Q4H PRN 09/12/24 01/21/25 (0.083 %) solution for nebulization Shortness Of Breath daratumumab 20 mg/mL intravenous 20 mg IV .Q30D 09/12/24 01/21/25 solution (Darzalex) lenalidomide 10 mg capsule 10 mg PO DAILY 09/12/24 01/21/25 zoledronic acid 4 mg intravenous 4 mg IV .[id number] 09/12/24 01/21/25 solution diphenoxylate-atropine 2.5 1 tab PO DAILY PRN loose stools 09/28/24 01/21/25 mg-0.025 mg tablet (Lomotil) magnesium L-lactate 84 mg 84 mg PO DAILY 09/28/24 01/21/25 tablet,extended release loratadine 10 mg tablet 10 mg PO DAILY 10/15/24 01/21/25 Previous Rx's ?Medication ?Instructions ?Recorded aspirin 81 mg tablet,delayed 81 mg PO DAILY #30 tabs 08/10/23 release metoprolol succinate 25 mg 12.5 mg (1/2 x 25 mg) PO DAILY #15 08/10/23 tablet,extended release 24 hr tabs pantoprazole 40 mg tablet,delayed 40 mg PO BID #60 tabs 08/10/23 release Left AFO #1 ea 12/19/23 apixaban 5 mg tablet (Eliquis) 5 mg PO BID #90 tabs 09/13/24 bumetanide 1 mg tablet 2 mg (2 x 1 mg) PO DAILY 30 days 09/13/24 #60 tabs midodrine 5 mg tablet 5 mg PO TID #90 tabs 10/02/24 hydrocodone 5 mg-acetaminophen 325 1 tab PO Q8H PRN pain #7 tabs 03/07/25 mg tablet Allergies Allergy/AdvReac Type Severity Reaction Status Date / Time No Known Allergies Allergy Verified 01/21/25 11:10 Review of Systems Const: Denies: body aches or diaphoresis Eyes: Denies: blurry vision or blind spots ENMT: Denies: ear or mastoid pain or ear discharge Card: Denies: chest pain or palpitations Resp: Denies: dyspnea or productive cough GI: Denies: abdominal pain, nausea or hematemesis : Denies: flank pain Musc: Reports: joint pain, limited range of motion and muscle weakness Skin/Breast: Denies: striae, breast pain or breast swelling Neuro: Denies: dizziness, Slurred speech present or difficulty communicating thoughts Psych: Denies: mood swings, change in appetite or auditory hallucinations Endo: Denies: polyuria, polydipsia, hot flashes or heat intolerance Jorge/Lymph: Denies: easy bruising or easy bleeding All/Imm: Denies: urticaria or throat swelling PFS ED PFSH: Medical History (Updated 03/07/25 @ 01:49 by JOSEPHINE Gonzalez) Chronic anticoagulation Mitral stenosis with regurgitation Symptomatic severe aortic stenosis with low ejection fraction CKD (chronic kidney disease) Mitral valve prolapse Systolic congestive heart failure Gastric ulcer GI bleed Multiple myeloma Coronary artery disease Surgical History H/O esophagogastroduodenoscopy Social History Smoking and tobacco/nicotine status: former use of tobacco/nicotine Physical Exam Const: GENERAL APPEARANCE: cooperative and ill appearing; not in distress ORIENTATION/CONSCIOUSNESS: Yes awake, Yes oriented to person and Yes oriented to place; not oriented to time HENMT: COMMON NORMALS: normocephalic and Normal external nose present HEAD & SCALP: normocephalic FACE & SINUS: normal facial exam; no edema NOSE: Normal external nose present Eye: COMMON NORMALS: Equal, round and reactive pupils present and EOMs intact bilaterally PUPIL: Yes Equal, round and reactive pupils present Neck/C-Spine: GENERAL: Yes trachea midline CERVICAL SPINE: No Cervical spine tenderness Chest: CHEST: Yes Symmetrical chest wall rise Resp: COMMON NORMALS: normal respiratory effort and clear to auscultation bilaterally AUSCULTATION: clear to auscultation bilaterally and diminished lung sounds Cardio: COMMON NORMALS: regular rate and regular rhythm RATE: regular rate RHYTHM: regular rhythm GI: COMMON NORMALS: Normal to inspection, nondistended, normoactive bowel sounds present and Soft to palpation PALPATION: Yes Soft to palpation and Yes Tenderness to palpation present (GI) (mild, diffuse) : COMMON NORMALS: Yes no CVA tenderness BLADDER/KIDNEY EXAM: Yes no CVA tenderness Back/Pelvis: COMMON NORMALS: no CVA tenderness Extremity: NARRATIVE EXTREMITY EXAM: deformity right Neuro: SENSORIUM/ORIENTATION: Yes oriented to person, Yes oriented to place and No oriented to time COORDINATION/BALANCE: iduaux-cc-pkov test normal and lwvo-tv-monw test normal SPEECH: speech normal SENSORY EXAM: Yes extremities (intact) MOTOR EXAM: Pronator motor function not present COORDINATION: fwyhyf-qu-dsvk test normal and pvpz-kv-pddy test normal Psych: COMMON NORMALS: speech normal SPEECH: Yes normal speech Skin: NARRATIVE SKIN EXAM: see above SKIN IMAGES (MALE):  1. skin tear 2. skin tear 3. skin tear Course Vital Signs: Vital signs: Vital Signs Temperature 97.9 F 03/06/25 23:35 Pulse Rate 71 03/07/25 00:31 Respiratory Rate 18 03/06/25 23:35 Blood Pressure 132/63 03/07/25 01:03 Pulse Oximetry 97 03/07/25 01:03 MDM - Fall Medical Decision Making Patient is 80-year-old gentleman that comes in after a fall. He was recently here for subdural hematoma and sent to [facility]. He was lightheaded dizzy. His blood pressure was low. He is chronically on Bumex. This will be held. He supposed to go to a timed drinking. He did receive 1 L IV fluids back. He is supposed to watch his salt content. He is not supposed to continue walking if he is lightheaded and dizzy. I will hold his Eliquis since he is also a fall risk. His proximal left humerus is fracture, however he does have some tenderness on axial compression of his left thumb, although anatomical snuffbox is intact. Placing him in a shoulder immobilizer would be the best outcome, which will keep his wrist in a splinted position until this can be followed up with orthopedist. Medical Records I reviewed the patient's medical records. Lab Data I reviewed the patient's lab results. 03/06/25 23:47 03/06/25 23:47 Radiology Impressions Shoulder X-Ray 03/06/25 23:35 IMPRESSION: Displaced and angulated fracture of the left humerus neck. Wrist X-Ray 03/06/25 23:35 IMPRESSION: Questionable nondisplaced fracture of the distal radius, involving the greater radius styloid. Lack of significant soft tissue swelling suggests that this may represent a nutrient channel. If patient is exquisitely tender at this location, this likely represents an acute nondisplaced fracture. Elbow X-Ray 03/06/25 23:38 IMPRESSION: No acute findings. Laboratory Results WBC 12.44 10^3/uL (3.29-11.43) H 03/06/25 23:47 RBC 2.78 10^6/uL (3.85-5.65) L 03/06/25 23:47 Hgb 8.60 g/dL (11.27-16.99) L 03/06/25 23:47 Hct 27.4 % (37-53) L 03/06/25 23:47 MCV 98.6 fl (82-101) 03/06/25 23:47 MCH 30.9 pg (27-33) 03/06/25 23:47 MCHC 31.4 g/dL (30-55) 03/06/25 23:47 RDW 16.9 % (12.1-15.1) H 03/06/25 23:47 Plt Count 117 10^3/cmm (157-399) L 03/06/25 23:47 MPV 9.2 fL (7.4-10.4) 03/06/25 23:47 Neut % (Auto) 79.4 % 03/06/25 23:47 Lymph % (Auto) 9.1 % 03/06/25 23:47 [place] % (Auto) 8.8 % 03/06/25 23:47 Eos % (Auto) 1.6 % 03/06/25 23:47 Baso % (Auto) 0.2 % 03/06/25 23:47 Neut # (Auto) 9.88 10^3/uL (1.8-7.7) H 03/06/25 23:47 Lymph # (Auto) 1.1 10^3/uL (0.8-4.8) 03/06/25 23:47 [place] # (Auto) 1.1 10^3/uL (0.2-0.9) H 03/06/25 23:47 Eos # (Auto) 0.2 10^3/uL (0.0-0.8) 03/06/25 23:47 Baso # (Auto) 0.0 10^3/uL (0.0-0.1) 03/06/25 23:47 Nucleated RBC % (auto) 0 % 03/06/25 23:47 Nucleated RBCs # 0.0 /100WBC 03/06/25 23:47 Sodium 131 mmol/L (136-145) L 03/06/25 23:47 Potassium 4.6 mmol/L (3.5-5.1) 03/06/25 23:47 Chloride 99 mmol/L (98-107) 03/06/25 23:47 Carbon Dioxide 24 mmol/L (22-29) 03/06/25 23:47 Anion Gap 12.6 (5-19) 03/06/25 23:47 BUN 26 mg/dL (8-23) H 03/06/25 23:47 Creatinine 1.5 mg/dL (0.7-1.2) H 03/06/25 23:47 GFR Calculation Not Reportable 03/06/25 23:47 Glucose 121 mg/dL (65-115) H 03/06/25 23:47 Calculated Osmolality 278 mOsm/kg (285-295) L 03/06/25 23:47 Calcium 7.9 mg/dL (8.5-10.5) L 03/06/25 23:47 Total Bilirubin 0.3 mg/dL (0.15-1.2) 03/06/25 23:47 AST 18 U/L (0-40) 03/06/25 23:47 ALT 8 U/L (0-41) 03/06/25 23:47 Alkaline Phosphatase 126 U/L (40-130) 03/06/25 23:47 Total Protein 5.0 g/dL (6.6-8.7) L 03/06/25 23:47 Albumin 2.9 g/dL (3.5-5.2) L 03/06/25 23:47 Globulin 2.1 g/dL (1.3-4.6) 03/06/25 23:47 All radiology interpretation(s) finalized by discharge Discharge Plan Discharge Patient Disposition: Home Clinical Impression: Closed fracture of head of left humerus Condition: Stable Prescriptions: New hydrocodone-acetaminophen 5-325 mg tablet 1 tab PO Q8H PRN (Reason: pain) Qty: 7 0RF No Action (DME) Left AFO See Rx Instructions .Route .MEDSUPPLY Qty: 1 0RF Rx Instructions: As directed to the buck huang lenalidomide 10 mg capsule 10 mg PO DAILY zoledronic acid 4 mg Recon Soln 4 mg IV .[id number] Darzalex 20 mg/mL Solution 20 mg IV .Q30D acetaminophen [Tylenol] 325 mg Tablet 325 - 350 mg PO QID PRN (Reason: Pain) albuterol sulfate 2.5 mg /3 mL (0.083 %) solution for nebulization 2.5 mg inhalation Q4H PRN (Reason: Shortness Of Breath) bumetanide 1 mg tablet 2 mg PO DAILY 30 Days Qty: 60 0RF Eliquis 5 mg tablet 5 mg PO BID Qty: 90 3RF Rx Instructions: 10 bid for 7 days then 5 mg bid diphenoxylate-atropine [Lomotil] 2.5-0.025 mg Tablet 1 tab PO DAILY PRN (Reason: loose stools ) magnesium L-lactate 84 mg Tablet Extended Release 84 mg PO DAILY midodrine 5 mg Tablet 5 mg PO TID Qty: 90 0RF loratadine 10 mg Tablet 10 mg PO DAILY atorvastatin 80 mg Tablet 80 mg PO QAM gabapentin 300 mg Capsule 600 mg PO TID prrecslk-cln-yszkn-vit K-lycop 400-20-300 mcg Tablet 1 tab PO QAM aspirin 81 mg Tablet,Delayed Release (Dr/Ec) 81 mg PO DAILY Qty: 30 0RF pantoprazole 40 mg Tablet,Delayed Release (Dr/Ec) 40 mg PO BID Qty: 60 0RF metoprolol succinate 25 mg Tablet Extended Release 24 Hr 12.5 mg PO DAILY Qty: 15 0RF Discharge Orders: Discharge ED (Routine); Ordered 03/07/25 Ordered By: Rossy Desir Referrals: Bruce Rees DO [Primary Care Provider, Family Practice] April Park MD [Physician, Orthopedics] - 4-7 days Discharge Diet: Usual diet Discharge Activity: Limit activity as instructed Patient Instructions: Wrist Fracture in Adults (ED), Shoulder Abduction Pillow (DC), Opioid Safety, Pain Management, Patient Portal & Jonathan Instructions Activity Restrictions/Additional Instructions: - Leave the shoulder immobilizer in place at all times - Follow-up with Dr. Ni -Caution on pain medication given gait instability. -Schedule your noncaffeinated drinking and beverages to avoid low blood pressure and falls. - Hold your bumetanide until you follow-up with your doctor given your low blood pressure, and dehydration. - Given your fall risk, do not take your Eliquis. Thank you for choosing [facility] for your healthcare needs today. You have been screened and evaluated and felt safe for discharge. Health conditions do change or evolve sometimes and as such it is important that you follow up with your Primary Doctor to be re checked, 3-5 days is a general good time frame for follow up. You are always welcome to return to the ED for re assessment if your symptoms are worsening or you have new concerns Print Language: Mauritanian Coding Level of Care Code ED Barrel Cutter for Guerrero [facility]
[2025-03-06 23:54] LABS: Hematocrit 27.4 % (37-53); Hemoglobin 8.60 g/dL (11.27-16.99); Mean Corpuscular HGB Conc 31.4 g/dL (30-55); Mean Corpuscular Hemoglobin 30.9 pg (27-33); Mean Corpuscular Volume 98.6 fl (82-101); Nucleated Red Blood Cells % 0 %; Platelet Count 117 10^3/cmm (157-399); Red Blood Count 2.78 10^6/uL (3.85-5.65); White Blood Count 12.44 10^3/uL (3.29-11.43)
[2025-03-06 23:58] VITALS: BP 113/66; PULSE 70; O2SAT 99
[2025-03-07 00:09] LABS: Alanine Aminotransferase 8 U/L (0-41); Albumin Level 2.9 g/dL (3.5-5.2); Alkaline Phosphatase 126 U/L (40-130); Anion Gap 12.6 (5-19); Aspartate Amino Transferase 18 U/L (0-40); Blood Urea Nitrogen 26 mg/dL (8-23); Calcium 7.9 mg/dL (8.5-10.5); Carbon Dioxide 24 mmol/L (22-29); Chloride 99 mmol/L (98-107); Creatinine Clr Calc Pharmacy 38.4024; Globulin 2.1 g/dL (1.3-4.6); Glucose 121 mg/dL (65-115); Osmolality Calculated 278 mOsm/kg (285-295); Potassium 4.6 mmol/L (3.5-5.1); Sodium 131 mmol/L (136-145); Total Protein 5.0 g/dL (6.6-8.7)
[2025-03-07 00:31] VITALS: BP 121/61; PULSE 71; O2SAT 100
[2025-03-07 01:03] VITALS: BP 132/63; O2SAT 97
[2025-03-07] MEDS: HYDROcodone-acetaminophen 5-325 mg Tablet 1 TAB PO (02:20)
[2025-03-07 02:30] VITALS: BP 135/76; O2SAT 96
[2025-03-07] MEDS: fentaNYL 50 mcg/mL INJ 2mL 25 MCG IVP (02:32)
[2025-03-07] MEDS: ondansetron 2 mg/ML SDV 2 mL 4 MG IVP (02:32)
== END 2025-03-07 04:05 | disposition home or self-care (01) ==
PROVIDERS: Emergency Provider Physician Assistant; PCP Electrodiagnostic Medicine
DX: S42.212A Unspecified displaced fracture of surgical neck of left humerus, initial encounter for closed fracture (principal); I25.10 Atherosclerotic heart disease of native coronary artery without angina pectoris; N18.9 Chronic kidney disease, unspecified; I50.20 Unspecified systolic (congestive) heart failure; Z87.891 Personal history of nicotine dependence; Z79.01 Long term (current) use of anticoagulants; Z79.82 Long term (current) use of aspirin; W19.XXXA Unspecified fall, initial encounter
CPT/HCPCS: 36415; 73030; 73080; 73110; 80053; 85025; 96374; 96375; 99284; 99291; 99292; J2405; J3010; J7030; J9999

== ENCOUNTER 2025-03-10 11:05 | Inpatient (IN) | payer MEDICARE, OTHER, SELFPAY ==
[2025-03-10] VITALS (12 sets, daily range): BP systolic 91–115; BP diastolic 49–59; PULSE 76–87; RESP 15–21; TEMP 36.2–36.5; O2SAT 94–98; BMI 26.6
--- NOTE | 2025-03-10 11:02 | XR_ITS ---
WS: [id number] Exam: XR chest 1V portable [id number] Date/Time of Exam: 03/10/2025 11:06 AM Reason For Exam: Weakness Comparison 02/21/2025. There is cardiac enlargement with pulmonary vascular congestion most likely indicating acute CHF. Bibasal infiltrates are noted. The mediastinum is normal in contour. Aortic valve replacement. No pneumothorax. XR/XR chest 1V portable [id number] IMPRESSION: 1. Cardiac enlargement with pulmonary vascular congestion and bibasal infiltrat es most likely representing acute CHF.
--- NOTE | 2025-03-10 11:12 | CT_ITS ---
WS: [id number] CT HEAD NONCONTRAST HISTORY: multiple falls TECHNIQUE: Contiguous axial imaging performed through the brain. Bone and soft tissue windows. Sagittal and coronal reformats reviewed. All CT scans at [facility] use at least one of these dose optimization techniques: automated exposure control; mA and/or kV adjustment per patient size (includes targeted exams where dose is matched to clinical indication); or iterative reconstruction. DLP: 1245.18 mGy.cm COMPARISON: 02/21/2025 Resolved subarachnoid hemorrhage since 02/21/2025. No acute blood products are identified on today's CT. Mild symmetric atrophy and mild small vessel disease. Ventricles: Normal size with no hydrocephalus. No inferior displacement of the cerebellar tonsils. Paranasal sinuses: Heterogeneous consolidation RIGHT maxillary sinus is probably inspissated secretions. Mastoid air cells: Well pneumatized. Calvarium and scalp: Skull is intact with no soft tissue edema or swelling. CT/CT head wo con* [id number] IMPRESSION: 1. Complete resolution of previously described subarachnoid hemorrhage over th e LEFT parietal vertex. 2. No acute intracranial hemorrhage. No edema. 3. Mild atrophy and mild small vessel disease.
--- NOTE | 2025-03-10 11:18 | W.ED.WEAKNES ---
HPI - Weakness General: Chief complaint: Weakness Stated complaint: General Weakness History of Present Illness: 80-year-old man with a history of pulmonary embolism, chronic anticoagulation on Eliquis, chronic kidney disease, congestive heart failure, peripheral artery disease, peripheral neuropathy, anemia, aortic stenosis who presents the emergency room with weakness and falls. Says today he was so weak he could not get out of his chair. He has been having increased falls. 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 He has a immobilizer on that is not put on appropriately at this time. No head injuries this time. No focal motor deficits. No altered mental status. No chest pain. No abdominal pain. Related Data Home Medications ?Medication ?Instructions ?Recorded ?Confirmed atorvastatin 80 mg tablet 80 mg PO QAM 08/06/23 01/21/25 gabapentin 300 mg capsule 600 mg PO TID 08/06/23 01/21/25 zipeebxu-mghyyrdo-fcbnr acid 400 1 tab PO QAM 08/06/23 01/21/25 mcg-vit K 20 mcg-lycop 300 mcg tablet acetaminophen 325 mg tablet 325 - 350 mg PO QID PRN Pain 09/12/24 01/21/25 (Tylenol) albuterol sulfate 2.5 mg/3 mL 2.5 mg inhalation Q4H PRN 09/12/24 01/21/25 (0.083 %) solution for nebulization Shortness Of Breath daratumumab 20 mg/mL intravenous 20 mg IV .Q30D 09/12/24 01/21/25 solution (Darzalex) lenalidomide 10 mg capsule 10 mg PO DAILY 09/12/24 01/21/25 zoledronic acid 4 mg intravenous 4 mg IV .[id number] 09/12/24 01/21/25 solution diphenoxylate-atropine 2.5 1 tab PO DAILY PRN loose stools 09/28/24 01/21/25 mg-0.025 mg tablet (Lomotil) magnesium L-lactate 84 mg 84 mg PO DAILY 09/28/24 01/21/25 tablet,extended release loratadine 10 mg tablet 10 mg PO DAILY 10/15/24 01/21/25 Previous Rx's ?Medication ?Instructions ?Recorded aspirin 81 mg tablet,delayed 81 mg PO DAILY #30 tabs 08/10/23 release metoprolol succinate 25 mg 12.5 mg (1/2 x 25 mg) PO DAILY #15 08/10/23 tablet,extended release 24 hr tabs pantoprazole 40 mg tablet,delayed 40 mg PO BID #60 tabs 08/10/23 release Left AFO #1 ea 12/19/23 apixaban 5 mg tablet (Eliquis) 5 mg PO BID #90 tabs 09/13/24 bumetanide 1 mg tablet 2 mg (2 x 1 mg) PO DAILY 30 days 09/13/24 #60 tabs midodrine 5 mg tablet 5 mg PO TID #90 tabs 10/02/24 hydrocodone 5 mg-acetaminophen 325 1 tab PO Q8H PRN pain #7 tabs 03/07/ mg tablet Allergies Allergy/AdvReac Type Severity Reaction Status Date / Time No Known Allergies Allergy Verified 01/21/25 11:10 Review of Systems Narrative: Constitutional symptoms: Negative except as documented in HPI. Skin symptoms: Negative except as documented in HPI. Eye symptoms: Negative except as documented in HPI. ENMT symptoms: Negative except as documented in HPI. Respiratory symptoms: Negative except as documented in HPI. Cardiovascular symptoms: Negative except as documented in HPI. Gastrointestinal symptoms: Negative except as documented in HPI. Genitourinary symptoms: Negative except as documented in HPI. Musculoskeletal symptoms: Negative except as documented in HPI. Neurologic symptoms: Negative except as documented in HPI. Psychiatric symptoms: Negative except as documented in HPI. Endocrine symptoms: Negative except as documented in HPI. PFS ED PFSH: Medical History (Updated 03/10/25 @ 12:45 by Yoko Franklin MD) Chronic anticoagulation Mitral stenosis with regurgitation Symptomatic severe aortic stenosis with low ejection fraction CKD (chronic kidney disease) Mitral valve prolapse Systolic congestive heart failure Gastric ulcer GI bleed Multiple myeloma Coronary artery disease Surgical History H/O esophagogastroduodenoscopy Social History Smoking and tobacco/nicotine status: former use of tobacco/nicotine Physical Exam Narrative: EXAM NARRATIVE: General: Alert, no acute distress. Skin: Warm, dry. Head: Normocephalic, atraumatic. Neck: Supple, trachea midline. Eye: Extraocular movements are intact. Ears, nose, mouth and throat: mucosa moist. Cardiovascular: Regular, Normal peripheral perfusion. Respiratory: Lungs are clear to auscultation, respirations are non-labored, breath sounds are equal, Symmetrical chest wall expansion. Gastrointestinal: Soft, Nontender, Non distended Musculoskeletal: Extensive bruising along the left arm. Immobilizer in place, but not correctly. Neurological: Alert and oriented, No focal neurological deficit observed. Psychiatric: Cooperative, appropriate mood & affect. Course Vital Signs: Vital signs: Vital Signs Temperature 97.6 F 03/10/25 11:05 Pulse Rate 80 03/10/25 12:30 Respiratory Rate 17 03/10/25 11:05 Blood Pressure 111/58 03/10/25 12:30 Pulse Oximetry 96 03/10/25 12:30 Oxygen Delivery Me thod Room Air 03/10/25 12:30 MDM - Weakness Medical Decision Making Medical decision making: Patient's reason for coming to the emergency room: Generalized weakness, multiple falls Social determinants: Patient is and his helps take care of him. According to social work he would have to pay [id number] to be placed at a care home and would not qualify for rehab at this point I reviewed the patient's medical record. 80-year-old man with a history of pulmonary embolism, chronic anticoagulation on Eliquis, chronic kidney disease, congestive heart failure, peripheral artery disease, peripheral neuropathy, anemia, aortic stenosis. Patient had a visit about a month ago where he fell and hit his head he was on Eliquis at the time and had a intracranial hemorrhage. He was seen again a few days back with a fall and found to have left proximal humerus fracture. I reviewed the patient's current home meds Patient is still on Plavix but is off of his Eliquis at this time. Alternate historians: also provides some history. Differential diagnosis for patient presenting with generalized weakness including but not limited to and based on the above HPI, review of systems and physical exam: Sepsis. Dehydration. Renal failure. Electrolyte abnormalities. Anemia. Congestive heart failure. Hypotension. Coronary syndrome. Hepatitis. Cirrhosis. Infections such as pneumonia, urinary tract infection, [place]ne illness, Cellulitis, Viral infections including influenza and Covid-19. Workup: labwork and lab/exam driven imaging ordered to evaluate, rule in and rule out above pathologies. Chest x-ray: Cardiac enlargement with pulmonary vascular congestion and bibasilar infiltrates this most likely represents acute CHF. A proBNP was added. Patient is not requiring any oxygen now so I am not intervening at this time. This was reviewed and interpreted by myself the emergency room physician. I also reviewed the radiology report. CT head: Resolution of intracranial hemorrhage. No acute intracranial process. No intracranial hemorrhage, no evidence of infarct. No evidence of acute fracture. This was reviewed and interpreted by myself the emergency room physician. I also reviewed the radiology report. Lab Review: Laboratory results were reviewed and interpreted by myself the emergency room physician. Significant leukocytosis with a white count of 21,000. Lactate was not elevated. Urinalysis does not show signs of infection. Assessment of risk: - Level of risk high. This is an incredibly complex patient with heart failure, recent subdural hemorrhage, weakness and multiple falls with a recent proximal humerus fracture. And possibly a wrist fracture. He is now off of his anticoagulation as far as Eliquis goes but still on Plavix. Was hospitalization considered? Yes this patient is being hospitalized. Reexamination: Patient continues to be very alert and oriented. He answers all questions well. He denies any pneumonia type symptoms. No cough. No shortness of breath. Assessment and plan: Weakness Multiple falls Acute on chronic renal insufficiency Pulmonary edema Possible sepsis Acute on chronic renal failure ?Patient not requiring oxygen but x-ray does look like pulmonary edema. He has no signs or symptoms of pneumonia. No cough or shortness of breath. I am going to hold on any diuresis and with his generalized weakness and elevated white count empirically treat him for sepsis. - 50 cc normal saline given. This was to meet requirements for sepsis guidelines. No more fluid as this could be detrimental as the patient appears to be having pulmonary edema. No obvious source of sepsis at this time. -Broad-spectrum antibiotics were administered. -Sepsis quality measures. -Lactic acid with a reflex was ordered. -Blood cultures were ordered. ?I reevaluated the patient's volume status after sepsis fluids were given. -I discussed the patient with the hospitalist on-call who is admitting the patient. - Discussed findings and plan with patient. Answered any questions. - All laboratory values were reviewed and interpreted personally by myself, the ER physician - All imaging was reviewed and interpreted personally by myself, the ER physician. - Evaluation and treatment of this problem were appropriate in the emergency setting Critical Care: -I spent a total of 36 minutes of critical care time managing the patient, independent of any other practitioner. -The time involved in the performance of separately reportable procedures was not counted towards critical care time. Lab Data 03/10/25 11:20 03/10/25 11:20 Radiology Impressions Chest X-Ray 03/10/25 11:02 IMPRESSION: 1. Cardiac enlargement with pulmonary vascular congestion and bibasal infiltrates most likely representing acute CHF. Head CT 03/10/25 11:12 IMPRESSION: 1. Complete resolution of previously described subarachnoid hemorrhage over the LEFT parietal vertex. 2. No acute intracranial hemorrhage. No edema. 3. Mild atrophy and mild small vessel disease. Laboratory Results WBC 21.10 10^3/uL (3.29-11.43) H 03/10/25 11:20 RBC 2.73 10^6/uL (3.85-5.65) L 03/10/25 11:20 Hgb 8.30 g/dL (11.27-16.99) L 03/10/25 11:20 Hct 27.6 % (37-53) L 03/10/25 11:20 MCV 101.1 fl (82-101) H 03/10/25 11:20 MCH 30.4 pg (27-33) 03/10/25 11:20 MCHC 30.1 g/dL (30-55) 03/10/25 11:20 RDW 17.1 % (12.1-15.1) H 03/10/25 11:20 Plt Count 130 10^3/cmm (157-399) L 03/10/25 11:20 MPV 10.9 fL (7.4-10.4) H 03/10/25 11:20 Lymph % (Auto) Not Reportable 03/10/25 11:20 [place] % (Auto) Not Reportable 03/10/25 11:20 Lymph # (Auto) Not Reportable 03/10/25 11:20 [place] # (Auto) Not Reportable 03/10/25 11:20 Total Counted 100 (0-100) 03/10/25 11:20 Atypical Lymphs % 1.0 % (0-5) 03/10/25 11:20 Absolute Neutrophils 18.8 10^3/cmm (1.4-6.5) H 03/10/25 11:20 Segmented Neutrophils 87 % 03/10/25 11:20 Band Neutrophils 2.0 % 03/10/25 11:20 Absolute Lymphocytes 1.3 10^3/cmm (1.2-3.4) 03/10/25 11:20 Lymphocytes (Manual) 5 % 03/10/25 11:20 Monocytes (Manual) 3.0 % 03/10/25 11:20 Absolute Monocytes 0.6 10^3/cmm (0.1-0.6) 03/10/25 11:20 Eosinophils (Manual) 0 % 03/10/25 11:20 Absolute Eosinophils 0.0 10^3/cmm (0.0-0.7) 03/10/25 11:20 Basophils (Manual) 0.0 % 03/10/25 11: Absolute Basophils 0.0 10^3/cmm (0.0-0.2) 03/10/25 11:20 Metamyelocytes 1.0 % 03/10/25 11:20 Myelocytes 1.0 % 03/10/25 11:20 Nucleated RBCs 1.0 /100WBC (0-1) 03/10/25 11:20 Platelet Estimate Normal (Normal) 03/10/25 11:20 Polychromasia Trace 03/10/25 11:20 Anisocytosis Trace 03/10/25 11:20 Sodium 132 mmol/L (136-145) L 03/10/25 11:20 Potassium 5.0 mmol/L (3.5-5.1) 03/10/25 11:20 Chloride 98 mmol/L (98-107) 03/10/25 11:20 Carbon Dioxide 20 mmol/L (22-29) L 03/10/25 11:20 Anion Gap 19.0 (5-19) 03/10/25 11:20 BUN 46 mg/dL (8-23) H 03/10/25 11:20 Creatinine 2.5 mg/dL (0.7-1.2) H 03/10/25 11:20 GFR Calculation Not Reportable 03/10/25 11:20 Glucose 94 mg/dL (65-115) 03/10/25 11:20 Calculated Osmolality 286 mOsm/kg (285-295) 03/10/25 11:20 Lactic Acid 1.4 mmol/L (0.5-2.2) 03/10/25 11:20 Calcium 8.1 mg/dL (8.5-10.5) L 03/10/25 11:20 Total Bilirubin 0.5 mg/dL (0.15-1.2) 03/10/25 11:20 AST 69 U/L (0-40) H 03/10/25 11:20 ALT 23 U/L (0-41) 03/10/25 11:20 Alkaline Phosphatase 115 U/L (40-130) 03/10/25 11:20 Troponin T Baseline 153 ng/L (0-15) H* 03/10/25 11:20 C-Reactive Protein 138.0 mg/L (0.0-4.9) H 03/10/25 11:20 Total Protein 4.3 g/dL (6.6-8.7) L 03/10/25 11:20 Albumin 2.6 g/dL (3.5-5.2) L 03/10/25 11:20 Globulin 1.7 g/dL (1.3-4.6) 03/10/25 11:20 Urine Color Dark yellow (Yellow) A 03/10/25 11:30 Urine Appearance Cloudy (CLEAR) A 03/10/25 11:30 Urine pH 5.0 (5-7) 03/10/25 11:30 Ur Specific [place] 1.022 (1.005-1.030) 03/10/25 11:30 Urine Protein Trace (Negative) A 03/10/25 11:30 Urine Glucose (UA) Negative (Normal) 03/10/25 11:30 Urine Ketones Trace (Negative) 03/10/25 11: Urine Blood Negative (Negative) 03/10/25 11:30 Urine Nitrate Negative (Negative) 03/10/25 11:30 Urine Bilirubin Negative (Negative) 03/10/25 11:30 Urine Urobilinogen 1.0 mg/dL (Negative) 03/10/25 11:30 Ur Leukocyte Esterase Trace (Negative) A 03/10/25 11:30 Urine RBC 0-2 /hpf (0-2) 03/10/25 11:30 Urine WBC 0-5 /hpf (0-5) 03/10/25 11:30 Ur Squamous Epith Cells 0-5 /hpf (0-5) 03/10/25 11:30 Amorphous Sediment 1+ /hpf 03/10/25 11:30 Urine Bacteria None seen /hpf (NONE) 03/10/25 11:30 Hyaline Casts 106.34 /lpf 03/10/25 11:30 Fine Granular Casts 0-4 /lpf H 03/10/25 11:30 Influenza A (PCR) Negative (Negative) 03/10/25 11:18 Influenza Type B (PCR) Negative (Negative) 03/10/25 11:18 RSV (PCR) Negative (Negative) 03/10/25 11:18 SARS-CoV-2 (PCR) Negative (Negative) 03/10/25 11:18 All radiology interpretation(s) finalized by discharge Discharge Plan Discharge Patient Disposition: Admitted As Inpatient Clinical Impression: Weakness, Multiple falls, Acute on chronic renal failure, Pulmonary edema, Leukocytosis, Chronic anticoagulation Condition: Stable Coding Level of Care Code ED Transport Rn for Guerrero Tinoco
[2025-03-10 11:32] LABS: Hematocrit 27.6 % (37-53); Hemoglobin 8.30 g/dL (11.27-16.99); Mean Corpuscular HGB Conc 30.1 g/dL (30-55); Mean Corpuscular Hemoglobin 30.4 pg (27-33); Mean Corpuscular Volume 101.1 fl (82-101); Platelet Count 130 10^3/cmm (157-399); Red Blood Count 2.73 10^6/uL (3.85-5.65); White Blood Count 21.10 10^3/uL (3.29-11.43)
--- NOTE | 2025-03-10 11:45 | ECG_ITS ---
[facility] Date: 2025-[facility]10 Pat Name: Rafy Sierra Department: Room: Gender: Male Consulting Analyst: : 1945 Requested By: Yoko Mendez Order Number: [id number] Prince MD: Russ Orosco M.D. Measurements Intervals [place] Rate: 80 P: 21 CA: 190 QRS: 180 QRSD: 160 T: 46 QT: 449 QTc: 521 Interpretive Statements SINUS RHYTHM RIGHT BUNDLE BRANCH BLOCK [120+ ms QRS DURATION, UPRIGHT V1, 40+ ms S IN I/aVL/V4/V5/V6] LEFT POSTERIOR FASCICULAR BLOCK [QRS AXIS > 109, INFERIOR Q] POSSIBLE ANTERIOR MYOCARDIAL INFARCTION , PROBABLY OLD [30 ms Q WAVE IN V3/V4, OR R < 0.2 mV IN V4] Compared to ECG 02/21/2025 00:17:36 P WAVES NOW CLEARLY VISIBLE TRACING ARTIFACT NO LONGER PRESENT Electronically Signed On 03-12-2025 08:54:16 CDT by Russ Orosco M.D. [email or web address] [id number]
--- NOTE | 2025-03-10 11:47 | PC.NURSE ---
Pt is a/o x3, confused to date. Pt is very forgetful. This nurse went into room and pt had forgot that I was his nurse and pt repeated the same questions from previous conversation.
[2025-03-10 11:49] LABS: Glucose Urine UA Negative (Normal); Nitrate Urine Negative (Negative); Specific Gravity, Urine 1.022 (1.005-1.030)
[2025-03-10 11:51] LABS: Lactic Sepsis W/Reflex 1.4 mmol/L (0.5-2.2)
[2025-03-10 11:52] LABS: Alanine Aminotransferase 23 U/L (0-41); Albumin Level 2.6 g/dL (3.5-5.2); Alkaline Phosphatase 115 U/L (40-130); Anion Gap 19.0 (5-19); Aspartate Amino Transferase 69 U/L (0-40); Blood Urea Nitrogen 46 mg/dL (8-23); Calcium 8.1 mg/dL (8.5-10.5); Carbon Dioxide 20 mmol/L (22-29); Chloride 98 mmol/L (98-107); Creatinine Clr Calc Pharmacy 22.7391; Globulin 1.7 g/dL (1.3-4.6); Glucose 94 mg/dL (65-115); Osmolality Calculated 286 mOsm/kg (285-295); Potassium 5.0 mmol/L (3.5-5.1); Sodium 132 mmol/L (136-145); Total Protein 4.3 g/dL (6.6-8.7)
[2025-03-10 11:57] LABS: Troponin(5th) Baseline 153 ng/L (0-15)
[2025-03-10 12:01] LABS: Slide Review Slide Review Perform
[2025-03-10 12:02] LABS: Absolute Segmented Neutrophil 18.4 10/cmm (1.6-7.1); Atypical Lymphs 1.0 % (0-5); Band Neutrophils Absolute 0.4 10^3/cmm (0.0-1.2); Total Cells Counted 100 (0-100)
[2025-03-10 12:04] LABS: Anisocytosis Trace
[2025-03-10 12:05] LABS: Polychromasia Trace
[2025-03-10 12:19] LABS: Respiratory Syncytial Virus Ce NEGATIVE (Negative); SARS-CoV-2 PCR NEGATIVE (Negative)
--- OUTSIDE RECORDS SUMMARY | 2025-03-10 12:21 | XMS_ITS | Encounter Summary ---
Author Organization [facility] Address [address] [place] [address] Care Team Providers Care Neuropathologist Name Role Phone Unavailable Primary Care Provider Unavailabl e Encounter Details Date Type Department Care Team (Latest Contact Info) Description 09/06/2006 Outpatient Historical [facility] [address] [address] [place] [address] Umesh Collins MD [address] [place] [address] Benign Neoplasm of Skin of Trunk, except Scrotum (Primary Dx) Social History Tobacco Use Types Packs/Day Years Used Date Smoking Tobacco: Never Assessed Sex and Gender Information Value Date Recorded Sex Assigned at Not on file 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
--- OUTSIDE RECORDS SUMMARY | 2025-03-10 12:21 | XMS_ITS | Clinical Summary ---
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
--- OUTSIDE RECORDS SUMMARY | 2025-03-10 12:21 | XMS_ITS | Clinical Summary ---
Author Organization [facility] Address [address] [place] [address] Phone Care Team Providers Care Marble [employer] Name Role Phone Bruce Rees Primary Care Provider [phone] Allergies No known active allergies Medications lenalidomide (REVLIMID) 10 mg capsule Take 10 mg by mouth daily. Active daratumumab (DARZALEX) 20 mg/mL Solution Inject 20 mg by intravenous injection one time only. 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 There was a punctate ectasia in the left colon that was cauterized with a 7 [place] gold probe at 15 W. There were [...] AM Scope Out: 10:13:17 AM [address] [place] Ricardo Lieberman MD GI PROCEDURE ORDERABLES F inal Result from Last 3 Months or Most Recently Relevant to Health Maintenance Additional Health Concerns Infection Onset Date Last Indicated Multi Drug Resistant Organis m (MDRO) Comment:10/16/24: Urine (Raoultella) 10/16/2024 10/16/2024 Insurance MEDICARE PART A AND B [facility] [place] Advance Directives For more information, please contact: [phone] * Full Code (Latest Code Status on File) Date Activated Date Inactivated Comments 10/16/2024 12:22 AM 10/20/2024 6:53 PM Care Teams Marble [employer] Relationship Specialty Start Date End Date Bruce Rees DO [address] [facility] [address] [place] [id number] PCP - General Family Practice 10/16/24
[2025-03-10 12:29] LABS: UA Slide Review UA Slide Review Perf
--- NOTE | 2025-03-10 12:51 | PC.SOCIAL ---
Placement CM was consulted by Bruno Franklin to see patient in regards to possible SNF placement. CM to room and spoke to patient and his and discussed that since patient will not have qualifying stay he will have to private pay for SNF and that will not include therapy. Patients reports that if patient is just going to lay in bed @ SNF he can lay in bed @ home. She reports she would like to see what the ER workup shows before making a decision about how to proceed. CM updated Bruno Franklin ER provider that patient will have to private pay for SNF and they are not sure if they are willing to do that @ this time since patient would not get rehab. He reports they will continue w/ ER workup.
[2025-03-10 13:06] LABS: NT Pro B Type Natriuretic Pept 10667 pg/mL (0-450)
[2025-03-10] MEDS: linezolid premix 600 MG/300 ML PREMIX 300 MG IV (13:07)
--- NOTE | 2025-03-10 13:24 | USCV_ITS ---
Rafy Sierra Age: 80 Gender: M : 1945 Exam Date: 03/10/2025 14:37 Ordering Phys: Yoko Franklin MD Technologist: [place] Exam Location: [facility] Indication: CHF BP: 103 / 54 HR: 73 Rhythm: Sinus Technical Quality: Adequate MEASUREMENTS (Male / Female) Normal Values 2D ECHO LV Diastolic Diameter PLAX 6.9 cm 4.2 - 5.9 / 3.9 - 5.3 cm IVS Diastolic Thickness 0.8 cm 0.6 - 1.0 / 0.6 - 0.9 cm IVS Systolic Thickness 1.0 cm LVPW Diastolic Thickness 1.1 cm 0.6 - 1.0 / 0.6 - 0.9 cm LVPW Systolic Thickness 1.1 cm LVOT Diameter 2.0 cm LV Ejection Fraction 2D Teich 27.6 % LV Ejection Fraction MOD 4C 47.0 % LV Ejection Fraction MOD 2C 35.6 % LV Ejection Fraction 2C AL 35.7 % LA Diameter 3.2 cm RA Systolic Volume 4C AL 37.0 ml RA Systolic Volume 4C MOD 35.9 ml LA Sys Volume AL 53.7 cm cubed LA Sys Volume Index AL 28.5 cm cubed/m squared Aorta at Sinotubular Diameter 2.8 cm M-MODE LA Ao Ratio MM 1.8 AV Cusp Separation MM 0.8 cm DOPPLER AV Peak Velocity 227.0 cm/s LVOT Peak Velocity 154.0 cm/s AV Area Cont Eq vti 2.4 cm squared AV Area Cont Eq pk 2.1 cm squared MV Peak Velocity 182.0 cm/s MV Area PHT 12.0 cm squared Mitral E to A Ratio 0.6 TR Peak Velocity 145.0 cm/s TR Peak Gradient 8.4 mmHg TV Peak E Velocity 73.0 cm/s PV Peak Velocity 125.0 cm/s FINDINGS Left Ventricle Moderately increased left ventricular cavity size. Moderately decreased left ventricular systolic function with akinesis of the inferior and inferolateral junior and hypokinesis of the anterior wall . Left ventricular ejection fraction is 36%. Indeterminate left ventricular diastolic function secondary to severe mitral annular calcification. Normal left ventricular wall thickness. Right Ventricle Normal right ventricular size and systolic function. Right Atrium Normal right atrial size. Left Atrium Normal left atrial size. IA Septum Normal appearance of the interatrial septum. Mitral Valve Severe mitral annular calcification. Moderate mitral valve stenosis with a mean pressure gradient of 6 mmHg at a heart rate of 90 bpm. Moderate mitral valve regurgitation with a eccentric posteriorly directed jet. Mildly thickened mitral valve leaflets. Aortic Valve Aortic valve not well-visualized but appears to be a bioprosthetic aortic valve with normal function. Tricuspid Valve Normal tricuspid valve structure. Trace tricuspid valve regurgitation. Pulmonary pressure cannot be assessed due to lack of tricuspid valve regurgitation jet. Pulmonic Valve Normal pulmonic valve structure. No pulmonic valve stenosis or regurgitation. Pericardium No pericardial effusion. Aorta Normal diameter of the aortic root and ascending thoracic aorta. IVC IVC not well-visualized CONCLUSIONS Moderately increased left ventricular cavity size. Moderately decreased left ventricular systolic function with akinesis of the inferior and inferolateral junior and hypokinesis of the anterior wall . Left ventricular ejection fraction is 36%. Indeterminate left ventricular diastolic function secondary to severe mitral annular calcification Normal right ventricular size and systolic function. Severe mitral annular calcification. Mildly thickened mitral valve leaflets. Moderate mitral valve stenosis with a mean pressure gradient of 6 mmHg at a heart rate of 90 bpm. Moderate mitral valve regurgitation with a eccentric posteriorly directed jet. Aortic valve not well-visualized but appears to be a bioprosthetic aortic valve with normal function. Russ Orosco MD, FACC (Electronically Signed) Final Date: 10 March 2025 19:07 S
--- NOTE | 2025-03-10 13:26 | ECG_ITS ---
[employer] Test Date: 2025-03-10 Pat Name: Rafy Sierra Department: Room: Gender: Male Crime Scene Technician: : 1945 Requested By: Yoko Mendez Order Number: [id number] Reading MD: JOSE ELIAS ESCAMILLA Measurements Intervals [place] Rate: 82 P: 62 CO: 189 QRS: 182 QRSD: 166 T: 30 QT: 455 QTc: 532 Interpretive Statements SINUS RHYTHM WITH OCCASIONAL VENTRICULAR PREMATURE COMPLEXES RIGHT BUNDLE BRANCH BLOCK [120+ ms QRS DURATION, UPRIGHT V1, 40+ ms S IN I/aVL/V4/V5/V6] LEFT POSTERIOR FASCICULAR BLOCK [QRS AXIS > 109, INFERIOR Q] POSSIBLE ANTERIOR MYOCARDIAL INFARCTION , PROBABLY OLD [30 ms Q WAVE IN V3/V4, OR R < 0.2 mV IN V4] Compared to ECG 03/10/2025 11:45:13 Ventricular premature complex(es) now present Myocardial infarct finding still present Electronically Signed On 03-14-2025 21:13:09 CDT by JOSE ELIAS ESCAMILLA [email or web address] [id number]
--- NOTE | 2025-03-10 13:27 | PC.PHAR ---
Medications not on [facility] med list are the following: Eliquis 5mg bid 10/24/24 45ds Midodrine 5mg tid 10/02/24 30ds Zoledronic Acid 4mg recon Nathalie. 4gm iv [id number] 09/12/24 90ds
--- NOTE | 2025-03-10 13:45 | CT_ITS ---
WS: [id number] CT chest wo con [id number] HISTORY: abnormal chest xray TECHNIQUE: Axial imaging performed through the thorax. Coronal and sagittal reformats are submitted. All CT scans at [facility] use at least one of these dose optimization techniques: automated exposure control; mA and/or kV adjustment per patient size (includes targeted exams where dose is matched to clinical indication); or iterative reconstruction. CONTRAST: Omnipaque 350; 100 mL IV. DLP: 514.40 mGy.cm COMPARISON: 09/12/2024 Lungs and central airway: Mild breathing motion artifact. There is hazy attenuation throughout both lungs from fluid overload and edema. Small to moderate bilateral layering pleural effusions, RIGHT greater than LEFT. Bandlike areas of atelectasis in the mid and lower lung yost. No mass identified. A telectasis in the RIGHT middle lobe also. Pleura: Small to moderate bilateral pleural effusions, RIGHT greater than LEFT. Heart and pericardium: Moderate cardiomegaly. Prior aortic valve replacement. Moderate atherosclerotic plaque within the aorta. No pericardial effusion. Mediastinum and adithya: No mediastinum or hilar adenopathy. Vessels: Atherosclerotic calcifications aorta. Dilated pulmonary artery. Chest wall and lower neck: Bilateral gynecomastia. Upper abdomen: Cholelithiasis without acute cholecystitis. Mild haziness and mesenteric edema noted in the upper abdomen surrounding the pancreas. Known fatty replacement of the pancreas. Nodular appearance of the surface. Osseous structures: Lytic lesions scattered within the vertebral bodies, and sternum. Patient has known multiple myeloma. Most significant destructive lytic change within the T9 vertebral body. There is soft tissue extending posteriorly and may be causing some mild encroachment upon the central canal and RIGHT foramen. Large destructive lytic lesion in the manubrium. CT/CT chest wo con [id number] IMPRESSION: 1. Mild to moderate bilateral pleural effusions, RIGHT greater than LEFT. Irina lar size compared to the prior exam from 09/12/2024. 2. Moderate cardiomegaly. 3. Mild diffuse hazy attenuation from pulmonary edema. 4. Bandlike areas of atelectasis in the mid and lower lung yost. 5. Cholelithiasis. 6. Hazy attenuation within the upper abdomen surrounding fatty replacement of the pancreas. This may be secondary to fluid overload. Pancreatitis or colitis may also be responsible for the inflammatory changes. Less likely due to the ch olelithiasis. 7. Patient has extensive lytic disease from multiple myeloma. Lytic lesion at T9 is the most aggressive and there may be soft tissue encroaching upon the tho racic cord and foramen. This could be further evaluated by MRI with and without contrast.
[2025-03-10 13:59] LABS: Troponin 5 2HR Delta -5.8 ABS# (0-10)
[2025-03-10 14:00] LABS: Troponin 5 2HR 147.2 ng/L (0-15)
--- NOTE | 2025-03-10 15:05 | PC.NURSE ---
Pt is incontinent of b/b. Pt had bowel movement in bed, pt changed, cleaned and placed in clean brief. Pt bowel movement was soft/loose.
[2025-03-10] MEDS: HYDROcodone-acetaminophen 5-325 mg Tablet 1 TAB PO (15:16)
--- NOTE | 2025-03-10 15:49 | PC.SOCIAL ---
Comru Access Code Comru Access Code: [email or web address]
--- NOTE | 2025-03-10 15:54 | PC.NURSE ---
pt upon coming to er has bedsores to l/r buttocks, groin.
[2025-03-10 16:09] LABS: Coronavirus 229E,HKU1,NL63,OC4 Not Detected (NOT DETECT); Parainfluenza Virus Type 1 Not Detected (NOT DETECT); Parainfluenza Virus Type 2 Not Detected (NOT DETECT); Parainfluenza Virus Type 3 Not Detected (NOT DETECT); Parainfluenza Virus Type 4 Not Detected (NOT DETECT); SARS-COV-2 Not Detected (NOT DETECT)
--- NOTE | 2025-03-10 17:02 | ECG_ITS ---
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1945 Requested By: Yoko Mendez Order Number: [id number] Reading MD: JOSE ELIAS ESCAMILLA Measurements Intervals [place] Rate: 77 P: 81 WA: 88 QRS: 170 QRSD: 133 T: 54 QT: 414 QTc: 471 Interpretive Statements SINUS RHYTHM WITH SHORT WA INTERVAL RIGHT AXIS DEVIATION [QRS AXIS > 100] RIGHT BUNDLE BRANCH BLOCK [120+ ms QRS DURATION, UPRIGHT V1, 40+ ms S IN I/aVL/V4/V5/V6] ANTEROSEPTAL MYOCARDIAL INFARCTION , PROBABLY OLD [40+ ms Q WAVE IN V1-V4] ST DEPRESSION, CONSIDER SUBENDOCARDIAL INJURY [0.1+ mV ST DEPRESSION] Compared to ECG 03/10/2025 13:26:58 Short WA interval now present Right-axis deviation now present ST (T wave) deviation now present Electronically Signed On 03-14-2025 21:14:02 CDT by JOSE ELIAS ESCAMILLA [email or web address]
--- NOTE | 2025-03-10 17:30 | PM.HP ---
Providers/Chief Complaint Admitting Physician: Contreras Linton MD Primary Care Provider: Bruce Rees DO Chief Complaint: General Weakness History of Present Illness Rafy Sierra is a 80 year old male with history of left proximal humerus fracture on Sunday comes back because his sling is ill fitting and uncomfortable and he is having pain and skin tear in his left arm. He wants this seen by orthopedist. He had lab and x-ray workup showing pulmonary edema on x-ray confirmed by CT scan and white count of 20,000. He is referred for observation because of those problems. Patient has echocardiogram showing EF 35 to 40% with mitral regurg and severe low-flow aortic stenosis now moderate mitral valve stenosis as of 09/13/2024 Review of Systems Narrative: General No fevers chills weight gain he said weight loss in 9 months of 70 pounds previously weight 245 pounds Cardiovascular positive for valve replacements he reports as a TAVR in 2024 and PTCA and stent of 2024 his last echo was 2024. Cardiology work was done at [facility]. Respiratory no shortness of breath cough wheezing GI no nausea vomiting he has had diarrhea for 3 to 4 weeks 3-4 times a day no dysuria hematuria incontinence Neuro no seizures strokes limb weakness Malignancy history he has had colon cancer resected then chemo and radiation in 2011 he has had mild myeloma being followed by Dr. Nassar at [facility] next appointment is in May Medications/Allergies Home Medications ?Medication ?Instructions ?Recorded ?Confirmed ?Last Taken ?Type atorvastatin 80 mg tablet 80 mg PO QAM 08/06/23 03/10/25 03/10/25 History gabapentin 300 mg capsule 600 mg PO TID 08/06/23 03/10/25 03/10/25 History dlihxpch-stmajsgz-krpkd acid 400 1 tab PO QAM 08/06/23 03/10/25 03/10/25 History mcg-vit K 20 mcg-lycop 300 mcg tablet aspirin 81 mg tablet,delayed 81 mg PO DAILY #30 tabs 08/10/23 03/10/25 03/10/25 Rx release metoprolol succinate 25 mg 12.5 mg (1/2 x 25 mg) PO DAILY #15 08/10/23 03/10/25 03/10/25 Rx tablet,extended release 24 hr tabs pantoprazole 40 mg tablet,delayed 40 mg PO BID #60 tabs 08/10/23 03/10/25 03/10/25 Rx release Left AFO #1 ea 12/19/23 03/10/25 Unknown Rx albuterol sulfate 2.5 mg/3 mL 2.5 mg inhalation Q4H PRN 09/12/24 03/10/25 Unknown History (0.083 %) solution for nebulization Shortness Of Breath zoledronic acid 4 mg intravenous 4 mg IV .[id number] 09/12/24 03/10/25 09/12/24 History solution apixaban 5 mg tablet (Eliquis) 5 mg PO BID #90 tabs 09/13/24 03/10/25 09/27/24 Rx bumetanide 1 mg tablet 2 mg (2 x 1 mg) PO DAILY 30 days 09/13/24 03/10/25 03/10/25 Rx #60 tabs diphenoxylate-atropine 2.5 1 tab PO DAILY PRN loose stools 09/28/24 03/10/25 09/27/24 History mg-0.025 mg tablet (Lomotil) magnesium L-lactate 84 mg 84 mg PO DAILY 09/28/24 03/10/25 03/10/25 History tablet,extended release loratadine 10 mg tablet 10 mg PO DAILY 10/15/24 03/10/25 03/10/25 History hydrocodone 5 mg-acetaminophen 325 1 tab PO Q8H PRN pain #7 tabs 03/07/25 03/10/25 Unknown Rx mg tablet L.acid,paracasei,plant,rhamn-B.animalis,breve 1 cap PO BID 03/10/25 03/10/25 03/10/25 History 10 billion cell capsule acetaminophen 500 mg tablet 1,000 mg PO Q6H PRN Pain 03/10/25 03/10/25 Unknown History clopidogrel 75 mg tablet 75 mg PO DAILY 03/10/25 03/10/25 03/10/25 History escitalopram oxalate 10 mg tablet 10 mg PO BEDTIME 03/10/25 03/10/25 03/09/25 History loperamide 2 mg capsule 4 mg PO Q6H PRN Diarrhea 03/10/25 03/10/25 Unknown History psyllium husk 3.4 gram/5.4 gram 1 tbsp PO DAILY 03/10/25 03/10/25 03/10/25 History oral powder (Metamucil) spironolactone 50 mg tablet 50 mg PO DAILY 03/10/25 03/10/25 03/10/25 History sucralfate 1 gram tablet 1 g PO QID 03/10/25 03/10/25 03/10/25 History Allergies Allergy/AdvReac Type Severity Reaction Status Date / Time No Known Allergies Allergy Verified 01/21/25 11:10 PFSH Acute PFSH: Medical History (Updated 03/10/25 @ 12:45 by Yoko Franklin MD) Chronic anticoagulation Mitral stenosis with regurgitation Symptomatic severe aortic stenosis with low ejection fraction CKD (chronic kidney disease) Mitral valve prolapse Systolic congestive heart failure Gastric ulcer GI bleed Multiple myeloma Coronary artery disease Surgical History H/O esophagogastroduodenoscopy Social History (Updated 03/10/25 @ 17:35 by Contreras Linton MD) Smoking and tobacco/nicotine status: former use of tobacco/nicotine Quit status (tobacco/nicotine): has quit using Year quit tobacco: 1984 Former quit date comment: He smoked a pack a day for 20 years Additional social history: Wants full code is discussed with Contreras Linton MD on 03/10/2025 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 Vitals/I&O/Wt Last Vital Signs Temp 97.6 F 03/10/25 11:05 Pulse 76 03/10/25 16:25 Resp 17 03/10/25 11:05 BP 101/59 03/10/25 16:25 Pulse Ox 96 03/10/25 16:25 O2 Del Method Room Air 03/10/25 16:25 03/10/25 03/10/25 03/10/25 06:59 14:59 22:59 Intake Total 350 / 350 Balance 350 / 350 Weight last 48 hrs Weight 74.843 kg Physical Exam Narrative: General well-developed well-nourished male in no acute cardiopulmonary distress he is on room air CV regular rate and rhythm Lungs coarse inspiratory and expiratory breath sounds not overtly wheezing Abdomen positive bowel tones soft nontender Calves no tenderness cords pretibial edema Data 03/10/25 11:20 03/10/25 11:20 Micro: Microbiology 03/10/25 11:24 Blood Culture - Preliminary Blood SPECIMEN COLLECTED 03/10/25 11:20 Blood Culture - Preliminary Blood SPECIMEN COLLECTED A&P Assessment and plan 1. Pulmonary edema: Will start with diuresis. May need positive pressure ventilation noninvasively with BiPAP 2. Acute on chronic renal failure: As above 3. Closed fracture of head of left humerus: Of Dr. Gonzalez to evaluate mass 4. Chronic anticoagulation: Continue Eliquis 5. Acute exacerbation of CHF (congestive heart failure): Patient has had valvular replacement with TAVR aortic valve. Also has mitral valve stenosis and regurg with pulmonary. It is reported as severe micro atrial regurg. Will diurese and obtain new echo and likely cardiology consultation 6. Leukocytosis: Patient had white count of 15 on February 20 and 12 on March 06. Unclear etiology at this time patient was given empiric antibiotics in ER and cultures were obtained. Urinalysis negative chest x-ray looks like heart failure and viral respiratory panel was negative. Patient is afebrile. Repeat CBC tomorrow PDMP PDMP Reviewed: Not Reviewed Attestations Medical Necessity Statement*: Patient admitted to the hospital observation for diuresis and anticipate 1-2 midnight Coding Level of Care Code 91543 Diagnoses Pulmonary edema J81.1 Acute on chronic renal failure N17.9; N18.9 Closed fracture of head of left humerus S42.292A Chronic anticoagulation Z79.01 Acute exacerbation of CHF (congestive heart failure) I50.9 Leukocytosis D72.829 Time Spent (min) 70
[2025-03-10 18:02] LABS: Troponin 5 6HR 134.7 ng/L (0-15); Troponin 5 6HR Delta -18.3 ng/L (0-12)
[2025-03-10] MEDS: FUROsemide 10 mg/mL SDV 4mL 40 MG IVP (20:09)
[2025-03-11] VITALS (8 sets, daily range): BP systolic 91–124; BP diastolic 52–83; PULSE 71–85; RESP 13–24; TEMP 35.6–36.6; O2SAT 90–97; BMI 29.7
--- NOTE | 2025-03-11 00:55 | PC.NURSE ---
contacted about low BP, at 1999 BP was 103/55 with a MAP of 71, this nurse gave the ordered lasix, at 2319 BP was 91/49 with a MAP of 63, at 29 blood pressure was rechecked and it was 81/48 with a MAP of 59, after explaining the situation to MD, stated that EF is lower that the blood pressure is normal and to put a perimeter on lasix (do not give if MAP is below 65). No new orders received other than the hold perimeter.
[2025-03-11 04:05] LABS: Hematocrit 27.8 % (37-53); Hemoglobin 8.70 g/dL (11.27-16.99); Mean Corpuscular HGB Conc 31.3 g/dL (30-55); Mean Corpuscular Hemoglobin 30.6 pg (27-33); Mean Corpuscular Volume 97.9 fl (82-101); Nucleated Red Blood Cells % 0.3 %; Platelet Count 125 10^3/cmm (157-399); Red Blood Count 2.84 10^6/uL (3.85-5.65); White Blood Count 21.51 10^3/uL (3.29-11.43)
[2025-03-11 04:41] LABS: Anion Gap 16.8 (5-19); Blood Urea Nitrogen 51 mg/dL (8-23); Calcium 7.9 mg/dL (8.5-10.5); Carbon Dioxide 21 mmol/L (22-29); Chloride 101 mmol/L (98-107); Creatinine Clr Calc Pharmacy 23.9600; Glucose 114 mg/dL (65-115); Osmolality Calculated 293 mOsm/kg (285-295); Potassium 4.8 mmol/L (3.5-5.1); Sodium 134 mmol/L (136-145)
[2025-03-11 04:42] LABS: Lipase 9 U/L (13-60); Magnesium 2.4 mg/dL (1.7-2.3)
[2025-03-11 04:48] LABS: Slide Review Slide Review Perform
--- NOTE | 2025-03-11 08:26 | PM.CONSULT ---
Providers/Reason For Consult Consulting Physician/Specialty*: Ramon Gonzalez DO/orthopedic surgery Reason for Consult*: Left proximal humerus fracture Requesting Physician: Dr. Franklin?emergency department Attending Physician: Contreras Linton MD Primary Care Provider: Bruce Rees DO History of Present Illness History of Present Illness Rafy Sierra is a 80 year old male who sustained a a fall onto the left shoulder was seen emergency department on 03/06/2025 initially placed in a sling and for outpatient follow-up. Patient unfortunately presented emergency department on 03/10/2025 and patient subsequently was admitted by the hospitalist. Patient has proximal humerus fracture and currently was in shoulder immobilizer which was given and issues and discomfort orthopedics was consulted for evaluation and treatment recommendations. There was concern for possible wrist fracture which Emergency Department states he was not having any significant pain in this area at the wrist. Review of Systems General: Reports: 10 or more systems reviewed and unremarkable except in HPI and below Medications/Allergies Home Medications ?Medication ?Instructions ?Recorded ?Confirmed ?Last Taken ?Type atorvastatin 80 mg tablet 80 mg PO QAM 08/06/23 03/10/25 03/10/25 History gabapentin 300 mg capsule 600 mg PO TID 08/06/23 03/10/25 03/10/25 History bwwkxxgz-jzfkptag-ffwcr acid 400 1 tab PO QAM 08/06/23 03/10/25 03/10/25 History mcg-vit K 20 mcg-lycop 300 mcg tablet aspirin 81 mg tablet,delayed 81 mg PO DAILY #30 tabs 08/10/23 03/10/25 03/10/25 Rx release metoprolol succinate 25 mg 12.5 mg (1/2 x 25 mg) PO DAILY #15 08/10/23 03/10/25 03/10/25 Rx tablet,extended release 24 hr tabs pantoprazole 40 mg tablet,delayed 40 mg PO BID #60 tabs 08/10/23 03/10/25 03/10/25 Rx release Left AFO #1 ea 12/19/23 03/10/25 Unknown Rx albuterol sulfate 2.5 mg/3 mL 2.5 mg inhalation Q4H PRN 09/12/24 03/10/25 Unknown History (0.083 %) solution for nebulization Shortness Of Breath zoledronic acid 4 mg intravenous 4 mg IV .[id number] 09/12/24 03/10/25 09/12/24 History solution apixaban 5 mg tablet (Eliquis) 5 mg PO BID #90 tabs 09/13/24 03/10/25 09/27/24 Rx bumetanide 1 mg tablet 2 mg (2 x 1 mg) PO DAILY 30 days 09/13/24 03/10/25 03/10/25 Rx #60 tabs diphenoxylate-atropine 2.5 1 tab PO DAILY PRN loose stools 09/28/24 03/10/25 09/27/24 History mg-0.025 mg tablet (Lomotil) magnesium L-lactate 84 mg 84 mg PO DAILY 09/28/24 03/10/25 03/10/25 History tablet,extended release loratadine 10 mg tablet 10 mg PO DAILY 10/15/24 03/10/25 03/10/25 History hydrocodone 5 mg-acetaminophen 325 1 tab PO Q8H PRN pain #7 tabs 03/07/25 03/10/25 Unknown Rx mg tablet L.acid,paracasei,plant,rhamn-B.animalis,breve 1 cap PO BID 03/10/25 03/10/25 03/10/25 History 10 billion cell capsule acetaminophen 500 mg tablet 1,000 mg PO Q6H PRN Pain 03/10/25 03/10/25 Unknown History clopidogrel 75 mg tablet 75 mg PO DAILY 03/10/25 03/10/25 03/10/25 History escitalopram oxalate 10 mg tablet 10 mg PO BEDTIME 03/10/25 03/10/25 03/09/25 History loperamide 2 mg capsule 4 mg PO Q6H PRN Diarrhea 03/10/25 03/10/25 Unknown History psyllium husk 3.4 gram/5.4 gram 1 tbsp PO DAILY 03/10/25 03/10/25 03/10/25 History oral powder (Metamucil) spironolactone 50 mg tablet 50 mg PO DAILY 03/10/25 03/10/25 03/10/25 History sucralfate 1 gram tablet 1 g PO QID 03/10/25 03/10/25 03/10/25 History Allergies Allergy/AdvReac Type Severity Reaction Status Date / Time No Known Allergies Allergy Verified 01/21/25 11:10 Current Medications Generic Name Dose Route Start Last Admin Trade Name Og PRN Reason Stop Dose Admin Apixaban 5 mg 03/11/25 05:00 03/11/25 04:54 Apixaban 5 Mg Tablet PO 5 mg BID EDWARD Administration Aspirin 81 mg 03/11/25 05:00 03/11/25 04:54 Aspirin 81 Mg Ec Tablet PO 81 mg DAILY EDWARD Administration Atorvastatin Calcium 80 mg 03/11/25 05:00 03/11/25 04:54 Atorvastatin 40 Mg Tablet PO 80 mg QAM EDWARD Administration Clopidogrel Bisulfate 75 mg 03/11/25 05:00 03/11/25 04:54 Clopidogrel 75 Mg Tablet PO 75 mg DAILY EDWARD Administration Escitalopram Oxalate 10 mg 03/10/25 21:00 03/10/25 20:09 Escitalopram 10 Mg Tablet PO 10 mg BEDTIME EDWARD Administration Furosemide 40 mg 03/10/25 17:45 03/11/25 04:26 Furosemide 10 Mg/Ml Sdv 4ml IVP Not Given BID EDWARD Gabapentin 600 mg 03/10/25 21:00 03/11/25 04:54 Gabapentin 300 Mg Capsule PO 600 mg TID EDWARD Administration Loratadine 10 mg 03/11/25 05:00 03/11/25 04:54 Loratadine 10 Mg Tablet PO 10 mg DAILY EDWARD Administration Metoprolol Succinate 12.5 mg 03/11/25 05:00 03/11/25 04:26 Metoprolol Succinate Er (24 Hr) 25 Mg Tablet PO Not Given DAILY EDWARD Spironolactone 50 mg 03/11/25 05:00 03/11/25 04:26 Spironolactone 25 Mg Tablet PO Not Given DAILY [facility] Sucralfate 1 gm 03/10/25 23:00 03/11/25 04:54 Sucralfate 1 Gm Tablet PO 1 gm QID EDWARD Administration PFSH Acute PFSH: Medical History (Updated 03/11/25 @ 19:35 by Ramon Gonzalez DO) Chronic anticoagulation Mitral stenosis with regurgitation Symptomatic severe aortic stenosis with low ejection fraction CKD (chronic kidney disease) Mitral valve prolapse Systolic congestive heart failure Gastric ulcer GI bleed Multiple myeloma Coronary artery disease Surgical History H/O esophagogastroduodenoscopy Social History Smoking and tobacco/nicotine status: former use of tobacco/nicotine Quit status (tobacco/nicotine): has quit using Year quit tobacco: 1984 Former quit date comment: He smoked a pack a day for 20 years Additional social history: Wants full code is discussed with Contreras Linton MD on 03/10/2025 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 Patient has cotton dressing on in place with some bloody saturation this was completely removed and patient is noted of having skin tear areas on the posterior lateral aspects of the elbow. These are superficial skin tears with just gentle bleed oozing secondary to patient had been on thinners. Purple and ecchymosis noted about the left upper extremity. He is able to wiggle the fingers and perform all cardinal hand movements of AIN/PIN/radial/ulnar/median nerve being intact. He has tenderness palpation at the left proximal humerus as well as no range of motion was tested secondary to his pain and fracture. He does endorse sensation tact light touch at the axillary nerve distribution. Given his pain is unable to Fire[employer] deltoid at this time. Secondary survey examination distally he has minimal tenderness to palpation over the distal radius no clinical deformity appreciated no significant swelling appreciated. Secondary survey examinations unremarkable to any pathology to the right upper extremity or the bilateral lower extremities as he these are gross motor or sensory intact as he can wiggle the toes plantarflex and dorsiflex ankle sensation tact light touch distally. No tenderness palpation of the bilateral lower extremity joints or the right upper extremity joints. Urinary Catheter Management: Disla: Cath Placed During This Visit: yes Reason for Continuing Indwelling Catheter: Accurate Measurement of Urinary Output in Critically Ill Patients Urinary Catheter Date of Insertion: 03/10/25 Urinary Catheter Time of Insertion: 19:35 Data 03/11/25 03:50 03/11/25 03:50 Micro: Microbiology 03/10/25 11:24 Blood Culture - Preliminary Blood SPECIMEN COLLECTED 03/10/25 11:20 Blood Culture - Preliminary Blood SPECIMEN COLLECTED Xray Ortho: Radiologist's impression: Ordering Provider/Ordering MD: Rossy Desir Date of Service: 03/06/25 Procedure(s): XR elbow LT min 3V* 84557 Accession Number(s): [id number] Report Number: [id number] PROCEDURE INFORMATION: Exam: XR Left Elbow Exam date and time: 03/06/2025 11:49 PM Age: 80 years old Clinical indication: Injury or trauma; Fall; Blunt trauma (contusions or hematomas); Elbow; Left TECHNIQUE: Imaging protocol: Radiologic exam of the left elbow. Views: 3 or more views. COMPARISON: CR (CHEST, ) 03/06/2025 11:49 PM FINDINGS: Bones/joints: Normal. Soft tissues: Normal. XR/XR elbow LT min 3V* 59880 IMPRESSION: No acute findings. Ordering Provider/Ordering MD: Rossy Desir Date of Service: 03/06/25 Procedure(s): XR wrist LT min 3V* 56642 Accession Number(s): [id number] Report Number: [id number] PROCEDURE INFORMATION: Exam: XR Left Wrist Exam date and time: 03/06/2025 11:49 PM Age: 80 years old Clinical indication: Injury or trauma; Fall; Blunt trauma (contusions or hematomas); Wrist; Left TECHNIQUE: Imaging protocol: Radiologic exam of the left wrist. Views: 3 or more views. COMPARISON: CR (UP EXM, ) 03/06/2025 11:49 PM FINDINGS: Bones/joints: Questionable nondisplaced fracture of the distal radius, involving the greater radius styloid. Soft tissues: Superficial soft tissues appear within normal limits. XR/XR wrist LT min 3V* [id number] IMPRESSION: Questionable nondisplaced fracture of the distal radius, involving the greater radius styloid. Lack of significant soft tissue swelling suggests that this may represent a nutrient channel. If patient is exquisitely tender at this location, this likely represents an acute nondisplaced fracture. Ordering Provider/Ordering MD: Rossy Desir Date of Service: 03/06/25 Procedure(s): XR shoulder LT min 2V* [id number] Accession Number(s): [id number] Report Number: [id number] PROCEDURE INFORMATION: Exam: XR Left Shoulder Exam date and time: 03/06/2025 11:49 PM Age: 80 years old Clinical indication: Injury or trauma; Fall; Blunt trauma (contusions or hematomas); Shoulder; Left TECHNIQUE: Imaging protocol: Radiologic exam of the left shoulder. Views: 2 or more views. COMPARISON: CT cervical spin wo con* [id number] 02/21/2025 2:21 AM FINDINGS: Bones/joints: Displaced and angulated fracture of the left humerus neck. Soft tissues: Soft tissues appear swollen about the lateral shoulder. XR/XR shoulder LT min 2V* [id number] IMPRESSION: Displaced and angulated fracture of the left humerus neck. A&P Assessment and plan 1. Closed fracture of head of left humerus: 2. Fracture of left distal radius: Plan: Internal medicine as primary Orthopedics consulted Imaging reviewed Recommend brace to the left wrist?nonoperative treatment at this time he has mild tenderness palpation swelling at the distal radius Recommend simple sling versus cuff and collar to the left upper extremity to treat the proximal humerus Recommend daily dressing changes of triple antibiotic ointment nonstick Adaptic dressing 4 x 4's Curlex ABD and an Calvin wrap to be changed daily for skin tears to the left elbow Ice as needed for pain and swelling Pain control per primary No acute orthopedic surgical intervention recommended at this time Nonweightbearing and maintain sling left upper extremity Orthopedic to sign off patient and follow peripherally at this time Recommend outpatient orthopedic follow-up Patient and understand agree with current plan. All questions answered. At this point in time patient has currently excepted positioning the left proximal humerus fracture he does have some subtle angulation but I feel with sling and potentially a focus on letting gravity work at the elbow this will hopefully stay in good alignment he does have medical comorbidities in addition to this as well we talked about his options in detail and ultimately through shared decision making we will continue to watch this and treat this conservatively. Given appropriate instructions as stated above for daily dressing changes for skin tears recommend a wrist brace to the left distal radius as well as sling to the left proximal humerus. Will follow-up outpatient. Patient and understand agree with current plan. All questions answered. PDMP PDMP Reviewed: Not Reviewed Coding Level of Care Code Acute Code for Chg Fwd Diagnoses Closed fracture of head of left humerus S42.292A Fracture of left distal radius S52.502A Time Spent (min) 45
[2025-03-11] MEDS: HYDROcodone-acetaminophen 5-325 mg Tablet 1 TAB PO ×2 (08:58→17:36)
[2025-03-11] MEDS: neomycin-poly-bacitracin oint 28 gm 1 APPLIC TOPICAL ×2 (09:00→21:51)
--- NOTE | 2025-03-11 09:57 | PC.CHAP ---
Pastoral Care Encounter/Spiritual Assessment Type of Contact [] Declined trench trimmer fine visit [] Patient/Family/Request visit [] Outpatient visit [] Follow-up visit [] Physician referral [] Code/Alert [x] Routine visit [] Staff referral [] Actively dying [] Patient sleeping [x] Family support [] [] Out of room [] Palliative care [] [] Receiving care in room [] Pre-surgical visit [] Trauma [] Long length of stay [] ICU visit [] Other: Relational/Emotional Strength [x] Patient feels connected with others/family/visitors/staff [] Distress [] Loneliness/isolation [] Abandonment Spirituality of Patient [x] Person of Jennifer [] Attends Spiritism of their Jennifer [x] Believes in Prayer [] Reads Bible or Roman Catholic materials [] There are Spiritual issues to be addressed Yarn Rewinder Interventions [] Prayer [x] Active listening [] Non-anxious presence [x] Spiritual/emotional support [] Crisis/trauma care [] Spiritual counseling [] Bereavement support [] Provided bereavement packet [] Provided Bible/devotional materials [] Provided toy/stuffed animal, coloring book to patient or family member [] Provided Communion [] Anointing/[place] [] Salvation [x] Completed spiritual assessment [] Other: Impact on Illness or Injury [] Angry [] Fearful [] Anxious [] Often cries [] Exhaustion [] Unable to work [] Unable to attend protestant [] Unable to walk/stand [] Unable to read [] Unable to drive [] Unable to eat/drink [] Unable to sleep [] Unable to be with family [] Patient intubated [] Other: Summary Time spent with patient 5 min
--- NOTE | 2025-03-11 10:39 | PM.PN ---
Subjective Subjective: 80-year-old man admitted with pulmonary edema and bilateral pleural effusions has hypotension and difficulty to diurese. He had a TAVR valve replacement in December as well as a stent at [facility] in [place]. Patient has fallen multiple times in the last month suffering fall with subarachnoid hemorrhage on 02/21/2025 and fall with left proximal humerus fracture 03/06/2025. He uses a walker but now cannot use a walker. Patient is unable to get up. White count is elevated but there is no clear source of infection. UA is negative blood cultures pending. Patient is accompanied by his Kacy Vitals/I&O/Wt Last Vital Signs Temp 97.9 F 03/11/25 07:47 Pulse 72 03/11/25 07:47 Resp 24 H 03/11/25 07:47 BP 101/54 03/11/25 07:47 Pulse Ox 91 03/11/25 07:47 O2 Del Method Room Air 03/11/25 03:45 03/10/25 03/11/25 03/11/25 22:59 06:59 14:59 Output Total 0 / 0 250 / 250 200 / 200 Balance 0 / 350 -250 / 100 -200 / -200 Weight last 48 hrs Weight 83.6 kg Weight 84 kg Weight 74.843 kg Physical Exam Narrative: General well-developed well-nourished male in no acute cardiopulmonary distress he is on room air CV regular rate and rhythm Lungs coarse inspiratory and expiratory breath sounds not overtly wheezing Abdomen positive bowel tones soft nontender Calves no tenderness cords pretibial edema Urinary Catheter Management: Disla: Cath Placed During This Visit: yes Reason for Continuing Indwelling Catheter: Accurate Measurement of Urinary Output in Critically Ill Patients Urinary Catheter Date of Insertion: 03/10/25 Urinary Catheter Time of Insertion: 19:35 Data 03/11/25 03:50 03/11/25 03:50 Micro: Microbiology 03/10/25 11:24 Blood Culture - Preliminary Blood SPECIMEN COLLECTED 03/10/25 11:20 Blood Culture - Preliminary Blood SPECIMEN COLLECTED Echo: Radiologist's impression: Moderately increased left ventricular cavity size. Moderately decreased left ventricular systolic function with akinesis of the inferior and inferolateral junior and hypokinesis of the anterior wall . Left ventricular ejection fraction is 36%. Indeterminate left ventricular diastolic function secondary to severe mitral annular calcification Normal right ventricular size and systolic function. Severe mitral annular calcification. Mildly thickened mitral valve leaflets. Moderate mitral valve stenosis with a mean pressure gradient of 6 mmHg at a heart rate of 90 bpm. Moderate mitral valve regurgitation with a eccentric posteriorly directed jet. Aortic valve not well-visualized but appears to be a bioprosthetic aortic valve with normal function. A&P Assessment and plan 1. Pulmonary edema: Will start with diuresis. May need positive pressure ventilation noninvasively with BiPAP Patient hypotensive and only voided 500 cc. Will recheck chest x-ray. Echo done shows 2. Acute on chronic renal failure: As above 3. Closed fracture of head of left humerus: Managed by Dr. Gonzalez with sling. Therapy evaluation 4. Chronic anticoagulation: Continue Eliquis 5. Acute exacerbation of CHF (congestive heart failure): Patient has had valvular replacement with TAVR aortic valve. Also has mitral valve stenosis and regurg with pulmonary. It is reported as severe micro atrial regurg. Will diurese and obtain new echo and likely cardiology consultation 6. Leukocytosis: Patient had white count of 15 on February 20 and 12 on March 06. Unclear etiology at this time patient was given empiric antibiotics in ER and cultures were obtained. Urinalysis negative chest x-ray looks like heart failure and viral respiratory panel was negative. Patient is afebrile. Still elevated white count now CRP up to 138. Cannot exclude endocarditis 7. Mitral stenosis with regurgitation: Will consult cardiology due to severe mitral stenosis and inability to diurese. Patient is changed to inpatient PDMP PDMP Reviewed: Not Reviewed Attestations Medical Necessity Statement*: Patient lamine in hospital for diuresis and evaluated showing of pulmonary edema in the setting of severe mitral stenosis in regards to and will require greater than 2 midnight Coding Level of Care Code Acute Code for [facility] Fwd Diagnoses Pulmonary edema J81.1 Acute on chronic renal failure N17.9; N18.9 Closed fracture of head of left humerus S42.292A Encounter type: initial encounter Chronic anticoagulation Z79.01 Acute exacerbation of CHF (congestive heart failure) I50.9 Leukocytosis D72.829 Mitral stenosis with regurgitation I05.2
[2025-03-11 11:57] LABS: Thyroid Stimulating Hormone 1.63 uIU/mL (0.27-4.20)
--- NOTE | 2025-03-11 14:00 | P.CONIM_ITS ---
<Statement entered by Keron Carreon MD - 03/11/25 20:28> Patient was evaluated and cared for in conjunction with an advanced practice practitioner. I personally examined the patient and reviewed the chart and all pertinent data including imaging, telemetry, and laboratory results. I discussed the patient in detail with the advanced practice practitioner. Please see their note for complete H&P testing result and agreed upon plan of care for the patient. GENERAL: Patient is alert, awake and oriented x3. Laying in the bed without distress, left arm in sling HEART: Regular S1 and S2. No murmur, rub or gallop. LUNGS: Clear to auscultate bilaterally. CENTRAL NERVOUS SYSTEM: Grossly nonfocal. EXTREMITIES: Lower extremities with out edema bilaterally. Assessment and plan Status post fall Humerus fracture Pulmonary embolism history History of atrial fibrillation Acute on chronic decompensated systolic heart failure now overall compensated Worsening of LV function Patient denies any complaint such as shortness of breath orthopnea now, he is sitting in the bed eating comfortably he can talk in full sentences there is no significant JVD skin appears to be dry. He was orthostatic and hypotensive possible more on the dry side at this point we will hold diuretics and his blood pressure medicines. Given nature of recurrent fall we will discontinue aspirin however due to high risk for thromboembolic phenomena from atrial fibrillation and pulmonary embolism will continue Plavix and anticoagulation. Providers/Reason For Consult 2 Consulting Physician/Specialty*: Dr Cinda Carreon, interventional cardiology Reason for Consult*: Elevated troponin, moderate mitral stenosis, cardiomyopathy/CHF Attending Physician: Contreras Linton MD Primary Care Provider: Bruce Rees DO History of Present Illness History of Present Illness Rafy Sierra is a 80 year old male with past medical history of atrial fibrillation (onset 2023), TAVR in December 2024, CAD status post stent in November of this year, multiple myeloma, history of GI bleed status post clipping, history of PE in September 2024, systolic CHF (LVEF 45 to 50% last year, decreased to 35 to 40% September of this year, currently 36%), moderate mitral stenosis with moderate mitral regurgitation (mean gradient 6 mmHg, was 5 mmHg in September), ARIE on CKD. He had a recent fall with proximal humerus fracture of the left arm, multiple skin tears. He was admitted to the hospital for concerns of weakness leading to fall. Chest x-ray consistent with pulmonary vascular congestion and bibasilar infiltrates felt to be related to CHF. CT of the chest revealed small to moderate bilateral layering pleural effusions right greater than left, atelectasis in the mid and lower lung yost. WBC 21, lactic acid 1.4. No ischemic EKG changes, he is in sinus rhythm. Consult was requested for heart failure management. Review of Systems 2 Const: Denies: fever(s), chills, change in weight, fatigue or diaphoresis Eyes: Denies: change in vision ENMT: Denies: epistaxis Card: Denies: chest pain, palpitations, irregular heart rhythm, edema, syncope, pre-syncope, dyspnea on exertion, orthopnea or leg pain with exertion Resp: Denies: dyspnea, productive cough or wheezing GI: Denies: nausea, vomiting, hematemesis, hematochezia or melena : Denies: hematuria Musc: Denies: extremity swelling Jorge/Lymph: Reports: easy bruising and easy bleeding (History of GI bleed) Medications/Allergies Home Medications ?Medication ?Instructions ?Recorded ?Confirmed ?Last Taken ?Type atorvastatin 80 mg tablet 80 mg PO [facility] 08/06/2303/10/25 History gabapentin 300 mg capsule 600 mg PO TID 08/06/2303/1003/10/25 History wkqbolbr-ayenyyug-xvahb acid 400 1 tab PO QAM 08/06/23 03/10/25 03/10/25 History mcg-vit K 20 mcg-lycop 300 mcg tablet aspirin 81 mg tablet,delayed 81 mg PO DAILY #30 tabs 0 08/10/23 03/10/25 03/10/25 Rx release metoprolol succinate 25 mg 12.5 mg (1/2 x 25 mg) PO DA KENYA #15 08/10/23 03/10/25 03/10/25 Rx tablet,extended release 24 hr tabs pantoprazole 40 mg tablet,delayed 40 mg PO BID #60 tab s 08/10/23 03/10/25 03/10/25 Rx release Left AFO #1 ea 12/19/23 03/10/25 Unkn own Rx albuterol sulfate 2.5 mg/3 mL 2.5 mg inhalation Q4H MN N 09/12/24 03/10/25 Unknown History (0.083 %) solution for nebulization Shortness Of Breat h zoledronic acid 4 mg intravenous 4 mg IV .[id number] 07/0803/10/25 09/12/24 History solution apixaban 5 mg tablet (Eliquis) 5 mg PO BID #90 tabs 03/10/25 09/27/24 Rx bumetanide 1 mg tablet 2 mg (2 x 1 mg) PO DAILY 30 days 09/13/24 03/10/25 03/10/25 Rx #60 tabs diphenoxylate-atropine 2.5 1 tab PO DAILY PRN loose st ools 09/28/24 03/10/25 09/27/24 History mg-0.025 mg tablet (Lomotil) magnesium L-lactate 84 mg 84 mg PO DAILY 09/28/2402/1203/10/25 History tablet,extended release loratadine 10 mg tablet 10 mg PO DAILY 10/15/2402/1203/10/25 History hydrocodone 5 mg-acetaminophen 325 1 tab PO Q8H PRN pa in #7 tabs 03/07/25 03/10/25 Unknown Rx mg tablet L.acid,paracasei,plant,rhamn-B.animalis,breve 1 cap PO BID 03/10/25 03/10/25 03/10/25 History 10 billion cell capsule acetaminophen 500 mg tablet 1,000 mg PO Q6H PRN Pain 1 03/10/25 Unknown History clopidogrel 75 mg tablet 75 mg PO DAILY 03/10/2502/1203/10/25 History escitalopram oxalate 10 mg tablet 10 mg PO BEDTIME 03/10/25 03/09/25 History loperamide 2 mg capsule 4 mg PO Q6H PRN Diarrhea 03/10/25 Unknown History psyllium husk 3.4 gram/5.4 gram 1 tbsp PO DAILY 03/10/25 03/10/25 History oral powder (Metamucil) spironolactone 50 mg tablet 50 mg PO DAILY 03/10/2503/10/25 History sucralfate 1 gram tablet 1 g PO QID 03/10/25 03/10/25 03/10/25 History Allergies Allergy/AdvReac Type Severity Reaction Status Date / Time No Known Allergies Allergy Verified 01/21/25 11:10 Current Medications Generic Name Dose Route Start Last Admin Trade Name Og PRN Reason Stop Dose Admin Acetaminophen 1,000 mg 03/10/25 17:44 03/11/25 13:11 Acetaminophen 500 Mg Tablet PO 1,000 mg Q6H PRN Administration PAIN Hydrocodone Bitart/Acetaminophen 1 tab 03/10/25 17:44 03/11/25 08:58 Hydrocodone-Acetaminophen 5-325 Mg Tablet PO 1 tab Q8H PRN Administration PAIN Apixaban 5 mg 03/11/25 05:00 03/11/25 04:54 Apixaban 5 Mg Tablet PO 5 mg BID EDWARD Administration Aspirin 81 mg 03/11/25 05:00 03/11/25 04:54 Aspirin 81 Mg Ec Tablet PO 81 mg DAILY EDWARD Administration Atorvastatin Calcium 80 mg 03/11/25 05:00 03/11/25 04:54 Atorvastatin 40 Mg Tablet PO 80 mg QAM EDWARD Administration Clopidogrel Bisulfate 75 mg 03/11/25 05:00 03/11/25 04:54 Clopidogrel 75 Mg Tablet PO 75 mg DAILY EDWARD Administration Escitalopram Oxalate 10 mg 03/10/25 21:00 03/10/25 20:09 Escitalopram 10 Mg Tablet PO 10 mg BEDTIME EDWARD Administration Furosemide 80 mg 03/11/25 08:45 03/11/25 10:39 Furosemide 10 Mg/Ml Sdv 4ml IVP Not Given BID EDWARD Gabapentin 600 mg 03/10/25 21:00 03/11/25 13:11 Gabapentin 300 Mg Capsule PO 600 mg TID EDWARD Administration Loratadine 10 mg 03/11/25 05:00 03/11/25 04:54 Loratadine 10 Mg Tablet PO 10 mg DAILY EDWARD Administration Neomycin/Polymyxin/Bacitracin 1 applic 03/11/25 08:45 03/11/25 09:00 Lmqdfxdl-Wjrn-Vjhswsszzh Oint 28 Gm TOPICAL 1 applic BID EDWARD Administration Spironolactone 50 mg 03/11/25 05:00 03/11/25 04:26 Spironolactone 25 Mg Tablet PO Not Given DAILY EDWARD Sucralfate 1 gm 03/10/25 23:00 03/11/25 11:24 Sucralfate 1 Gm Tablet PO 1 gm QID EDWARD Administration PFSH Acute 2 PFSH: Medical History Chronic anticoagulation Mitral stenosis with regurgitation Symptomatic severe aortic stenosis with low ejection fraction CKD (chronic kidney disease) Mitral valve prolapse Systolic congestive heart failure Gastric ulcer GI bleed Multiple myeloma Coronary artery disease Surgical History H/O esophagogastroduodenoscopy Social History Smoking and tobacco/nicotine status: former use of tobacco/nicotine Quit status (tobacco/nicotine): has quit using Year quit tobacco: 1984 Former quit date comment: He smoked a pack a day for 20 years Additional social history: Wants full code is discussed with Contreras Linton MD on 03/10/2025 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 Vitals/I&O/Wt Last Vital Signs Temp 97.9 F 03/11/25 07:47 Pulse 83 03/11/25 12:00 Resp 22 H 03/11/25 12:00 BP 123/68 03/11/25 12:00 Pulse Ox 96 03/11/25 12:00 O2 Del Method Room Air 03/11/25 03:45 03/10/25 03/11/25 03/11/25 22:59 06:59 14:59 Output Total 0 / 250 250 / 250 200 / 200 Balance 0 / 100 -250 / 100 -200 / -200 Weight last 48 hrs Weight 184 lb 4.903 oz Weight 185 lb 3.013 oz Weight 165 lb Physical Exam 2 Const: COMMON NORMALS: no acute distress and patient oriented x3 GENERAL APPEARANCE: cooperative and comfortable ORIENTATION/CONSCIOUSNESS: Yes awake, Yes oriented to person, Yes oriented to place and Yes oriented to time Chest: COMMONS NORMALS: normal inspection of the chest and normal palpation of entire chest wall CHEST: Yes Symmetrical chest wall rise Resp: COMMON NORMALS: normal respiratory effort, No retractions and No use of accessory muscles EFFORT & INSPECTION: Yes symmetric chest movement A USCULTATION: wheezes Cardio: COMMON NORMALS: regular rate, regular rhythm, S1 normal heart sound present, S2 normal heart sound present, No gallops present (Cardio), No clicks present (Cardio), No murmurs present (Cardio) and No rub (Cardio) RATE: r egular rate RHYTHM: regular rhythm HEART SOUNDS: S1 normal heart sound present and S2 normal heart sound present PERIPHERAL PULSES: radial pulses present Extremity: COMMON NORMALS: no pedal edema NARRATIVE EXTREMITY EXAM: Left arm in a sling, very bruised Neuro: COMMON NORMALS: patient oriented x3 and moves all extremities S ENSORIUM/ORIENTATION: Yes oriented to person, Yes oriented to place and Yes oriented to time Urinary Catheter Management: Disla: Cath Placed During This Visit: yes Reason for Continuing Indwelling Catheter: Accurate Measurement of Urinary Output in Critically Ill Patients Urinary Catheter Date of Insertion: 03/10/25 Urinary Catheter Time of Insertion: 19:35 Data 03/11/25 03:50 03/11/25 03:50 Micro: Microbiology 03/10/25 11:24 Blood Culture - Preliminary Blood NEGATIVE TO DATE 03/10/25 11:20 Blood Culture - Preliminary Blood NEGATIVE TO DATE A&P Assessment and plan 1. Systolic congestive heart failure: 2. Mitral stenosis with regurgitation: 3. Elevated troponin: 4. Chronic anticoagulation: 5. Acute on chronic renal failure: 6. Closed fracture of head of left humerus: 7. Pleural effusion, bilateral: Plan: Clinically he is felt to appear dry at the time of exam. He has not received any Lasix due to hypotension. He is felt to have orthostatic hypotension resulting in multiple falls. Due to PE in September and history of atrial fibrillation, with recent stent in November, would continue Plavix and Eliquis. Stop aspirin. Can discuss Watchman and IVC filter with him at a later time. Hold spironolactone as creatinine has increased significantly to 2.5 currently, was 1.5 last week but has been hovering around 1.7 to 2. Troponin downtrending, but the elevation has been the present since 2023. PDMP PDMP Reviewed: Not Reviewed Coding Level of Care Code Acute Code for [facility] Fwd Diagnoses Systolic congestive heart failure I50.20 Mitral stenosis with regurgitation I05.2 Elevated troponin R79.89 Chronic anticoagulation Z79.01 Acute on chronic renal failure N17.9; N18.9 Closed fracture of head of left humerus S42.292A Pleural effusion, bilateral J90
--- OUTSIDE RECORDS SUMMARY | 2025-03-11 16:36 | XMS_ITS | Clinical Summary ---
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
--- OUTSIDE RECORDS SUMMARY | 2025-03-11 16:36 | XMS_ITS | Clinical Summary ---
Author Organization [facility] Address [address] [place] [address] Phone Care Team Providers Care Etiquette Teacher Name Role Phone Bruce Rees Primary Care Provider [phone] Allergies No known active allergies Medications lenalidomide (REVLIMID) 10 mg capsule Take 10 mg by mouth daily. Active daratumumab (DARZALEX) 20 mg/mL Solution Inject 20 mg by intravenous injection one time only. 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 There was a punctate ectasia in the left colon that was cauterized with a 7 Bahamian gold probe at 15 W. 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
--- OUTSIDE RECORDS SUMMARY | 2025-03-11 16:36 | XMS_ITS | Encounter Summary ---
Author Organization [employer] [facility] Address [address] [place] [address] Care Team Providers Care Children Counselor Name Role Phone Unavailable Primary Care Provider Unavailabl e Encounter Details Date Type Department Care Team (Latest Contact Info) Description 09/06/2006 Outpatient Historical [facility] [address] [place] [address] Umesh Collins MD [address] [place] [address] Benign Neoplasm of Skin of Trunk, except Scrotum (Primary Dx) Social History Tobacco Use Types Packs/Day Years Used Date Smoking Tobacco: Never Assessed Sex and Gender Information Value Date Recorded Sex Assigned at Not on file 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
--- OUTSIDE RECORDS SUMMARY | 2025-03-11 16:36 | XMS_ITS | Encounter Summary ---
Author Organization [employer] Address 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 Gender Identity Not on file Sexual Orientation Not on file documented as of this encounter Plan of Treatment Not on file documented as of this encounter Visit Diagnoses Not on filedocumented in this encounter Additional Health Concerns Infection Onset Date Last Indicated Resolved Time 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
[2025-03-12 03:46] LABS: Hematocrit 28.2 % (37-53); Hemoglobin 8.80 g/dL (11.27-16.99); Mean Corpuscular HGB Conc 31.2 g/dL (30-55); Mean Corpuscular Hemoglobin 30.8 pg (27-33); Mean Corpuscular Volume 98.6 fl (82-101); Platelet Count 122 10^3/cmm (157-399); Red Blood Count 2.86 10^6/uL (3.85-5.65); White Blood Count 19.58 10^3/uL (3.29-11.43)
[2025-03-12 04:00] VITALS: BP 141/51; PULSE 84; RESP 22; TEMP 36.1; O2SAT 99
[2025-03-12 04:05] LABS: Anion Gap 14.4 (5-19); Blood Urea Nitrogen 49 mg/dL (8-23); Calcium 7.8 mg/dL (8.5-10.5); Carbon Dioxide 22 mmol/L (22-29); Chloride 101 mmol/L (98-107); Creatinine Clr Calc Pharmacy 29.8833; Glucose 118 mg/dL (65-115); Osmolality Calculated 290 mOsm/kg (285-295); Potassium 4.4 mmol/L (3.5-5.1); Sodium 133 mmol/L (136-145)
[2025-03-12 04:41] LABS: Slide Review Slide Review Perform
[2025-03-12 04:42] LABS: Absolute Segmented Neutrophil 15.9 10/cmm (1.6-7.1); Total Cells Counted 100 (0-100)
[2025-03-12] MEDS: psyllium powder Pkt 1 PACKET PO (05:11)
[2025-03-12 05:59] VITALS: BMI 21.7
--- NOTE | 2025-03-12 06:38 | XR_ITS ---
WS: [id number] Exam: XR chest 1V portable [id number] Date/Time of Exam: 03/12/2025 7:07 AM Reason For Exam: follow up CHF Comparison 03/10/2025. There is less pulmonary vascular congestion than noted on the prior study. Heart size slightly smaller. There are still bibasilar pulmonary infiltrates and small pleural effusions remaining. No pneumothorax. The mediastinum is normal in contour. Bony structures are intact. XR/XR chest 1V portable [id number] IMPRESSION: 1. Improving congestive heart failure pattern.
[2025-03-12] MEDS: neomycin-poly-bacitracin oint 28 gm 1 APPLIC TOPICAL (08:35)
[2025-03-12] MEDS: HYDROcodone-acetaminophen 5-325 mg Tablet 1 TAB PO (08:42)
--- NOTE | 2025-03-12 11:17 | USCV_ITS ---
Rafy Sierra Age: 80 Gender: M : 1945 Exam Date: 03/12/2025 15:12 Ordering Phys: Katina Briseno Technologist: [place] Exam Location: [facility] – [place], [place] Indication: r/o dvt HISTORY: r/o dvt PROCEDURES: Venous duplex imaging was performed in bilateral lower extremities. The following venous structures were evaluated: common femoral vein, profunda vein, proximal portion of the greater saphenous vein, superficial femoral vein, and the popliteal vein. In addition, the posterior tibial and peroneal trunk were evaluated. Serial compression, augmentation maneuvers, and spectral Doppler flow evaluation were performed. FINDINGS: Normal 2-D Doppler and augmentation and compressibility throughout the lower extremity venous structures. Additional imaging through the proximal calf veins also reveals no thrombus. Limited evaluation of the greater saphenous vein is patent with no thrombus. CONCLUSIONS No DVT bilateral lower extremities. Dr. Sherrill Truong DO (Electronically Signed) Final Date: 13 March 2025 07:22 S
--- NOTE | 2025-03-12 11:18 | P.PN_ITS ---
<Statement entered by Keron Carreon MD - 03/16/25 19:40> Patient was evaluated and cared for in conjunction with an advanced practice practitioner. I personally examined the patient and reviewed the chart and all pertinent data including imaging, telemetry, and laboratory results. I discussed the patient in detail with the advanced practice practitioner. Please see their note for complete H&P testing result and agreed upon plan of care for the patient Subjective 2 Subjective: No events overnight. No chest pain or shortness of breath. Vitals/I&O/Wt Last Vital Signs Temp 97.0 F L 03/12/25 04:00 Pulse 84 03/12/25 04:00 Resp 22 H 03/12/25 04:00 BP 141/51 03/12/25 04:00 Pulse Ox 99 03/12/25 04:00 O2 Del Method Room Air 03/12/25 04:00 03/11/25 03/12/25 03/12/25 22:59 06:59 14:59 Intake Total 240 / 480 Output Total 250 / 800 350 / 800 Balance -10 / -320 -350 / -320 Weight last 48 hrs Weight 134 lb 7.712 oz Weight 184 lb 4.903 oz Weight 185 lb 3.013 oz Physical Exam 2 Const: COMMON NORMALS: no acute distress and patient oriented x3 GENERAL APPEARANCE: cooperative and comfortable ORIENTATION/CONSCIOUSNESS: Yes awake, Yes oriented to person, Yes oriented to place and Yes oriented to time Chest: COMMONS NORMALS: normal inspection of the chest and normal palpation of entire chest wall CHEST: Yes Symmetrical chest wall rise Resp: COMMON NORMALS: normal respiratory effort, No retractions, No use of accessory muscles and clear to auscultation bilaterally EFFORT & INSPECTION: Yes symmetric chest movement AUSCULTATION: clear to auscultation bilaterally Cardio: COMMON NORMALS: regular rate, regular rhythm, S1 normal heart sound present, S2 normal heart sound present, No gallops present (Cardio), No clicks present (Cardio), No murmurs present (Cardio) and No rub (Cardio) RATE: r egular rate RHYTHM: regular rhythm HEART SOUNDS: S1 normal heart sound present and S2 normal heart sound present PERIPHERAL PULSES: radial pulses present Extremity: COMMON NORMALS: no pedal edema Neuro: COMMON NORMALS: patient oriented x3 and moves all extremities S ENSORIUM/ORIENTATION: Yes oriented to person, Yes oriented to place and Yes oriented to time Urinary Catheter Management: Disla: Cath Placed During This Visit: yes Reason for Continuing Indwelling Catheter: Accurate Measurement of Urinary Output in Critically Ill Patients Urinary Catheter Date of Insertion: 03/10/25 Urinary Catheter Time of Insertion: 19:35 Data 03/12/25 03:10 03/12/25 03:10 Micro: Microbiology 03/10/25 11:24 Blood Culture - Preliminary Blood NEGATIVE TO DATE 03/10/25 11:20 Blood Culture - Preliminary Blood NEGATIVE TO DATE A&P Assessment and plan 1. S/P TAVR (transcatheter aortic valve replacement): 2. Coronary artery disease: 3. GI bleed: 4. Pulmonary embolism: 5. Systolic congestive heart failure: 6. Elevated troponin: 7. CKD (chronic kidney disease): 8. Fracture of left distal radius: 9. Closed fracture of head of left humerus: Plan: Will check venous duplex, if no DVT will stop Eliquis due to history of GI bleed in the last year and frequent falls. Will recommend Watchman device placement and IVC filter due to high risk of bleeding complications. He is well compensated, continue to hold diuretics. Due to CKD with baseline creatinine around 2.0 will discontinue spironolactone. Will check orthostatics. He has follow-up set up with cardiology in [place], recommend he keep these appointments. For now he can continue low-dose metoprolol, Plavix and Eliquis. PDMP PDMP Reviewed: Not Reviewed Attestations 2 Medical Necessity Statement*: Per hospitalist Coding Level of Care Code Acute Code for Chg Fwd Diagnoses S/P TAVR (transcatheter aortic valve replacement) Z95.2 Coronary artery disease I25.10 GI bleed K92.2 Pulmonary embolism I26.99 Systolic congestive heart failure I50.20 Elevated troponin R79.89 CKD (chronic kidney disease) N18.9 Fracture of left distal radius S52.502A Closed fracture of head of left humerus S42.292A
[2025-03-12 12:03] VITALS: BP 122/57; PULSE 92; RESP 16; TEMP 37.1; O2SAT 98
--- NOTE | 2025-03-12 14:55 | PC.NURSE ---
patient up to [facility] with PT, PT called nurse to assist with robert care. We assited patient to standing, cleaned patient quickly patient started to tremble yelling that he was falling patient was assited to chair. upon lowerin to chair patients head flipped back eyes rolled to back of head patient became adams and agonal breathing noted. I sternal rubbed patient he aroused provider to bedside
--- NOTE | 2025-03-12 14:58 | PM.PN ---
Subjective Subjective: 80-year-old man admitted with pulmonary edema and bilateral pleural effusions has hypotension and difficulty to diurese. He had a TAVR valve replacement in December as well as a stent at [facility] in [place]. Patient has fallen multiple times in the last month suffering fall with subarachnoid hemorrhage on 02/21/2025 and fall with left proximal humerus fracture 03/06/2025. He uses a walker but now cannot use a walker. Patient is unable to get up. White count is elevated but there is no clear source of infection. UA is negative blood cultures preliminary negative. Patient is accompanied by his Kacy. Patient just had therapy from [facility] and they noted that upon moving back from bedside commode to patient turned ashen hemphill eyes rolled back and he went limp. They laid him back and gave him sternal rub and he awakened. Patient is conversant now. He he and his describe this as similar to the falls from which she suffered injury. They deny that the patient is on chronic steroids Vitals/I&O/Wt Last Vital Signs Temp 98.7 F 03/12/25 12:03 Pulse 92 03/12/25 12:03 Resp 16 03/12/25 12:03 BP 122/57 03/12/25 12:03 Pulse Ox 98 03/12/25 12:03 O2 Del Method Room Air 03/12/25 12:03 03/11/25 03/12/25 03/12/25 22:59 06:59 14:59 Intake Total 240 / 480 240 / 240 Output Total 250 / 450 350 / 800 Balance - -350 / -320 240 / 240 Weight last 48 hrs Weight 61 kg Weight 83.6 kg Weight 84 kg Physical Exam Narrative: General well-developed well-nourished male in no acute cardiopulmonary distress he is on room air CV regular rate and rhythm Lungs good air movement trace basilar crackles Abdomen positive bowel tones soft nontender Calves no tenderness cords pretibial edema Urinary Catheter Management: Disla: Cath Placed During This Visit: yes Reason for Continuing Indwelling Catheter: Accurate Measurement of Urinary Output in Critically Ill Patients Urinary Catheter Date of Insertion: 03/10/25 Urinary Catheter Time of Insertion: 19:35 Data 03/12/25 03:10 03/12/25 03:10 Micro: Microbiology 03/10/25 11:24 Blood Culture - Preliminary Blood NEGATIVE TO DATE 03/10/25 11:20 Blood Culture - Preliminary Blood NEGATIVE TO DATE A&P Assessment and plan 1. Pulmonary edema: Patient was hypotensive with attempted diuresis and appears to be orthostatic will check formal orthostatics and start midodrine. Echo shows increased LV cavity size severe mitral annular calcification and moderate regurg. LVEF was 36% 2. Acute on chronic renal failure: Creatinine stable at 2 3. Closed fracture of head of left humerus: Managed by Dr. Gonzalez with sling. Therapy evaluation 4. Chronic anticoagulation: Will lower Eliquis to 2.5 mg 5. Acute exacerbation of CHF (congestive heart failure): Patient has had valvular replacement with TAVR aortic valve. Also has mitral valve stenosis and regurg with pulmonary. It is reported as severe micro atrial regurg. Patient would not diurese. Cardiology consultation has been obtained spironolactone held 6. Leukocytosis: Patient had white count of 15 on February 20 and 12 on March 06. Unclear etiology at this time patient was given empiric antibiotics in ER and cultures were obtained. Urinalysis negative chest x-ray looks like heart failure and viral respiratory panel was negative. Patient is afebrile. Still elevated white count now CRP up to 138. Cannot exclude endocarditis 7. Mitral stenosis with regurgitation: Will consult cardiology due to severe mitral stenosis and inability to diurese. Patient is changed to inpatient Plan: Had midodrine check orthostasis. Continue therapy as tolerated PDMP PDMP Reviewed: Not Reviewed Attestations Medical Necessity Statement*: Patient remains hospitalized due to severe orthostatic hypotension with injury starting midodrine and requires therapy to learn how to walk with a walker despite left proximal humerus fracture in a sling Coding Level of Care Code Acute Code for Chg Fwd Diagnoses Pulmonary edema J81.1 Acute on chronic renal failure N17.9; N18.9 Closed fracture of head of left humerus S42.292A Encounter type: initial encounter Chronic anticoagulation Z79.01 Acute exacerbation of CHF (congestive heart failure) I50.9 Leukocytosis D72.829 Mitral stenosis with regurgitation I05.2 Time Spent (min) 35
[2025-03-12 19:10] VITALS: BP 104/65; PULSE 96; RESP 19; O2SAT 91
[2025-03-12 19:45] VITALS: BP 118/55; PULSE 96; RESP 19; TEMP 36.6; O2SAT 98
[2025-03-12 22:00] VITALS: PULSE 96
[2025-03-13] VITALS (10 sets, daily range): BP systolic 94–153; BP diastolic 55–79; PULSE 66–96; RESP 16–97; TEMP 36.3–36.8; O2SAT 93–97
[2025-03-13] MEDS: psyllium powder Pkt 1 PACKET PO (04:37)
[2025-03-13] MEDS: HYDROcodone-acetaminophen 5-325 mg Tablet 1 TAB PO (04:48)
[2025-03-13 06:18] LABS: Hematocrit 25.9 % (37-53); Hemoglobin 8.10 g/dL (11.27-16.99); Mean Corpuscular HGB Conc 31.3 g/dL (30-55); Mean Corpuscular Hemoglobin 30.6 pg (27-33); Mean Corpuscular Volume 97.7 fl (82-101); Platelet Count 116 10^3/cmm (157-399); Red Blood Count 2.65 10^6/uL (3.85-5.65); White Blood Count 18.95 10^3/uL (3.29-11.43)
[2025-03-13 06:34] LABS: Anion Gap 13.8 (5-19); Blood Urea Nitrogen 43 mg/dL (8-23); Calcium 8.0 mg/dL (8.5-10.5); Carbon Dioxide 23 mmol/L (22-29); Chloride 101 mmol/L (98-107); Creatinine Clr Calc Pharmacy 34.6444; Glucose 111 mg/dL (65-115); Osmolality Calculated 288 mOsm/kg (285-295); Potassium 4.8 mmol/L (3.5-5.1); Sodium 133 mmol/L (136-145)
[2025-03-13 07:14] LABS: Total Cells Counted 100 (0-100)
[2025-03-13 07:15] LABS: Absolute Segmented Neutrophil 15.0 10/cmm (1.6-7.1); Atypical Lymphs 0.0 % (0-5); Band Neutrophils Absolute 0.4 10^3/cmm (0.0-1.2)
[2025-03-13] MEDS: APIXABAN 2.5 MG TABLET PO ×2 (09:14→18:05)
[2025-03-13] MEDS: neomycin-poly-bacitracin oint 28 gm 1 APPLIC TOPICAL (09:16)
--- NOTE | 2025-03-13 09:40 | P.PN_ITS ---
<Statement entered by Keron Carreon MD - 03/13/25 20:43> Patient was evaluated and cared for in conjunction with an advanced practice practitioner. I personally examined the patient and reviewed the chart and all pertinent data including imaging, telemetry, and laboratory results. I discussed the patient in detail with the advanced practice practitioner. Please see their note for complete H&P testing result and agreed upon plan of care for the patient. Patient sitting in the seat today denies any complaint he had episode last night GENERAL: Patient is alert, awake and oriented x3. Left arm in sling HEART: Regular S1 and S2. No murmur, rub or gallop. LUNGS: Clear to auscultate bilaterally. CENTRAL NERVOUS SYSTEM: Grossly nonfocal. EXTREMITIES: Lower extremities with out edema bilaterally. Assessment and plan Recurrent falls History of S/P TAVR (transcatheter aortic valve replacement): History of coronary artery disease: History of GI bleed: History of pulmonary embolism: Acute on chronic systolic congestive heart failure normal compensated Elevated troponin demand ischemia CKD (chronic kidney disease): Closed fracture of head of left humerus Patient was in A-fib with RVR rate does not slow down make and started on amiodarone Continue holding diuretics Midodrine increased to 10 mg daily Consider Watchman device with history of recurrent fall to prevent thromboembolic phenomena Patient has been started on low-dose Eliquis No DVT on lower extremity Doppler Subjective 2 Subjective: He reports a syncopal event yesterday when standing to transfer from the bed to the chair. He did not have any arrhythmia on telemetry at the time. [place] to be orthostatic. He was started on midodrine 5mg TID yesterday, blood pressure ranging 104-150 systolic since then. No chest pain. Eliquis reduced to 2.5mg BID, due to renal function, age and risk of bleeding. Bilateral lower extremity venous duplex negative for DVT. Continue Eliquis for now, will refer for Watchman. Will start amiodarone for chemical cardioversion since he cannot tolerate rate control medications. Vitals/I&O/Wt Last Vital Signs Temp 97.6 F 03/13/25 12:00 Pulse 93 03/13/25 12:00 Resp 23 H 03/13/25 12:00 BP 116/59 03/13/25 12:00 Pulse Ox 97 03/13/25 04:00 O2 Del Method Room Air 03/13/25 04:00 03/12/25 03/13/25 03/13/25 22:59 06:59 14:59 Intake Total 240 / 720 240 / 720 240 / 240 Output Total 550 / 800 250 / 800 Balance -310 / -80 -10 / -80 240 / 240 Weight last 48 hrs Weight 132 lb 11.492 oz Weight 134 lb 7.712 oz Physical Exam 2 Const: COMMON NORMALS: no acute distress and patient oriented x3 GENERAL APPEARANCE: cooperative and comfortable ORIENTATION/CONSCIOUSNESS: Yes awake, Yes oriented to person, Yes oriented to place and Yes oriented to time Chest: COMMONS NORMALS: normal inspection of the chest and normal palpation of entire chest wall CHEST: Yes Symmetrical chest wall rise Resp: COMMON NORMALS: normal respiratory effort, No retractions, No use of accessory muscles and clear to auscultation bilaterally EFFORT & INSPECTION: Yes symmetric chest movement AUSCULTATION: clear to auscultation bilaterally Cardio: COMMON NORMALS: regular rate, regular rhythm, S1 normal heart sound present, S2 normal heart sound present, No gallops present (Cardio), No clicks present (Cardio), No murmurs present (Cardio) and No rub (Cardio) RATE: r egular rate RHYTHM: regular rhythm HEART SOUNDS: S1 normal heart sound present and S2 normal heart sound present PERIPHERAL PULSES: radial pulses present Extremity: COMMON NORMALS: no pedal edema Neuro: COMMON NORMALS: patient oriented x3 and moves all extremities S ENSORIUM/ORIENTATION: Yes oriented to person, Yes oriented to place and Yes oriented to time Urinary Catheter Management: Disla: Cath Placed During This Visit: yes Reason for Continuing Indwelling Catheter: Accurate Measurement of Urinary Output in Critically Ill Patients Urinary Catheter Date of Insertion: 03/10/25 Urinary Catheter Time of Insertion: 19:35 Data 03/13/25 05:39 03/13/25 05:39 A&P Assessment and plan 1. S/P TAVR (transcatheter aortic valve replacement): 2. Coronary artery disease: 3. GI bleed: 4. Pulmonary embolism: 5. Systolic congestive heart failure: 6. Elevated troponin: 7. CKD (chronic kidney disease): 8. Closed fracture of head of left humerus: 9. Multiple falls: Plan: Continue Eliquis. Starting amiodarone bolus and infusion, hopeful for cardioversion to sinus rhythm. Continue midodrine. PDMP PDMP Reviewed: Not Reviewed Attestations 2 Medical Necessity Statement*: atrial fibrillation with rvr Coding Level of Care Code Acute Code for Chg Fwd Diagnoses S/P TAVR (transcatheter aortic valve replacement) Z95.2 Coronary artery disease I25.10 GI bleed K92.2 Pulmonary embolism I26.99 Systolic congestive heart failure I50.20 Elevated troponin R79.89 CKD (chronic kidney disease) N18.9 Closed fracture of head of left humerus S42.292A Multiple falls R29.6
--- NOTE | 2025-03-13 11:28 | PM.PN ---
Subjective Subjective: 80-year-old man admitted with pulmonary edema and bilateral pleural effusions has hypotension and difficulty to diurese. He had a TAVR valve replacement in December as well as a stent at [facility] in [place]. Patient has fallen multiple times in the last month suffering fall with subarachnoid hemorrhage on 02/21/2025 and fall with left proximal humerus fracture 03/06/2025. He uses a walker but now cannot use a walker. Patient is unable to get up. White count is elevated but there is no clear source of infection. UA is negative blood cultures preliminary negative. Patient is accompanied by his Kacy. Patient was started on midodrine yesterday with noted orthostatic blood pressures but not heart rate. His blood pressure has improved overnight and he states he feels less dizzy. Vitals/I&O/Wt Last Vital Signs Temp 98.1 F 03/13/25 07:37 Pulse 91 03/13/25 08:00 Resp 17 03/13/25 07:37 BP 123/65 03/13/25 08:00 Pulse Ox 97 03/13/25 04:00 O2 Del Method Room Air 03/13/25 04:00 03/12/25 03/13/25 03/13/25 22:59 06:59 14:59 Intake Total 240 / 480 240 / 720 240 / 240 Output Total 550 / 550 250 / 800 Balance -310 / -70 -10 / -80 240 / 240 Weight last 48 hrs Weight 60.2 kg Weight 61 kg Physical Exam Narrative: General well-developed well-nourished male in no acute cardiopulmonary distress he is on room air CV regular rate and rhythm Lungs good air movement trace basilar crackles Abdomen positive bowel tones soft nontender Calves no tenderness cords pretibial edema Urinary Catheter Management: Disla: Cath Placed During This Visit: yes Reason for Continuing Indwelling Catheter: Accurate Measurement of Urinary Output in Critically Ill Patients Urinary Catheter Date of Insertion: 03/10/25 Urinary Catheter Time of Insertion: 19:35 Data 03/13/25 05:39 03/13/25 05:39 A&P Assessment and plan 1. Pulmonary edema: Patient was hypotensive with attempted diuresis and appears to be orthostatic will check formal orthostatics and start midodrine. Echo shows increased LV cavity size severe mitral annular calcification and moderate regurg. LVEF was 36% 2. Acute on chronic renal failure: Creatinine started to 2.5 this admission and has come down to 1.5 with the midodrine will attempt gentle diuresis and repeat chest x-ray in the morning 3. Closed fracture of head of left humerus: Managed by Dr. Gonazlez with sling. Therapy evaluation 4. Chronic anticoagulation: Will lower Eliquis to 2.5 mg. Leg ultrasound was negative for clot 5. Acute exacerbation of CHF (congestive heart failure): Patient has had valvular replacement with TAVR aortic valve. Also has mitral valve stenosis and regurg with pulmonary. It is reported as severe micro atrial regurg. Patient would not diurese. Cardiology consultation has been obtained spironolactone held With midodrine now we will attempt some diuresis 6. Leukocytosis: Patient had white count of 15 on February 20 and 12 on March 06. Unclear etiology at this time patient was given empiric antibiotics in ER and cultures were obtained. Urinalysis negative chest x-ray looks like heart failure and viral respiratory panel was negative. Patient is afebrile. Still elevated white count now CRP up to 138. Cannot exclude endocarditis but blood cultures are negative. Viral panel was negative as well 7. Mitral stenosis with regurgitation: Will consult cardiology due to severe mitral stenosis and inability to diurese. Patient is changed to inpatient Plan: Had midodrine check orthostasis. Continue therapy as tolerated PDMP PDMP Reviewed: Not Reviewed Attestations Medical Necessity Statement*: Patient remains in the hospital for monitoring midodrine diuresis and therapy and anticipate discharge in 1 to 2-day Coding Level of Care Code 24771 Diagnoses Pulmonary edema J81.1 Acute on chronic renal failure N17.9; N18.9 Closed fracture of head of left humerus S42.292A Encounter type: initial encounter Chronic anticoagulation Z79.01 Acute exacerbation of CHF (congestive heart failure) I50.9 Leukocytosis D72.829 Mitral stenosis with regurgitation I05.2 Time Spent (min) 35
--- NOTE | 2025-03-13 13:34 | ECG_ITS ---
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 Measurements Intervals [place] Rate: 131 P: 0 NH: 0 QRS: 177 QRSD: 149 T: 0 QT: 343 QTc: 508 Interpretive Statements ATRIAL FIBRILLATION WITH RAPID VENTRICULAR RESPONSE RIGHT BUNDLE BRANCH BLOCK [120+ ms QRS DURATION, UPRIGHT V1, 40+ ms S IN I/aVL/V4/V5/V6] LEFT POSTERIOR FASCICULAR BLOCK [QRS AXIS > 109, INFERIOR Q] POSSIBLE ANTERIOR MYOCARDIAL INFARCTION , PROBABLY OLD [30 ms Q WAVE IN V3/V4, OR R < 0.2 mV IN V4] Compared to ECG 03/10/2025 17:09:15 Sinus rhythm no longer present Electronically Signed On 03-14-2025 21:11:03 CDT by Russ Orosco M.D. [email or web address]
[2025-03-13] MEDS: amiodarone 150 MG/100 ML PREMIX 400 MG IV (18:05)
[2025-03-13] MEDS: AMIODARONE HCL/D5W 900 MG/500 ML BAG 33.33 MG IV (18:44)
[2025-03-14 03:10] VITALS: BP 137/86; PULSE 70; RESP 17; TEMP 36.1; O2SAT 98
[2025-03-14 03:31] LABS: Hematocrit 25.9 % (37-53); Hemoglobin 7.90 g/dL (11.27-16.99); Mean Corpuscular HGB Conc 30.5 g/dL (30-55); Mean Corpuscular Hemoglobin 30.4 pg (27-33); Mean Corpuscular Volume 99.6 fl (82-101); Platelet Count 107 10^3/cmm (157-399); Red Blood Count 2.60 10^6/uL (3.85-5.65); White Blood Count 16.85 10^3/uL (3.29-11.43)
[2025-03-14 03:46] LABS: Anion Gap 11.4 (5-19); Blood Urea Nitrogen 41 mg/dL (8-23); Calcium 7.6 mg/dL (8.5-10.5); Carbon Dioxide 20 mmol/L (22-29); Chloride 104 mmol/L (98-107); Creatinine Clr Calc Pharmacy 39.9744; Glucose 105 mg/dL (65-115); Osmolality Calculated 282 mOsm/kg (285-295); Potassium 4.4 mmol/L (3.5-5.1); Sodium 131 mmol/L (136-145)
[2025-03-14 04:22] LABS: Slide Review Slide Review Perform
[2025-03-14 04:23] LABS: Absolute Segmented Neutrophil 12.6 10/cmm (1.6-7.1); Atypical Lymphs 1.0 % (0-5); Band Neutrophils Absolute 0.7 10^3/cmm (0.0-1.2); Total Cells Counted 100 (0-100)
[2025-03-14] MEDS: psyllium powder Pkt 1 PACKET PO (04:40)
[2025-03-14] MEDS: APIXABAN 2.5 MG TABLET PO ×2 (04:41→18:02)
[2025-03-14 05:16] VITALS: BMI 29.1
[2025-03-14 07:41] VITALS: BP 128/61; PULSE 75; RESP 16; TEMP 36.6; O2SAT 98
[2025-03-14 08:00] VITALS: BP 113/67; BP 122/61; BP 94/55; PULSE 87; PULSE 89; PULSE 96
--- NOTE | 2025-03-14 08:00 | XRR_ITS ---
PROCEDURE INFORMATION: Exam: XR Chest Exam date and time: 03/14/2025 11:33 AM Age: 80 years old Clinical indication: Condition or disease; Lung condition and disease; Other: Chf; Prior surgery; Surgery date: 6+ months; Surgery type: Cardiac stent; Tavr; Additional info: Chf follow up; Tavr x 2mo ago TECHNIQUE: Imaging protocol: Radiologic exam of the chest. Views: 1 view. COMPARISON: CR XR chest 1V portable [id number] 03/12/2025 9:28 AM FINDINGS: Lungs: [id number] ill-defined increased density in both lower lung zones has improved since the recent prior chest radiograph. No new pulmonary consolidation. Pleural spaces: Bilateral pleural effusions appear similar or slightly improved since the prior exam. Heart/Mediastinum: Unremarkable. No cardiomegaly. Vasculature: Aortic valve stent graft again noted. Bones/joints: No interval change in the osseous structures. XR/XR chest 1V portable [id number] IMPRESSION: [id number] ill-defined increased density in both lower lung zones has improved since the recent prior chest radiograph. Finding likely reflects improving pulmonary edema and decreasing bilateral pleural effusions.
[2025-03-14] MEDS: neomycin-poly-bacitracin oint 28 gm 1 APPLIC TOPICAL (10:20)
[2025-03-14 12:00] VITALS: BP 107/56; PULSE 73; RESP 14; TEMP 36.8; O2SAT 96
--- NOTE | 2025-03-14 13:55 | P.PN_ITS ---
Subjective 2 Subjective: 80-year-old man admitted with pulmonary edema and bilateral pleural effusions has hypotension and difficulty to diurese. 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 Patient has fallen multiple times in the last month suffering fall with subarachnoid hemorrhage on 02/21/2025 and fall with left proximal humerus fracture 03/06/2025. He uses a walker but now cannot use a walker. Patient is unable to get up. White count is elevated but there is no clear source of infection. UA is negative blood cultures preliminary negative. Patient is accompanied by his Kacy.. Patient has been on midodrine for 2 days and also started on amiodarone last night to try and maintain sinus rhythm. He is being considered for Watchman procedure due to recent falls. He had a subarachnoid hemorrhage in February. His syncope is better but he still gets weak in the legs after standing for period of time etc. he has improved with midodrine and diuresed Vitals/I&O/Wt Last Vital Signs Temp 98.3 F 03/14/25 12:00 Pulse 73 03/14/25 12:00 Resp 14 03/14/25 12:00 BP 107/56 03/14/25 12:00 Pulse Ox 96 03/14/25 12:00 O2 Del Method Room Air 03/14/25 03:10 03/13/25 03/14/25 03/14/25 22:59 06:59 14:59 Intake Total 100 / 340 197.758 / 537.758 600 / 600 Output Total 550 / 550 600 / 1150 Balance -450 / -210 -402.242 / -612.242 600 / 600 Weight last 48 hrs Weight 81.9 kg Weight 60.2 kg Physical Exam 2 Narrative: General well-developed well-nourished male in no acute cardiopulmonary distress he is on room air CV regular rate and rhythm 3/6 systolic ejection murmur best heard at the right upper sternal border Lungs good air movement trace basilar crackles Abdomen positive bowel tones soft nontender Calves no tenderness cords pretibial edema Urinary Catheter Management: Disla: Cath Placed During This Visit: yes Reason for Continuing Indwelling Catheter: Accurate Measurement of Urinary Output in Critically Ill Patients Urinary Catheter Date of Insertion: 03/10/25 Urinary Catheter Time of Insertion: 19:35 Data 03/14/25 03:04 03/14/25 03:04 A&P Assessment and plan 1. Pulmonary edema: Echo shows increased LV cavity size severe mitral annular calcification and moderate regurg. LVEF was 36% With addition of midodrine blood pressure has been improved and he has decreased pulmonary edema by imaging. Bibasilar effusions versus 2. Acute on chronic renal failure: Creatinine started to 2.5 this admission and has come down to 1.5 with the midodrine and after dose of Bumex patient's creatinine has come down to 1.3 3. Closed fracture of head of left humerus: Managed by Dr. Gonzalez with sling. Therapy evaluation 4. Chronic anticoagulation: I have lower Eliquis to 2.5 mg. Leg ultrasound was negative for clot. He is being considered for IVC filter plus Watchman device. I spoke with Dr. Orosco today patient has mitral valve disease and low EF making him at more risk for cardioembolic disease but he is at high risk of falling as he has fallen twice with injury and multiple times at home 5. Acute exacerbation of CHF (congestive heart failure): Patient has had valvular replacement with TAVR aortic valve. Also has mitral valve stenosis and regurg with pulmonary. It is reported as severe micro atrial regurg. Modest success with midodrine diuresis increase midodrine to 10 mg 3 times daily discussed by cardiology yesterday but not instituted until this morning 6. Leukocytosis: Patient had white count of 15 on February 20 and 12 on March 06. Unclear etiology at this time patient was given empiric antibiotics in ER and cultures were obtained. Urinalysis negative chest x-ray looks like heart failure and viral respiratory panel was negative. Patient is afebrile. Still elevated white count now CRP up to 138. Cannot exclude endocarditis but blood cultures are negative. Viral panel was negative as well 7. Mitral stenosis with regurgitation: Will consult cardiology due to severe mitral stenosis and inability to diurese. Patient is changed to inpatient Plan: Had midodrine check orthostasis. Continue therapy as tolerated PDMP PDMP Reviewed: Not Reviewed Attestations 2 Medical Necessity Statement*: Patient lamine in hospital for admitted to determine diuresis and load of amiodarone. Anticipate discharge in 1 to 2 days Coding Level of Care Code 36691 Diagnoses Pulmonary edema J81.1 Acute on chronic renal failure N17.9; N18.9 Closed fracture of head of left humerus S42.292A Encounter type: initial encounter Chronic anticoagulation Z79.01 Acute exacerbation of CHF (congestive heart failure) I50.9 Leukocytosis D72.829 Mitral stenosis with regurgitation I05.2 Time Spent (min) 35
--- NOTE | 2025-03-14 15:39 | P.PN_ITS ---
Subjective 2 Subjective: Converted to normal sinus rhythm. Denies SOB or CP Vitals/I&O/Wt Last Vital Signs Temp 98.3 F 03/14/25 12:00 Pulse 73 03/14/25 12:00 Resp 14 03/14/25 12:00 BP 107/56 03/14/25 12:00 Pulse Ox 96 03/14/25 12:00 O2 Del Method Room Air 03/14/25 03:10 03/14/25 03/14/25 03/14/25 06:59 14:59 22:59 Intake Total 197.758 / 537.758 600 / 600 Output Total 600 / 1150 Balance -402.242 / -612.242 600 / 600 Weight last 48 hrs Weight 180 lb 8.937 oz Weight 132 lb 11.492 oz Physical Exam 2 Narrative: General: In no acute distress Neck: No jugular venous distention or carotid bruits Heart: Normal S1 and S2 with a regular rate and rhythm Lungs: Normal respiratory effort with no use of intercostal muscles, clear lungs sounds to auscultation Extremities: No lower extremity edema Neuro: Alert and oriented x 3 Urinary Catheter Management: Disla: Cath Placed During This Visit: yes Reason for Continuing Indwelling Catheter: Accurate Measurement of Urinary Output in Critically Ill Patients Urinary Catheter Date of Insertion: 03/10/25 Urinary Catheter Time of Insertion: 19:35 Data 03/14/25 03:04 03/14/25 03:04 A&P Assessment and plan 1. S/P TAVR (transcatheter aortic valve replacement): functioning normally 2. Coronary artery disease: denies any cp today 3. Anemia: Recommend transfusing to get Hgb atleast >9 and closer to 10 in this patient with CAD, orthostatic hypotension, syncope, multiple falls 4. Mitral stenosis with regurgitation: Mod mitral stenosis. Moderate MR 5. Orthostatic hypotension: Today blood pressure sitting 122/61, standing 94/55 Lower extremity compression socks Transfuse packed red blood cells to get hemoglobin atlease >9 Increase midodrine to 10mg tid If orthostasis not improved with these measures, we will need to consider stopping the anticoagulation, however in setting of moderate mitral valve stenosis is at high risk for left atrial thrombus with PAF recheck orthostatic VS in am hold diuretic and metoprolol 6. Multiple falls: 7. Syncope: 8. PAF (paroxysmal atrial fibrillation): converted to nsr with amio change amio drip to amio 200mg po tid tomorrow Eliquis 2.5mg bid for now but may need to stop if orthostasis not significantly improved 9. Acute heart failure with reduced ejection fraction (HFrEF): appears euvolemic now hold diueretic for the next 48 hours to help with orthostasis unable to use GDMT currently due to orthostatic hypotension PDMP PDMP Reviewed: Not Reviewed Attestations 2 Medical Necessity Statement*: Needs 2 more midnights in the hospital due to complicated medical conditions including severe orthostatic hypotension, atrial fibrillation with RVR and syncope Coding Level of Care Code 11086 Diagnoses S/P TAVR (transcatheter aortic valve replacement) Z95.2 Coronary artery disease I25.10 Anemia D64.9 Mitral stenosis with regurgitation I05.2 Orthostatic hypotension I95.1 Multiple falls R29.6 Syncope R55 PAF (paroxysmal atrial fibrillation) I48.0 Acute heart failure with reduced ejection fraction (HFrEF) I50.21
[2025-03-14 16:00] VITALS: BP 110/59; PULSE 70; RESP 10; O2SAT 100
[2025-03-14 19:41] VITALS: BP 108/65; BP 119/60; PULSE 78; RESP 22; TEMP 36.8; O2SAT 100
[2025-03-14] MEDS: AMIODARONE HCL/D5W 900 MG/500 ML BAG 16.67 MG IV (20:59)
[2025-03-15] VITALS (16 sets, daily range): BP systolic 112–175; BP diastolic 58–92; PULSE 64–88; RESP 15–25; TEMP 36.1–36.8; O2SAT 92–100
[2025-03-15] MEDS: APIXABAN 2.5 MG TABLET PO (05:31)
[2025-03-15] MEDS: psyllium powder Pkt 1 PACKET PO (05:31)
[2025-03-15 08:11] LABS: Anion Gap 12.4 (5-19); Blood Urea Nitrogen 38 mg/dL (8-23); Calcium 7.9 mg/dL (8.5-10.5); Carbon Dioxide 20 mmol/L (22-29); Chloride 104 mmol/L (98-107); Creatinine Clr Calc Pharmacy 48.9167; Glucose 115 mg/dL (65-115); Osmolality Calculated 284 mOsm/kg (285-295); Potassium 4.4 mmol/L (3.5-5.1); Sodium 132 mmol/L (136-145)
--- NOTE | 2025-03-15 10:31 | P.DS_ITS ---
Discharge Providers Date of Admission: 03/11/25 10:52 Date of Discharge: March 15, 2025 Attending Provider at Admission: Contreras Linton MD Attending Provider at Discharge: Contreras Linton MD Primary Care Provider: Bruce Rees DO Diagnoses at Discharge Discharge Diagnosis 1. S/P TAVR (transcatheter aortic valve replacement): Details from hospital stay: Stable 2. Coronary artery disease: Details from hospital stay: Stable 3. Anemia: Details from hospital stay: Patient's hematocrit here stable but he did have a GI bleed and October 2024. Continue pantoprazole once a day decreased due to diarrhea, Pepcid twice a day and Carafate 4. Mitral stenosis with regurgitation: Details from hospital stay: This puts patient at risk for embolic CVA. Continue apixaban at adjusted dose 2.5 mg twice a day as discussed with Dr. Whitehead 5. Orthostatic hypotension: Details from hospital stay: Your improved with midodrine. Continue 10 mg 3 times daily and diurese gently f ollow renal function. Thus far he does not diuresed well enough to lose potassium so he is not on potassium replacement. Spironolactone was stopped due to acute renal failure on presentation 6. Multiple falls: Details from hospital stay: He has significant orthostasis by history and notable with early part of admission and improved with midodrine continue with physical therapy 7. Syncope: Details from hospital stay: Due to orthostatic blood pressure 8. PAF (paroxysmal atrial fibrillation): Details from hospital stay: Stable in sinus rhythm thus far after amiodarone load and oral dosing 9. Acute heart failure with reduced ejection fraction (HFrEF): Details from hospital stay: Known low EF 35% complicated by diastolic dysfunction of paroxysmal atrial fibrillation as well as mitral valve regurg Reason for Visit Reason for Visit: General Weakness Brief History: Rafy Sierra is a 80 year old male with history of left proximal humerus fracture on Sunday comes back because his sling is ill fitting and uncomfortable and he is having pain and skin tear in his left arm. He wants this seen by orthopedist. He had lab and x-ray workup showing pulmonary edema on x-ray confirmed by CT scan and white count of 20,000. He is referred for observation because of those problems. Patient has echocardiogram showing EF 35 to 40% with mitral regurg and severe low-flow aortic stenosis now moderate mitral valve stenosis as of 09/13/2024 Patient is on chronic anticoagulation for atrial fibrillation and severe mitral valve stenosis and low ejection fraction and but he had subarachnoid hemorrhage recently, left proximal humerus fracture both from falls. He also had upper GI bleed 10/16/2024. Patient had a history of proximal colonic bleeding vessel clipped in 2023. Patient and had denied but reviewing old records he had a PE in September. 09/12/2024 CTA showed probable small peripheral pulmonary emboli. Patient has multiple myeloma with pancytopenia mild and platelets low at 65-70 thousand Chest x-ray showed bilateral pulmonary edema although the patient was on room air. Hospital Course Hospital Course Rafy Sierra is a 80 year old male with history of left proximal humerus fracture on Sunday comes back because his sling is ill fitting and uncomfortable and he is having pain and skin tear in his left arm. He wants this seen by orthopedist. He had lab and x-ray workup showing pulmonary edema on x-ray confirmed by CT scan and white count of 20,000. He is referred for observation because of those problems. Patient has echocardiogram showing EF 35 to 40% with mitral regurg and severe low-flow aortic stenosis now moderate mitral valve stenosis as of 09/13/2024 Patient is on chronic anticoagulation for atrial fibrillation and severe mitral valve stenosis and low ejection fraction and but he had subarachnoid hemorrhage recently, left proximal humerus fracture both from falls. He also had upper GI bleed 10/16/2024. Patient had a history of proximal colonic bleeding vessel clipped in 2023. Patient and had denied but reviewing old records he had a PE in September. Patient has multiple myeloma with pancytopenia mild and platelets low at 65-70 thousand Patient had elevated leukocytes here with negative blood cultures and negative UA. Etiology is not clear but he does have multiple myeloma with history of lytic lesion in the manubrium, and thoracic vertebral bodies. Follow-up with oncology. Patient had small subarachnoid hemorrhage left brain 02/21/2025 resolved on repeat scan 03/10/2025 Based on x-ray and CT showing pulmonary edema as well as bilateral pleural effusions patient was found to be in volume overload. He was given diuretics but was hypotensive and renal function worsened. I consulted cardiology regarding patients moderate mitral stenosis with moderate MR and inability to diurese and renal failure. Spironolactone was stopped. Patient was noted to be hypotensive with physical therapy and orthostatic. I started him on midodrine 5 mg 3 times daily then increased to 10 mg 3 times daily. Blood pressure has improved markedly and patient is able to diurese slowly with Bumex 1 mg daily. Renal function has actually improved and pulmonary edema largely resolved but there is remaining bilateral pleural effusions improving on consecutive x-rays. He is to follow-up with cardiology to consider IVC filter and Watchman device. I have counseled the patient and his Kacy that patient is at risk of bleeding with anticoagulation but since his blood pressure is better with midodrine and he has therapy we will continue anticoagulation at the lower dose 2.5 mg twice a day for now. Without anticoagulation he is at increased risk of stroke with mitral valve disease, low EF and atrial fibrillation. He has been started on amiodarone drip for paroxysmal atrial fibrillation and seems to have maintained sinus rhythm since then. I have prescribed 200 mg twice a day oral amiodarone for 10 days then 200 mg daily thereafter follow-up in cardiology He Dr. Ramon Gonzalez evaluated the patient and is treating the left proximal humerus and left distal radius fractures conservatively with a sling. The wrist was not painful Disla was placed on the . Patient was started on midodrine and now bumped up to 10 mg 3 times daily. Removal of Disla may result in urine retention and I would recommend leaving the Disla in for 3 more days till March 18 then check to see if he is able to void or has postvoid residual Physical Exam Narrative: General well-developed well-nourished male in no acute cardiopulmonary distress he is on room air CV regular rate and rhythm 3/6 systolic ejection murmur best heard at the right upper sternal border Lungs good air movement trace basilar crackles Abdomen positive bowel tones soft nontender Calves no tenderness cords pretibial edema Disla is in place Urinary Catheter Management: Disla: Cath Placed During This Visit: yes Reason for Continuing Indwelling Catheter: Accurate Measurement of Urinary Output in Critically Ill Patients Urinary Catheter Date of Insertion: 03/10/25 Urinary Catheter Time of Insertion: 19:35 Discharge Data Studies Completed and Pending Completed Studies During Hospitalization Category Date Time Status CT chest wo con [id number] Stat Cat Scan 03/10/25 13:[address] head wo con* [id number] Stat Cat Scan 03/10/25 11:12 Completed XR chest 1V portable [id number] Routine Exams 03/12/25 06:38 Completed XR chest 1V portable [id number] Routine Exams 03/14/25 08:00 Completed XR chest 1V portable [id number] Stat Exams 03/10/25 11:02 [place] [id number] Routine Ultrasound 03/12/25 11:17 Completed CV. echo complete* [id number] Stat Ultrasound 03/10/25 13:24 Completed Pending at discharge Category Date Time Status Blood Culture Stat Lab 03/10/25 11:24 Results Radiology Impressions Head CT 03/10/25 11:12 IMPRESSION: 1. Complete resolution of previously described subarachnoid hemorrhage over the LEFT parietal vertex. 2. No acute intracranial hemorrhage. No edema. 3. Mild atrophy and mild small vessel disease. Chest CT 03/10/25 13:45 IMPRESSION: 1. Mild to moderate bilateral pleural effusions, RIGHT greater than LEFT. Similar size compared to the prior exam from 09/12/2024. 2. Moderate cardiomegaly. 3. Mild diffuse hazy attenuation from pulmonary edema. 4. Bandlike areas of atelectasis in the mid and lower lung yost. 5. Cholelithiasis. 6. Hazy attenuation within the upper abdomen surrounding fatty replacement of the pancreas. This may be secondary to fluid overload. Pancreatitis or colitis may also be responsible for the inflammatory changes. Less likely due to the cholelithiasis. 7. Patient has extensive lytic disease from multiple myeloma. Lytic lesion at T9 is the most aggressive and there may be soft tissue encroaching upon the thoracic cord and foramen. This could be further evaluated by MRI with and without contrast. Chest X-Ray 03/14/25 08:00 IMPRESSION: [id number] ill-defined increased density in both lower lung zones has improved since the recent prior chest radiograph. Finding likely reflects improving pulmonary edema and decreasing bilateral pleural effusions. Laboratory Results WBC 16.85 10^3/uL (3.29-11.43) H 03/14/25 03:04 RBC 2.60 10^6/uL (3.85-5.65) L 03/14/25 03:04 Hgb 7.90 g/dL (11.27-16.99) L 03/14/25 03:04 Hct 25.9 % (37-53) L 03/14/25 03:04 MCV 99.6 fl (82-101) 11/01/25 03:04 MCH 30.4 pg (27-33) 03/14/25 03:04 MCHC 30.5 g/dL (30-55) 03/14/25 03:04 RDW 17.7 % (12.1-15.1) H 03/14/25 03:04 Plt Count 107 10^3/cmm (157-399) L 03/14/25 03:04 MPV 11.0 fL (7.4-10.4) H 03/14/25 03:04 Neut % (Auto) Not Reportable 03/13/25 05:39 Lymph % (Auto) Not Reportable 03/14/25 03:04 Wagoner % (Auto) Not Reportable 03/14/25 03:04 Eos % (Auto) Not Reportable 03/13/25 05:39 Baso % (Auto) Not Reportable 03/13/25 05:39 Neut # (Auto) Not Reportable 03/13/25 05:39 Lymph # (Auto) Not Reportable 03/14/25 03:04 Wagoner # (Auto) Not Reportable 03/14/25 03:04 Eos # (Auto) Not Reportable 03/13/25 05:39 Baso # (Auto) Not Reportable 03/13/25 05:39 Nucleated RBC % (auto) Not Reportable 03/13/25 05:39 Total Counted 100 (0-100) 03/14/25 03:04 Atypical Lymphs % 1.0 % (0-5) 03/14/25 03:04 Absolute Neutrophils 13.3 10^3/cmm (1.4-6.5) H 03/14/25 03:04 Segmented Neutrophils 75 % 03/14/25 03:04 Band Neutrophils 4.0 % 03/14/25 03:04 Absolute Lymphocytes 1.9 10^3/cmm (1.2-3.4) 03/14/25 03:04 Lymphocytes (Manual) 10 % 03/14/25 03:04 Monocytes (Manual) 5.0 % 03/14/25 03:04 Absolute Monocytes 0.8 10^3/cmm (0.1-0.6) H 03/14/25 03:04 Eosinophils (Manual) 2 % 03/14/25 03:04 Absolute Eosinophils 0.3 10^3/cmm (0.0-0.7) 03/14/25 03:04 Basophils (Manual) 0.0 % 03/14/25 03:04 Absolute Basophils 0.0 10^3/cmm (0.0-0.2) 03/14/25 03:04 Metamyelocytes 3.0 % 03/14/25 03:04 Myelocytes 2.0 % 03/13/25 05:39 Nucleated RBCs 2.0 /100WBC (0-1) H 03/14/25 03:04 Nucleated RBCs # Not Reportable 03/13/25 05:39 Platelet Estimate Decreased (Normal) 03/14/25 03:04 Polychromasia Trace 03/10/25 11:20 Anisocytosis Trace 03/10/25 11:20 Sodium 132 mmol/L (136-145) L 03/15/25 07:35 Potassium 4.4 mmol/L (3.5-5.1) 03/15/25 07:35 Chloride 104 mmol/L (98-107) 03/15/25 07:35 Carbon Dioxide 20 mmol/L (22-29) L 03/15/25 07:35 Anion Gap 12.4 (5-19) 03/15/25 07:35 BUN 38 mg/dL (8-23) H 03/15/25 07:35 Creatinine 1.2 mg/dL (0.7-1.2) 03/15/25 07:35 GFR Calculation Not Reportable 03/15/25 07:35 Glucose 115 mg/dL (65-115) 03/15/25 07:35 Calculated Osmolality 284 mOsm/kg (285-295) L 03/15/25 07:35 Lactic Acid 1.4 mmol/L (0.5-2.2) 03/10/25 11:20 Calcium 7.9 mg/dL (8.5-10.5) L 03/15/25 07:35 Phosphorus 4.3 mg/dL (2.5-4.5) 03/11/25 03:50 Magnesium 2.4 mg/dL (1.7-2.3) H 03/11/25 03:50 Total Bilirubin 0.5 mg/dL (0.15-1.2) 03/10/25 11:20 AST 69 U/L (0-40) H 03/10/25 11:20 ALT 23 U/L (0-41) 03/10/25 11:20 Alkaline Phosphatase 115 U/L (40-130) 03/10/25 11:20 Troponin T Baseline 153 ng/L (0-15) H* 03/10/25 11:20 Troponin T 120 Minute 147.2 ng/L (0-15) H 03/10/25 13:31 Delta Troponin T -5.8 ABS# (0-10) L 03/10/25 13:31 Troponin T Hi Sens 6Hr 134.7 ng/L (0-15) H 03/10/25 17:08 Troponin T Hi Sens 6Hr Delta -18.3 ng/L (0-12) L 03/10/25 17:08 C-Reactive Protein 138.0 mg/L (0.0-4.9) H 03/10/25 11:20 NT-Pro-B Natriuret Pep 54555 pg/mL (0-450) H 03/10/25 11:20 Total Protein 4.3 g/dL (6.6-8.7) L 03/10/25 11:20 Albumin 2.6 g/dL (3.5-5.2) L 03/10/25 11:20 Globulin 1.7 g/dL (1.3-4.6) 03/10/25 11:20 Lipase 9 U/L (13-60) L 03/11/25 03:50 TSH 1.63 uIU/mL (0.27-4.20) 03/11/25 03:50 Random Cortisol 21.54 ug/dL (2.47-19.5) H 03/11/25 03:50 Urine Color Dark yellow (Yellow) A 03/10/25 11:30 Urine Appearance Cloudy (CLEAR) A 03/10/25 11:30 Urine pH 5.0 (5-7) 03/10/25 11:30 Ur Specific Hamilton 1.022 (1.005-1.030) 03/10/25 11:30 Urine Protein Trace (Negative) A 03/10/25 11:30 Urine Glucose (UA) Negative (Normal) 03/10/25 11:30 Urine Ketones Trace (Negative) 03/10/25 11: Urine Blood Negative (Negative) 03/10/25 11:30 Urine Nitrate Negative (Negative) 03/10/25 11:30 Urine Bilirubin Negative (Negative) 03/10/25 11:30 Urine Urobilinogen 1.0 mg/dL (Negative) 03/10/25 11:30 Ur Leukocyte Esterase Trace (Negative) A 03/10/25 11:30 Urine RBC 0-2 /hpf (0-2) 03/10/25 11:30 Urine WBC 0-5 /hpf (0-5) 03/10/25 11:30 Ur Squamous Epith Cells 0-5 /hpf (0-5) 03/10/25 11:30 Amorphous Sediment 1+ /hpf 03/10/25 11:30 Urine Bacteria None seen /hpf (NONE) 03/10/25 11:30 Hyaline Casts 106.34 /lpf 03/10/25 11:30 Fine Granular Casts 0-4 /lpf H 03/10/25 11:30 Adenovirus (PCR) Not detected (NOT DETECT) 03/10/25 13:50 C. pneumoniae DNA (PCR) Not detected (NOT DETECT) 03/10/25 13:50 Coronavirus 229E (PCR) Not detected (NOT DETECT) 03/10/25 13:50 Human Metapneumovir PCR Not detected (NOT DETECT) 03/10/25 13:50 Influenza A (H1) PCR Not detected (NOT DETECT) 03/10/25 13:50 Influenza A (PCR) Negative (Negative) 03/10/25 11:18 Influ A (H1/09) PCR Not detected (NOT DETECT) 03/10/25 13:50 Influenza A (H3) PCR Not detected (NOT DETECT) 03/10/25 13:50 Influenza Type A (PCR) Not detected (NOT DETECT) 03/10/25 13:50 Influenza Type B (PCR) Not detected (NOT DETECT) 03/10/25 13:50 M. pneumoniae (PCR) Not detected (NOT DETECT) 03/10/25 13:50 Parainfluenza 1 (PCR) Not detected (NOT DETECT) 03/10/25 13:50 Parainfluenza 2 (PCR) Not detected (NOT DETECT) 03/10/25 13:50 Parainfluenza 3 (PCR) Not detected (NOT DETECT) 03/10/25 13:50 Parainfluenza 4 (PCR) Not detected (NOT DETECT) 03/10/25 13:50 RSV (PCR) Negative (Negative) 03/10/25 11:18 RSV Type A (PCR) Not detected (NOT DETECT) 03/10/25 13:50 RSV Type B (PCR) Not detected (NOT DETECT) 03/10/25 13:50 Entero/Rhino (PCR) Not detected (NOT DETECT) 03/10/25 13:50 SARS-CoV-2 (PCR) Not detected (NOT DETECT) 03/10/25 13:50 Imaging Echo: Radiologist's impression: Is echocardiogram 03/10/2025 CONCLUSIONS Moderately increased left ventricular cavity size. Moderately decreased left ventricular systolic function with akinesis of the inferior and inferolateral junior and hypokinesis of the anterior wall . Left ventricular ejection fraction is 36%. Indeterminate left ventricular diastolic function secondary to severe mitral annular calcification Normal right ventricular size and systolic function. Severe mitral annular calcification. Mildly thickened mitral valve leaflets. Moderate mitral valve stenosis with a mean pressure gradient of 6 mmHg at a heart rate of 90 bpm. Moderate mitral valve regurgitation with a eccentric posteriorly directed jet. Aortic valve not well-visualized but appears to be a bioprosthetic aortic valve with normal function. Vitals Last Vital Signs Temp 98.2 F 03/15/25 02:57 Pulse 74 03/15/25 07:25 Resp 16 03/15/25 07:25 BP 139/73 03/15/25 07:25 Pulse Ox 100 03/15/25 07:25 O2 Del Method Room Air 03/15/25 07:25 Discharge Plan Discharge Patient Disposition: Xfer SNF Condition: Stable Prescriptions: New Triple Antibiotic 3.5mg-400 unit- 5,000 unit/gram Ointment 1 applic topical Q12H Qty: 15 0RF famotidine 20 mg Tablet 20 mg PO BID Qty: 60 0RF Eliquis 2.5 mg Tablet 2.5 mg PO BID Qty: 60 0RF amiodarone 200 mg tablet 200 mg PO BID Qty: 90 0RF Rx Instructions: 200 mg bid for 10 days then daily midodrine 10 mg tablet 10 mg PO TID Qty: 90 0RF Continued (DME) Left AFO See Rx Instructions .Route .MEDSUPPLY Qty: 1 0RF Rx Instructions: As directed to the buck huang zoledronic acid 4 mg Recon Soln 4 mg IV .[id number] albuterol sulfate 2.5 mg /3 mL (0.083 %) solution for nebulization 2.5 mg inhalation Q4H PRN (Reason: Shortness Of Breath) magnesium L-lactate 84 mg Tablet Extended Release 84 mg PO DAILY loratadine 10 mg Tablet 10 mg PO DAILY sucralfate 1 gram tablet 1 g PO QID clopidogrel 75 mg tablet 75 mg PO DAILY acetaminophen 500 mg Tablet 1,000 mg PO Q6H PRN (Reason: Pain) escitalopram oxalate 10 mg tablet 10 mg PO BEDTIME Metamucil 3.4 gram/5.4 gram Powder 1 tbsp PO DAILY Rx Instructions: mix into at least 8 oz of water or juice before administering Lactobac 21-Bif animalis,breve 10 billion cell Capsule 1 cap PO BID atorvastatin 80 mg Tablet 80 mg PO QAM ipuhxack-rhf-hsnlo-vit K-lycop 400-20-300 mcg Tablet 1 tab PO QAM metoprolol succinate 25 mg Tablet Extended Release 24 Hr 12.5 mg PO DAILY Qty: 15 0RF hydrocodone-acetaminophen 5-325 mg tablet 1 tab PO Q8H PRN (Reason: pain) Qty: 7 0RF Changed pantoprazole 40 mg Tablet,Delayed Release (Dr/Ec) 40 mg PO DAILY Qty: 60 0RF gabapentin 300 mg Capsule 30 mg PO BID Qty: 60 0RF bumetanide 1 mg tablet 1 mg PO DAILY 30 Days Qty: 30 0RF Discontinued Eliquis 5 mg tablet 5 mg PO BID Qty: 90 3RF Rx Instructions: 10 bid for 7 days then 5 mg bid diphenoxylate-atropine [Lomotil] 2.5-0.025 mg Tablet 1 tab PO DAILY PRN (Reason: loose stools ) loperamide 2 mg Capsule 4 mg PO Q6H PRN (Reason: Diarrhea) spironolactone 50 mg tablet 50 mg PO DAILY aspirin 81 mg Tablet,Delayed Release (Dr/Ec) 81 mg PO DAILY 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 - Location: Lab - Main Lab Ordered By: Contreras Linton Complete Blood Count w/Auto (Routine) Timeframe: 1 Week Location: Determined by Patient Ordered By: Contreras Linton Magnesium (Routine) Timeframe: 1 Week Facility: [facility] - Location: Lab - Main Lab Ordered By: Contreras Linton Phosphorus (Routine) Timeframe: 1 Week Facility: [facility] - Location: Lab - Main Lab Ordered By: Contreras Linton Referrals: Bruce Rees DO [Primary Care Provider, Family Practice] - 03/23/25 1:20 pm Ramon Gonzalez DO [Physician, Orthopedics] - 03/20/25 10:00 am Discharge Activity: Limit activity as instructed, Use walker/crutches as instructed and As per PT/OT instructions Patient Instructions: Famotidine (By mouth), Amiodarone (By mouth), Midodrine (By mouth), Antibacterial Combination (On the skin), Apixaban (By mouth) (Eliquis), Opioid Safety, Patient Portal & Jonathan Instructions Activity Restrictions/Additional Instructions: Orthopedic discharge instructions: Maintain brace to the left distal radius Maintain sling to left upper extremity Strict no range of motion to the left shoulder Strict nonweightbearing to left upper extremity Recommend ice as needed for pain and swelling Take pain medication as prescribed per primary provider Follow-up outpatient with orthopedics in 1 to 2 weeks Daily dressing changes as instructed with triple antibiotic, nonstick Vaseline gauze, 4 x 4's, ABD, Kerlix, Calvin wrap Weigh patient undressed on [facility] scale on arrival to determine accurate weight. Anticipate with diuresis patient should lose a pound or 2 a day for another 3 to 5 pounds to reach anticipated dry weight Check labs in a week to determine if renal function is tolerating diuresis Patient wear KIARA hose daily can be off at steward/stewardess night for any bleeding as he is on anticoagulation due to paroxysmal atrial fibrillation and mitral valve stenosis Continue physical therapy Monitor orthostatics twice a day and notify physician if orthostatics are positive. Continue midodrine Discharge Attestations Time Spent in Discharge Care*: greater than 30 min Time Spent in Smoking Cessation: Patient is not a smoker Status at Discharge: Cognitive status at discharge: cognitively intact , Behavioral status at discharge: cooperative , Quality Metrics Clinical Quality Measures [ No reported AMI, CVA or VTE this stay] Coding Level of Care Code 35212 Diagnoses S/P TAVR (transcatheter aortic valve replacement) Z95.2 Coronary artery disease I25.10 Anemia D64.9 Mitral stenosis with regurgitation I05.2 Orthostatic hypotension I95.1 Multiple falls R29.6 Syncope R55 PAF (paroxysmal atrial fibrillation) I48.0 Acute heart failure with reduced ejection fraction (HFrEF) I50.21 Time Spent (min) 55
--- NOTE | 2025-03-15 11:28 | PC.NURSE ---
received order to transfuse 1 unit prbc. [facility] has been called on the pt's discharge instructions and updated that discharge will be on hold due to blood transfusion that has just been ordered.
[2025-03-15 11:45] LABS: Iron 81 ug/dL (59-158); Total Iron Binding Capacity 185 mcg/dl; Unsaturated Iron Binding 104 ug/dL (112-347)
--- NOTE | 2025-03-15 12:50 | P.PN_ITS ---
Subjective 2 Subjective: Feels okay lying in bed. He denies shortness of breath and chest pain. He also denies having any palpitations overnight. Vitals/I&O/Wt Last Vital Signs Temp 97.0 F L 03/15/25 11:32 Pulse 68 03/15/25 11:32 Resp 16 03/15/25 11:32 BP 113/68 03/15/25 11:32 Pulse Ox 94 03/15/25 11:32 O2 Del Method Room Air 03/15/25 11:32 03/14/25 03/15/25 03/15/25 22:59 05:59 14:59 Intake Total 302.242 / 902.242 120 / 0340.038 0863.99 / 1066.99 Output Total 700 / 700 200 / 900 375 / 375 Balance -397.758 / 202.242 -80 / 122.242 691.99 / 691.99 Weight last 48 hrs Weight 177 lb 4.026 oz Weight 180 lb 8.937 oz Physical Exam 2 Narrative: General: In no acute distress Neck: No jugular venous distention or carotid bruits Heart: Normal S1 and S2 with a regular rate and rhythm, 2/6 sys murmur Lungs: Normal respiratory effort with no use of intercostal muscles, clear lungs sounds to auscultation Extremities: No lower extremity edema Neuro: Alert and oriented x 3 Urinary Catheter Management: Disla: Cath Placed During This Visit: yes Reason for Continuing Indwelling Catheter: Accurate Measurement of Urinary Output in Critically Ill Patients Urinary Catheter Date of Insertion: 03/10/25 Urinary Catheter Time of Insertion: 19:35 Data 03/14/25 03:04 03/15/25 07:35 Micro: Microbiology 03/10/25 11:24 Blood Culture - Final Blood NO GROWTH AFTER 5 DAYS 03/10/25 11:20 Blood Culture - Final Blood NO GROWTH AFTER 5 DAYS A&P Assessment and plan 1. S/P TAVR (transcatheter aortic valve replacement): functioning normally 2. Coronary artery disease: denies any cp continue plavix and statin 3. Anemia: Recommend transfusing to get Hgb atleast >9 and closer to 10 in this patient with CAD, orthostatic hypotension, syncope, multiple falls 4. Mitral stenosis with regurgitation: Mod mitral stenosis. Moderate MR 5. Orthostatic hypotension: Resting BP in bed stabel REcheck othostatic vitals after 1 unit pRBCs today 6. Multiple falls: 7. Syncope: 8. PAF (paroxysmal atrial fibrillation): remains in SR amio 200mg bid for 1 month then decrease to daily metop tart 12.5mg bid Eliquis 2.5mg bid for now but may need to stop if orthostasis not significantly improved will likely need outpatient eval for Watchman due to poor candidate for long term anticoagulation due to fall risk 9. Acute heart failure with reduced ejection fraction (HFrEF): appears euvolemic now can resume bumex 1mg daily if BPs remains stable unable to use GDMT currently due to orthostatic hypotension Plan: After transfusion, should be stable for discharge to SNF Discussed with Hospitalist Dr. Linton PDMP PDMP Reviewed: Not Reviewed Attestations 2 Medical Necessity Statement*: possible discharge today Coding Level of Care Code Acute Code for Chg Fwd Diagnoses S/P TAVR (transcatheter aortic valve replacement) Z95.2 Coronary artery disease I25.10 Anemia D64.9 Mitral stenosis with regurgitation I05.2 Orthostatic hypotension I95.1 Multiple falls R29.6 Syncope R55 PAF (paroxysmal atrial fibrillation) I48.0 Acute heart failure with reduced ejection fraction (HFrEF) I50.21
--- NOTE | 2025-03-15 15:52 | PC.NURSE ---
BLOOD BANK HAS CLARIFICATION ON PT'S BLOOD TRANSFUSION EMILIE FROM BLOOD BANK ASKED WHAT BLOOD TRANSFUSION DR NEEDS SINCE THEY HAVE THE REGULAR LEUKOCYTE RED BLOOD CELLS AND THE OTHER WAS A NEGATIVE CMV. CALLED DR GALO VIA TELEPHONE TO VERIFY WHICH ONE AND HE SAID TRANSFUSE THE REGULAR LEUKOCYTE.
--- NOTE | 2025-03-15 16:16 | PC.NURSE ---
pt have a mucoid blood clots in stool. stool is brown with mucoid small blood clots. pt reports of abdominal pain and feeling like he is going to pass out while using the bedside commode, pt transferred via sit to stand. pt started to get pale and weak on legs. pt put back in bed. dr dean notified. discharge order is cancelled today.
[2025-03-15 19:24] LABS: Hematocrit 31.0 % (37-53)
--- NOTE | 2025-03-15 19:43 | PC.NURSE ---
group home is updated by case mgt that pt won't be going back there yet tonight.
[2025-03-16 04:00] VITALS: BP 118/79; PULSE 77; RESP 18; TEMP 36.7; O2SAT 98
[2025-03-16] MEDS: psyllium powder Pkt 1 PACKET PO (05:05)
[2025-03-16 07:12] VITALS: BP 127/64; BP 132/61; PULSE 73; PULSE 74; RESP 18; TEMP 35.9; O2SAT 96
[2025-03-16 09:26] LABS: Hematocrit 33.4 % (37-53); Hemoglobin 10.40 g/dL (11.27-16.99); Mean Corpuscular HGB Conc 31.1 g/dL (30-55); Mean Corpuscular Hemoglobin 31.3 pg (27-33); Mean Corpuscular Volume 100.6 fl (82-101); Nucleated Red Blood Cells % 0 %; Platelet Count 110 10^3/cmm (157-399); Red Blood Count 3.32 10^6/uL (3.85-5.65); White Blood Count 19.74 10^3/uL (3.29-11.43)
--- NOTE | 2025-03-16 09:37 | ECG_ITS ---
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 Measurements Intervals [place] Rate: 97 P: 28 MI: 66 QRS: 155 QRSD: 125 T: 32 QT: 385 QTc: 490 Interpretive Statements SINUS RHYTHM WITH SINUS ARRHYTHMIA WITH SHORT MI INTERVAL POSSIBLE RIGHT VENTRICULAR HYPERTROPHY [SOME/ALL OF: PROMINENT R IN V1, LATE TRANSITION, RAD, TANVIR, SSS] ANTEROSEPTAL MYOCARDIAL INFARCTION , PROBABLY OLD [40+ ms Q WAVE IN V1-V4] MARKED ST ELEVATION, CONSIDER INFERIOR INJURY [MARKED ST ELEVATION W/O NORMALLY INFLECTED T-WAVE IN II/aVF] ACUTE IN Compared to ECG 03/13/2025 13:34:42 Short MI interval now present. ST (T wave) deviation now present Atrial fibrillation no longer present. Right bundle-branch block no longer present. Left posterior fascicular block no longer present Myocardial infarct finding still present Electronically Signed On 03-17-2025 22:32:43 TELESALES REPRESENTATIVE by Josephine Sewell M.D. [email or web address] [id number]
--- NOTE | 2025-03-16 10:34 | P.PN_ITS ---
<Statement entered by Russ Orosco MD - 03/16/25 18:14> Patient was evaluated and cared for in conjunction with an advanced practice practitioner. I personally saw the patient and reviewed the chart and all pertinent data. I discussed the patient in detail with the advanced practice practitioner. Please see their note for complete assessment and agreed upon plan of care for the patient. 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 Feels better after transfusion. Vitals/I&O/Wt Last Vital Signs Temp 96.6 F L 03/16/25 07:12 Pulse 73 03/16/25 07:12 Resp 18 03/16/25 07:12 BP 127/64 03/16/25 07:12 Pulse Ox 96 03/16/25 07:12 O2 Del Method Room Air 03/16/25 07:12 03/15/25 03/16/25 03/16/25 22:59 06:59 14:59 Intake Total 1093.01 / 2160.00 120 / 120 Output Total 175 / 875 325 / 875 Balance 918.01 / 1285.00 -325 / 1285.00 120 / 120 Weight last 48 hrs Weight 178 lb 5.663 oz Weight 177 lb 4.026 oz Physical Exam 2 Const: COMMON NORMALS: no acute distress and patient oriented x3 GENERAL APPEARANCE: cooperative and comfortable ORIENTATION/CONSCIOUSNESS: Yes awake, Yes oriented to person, Yes oriented to place and Yes oriented to time Chest: COMMONS NORMALS: normal inspection of the chest and normal palpation of entire chest wall CHEST: Yes Symmetrical chest wall rise Resp: COMMON NORMALS: normal respiratory effort, No retractions, No use of accessory muscles and clear to auscultation bilaterally EFFORT & INSPECTION: Yes symmetric chest movement AUSCULTATION: clear to auscultation bilaterally Cardio: COMMON NORMALS: regular rate, regular rhythm, S1 normal heart sound present, S2 normal heart sound present, No gallops present (Cardio), No clicks present (Cardio), No murmurs present (Cardio) and No rub (Cardio) RATE: r egular rate RHYTHM: regular rhythm HEART SOUNDS: S1 normal heart sound present and S2 normal heart sound present PERIPHERAL PULSES: radial pulses present Extremity: COMMON NORMALS: no pedal edema Neuro: COMMON NORMALS: patient oriented x3 and moves all extremities S ENSORIUM/ORIENTATION: Yes oriented to person, Yes oriented to place and Yes oriented to time Urinary Catheter Management: Disla: Cath Placed During This Visit: yes Reason for Continuing Indwelling Catheter: Other Urinary Catheter Date of Insertion: 03/10/25 Urinary Catheter Time of Insertion: 19:35 Data 03/16/25 09:19 03/15/25 07:35 Micro: Microbiology 03/10/25 11:24 Blood Culture - Final Blood NO GROWTH AFTER 5 DAYS 03/10/25 11:20 Blood Culture - Final Blood NO GROWTH AFTER 5 DAYS A&P Assessment and plan 1. S/P TAVR (transcatheter aortic valve replacement): 2. Acute on chronic HFrEF (heart failure with reduced ejection fraction): 3. Mitral stenosis with regurgitation: 4. Pulmonary embolism: 5. PAF (paroxysmal atrial fibrillation): 6. Coronary artery disease: Plan: He remains in sinus rhythm, rechecking 12 lead EKG, appears to have frequent PAC's. Continue amiodarone 200mg BID, metoprolol 12.5mg BID for rate and rhythm control. Continue midodrine, agree with reducing dose to 5mg TID. Eliquis on hold due to possible GI bleeding, plans to refer for Watchman device already discussed with the patient in detail. He is agreeable, knowing his risk for bleeding with frequent falls and history of GI bleed. He had a stent placed in November, needs to continue Plavix. PDMP PDMP Reviewed: Not Reviewed Attestations 2 Medical Necessity Statement*: GI bleeding on Eliquis Coding Level of Care Code Acute Code for Chg Fwd Diagnoses S/P TAVR (transcatheter aortic valve replacement) Z95.2 Acute on chronic HFrEF (heart failure with reduced ejection fraction) I50.23 Mitral stenosis with regurgitation I05.2 Pulmonary embolism I26.99 PAF (paroxysmal atrial fibrillation) I48.0 Coronary artery disease I25.10
--- NOTE | 2025-03-16 11:14 | PC.SOCIAL ---
IMM Updated Updated pt on IMM. No questions voiced. Provided pt a copy. Initialed, dated, & timed copy in chart.
[2025-03-16 11:24] VITALS: BP 160/82; PULSE 91; RESP 24; TEMP 36.2; O2SAT 98
[2025-03-16 11:42] LABS: Procalcitonin 0.26 ng/mL (0-0.5)
[2025-03-16] MEDS: sucralfate 1 gm/10 mL Oral Liq UDC PO ×3 (11:42→20:23)
[2025-03-16] MEDS: pantoprazole 40 mg SDV IVP ×2 (11:42→22:35)
[2025-03-16 12:49] LABS: C.Diff PCR (Lab) POSITIVE (Negative)
--- NOTE | 2025-03-16 12:51 | ECG_ITS ---
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 Measurements Intervals [place] Rate: 87 P: 29 MS: 63 QRS: 142 QRSD: 133 T: 37 QT: 431 QTc: 520 Interpretive Statements SINUS RHYTHM WITH SHORT MS INTERVAL WITH OCCASIONAL VENTRICULAR PREMATURE COMPLEXES. RIGHT AXIS DEVIATION [QRS AXIS > 100] RIGHT BUNDLE BRANCH BLOCK [120+ ms QRS DURATION, UPRIGHT V1, 40+ ms S IN I/aVL/V4/V5/V6] ANTEROSEPTAL MYOCARDIAL INFARCTION , PROBABLY OLD [40+ ms Q WAVE IN V1-V4] MARKED ST ELEVATION, CONSIDER INFERIOR INJURY [MARKED ST ELEVATION W/O NORMALLY INFLECTED T-WAVE IN II/aVF] ACUTE [place] Compared to ECG 03/16/2025 09:37:29.Ventricular premature complex(es) now present. Right-axis deviation now present.Right bundle-branch block now present Sinus arrhythmia no longer present.Myocardial infarct finding still present ST (T wave) deviation still present Electronically Signed On 03-17-2025 22:31:18 PRODUCTION CONTROL SPECIALIST by Josephine Sewell M.D. [email or web address] [id number]
--- NOTE | 2025-03-16 13:20 | P.PN_ITS ---
Subjective 2 Subjective: Hospital course, labs appreciated. Patient seen sitting at edge of the bed with spouse at bedside. Denies any nausea, vomiting, headache. As per nursing staff he did have tachycardia on minimal movements. Continues to have diarrheal bowel movements. Denies any abdominal pain. Received monitor blood transfusion yesterday. As per spouse he did have colonoscopy as an outpatient where he was found to have extremely friable and bleeding to touch colon. Vitals/I&O/Wt Last Vital Signs Temp 97.1 F L 03/16/25 11:24 Pulse 91 03/16/25 11:24 Resp 24 H 03/16/25 11:24 BP 160/82 03/16/25 11:24 Pulse Ox 98 03/16/25 11:24 O2 Del Method Room Air 03/16/25 11:24 03/15/25 03/16/25 03/16/25 22:59 06:59 14:59 Intake Total 1093.01 / 2160.00 120 / 120 Output Total 175 / 550 325 / 875 75 / 75 Balance 918.01 / 1610.00 -325 / 1285.00 45 / 45 Weight last 48 hrs Weight 80.9 kg Weight 80.4 kg Physical Exam 2 Narrative: General well-developed well-nourished male in no acute cardiopulmonary distress he is on room air CV regular rate and rhythm 3/6 systolic ejection murmur best heard at the right upper sternal border Lungs good air movement trace basilar crackles Abdomen positive bowel tones soft nontender Calves no tenderness cords pretibial edema Disla is in place Urinary Catheter Management: Disla: Cath Placed During This Visit: yes Reason for Continuing Indwelling Catheter: Other Urinary Catheter Date of Insertion: 03/10/25 Urinary Catheter Time of Insertion: 19:35 Data 03/16/25 09:19 03/15/25 07:35 Micro: Microbiology 03/10/25 11:24 Blood Culture - Final Blood NO GROWTH AFTER 5 DAYS 03/10/25 11:20 Blood Culture - Final Blood NO GROWTH AFTER 5 DAYS A&P Assessment and plan 1. Pulmonary edema: Echo shows increased LV cavity size severe mitral annular calcification and moderate regurg. LVEF was 36% With addition of midodrine blood pressure has been improved and he has decreased pulmonary edema by imaging. Bibasilar effusions versus 2. Acute on chronic renal failure: Creatinine started to 2.5 this admission and has come down to 1.5 with the midodrine and after dose of Bumex patient's creatinine has come down to 1.3 3. Closed fracture of head of left humerus: Managed by Dr. Gonzalez with sling. Therapy evaluation 4. Chronic anticoagulation: I have lower Eliquis to 2.5 mg. Leg ultrasound was negative for clot. He is being considered for IVC filter plus Watchman device. I spoke with Dr. Orosco today patient has mitral valve disease and low EF making him at more risk for cardioembolic disease but he is at high risk of falling as he has fallen twice with injury and multiple times at home 5. Acute exacerbation of CHF (congestive heart failure): Patient has had valvular replacement with TAVR aortic valve. Also has mitral valve stenosis and regurg with pulmonary. It is reported as severe micro atrial regurg. Modest success with midodrine diuresis increase midodrine to 10 mg 3 times daily discussed by cardiology yesterday but not instituted until this morning 6. Leukocytosis: Patient had white count of 15 on February 20 and 12 on March 06. Unclear etiology at this time patient was given empiric antibiotics in ER and cultures were obtained. Urinalysis negative chest x-ray looks like heart failure and viral respiratory panel was negative. Patient is afebrile. Still elevated white count now CRP up to 138. Cannot exclude endocarditis but blood cultures are negative. Viral panel was negative as well 7. Mitral stenosis with regurgitation: Will consult cardiology due to severe mitral stenosis and inability to diurese. Patient is changed to inpatient Plan: Plan for the day: Shortness of breath and admission most likely in setting of congestive heart failure with a EF of 35%. Seems to be improving. Fluid restriction to less than 1500 cc. Patient seems to be euvolemic for now. Hold off any fluid or diuretics. Most likely will discharge on Bumex 1 mg daily. Goal blood pressure less than 140/90 mmHg with mean over 65. Was orthostatic on admission. Blood pressures improving. Change midodrine to 5 mg 3 times daily. Continues to have diarrhea along with persistent leukocytosis. Patient has not spiked any fever though cannot rule out infectious process. Hold off on IV antibiotics for now. Check blood culture. Stool for C. difficile. If positive will start on fidaxomicin. Patient is at high risk of C. difficile. Anemia most likely in setting of lower GI bleed. Found to have friable colon easy to bleed at touch as per spouse. Patient on Eliquis 2.5 mg twice daily and Plavix at home. Discussed with detail with the patient regarding possible need to hold off on Eliquis for now which does put him at a high risk of for stroke given his history of DVT PE and A-fib in the past. He is agreeable to hold off on Eliquis for now. Discussed monitor with cardiology team. Most likely plan will be to hold off on Eliquis for next 1 month. Hold off on Plavix for 2 weeks. Patient will need weekly CBCs to monitor hemoglobin. For now start on Protonix 40 mg twice daily, Carafate ACHS. Monitor hemoglobin Q12 hourly. Continue with clear liquid diet. CODE STATUS confirmed in detail with the patient with spouse at bedside. Full code. Will discontinue discharge for now. PDMP PDMP Reviewed: Not Reviewed Attestations 2 Medical Necessity Statement*: Requires further hospitalization for management of orthostatic hypotension, anemia in setting of GI bleed requiring blood transfusion, chronic anticoagulation in setting of A-fib, sepsis with concerns for C. difficile Diagnoses Pulmonary edema J81.1 Acute on chronic renal failure N17.9; N18.9 Closed fracture of head of left humerus S42.292A Encounter type: initial encounter Chronic anticoagulation Z79.01 Acute exacerbation of CHF (congestive heart failure) I50.9 Leukocytosis D72.829 Mitral stenosis with regurgitation I05.2
[2025-03-16 14:11] LABS: Clostridioides Difficile Toxin NEGATIVE (Negative)
[2025-03-16 16:00] VITALS: BP 123/69; PULSE 83; RESP 17; TEMP 36.3; O2SAT 100
[2025-03-16 19:34] VITALS: BP 138/57; BP 142/60; PULSE 74; PULSE 81; RESP 19; TEMP 36.6; O2SAT 100
[2025-03-16 21:47] LABS: Hematocrit 29.7 % (37-53); Hemoglobin 9.60 g/dL (11.27-16.99)
[2025-03-17] VITALS: BP 148/66; PULSE 74; RESP 17; O2SAT 98
[2025-03-17 04:00] VITALS: BP 132/58; PULSE 76; RESP 19; TEMP 36.6; O2SAT 97
[2025-03-17 05:02] LABS: Hematocrit 29.1 % (37-53); Hemoglobin 9.10 g/dL (11.27-16.99); Mean Corpuscular HGB Conc 31.3 g/dL (30-55); Mean Corpuscular Hemoglobin 30.1 pg (27-33); Mean Corpuscular Volume 96.4 fl (82-101); Nucleated Red Blood Cells % 0 %; Platelet Count 90 10^3/cmm (157-399); Red Blood Count 3.02 10^6/uL (3.85-5.65); White Blood Count 12.73 10^3/uL (3.29-11.43)
[2025-03-17 05:33] LABS: Alanine Aminotransferase 10 U/L (0-41); Albumin Level 2.7 g/dL (3.5-5.2); Alkaline Phosphatase 105 U/L (40-130); Anion Gap 12.8 (5-19); Aspartate Amino Transferase 16 U/L (0-40); Blood Urea Nitrogen 31 mg/dL (8-23); Calcium 7.8 mg/dL (8.5-10.5); Carbon Dioxide 20 mmol/L (22-29); Chloride 105 mmol/L (98-107); Creatinine Clr Calc Pharmacy 45.0513; Globulin 2.1 g/dL (1.3-4.6); Glucose 82 mg/dL (65-115); Osmolality Calculated 284 mOsm/kg (285-295); Potassium 3.8 mmol/L (3.5-5.1); Sodium 134 mmol/L (136-145); Total Protein 4.8 g/dL (6.6-8.7)
[2025-03-17 06:00] VITALS: PULSE 74
[2025-03-17 07:26] VITALS: BP 117/65; PULSE 88; RESP 25; TEMP 36.6; O2SAT 96
--- NOTE | 2025-03-17 08:32 | P.DS_ITS ---
Discharge Providers Date of Admission: 03/11/25 10:52 Date of Discharge: March 17, 2025 Attending Provider at Admission: Contreras Linton MD Attending Provider at Discharge: Joe Rubalcava MD Primary Care Provider: Bruce Rees DO Diagnoses at Discharge Discharge Diagnosis 1. S/P TAVR (transcatheter aortic valve replacement): 2. Acute on chronic HFrEF (heart failure with reduced ejection fraction): 3. Mitral stenosis with regurgitation: 4. Pulmonary embolism: 5. PAF (paroxysmal atrial fibrillation): 6. Coronary artery disease: Reason for Visit Reason for Visit: General Weakness Hospital Course Hospital Course Rafy Sierra is a 80 year old male with history of left proximal humerus fracture on Sunday comes back because his sling is ill fitting and uncomfortable and he is having pain and skin tear in his left arm. He wants this seen by orthopedist. He had lab and x-ray workup showing pulmonary edema on x-ray confirmed by CT scan and white count of 20,000. He is referred for observation because of those problems. Patient has echocardiogram showing EF 35 to 40% with mitral regurg and severe low-flow aortic stenosis now moderate mitral valve stenosis as of 09/13/2024 Patient is on chronic anticoagulation for atrial fibrillation and severe mitral valve stenosis and low ejection fraction and but he had traumatic subarachnoid hemorrhage recently, left proximal humerus fracture both from falls. He also had upper GI bleed 10/16/2024. Patient had a history of proximal colonic bleeding vessel clipped in 2023. Patient and had denied but reviewing old records he had a PE in September. Patient has multiple myeloma with pancytopenia mild and platelets low at 65-70 thousand Patient had elevated leukocytes here with negative blood cultures and negative UA. Etiology is not clear but he does have multiple myeloma with history of lytic lesion in the manubrium, and thoracic vertebral bodies. Follow-up with oncology. Patient had small subarachnoid hemorrhage left brain 02/21/2025 resolved on repeat scan 03/10/2025 On admission he was found to have fluid overload. Fluid overload was complicated by him being hypotensive. Cardiology was consulted. Patient was started on IV diuresis though he continued to remain orthostatic for which m idodrine was added. During hospitalization he was found to have gradually worsening anemia most likely in setting of GI bleed for which his dose of Eliquis and Plavix was withheld. He underwent colonoscopy and endoscopy recently at [facility]. On review of documents he was found to have small hiatal hernia on endoscopy and 2 ectatic punctate lesions in colon with old blood. As per patient's they were informed that he had a friable mucosa and colonoscopy. Given recurrent anemia, GI bleed patient was counseled in detail regarding risk factors while being on both Plavix and Eliquis though both medications are important for him to prevent him from stent thrombosis and stroke/DVT and PE respectively again. Patient verbalized understanding and is agreeable to hold off on both Plavix and Eliquis for now. He is to stop Plavix for 2 weeks and Eliquis for 1 month. Hemoglobin remained stable after 1 unit of blood transfusion. Orthostatic hypotension also resolved. He is to have hemoglobin checked weekly for next 2 weeks and then biweekly for next 2 months. He was found to have C. difficile colitis for which he was started on fidaxomicin after which his leukocytosis is resolving. Fidaxomicin was not available at halfway hence has been changed to oral vancomycin on discharge He is to follow-up with cardiology to consider IVC filter and Watchman device. He has been started on amiodarone drip for paroxysmal atrial fibrillation and seems to have maintained sinus rhythm since then. He is to have 200 mg twice a day oral amiodarone for 10 days then 200 mg daily thereafter follow-up in cardiology Orthopedics/Dr. Gonzalez evaluated the patient and is treating the left proximal humerus and left distal radius fractures conservatively with a sling. The wrist was not painful. Physical Exam Narrative: General well-developed well-nourished male in no acute cardiopulmonary distress he is on room air CV regular rate and rhythm 3/6 systolic ejection murmur best heard at the right upper sternal border Lungs good air movement trace basilar crackles Abdomen positive bowel tones soft nontender Calves no tenderness cords pretibial edema Disla is in place Urinary Catheter Management: Disla: Cath Placed During This Visit: yes, but has since been removed by the nurse Reason for Continuing Indwelling Catheter: Decision to DC Catheter Urinary Catheter Date of Insertion: 03/10/25 Urinary Catheter Time of Insertion: 19:35 Date Urinary Catheter Removed: 03/16/25 Time Urinary Catheter Discontinued: 17:00 Discharge Data Studies Completed and Pending Completed Studies During Hospitalization Category Date Time Status CT chest wo con [id number] Stat Cat Scan 03/10/25 13:[address] head wo con* [id number] Stat Cat Scan 03/10/25 11:12 Completed XR chest 1V portable [id number] Routine Exams 03/12/25 06:38 Completed XR chest 1V portable [id number] Routine Exams 03/14/25 08:00 Completed XR chest 1V portable [id number] Stat Exams 03/10/25 11:02 [place] [id number] Routine Ultrasound 03/12/25 11:17 Completed CV. echo complete* [id number] Stat Ultrasound 03/10/25 13:24 Completed Pending at discharge Category Date Time Status Blood Culture Routine Lab 03/16/25 21:00 Results Radiology Impressions Head CT 03/10/25 11:12 IMPRESSION: 1. Complete resolution of previously described subarachnoid hemorrhage over the LEFT parietal vertex. 2. No acute intracranial hemorrhage. No edema. 3. Mild atrophy and mild small vessel disease. Chest CT 03/10/25 13:45 IMPRESSION: 1. Mild to moderate bilateral pleural effusions, RIGHT greater than LEFT. Similar size compared to the prior exam from 09/12/2024. 2. Moderate cardiomegaly. 3. Mild diffuse hazy attenuation from pulmonary edema. 4. Bandlike areas of atelectasis in the mid and lower lung yost. 5. Cholelithiasis. 6. Hazy attenuation within the upper abdomen surrounding fatty replacement of the pancreas. This may be secondary to fluid overload. Pancreatitis or colitis may also be responsible for the inflammatory changes. Less likely due to the cholelithiasis. 7. Patient has extensive lytic disease from multiple myeloma. Lytic lesion at T9 is the most aggressive and there may be soft tissue encroaching upon the thoracic cord and foramen. This could be further evaluated by MRI with and without contrast. Chest X-Ray 03/14/25 08:00 IMPRESSION: [id number] ill-defined increased density in both lower lung zones has improved since the recent prior chest radiograph. Finding likely reflects improving pulmonary edema and decreasing bilateral pleural effusions. Echocardiogram: CONCLUSIONS Moderately increased left ventricular cavity size. Moderately decreased left ventricular systolic function with akinesis of the inferior and inferolateral junior and hypokinesis of the anterior wall . Left ventricular ejection fraction is 36%. Indeterminate left ventricular diastolic function secondary to severe mitral annular calcification Normal right ventricular size and systolic function. Severe mitral annular calcification. Mildly thickened mitral valve leaflets. Moderate mitral valve stenosis with a mean pressure gradient of 6 mmHg at a heart rate of 90 bpm. Moderate mitral valve regurgitation with a eccentric posteriorly directed jet. Aortic valve not well-visualized but appears to be a bioprosthetic aortic valve with normal function. Russ Orosco MD, [facility] (Electronically Signed) Final Date: 10 March 2025 Laboratory Results WBC 12.73 10^3/uL (3.29-11.43) H 03/17/25 04:26 RBC 3.02 10^6/uL (3.85-5.65) L 03/17/25 04:26 Hgb 9.10 g/dL (11.27-16.99) L 03/17/25 04:26 Hct 29.1 % (37-53) L 03/17/25 04:26 MCV 96.4 fl (82-101) 03/17/25 04:26 MCH 30.1 pg (27-33) 03/17/25 04: MCHC 31.3 g/dL (30-55) 03/17/25 04: RDW 18.0 % (12.1-15.1) H 03/17/25 04:26 Plt Count 90 10^3/cmm (157-399) L 03/17/25 04:26 MPV 11.3 fL (7.4-10.4) H 03/17/25 04:26 Neut % (Auto) 78.3 % 03/17/25 04:26 Lymph % (Auto) 8.6 % 03/17/25 04:26 Becker % (Auto) 9.2 % 03/17/25 04:26 Eos % (Auto) 1.3 % 03/17/25 04:26 Baso % (Auto) 0.2 % 03/17/25 04:26 Neut # (Auto) 9.96 10^3/uL (1.8-7.7) H 03/17/25 04:26 Lymph # (Auto) 1.1 10^3/uL (0.8-4.8) 03/17/25 04:26 Becker # (Auto) 1.2 10^3/uL (0.2-0.9) H 03/17/25 04:26 Eos # (Auto) 0.2 10^3/uL (0.0-0.8) 03/17/25 04:26 Baso # (Auto) 0.0 10^3/uL (0.0-0.1) 03/17/25 04:26 Nucleated RBC % (auto) 0 % 03/17/25 04:26 Total Counted 100 (0-100) 03/14/25 03:04 Atypical Lymphs % 1.0 % (0-5) 03/14/25 03:04 Absolute Neutrophils 13.3 10^3/cmm (1.4-6.5) H 03/14/25 03:04 Segmented Neutrophils 75 % 03/14/25 03:04 Band Neutrophils 4.0 % 03/14/25 03:04 Absolute Lymphocytes 1.9 10^3/cmm (1.2-3.4) 03/14/25 03:04 Lymphocytes (Manual) 10 % 03/14/25 03:04 Monocytes (Manual) 5.0 % 03/14/25 03:04 Absolute Monocytes 0.8 10^3/cmm (0.1-0.6) H 03/14/25 03:04 Eosinophils (Manual) 2 % 03/14/25 03:04 Absolute Eosinophils 0.3 10^3/cmm (0.0-0.7) 03/14/25 03:04 Basophils (Manual) 0.0 % 03/14/25 03:04 Absolute Basophils 0.0 10^3/cmm (0.0-0.2) 03/14/25 03:04 Metamyelocytes 3.0 % 03/14/25 03:04 Myelocytes 2.0 % 03/13/25 05:39 Nucleated RBCs 2.0 /100WBC (0-1) H 03/14/25 03:04 Nucleated RBCs # 0.0 /100WBC 03/17/25 04:26 Platelet Estimate Decreased (Normal) 03/14/25 03:04 Polychromasia Trace 03/10/25 11:20 Anisocytosis Trace 03/10/25 11:20 Sodium 134 mmol/L (136-145) L 03/17/25 04:26 Potassium 3.8 mmol/L (3.5-5.1) 03/17/25 04:26 Chloride 105 mmol/L (98-107) 03/17/25 04:26 Carbon Dioxide 20 mmol/L (22-29) L 03/17/25 04:26 Anion Gap 12.8 (5-19) 03/17/25 04:26 BUN 31 mg/dL (8-23) H 03/17/25 04:26 Creatinine 1.3 mg/dL (0.7-1.2) H 03/17/25 04:26 GFR Calculation Not Reportable 03/17/25 04:26 Glucose 82 mg/dL (65-115) 03/17/25 04:26 Calculated Osmolality 284 mOsm/kg (285-295) L 03/17/25 04:26 Lactic Acid 1.4 mmol/L (0.5-2.2) 03/10/25 11:20 Calcium 7.8 mg/dL (8.5-10.5) L 03/17/25 04:26 Phosphorus 4.3 mg/dL (2.5-4.5) 03/11/25 03:50 Magnesium 2.4 mg/dL (1.7-2.3) H 03/11/25 03:50 Iron 81 ug/dL (59-158) 03/15/25 07:35 TIBC 185 mcg/dl 03/15/25 07:35 % Saturation 43.7 % (20-50) 03/15/25 07:35 Unsat Iron Binding 104 ug/dL (112-347) L 03/15/25 07:35 Total Bilirubin 0.9 mg/dL (0.15-1.2) 03/17/25 04:26 AST 16 U/L (0-40) 03/17/25 04:26 ALT 10 U/L (0-41) 03/17/25 04:26 Alkaline Phosphatase 105 U/L (40-130) 03/17/25 04:26 Troponin T Baseline 153 ng/L (0-15) H* 03/10/25 11:20 Troponin T 120 Minute 147.2 ng/L (0-15) H 03/10/25 13:31 Delta Troponin T -5.8 ABS# (0-10) L 03/10/25 13:31 Troponin T Hi Sens 6Hr 134.7 ng/L (0-15) H 03/10/25 17:08 Troponin T Hi Sens 6Hr Delta -18.3 ng/L (0-12) L 03/10/25 17:08 C-Reactive Protein 138.0 mg/L (0.0-4.9) H 03/10/25 11:20 NT-Pro-B Natriuret Pep 02464 pg/mL (0-450) H 03/10/25 11:20 Total Protein 4.8 g/dL (6.6-8.7) L 03/17/25 04:26 Albumin 2.7 g/dL (3.5-5.2) L 03/17/25 04:26 Globulin 2.1 g/dL (1.3-4.6) 03/17/25 04:26 Lipase 9 U/L (13-60) L 03/11/25 03:50 Procalcitonin 0.26 ng/mL (0-0.5) 03/16/25 09:19 TSH 1.63 uIU/mL (0.27-4.20) 03/11/25 03:50 Random Cortisol 21.54 ug/dL (2.47-19.5) H 03/11/25 03:50 Urine Color Dark yellow (Yellow) A 03/10/25 11:30 Urine Appearance Cloudy (CLEAR) A 03/10/25 11:30 Urine pH 5.0 (5-7) 03/10/25 11:30 Ur Specific Blanchard 1.022 (1.005-1.030) 03/10/25 11:30 Urine Protein Trace (Negative) A 03/10/25 11:30 Urine Glucose (UA) Negative (Normal) 03/10/25 11:30 Urine Ketones Trace (Negative) 03/10/25 11:30 Urine Blood Negative (Negative) 03/10/25 11:30 Urine Nitrate Negative (Negative) 03/10/25 11:30 Urine Bilirubin Negative (Negative) 03/10/25 11:30 Urine Urobilinogen 1.0 mg/dL (Negative) 03/10/25 11:30 Ur Leukocyte Esterase Trace (Negative) A 03/10/25 11:30 Urine RBC 0-2 /hpf (0-2) 03/10/25 11:30 Urine WBC 0-5 /hpf (0-5) 03/10/25 11:30 Ur Squamous Epith Cells 0-5 /hpf (0-5) 03/10/25 11:30 Amorphous Sediment 1+ /hpf 03/10/25 11:30 Urine Bacteria None seen /hpf (NONE) 03/10/25 11:30 Hyaline Casts 106.34 /lpf 03/10/25 11:30 Fine Granular Casts 0-4 /lpf H 03/10/25 11:30 Adenovirus (PCR) Not detected (NOT DETECT) 03/10/25 13:50 C. pneumoniae DNA (PCR) Not detected (NOT DETECT) 03/10/25 13:50 C. difficile (PCR) Positive (Negative) H 03/16/25 10:55 C.difficile Tox Confrm Negative (Negative) 03/16/25 10:55 Coronavirus 229E (PCR) Not detected (NOT DETECT) 03/10/25 13:50 Human Metapneumovir PCR Not detected (NOT DETECT) 03/10/25 13:50 Influenza A (H1) PCR Not detected (NOT DETECT) 03/10/25 13:50 Influenza A (PCR) Negative (Negative) 03/10/25 11:18 Influ A (H1/09) PCR Not detected (NOT DETECT) 03/10/25 13:50 Influenza A (H3) PCR Not detected (NOT DETECT) 03/10/25 13:50 Influenza Type A (PCR) Not detected (NOT DETECT) 03/10/25 13:50 Influenza Type B (PCR) Not detected (NOT DETECT) 03/10/25 13:50 M. pneumoniae (PCR) Not detected (NOT DETECT) 03/10/25 13:50 Parainfluenza 1 (PCR) Not detected (NOT DETECT) 03/10/25 13:50 Parainfluenza 2 (PCR) Not detected (NOT DETECT) 03/10/25 13:50 Parainfluenza 3 (PCR) Not detected (NOT DETECT) 03/10/25 13:50 Parainfluenza 4 (PCR) Not detected (NOT DETECT) 03/10/25 13:50 RSV (PCR) Negative (Negative) 03/10/25 11:18 RSV Type A (PCR) Not detected (NOT DETECT) 03/10/25 13:50 RSV Type B (PCR) Not detected (NOT DETECT) 03/10/25 13:50 Entero/Rhino (PCR) Not detected (NOT DETECT) 03/10/25 13:50 SARS-CoV-2 (PCR) Not detected (NOT DETECT) 03/10/25 13:50 Blood Type A Positive 03/15/25 13:00 Rho(D) Type Rh positive 03/15/25 13:00 Antibody Screen Negative 03/15/25 13:00 Crossmatch See Detail 03/15/25 13:00 Vitals Last Vital Signs Temp 97.8 F 03/17/25 07:26 Pulse 88 03/17/25 07:26 Resp 25 H 03/17/25 07:26 BP 117/65 03/17/25 07:26 Pulse Ox 96 03/17/25 07:26 O2 Del Method Room Air 03/17/25 04:00 Discharge Plan Discharge Patient Disposition: Xfer SNF Condition: Stable Prescriptions: New Triple Antibiotic 3.5mg-400 unit- 5,000 unit/gram Ointment 1 applic topical Q12H Qty: 15 0RF amiodarone 200 mg tablet 200 mg PO BID Qty: 90 0RF Rx Instructions: 200 mg bid for 10 days then daily ferrous sulfate 325 mg (65 mg iron) tablet,delayed release (DR/EC) 325 mg PO DAILY Qty: 100 0RF midodrine 5 mg Tablet 5 mg PO TID 30 Days Qty: 90 0RF Rx Instructions: Hold for SBP more than 120 mmhg pantoprazole [Protonix] 40 mg tablet,delayed release (DR/EC) 40 mg PO QAM Qty: 60 0RF Rx Instructions: Twice daily for next 2 weeks followed by once daily vancomycin 250 mg capsule 250 mg PO QID 14 Days Qty: 56 0RF Continued (DME) Left AFO See Rx Instructions .Route .MEDSUPPLY Qty: 1 0RF Rx Instructions: As directed to the buck huang zoledronic acid 4 mg Recon Soln 4 mg IV .[id number] albuterol sulfate 2.5 mg /3 mL (0.083 %) solution for nebulization 2.5 mg inhalation Q4H PRN (Reason: Shortness Of Breath) magnesium L-lactate 84 mg Tablet Extended Release 84 mg PO DAILY loratadine 10 mg Tablet 10 mg PO DAILY sucralfate 1 gram tablet 1 g PO QID acetaminophen 500 mg Tablet 1,000 mg PO Q6H PRN (Reason: Pain) escitalopram oxalate 10 mg tablet 10 mg PO BEDTIME Metamucil 3.4 gram/5.4 gram Powder 1 tbsp PO DAILY Rx Instructions: mix into at least 8 oz of water or juice before administering Lactobac 21-Bif animalis,breve 10 billion cell Capsule 1 cap PO BID atorvastatin 80 mg Tablet 80 mg PO QAM avtwqpri-xzq-okzfo-vit K-lycop 400-20-300 mcg Tablet 1 tab PO QAM metoprolol succinate 25 mg Tablet Extended Release 24 Hr 12.5 mg PO DAILY Qty: 15 0RF hydrocodone-acetaminophen 5-325 mg tablet 1 tab PO Q8H PRN (Reason: pain) Qty: 7 0RF Changed pantoprazole 40 mg Tablet,Delayed Release (Dr/Ec) 40 mg PO DAILY Qty: 60 0RF gabapentin 300 mg Capsule 30 mg PO BID Qty: 60 0RF bumetanide 1 mg tablet 1 mg PO DAILY 30 Days Qty: 30 0RF Held clopidogrel 75 mg tablet 75 mg PO DAILY Hold Instructions: Resume on 03/21/25. 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 Range Operator OK for DC: Orthopedics and Hospitalist Discharge Order = DC NOW: Discharge Order (Routine); Ordered 03/17/25 Ordered By: Joe Rubalcava Other Ambulatory Orders: Basic Metabolic Panel (Routine) Timeframe: 1 Week Facility: [facility] - Location: Lab - Main Lab Ordered By: Contreras Linton Complete Blood Count w/Auto (Routine) Timeframe: 1 Week Location: Determined by Patient Ordered By: Contreras Linton Magnesium (Routine) Timeframe: 1 Week Facility: [facility] - Location: Lab - Main Lab Ordered By: Contreras Linton Phosphorus (Routine) Timeframe: 1 Week Facility: [facility] - Location: Lab - Main Lab Ordered By: Contreras Linton Referrals: [facility] [Outside] Keron Carreon MD [Physician, Cardiology] - 04/08/25 8:30 am Referral Note: This appointment is scheduled is Dr. Orosco. Bruce Rees DO [Primary Care Provider, [facility]] - 03/23/25 1:20 pm Ramon Gonzalez DO [Physician, Orthopedics] - 03/20/25 10:00 am Discharge Diet: Regular and Cardiac Discharge Activity: Limit activity as instructed, Use walker/crutches as instructed and As per PT/OT instructions Patient Instructions: Famotidine (By mouth), Amiodarone (By mouth), Midodrine (By mouth), Antibacterial Combination (On the skin), Fidaxomicin (By mouth) (Dificid), Apixaban (By mouth) (Eliquis), Laceration (DC), Syncope (DC), Regular Diet (DC), C. Diff (Clostridioides Difficile) Infection (DC), Low-Sodium Diet (DC), Opioid Safety, Patient Portal & Jonathan Instructions Activity Restrictions/Additional Instructions: Orthopedic discharge instructions: Maintain brace to the left distal radius Maintain sling to left upper extremity Strict no range of motion to the left shoulder Strict nonweightbearing to left upper extremity Recommend ice as needed for pain and swelling Take pain medication as prescribed per primary provider Follow-up outpatient with orthopedics in 1 to 2 weeks Daily dressing changes as instructed with triple antibiotic, nonstick Vaseline gauze, 4 x 4's, ABD, Kerlix, Calvin wrap Internal medicine discharge instruction Restrict fluid intake to less than 1500 cc, salt intake to less than 2 g daily. Check blood pressure daily at home maintain a blood pressure diary. Goal blood pressure is between 100-140 systolics. Advised to check his weight daily at home. Is advised that weight today would be the dry weight and if body weight increases by around 5 pounds, patient is to take an extra dose of Bumex daily till body weight comes down to weight today. If not able to come down to dry body weight in 1 week, then is to call cardiology office for further recommendations. Patient was counseled in detail to take medications regularly as prescribed. Hold Eliquis and Plavix for now. Hold Eliquis for 1 month, Plavix for 2 weeks. Check hemoglobin and hematocrit weekly for next 2 weeks and if stable then every other week for next 2 months. Take midodrine 5 mg 3 times a day. Mehring to be held if systolic blood pressures are more than 120 mmHg. Take vancomycin to 50 mg 4 times a day for C. difficile 200 mg twice daily for next 14 days. Discharge Attestations Time Spent in Discharge Care*: greater than 30 min Specific Discharge Activities: educating patient, educating and/or supporting family/caregiver, discussing with pcp/other providers, discussing with case management specialist/social workers/dc planners, documenting/other paperwork and evaluating patient/reviewing data Status at Discharge: Cognitive status at discharge: cognitively intact , Behavioral status at discharge: cooperative , Functional status at discharge: uses cane/walker , Overall status at discharge: patient is progressing back to baseline Quality Metrics Clinical Quality Measures [ No reported AMI, CVA or VTE this stay] Coding Level of Care Code 60151 Total time (in minutes) for Discharge: 65 Diagnoses S/P TAVR (transcatheter aortic valve replacement) Z95.2 Acute on chronic HFrEF (heart failure with reduced ejection fraction) I50.23 Mitral stenosis with regurgitation I05.2 Pulmonary embolism I26.99 PAF (paroxysmal atrial fibrillation) I48.0 Coronary artery disease I25.10
--- NOTE | 2025-03-17 09:15 | PM.PN ---
Subjective Subjective: He has done well overnight, appears well compensated. Hemoglobin stable after blood transfusion. Remains in sinus rhythm. Vitals/I&O/Wt Last Vital Signs Temp 97.8 F 03/17/25 07:26 Pulse 88 03/17/25 07:26 Resp 25 H 03/17/25 07:26 BP 117/65 03/17/25 07:26 Pulse Ox 96 03/17/25 07:26 O2 Del Method Room Air 03/17/25 04:00 03/16/25 03/17/25 03/17/25 22:59 06:59 14:59 Intake Total 240 / 600 120 / 600 360 / 360 Output Total 0 / 275 Balance 240 / 325 120 / 325 360 / 360 Weight last 48 hrs Weight 176 lb 5.917 oz Weight 178 lb 5.663 oz Physical Exam Const: COMMON NORMALS: no acute distress and patient oriented x3 GENERAL APPEARANCE: cooperative and comfortable ORIENTATION/CONSCIOUSNESS: Yes awake, Yes oriented to person, Yes oriented to place and Yes oriented to time Chest: COMMONS NORMALS: normal inspection of the chest and normal palpation of entire chest wall CHEST: Yes Symmetrical chest wall rise Resp: COMMON NORMALS: normal respiratory effort, No retractions, No use of accessory muscles and clear to auscultation bilaterally EFFORT & INSPECTION: Yes symmetric chest movement AUSCULTATION: clear to auscultation bilaterally Cardio: COMMON NORMALS: regular rate, regular rhythm, S1 normal heart sound present, S2 normal heart sound present, No gallops present (Cardio), No clicks present (Cardio), No murmurs present (Cardio) and No rub (Cardio) RATE: regular rate RHYTHM: regular rhythm HEART SOUNDS: S1 normal heart sound present and S2 normal heart sound present PERIPHERAL PULSES: radial pulses present Extremity: COMMON NORMALS: no pedal edema Neuro: COMMON NORMALS: patient oriented x3 and moves all extremities SENSORIUM/ORIENTATION: Yes oriented to person, Yes oriented to place and Yes oriented to time Urinary Catheter Management: Disla: Cath Placed During This Visit: yes, but has since been removed by the nurse Reason for Continuing Indwelling Catheter: Decision to DC Catheter Urinary Catheter Date of Insertion: 03/10/25 Urinary Catheter Time of Insertion: 19:35 Date Urinary Catheter Removed: 03/16/25 Time Urinary Catheter Discontinued: 17:00 Data 03/17/25 04:26 03/17/25 04:26 Micro: Microbiology 03/16/25 21:00 Blood Culture - Preliminary Blood SPECIMEN COLLECTED 03/16/25 20:55 Blood Culture - Preliminary Blood SPECIMEN COLLECTED A&P Assessment and plan 1. S/P TAVR (transcatheter aortic valve replacement): 2. Acute on chronic HFrEF (heart failure with reduced ejection fraction): 3. Mitral stenosis with regurgitation: 4. Pulmonary embolism: 5. PAF (paroxysmal atrial fibrillation): 6. Coronary artery disease: Plan: Agree with discharge to longterm facility today. Continue amiodarone 200 mg twice a day, midodrine 5 mg 3 times daily, Plavix, statin. Follow-up in the cardiology clinic in 2 weeks, plan to refer for Watchman device as an outpatient. Continue to hold [employer]. PDMP PDMP Reviewed: Not Reviewed Attestations Medical Necessity Statement*: dc today Coding Level of Care Code Acute Code for Chg Fwd Diagnoses S/P TAVR (transcatheter aortic valve replacement) Z95.2 Acute on chronic HFrEF (heart failure with reduced ejection fraction) I50.23 Mitral stenosis with regurgitation I05.2 Pulmonary embolism I26.99 PAF (paroxysmal atrial fibrillation) I48.0 Coronary artery disease I25.10
--- NOTE | 2025-03-17 11:04 | PC.NURSE ---
long term called and they said they won't have the medication for cdiff until in their pharmacy and wants us to get his meds from here to bring with to long term. Called [facility] pharmacy main campus and now Waiting for our [facility] pharmacy to call us back for a 3 tabs supply for this pt.
--- NOTE | 2025-03-17 11:22 | PC.NURSE ---
Transportation will be here this after noon per Chary of the assisted.
--- NOTE | 2025-03-17 11:30 | PC.NURSE ---
[facility] pharmacy delivered 3 tabs of dificid to take with to half-way for few days until their pharmacy delivered the meds there on per nursing staff.
--- NOTE | 2025-03-17 11:41 | PC.OT ---
OT TREATMENT HELD DUE TO SCHEDULED PATIENT D/C TODAY
[2025-03-17 13:56] VITALS: BP 117/65; PULSE 76; O2SAT 92
== END 2025-03-17 14:00 | disposition skilled nursing facility (03) | DRG 292 ==
LOC: ER 12:45 → CSU 17:09
PROVIDERS: Admitting Provider Internal Medicine; Emergency Provider Emergency Medicine; PCP Electrodiagnostic Medicine; Visit Provider Student in an Organized Health Care Education/Training Program
DX: I50.23 Acute on chronic systolic (congestive) heart failure (principal); C90.00 Multiple myeloma not having achieved remission; N17.9 Acute kidney failure, unspecified; N18.9 Chronic kidney disease, unspecified; I08.0 Rheumatic disorders of both mitral and aortic valves; I48.0 Paroxysmal atrial fibrillation; I25.10 Atherosclerotic heart disease of native coronary artery without angina pectoris; I45.10 Unspecified right bundle-branch block; I44.5 Left posterior fascicular block; I73.9 Peripheral vascular disease, unspecified; G62.9 Polyneuropathy, unspecified; D63.1 Anemia in chronic kidney disease; K44.9 Diaphragmatic hernia without obstruction or gangrene; R19.7 Diarrhea, unspecified; R79.89 Other specified abnormal findings of blood chemistry; I95.1 Orthostatic hypotension; W01.0XXD Fall on same level from slipping, tripping and stumbling without subsequent striking against object, subsequent encounter; S06.6X0D Traumatic subarachnoid hemorrhage without loss of consciousness, subsequent encounter; S42.201D Unspecified fracture of upper end of right humerus, subsequent encounter for fracture with routine healing; S52.502D Unspecified fracture of the lower end of left radius, subsequent encounter for closed fracture with routine healing; Z79.82 Long term (current) use of aspirin; Z79.01 Long term (current) use of anticoagulants; Z95.2 Presence of prosthetic heart valve; Z86.711 Personal history of pulmonary embolism; Z95.5 Presence of coronary angioplasty implant and graft; Z92.3 Personal history of irradiation; Z92.21 Personal history of antineoplastic chemotherapy; Z85.038 Personal history of other malignant neoplasm of large intestine; Z87.891 Personal history of nicotine dependence; Z87.11 Personal history of peptic ulcer disease
CPT/HCPCS: 36415; 36430; 51702; 51798; 70450; 71045; 71250; 80048; 80053; 81001; 82533; 83540; 83550; 83605; 83690; 83735; 83880; 84100; 84145; 84443; 84484; 85007; 85014; 85018; 85025; 86140; 86850; 86900; 86920; 87040; 87324; 87486; 87493; 87581; 87633; 87637; 93005; 93306; 93970; 94664; 96365; 96375; 97110; 97163; 97167; 97530; 97535; 97760; 99285; G0378; J0282; J0283; J1938; J2020; J2185; J2470; J9999; L3908; P9016

== ENCOUNTER 2025-03-18 17:42 | Emergency (ER) | payer MEDICARE, OTHER, SELFPAY ==
[2025-03-18 17:42] VITALS: BP 58/37; PULSE 136; RESP 22; TEMP 36.7; BMI 29.0
--- NOTE | 2025-03-18 17:48 | W.ED.AMS ---
Documented by User: Yoko Franklin MD 03/18/25 20:51 HPI - Altered Mental Status General: Chief Complaint: Urogenital-Male Stated Complaint: Urinary retention, x2 days Time Seen by Provider: 03/18/25 17:42 History of Present Illness: 80-year-old man with a history of mitral stenosis, send chronic kidney disease, mitral valve prolapse, congestive heart failure, multiple myeloma, coronary artery disease who presents to the emergency room by ambulance from residential with confusion and urinary retention. A Disla was placed and there is bloody pussy drainage coming out from it. He is quite altered on presentation. He is a full code. He is hypotensive on presentation. Started immediately on sepsis protocol. Related Data Home Medications ?Medication ?Instructions ?Recorded ?Confirmed atorvastatin 80 mg tablet 80 mg PO QAM 08/06/23 03/10/25 xipxnefh-lxbnrtow-liynx acid 400 1 tab PO QAM 08/06/23 03/10/25 mcg-vit K 20 mcg-lycop 300 mcg tablet albuterol sulfate 2.5 mg/3 mL 2.5 mg inhalation Q4H PRN 09/12/24 03/10/25 (0.083 %) solution for nebulization Shortness Of Breath zoledronic acid 4 mg intravenous 4 mg IV .[id number] 09/12/24 03/10/25 solution magnesium L-lactate 84 mg 84 mg PO DAILY 09/28/24 03/10/25 tablet,extended release loratadine 10 mg tablet 10 mg PO DAILY 10/15/24 03/10/25 L.acid,paracasei,plant,rhamn-B.animalis,breve 1 cap PO BID 03/10/25 03/10/25 10 billion cell capsule acetaminophen 500 mg tablet 1,000 mg PO Q6H PRN Pain 03/10/25 03/10/25 clopidogrel 75 mg tablet 75 mg PO DAILY 03/10/25 03/10/25 Held on 03/15/25. Instructions: Resume on 03/21/25. escitalopram oxalate 10 mg tablet 10 mg PO BEDTIME 03/10/25 03/10/25 psyllium husk 3.4 gram/5.4 gram 1 tbsp PO DAILY 03/10/25 03/10/25 oral powder (Metamucil) sucralfate 1 gram tablet 1 g PO QID 03/10/25 03/10/25 Previous Rx's ?Medication ?Instructions ?Recorded metoprolol succinate 25 mg 12.5 mg (1/2 x 25 mg) PO DAILY #15 08/10/23 tablet,extended release 24 hr tabs Left AFO #1 ea 12/19/23 hydrocodone 5 mg-acetaminophen 325 1 tab PO Q8H PRN pain #7 tabs 03/07/ mg tablet bumetanide 1 mg tablet 1 mg PO DAILY 30 days #30 tabs 03/13/25 gabapentin 300 mg capsule 30 mg (0.1 x 300 mg) PO BID #60 03/13/25 caps neomycin-bacitracn Zn-polymyx 3.5 1 applic topical Q12H #15 grams 03/13/25 mg-400 unit-5,000 unit/gram top oint (Triple Antibiotic) pantoprazole 40 mg tablet,delayed 40 mg PO DAILY #60 tabs 03/13/25 release amiodarone 200 mg tablet 200 mg PO BID #90 tabs 03/14/25 ferrous sulfate 325 mg (65 mg 325 mg PO DAILY #100 tabs 03/15/25 iron) tablet,delayed release midodrine 5 mg tablet 5 mg PO TID 30 days #90 tabs 03/17/25 pantoprazole 40 mg tablet,delayed 40 mg PO QAM #60 tabs 03/17/25 release (Protonix) vancomycin 250 mg capsule 250 mg PO QID 14 days #56 caps 03/17/25 Allergies Allergy/AdvReac Type Severity Reaction Status Date / Time No Known Allergies Allergy Verified 01/21/25 11:10 Review of Systems General: Reports: ROS unobtainable due to medical condition and ROS unobtainable due to mental status PFSH ED PFSH: Medical History (Updated 03/18/25 @ 20:36 by Yoko Franklin MD) Pulmonary embolism Chronic anticoagulation Mitral stenosis with regurgitation Symptomatic severe aortic stenosis with low ejection fraction CKD (chronic kidney disease) Mitral valve prolapse Systolic congestive heart failure Gastric ulcer GI bleed Multiple myeloma Coronary artery disease Surgical History (Updated 03/18/25 @ 00:00 by DEIDRA Tian) S/P TAVR (transcatheter aortic valve replacement) H/O esophagogastroduodenoscopy EGD- 11/05- Hiatal hernia Colonoscopy- 11/05- 2 Punctate ectasia of small colon Social History Smoking and tobacco/nicotine status: former use of tobacco/nicotine Quit status (tobacco/nicotine): has quit using Year quit tobacco: 1984 Former quit date comment: He smoked a pack a day for 20 years Additional social history: Wants full code is discussed with Contreras Linton MD on 03/10/2025 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 Appears ill. Skin: Warm, dry. Head: Normocephalic, atraumatic. Neck: Supple, trachea midline. Eye: Extraocular movements are intact. Ears, nose, mouth and throat: Dry oral mucosa Cardiovascular: Irregular, tachycardic, Normal peripheral perfusion. Respiratory: Lungs are clear to auscultation, respirations are non-labored, breath sounds are equal, Symmetrical chest wall expansion. Gastrointestinal: Soft, Nontender, Non distended. There is a Disla in place that has pus and blood draining from it. Musculoskeletal: Normal ROM, no deformity. Neurological: Patient is very somnolent and confused. Responds to painful stimuli. No obvious focal deficits. Psychiatric: Unable to assess Course Vital Signs: Vital signs: Vital Signs Temperature 98.1 F 03/18/25 17:42 Pulse Rate 100 03/18/25 18:41 Respiratory Rate 16 03/18/25 20:11 Blood Pressure 105/60 03/18/25 18:19 Fraction of Inspir ed Oxygen 100 03/18/25 20:11 MDM - Altered Mental Status Medical Decision Making Medical decision making: Patient's reason for coming to the emergency room: Altered mental status, urinary retention Social determinants: Patient is . is present. She wants everything done. detention patient I reviewed the patient's medical record. 80-year-old man with a history of mitral stenosis, send chronic kidney disease, mitral valve prolapse, congestive heart failure, multiple myeloma, coronary artery disease I reviewed the patient's current home meds I do not see with patient is currently on any home meds. Alternate historians: History via EMS per residential and from . Differential diagnosis including but not limited to and based on the above HPI, review of systems and physical exam: In this patient with altered mental status: Stroke. Hypoglycemia. Metabolic encephalopathy. Infections such as pneumonia, urinary tract infection, Covid-19, Influenza. Electrolyte abnormalities such as hypernatremia. Renal failure / uremia. Hepatic encephalopathy. Hypoxemia. Hypercapnic respiratory failure. Psychosis. Drug or alcohol intoxication. Medication overdose. Orders placed to evaluate differential diagnosis based on the above differential, HPI and physical exam EKG: Time 1758. Rate 125. Atrial fibrillation with rapid ventricular response, No ST-T changes, no ectopy, This was reviewed and interpreted by myself the ER physician at 1805 Lab Review: Laboratory results were reviewed and interpreted by myself the emergency room physician. Severe leukocytosis and lactic acidosis. Blood gas shows a pH of 7.1. Urine appears extremely infected. Has some acute renal insufficiency. Assessment of risk: Level of risk: Patient is extremely high risk. detention patient. Multiple core morbidities. Hospitalization considerations: Patient definitely needs admitted to the ICU. Reexamination: Patient is responding minimally to fluids thus far. He has started having some difficulty with breathing so he is being intubated emergently. See Consultation: I spoke with Dr. Perez who is on-call for the hospitalist service who agrees to admission to the ICU but wants a CT scan of the abdomen and pelvis done first. However the patient coded and the hospitalist talked to the and she decided to let him go. Assessment and plan: Cardiac arrest resulting in Sepsis Atrial fibrillation with rapid ventricular response Anemia Renal failure Urinary retention ?Patient started on pressors. Intubated and lined by other emergency room doctor. See documentation. 's. Lost pulse. Family opted not to continue with CPR and let him go. -2.5 L normal saline bolus. Fluid volumes based on ideal body weight. -Broad-spectrum antibiotics were administered. -Sepsis quality measures. -Lactic acid with a reflex was ordered. -Blood cultures were ordered. ?I reevaluated the patient's volume status after sepsis fluids were given. Disla was placed. Critical Care: -I spent a total of 45 minutes of critical care time managing the patient, independent of any other practitioner. -The time involved in the performance of separately reportable procedures was not counted towards critical care time. Lab Data 03/18/25 18:40 03/18/25 18:40 Radiology Impressions Chest X-Ray 03/18/25 20:25 IMPRESSION: Interval placement of enteric tube which courses outside the field of view below the level of hemidiaphragm. Laboratory Results WBC 16.95 10^3/uL (3.29-11.43) H 03/18/25 18:40 RBC 2.26 10^6/uL (3.85-5.65) L 03/18/25 18:40 Hgb 7.10 g/dL (11.27-16.99) L 03/18/25 18:40 Hct 23.8 % (37-53) L 03/18/25 18:40 MCV 105.3 fl (82-101) H 03/18/25 18:40 MCH 31.4 pg (27-33) 03/18/25 18:40 MCHC 29.8 g/dL (30-55) L 03/18/25 18:40 RDW 18.5 % (12.1-15.1) H 03/18/25 18:40 Plt Count 45 10^3/cmm (157-399) L 03/18/25 18:40 MPV 11.8 fL (7.4-10.4) H 03/18/25 18:40 Neut % (Auto) 94.0 % 03/18/25 18:40 Lymph % (Auto) 2.0 % 03/18/25 18:40 Terrell % (Auto) 0.4 % 03/18/25 18:40 Eos % (Auto) 0.1 % 03/18/25 18:40 Baso % (Auto) 0.1 % 03/18/25 18:40 Neut # (Auto) 15.92 10^3/uL (1.8-7.7) H 03/18/25 18:40 Lymph # (Auto) 0.3 10^3/uL (0.8-4.8) L 03/18/25 18:40 Terrell # (Auto) 0.1 10^3/uL (0.2-0.9) L 03/18/25 18:40 Eos # (Auto) 0.0 10^3/uL (0.0-0.8) 03/18/25 18:40 Baso # (Auto) 0.0 10^3/uL (0.0-0.1) 03/18/25 18:40 Nucleated RBC % (auto) 1.0 % 03/18/25 18:40 Nucleated RBCs # 0.2 /100WBC 03/18/25 18:40 Specimen Type Arterial 03/18/25 17:47 Sample Site Brachial, right 03/18/25 17:47 ABG pH 7.11 (7.35-7.45) L* 03/18/25 17:47 ABG pCO2 28.0 mmHg (35-45) L 03/18/25 17:47 ABG pO2 171.0 mmHg (80.0-100.0) H 03/18/25 17:47 ABG PO2/FiO2 Ratio 1710 03/18/25 17:47 ABG HCO3 8.8 mmol/L (22-26) L 03/18/25 17:47 ABG O2 Saturation 97.2 03/18/25 17:47 ABG Base Excess -19.3 mmol/L (-2.0-2.0) L 03/18/25 17:47 Andriy Test Pos 03/18/25 17:47 A-a O2 Gradient Not Reportable 03/18/25 17:47 Hematocrit 28.7 % (42-52) L 03/18/25 17:47 Hgb O2 Saturation 95.6 % (95-100) 03/18/25 17:47 Carboxyhemoglobin 0.3 %THgb (0.4-20.1) L 03/18/25 17:47 Methemoglobin 1.3 % (0.4-1.5) 03/18/25 17:47 Total Hemoglobin 9.4 g/dL (14-18) L 03/18/25 17:47 Sodium 133.0 mmol/L (131-143) 03/18/25 17:47 Potassium 3.7 mmol/L (3.5-5.0) 03/18/25 17:47 Glucose 71.0 mg/dL (70-115) 03/18/25 17:47 Ionized Calcium 1.2 mmol/L (1.1-1.4) 03/18/25 17:47 O2 Delivery Device Nrb 03/18/25 17:47 O2 Liters/Min 15.0 % 03/18/25 17:47 FiO2 10.0 % 03/18/25 17:47 Twist Maker ID Monro 03/18/25 17:47 Sodium 135 mmol/L (136-145) L 03/18/25 18:40 Potassium 3.8 mmol/L (3.5-5.1) 03/18/25 18:40 Chloride 106 mmol/L (98-107) 03/18/25 18:40 Carbon Dioxide 11 mmol/L (22-29) L 03/18/25 18:40 Anion Gap 21.8 (5-19) H 03/18/25 18:40 BUN 39 mg/dL (8-23) H 03/18/25 18:40 Creatinine 2.3 mg/dL (0.7-1.2) H 03/18/25 18:40 GFR Calculation Not Reportable 03/18/25 18:40 Glucose 45 mg/dL (65-115) L 03/18/25 18:40 Calculated Osmolality 286 mOsm/kg (285-295) 03/18/25 18:40 Lactic Acid 8.1 mmol/L (0.5-2.2) H* 03/18/25 18:40 Calcium 6.8 mg/dL (8.5-10.5) L 03/18/25 18:40 Total Bilirubin 1.5 mg/dL (0.15-1.2) H 03/18/25 18:40 AST 26 U/L (0-40) 03/18/25 18:40 ALT 9 U/L (0-41) 03/18/25 18:40 Alkaline Phosphatase 311 U/L (40-130) H 03/18/25 18:40 Total Protein 3.9 g/dL (6.6-8.7) L 03/18/25 18:40 Albumin 2.2 g/dL (3.5-5.2) L 03/18/25 18:40 Globulin 1.7 g/dL (1.3-4.6) 03/18/25 18:40 Urine Color Red (Yellow) A 03/18/25 18:15 Urine Appearance Turbid (CLEAR) A 03/18/25 18:15 Urine pH 8.0 (5-7) A 03/18/25 18: Ur Specific [place] 1.014 (1.005-1.030) 03/18/25 18:15 Urine Protein 3+ (Negative) A 03/18/25 18:15 Urine Glucose (UA) Negative (Normal) 03/18/25 18: Urine Ketones Negative (Negative) 03/18/25 18:15 Urine Blood 3+ (Negative) A 03/18/25 18:15 Urine Nitrate Positive (Negative) A 03/18/25 18:15 Urine Bilirubin 2+ (Negative) H 03/18/25 18:15 Urine Urobilinogen 0.2 mg/dL (Negative) 03/18/25 18:15 Ur Leukocyte Esterase 3+ (Negative) A 03/18/25 18:15 Urine RBC >100 /hpf (0-2) H 03/18/25 18:15 Urine WBC >100 /hpf (0-5) H 03/18/25 18:15 Ur Squamous Epith Cells 0-5 /hpf (0-5) 03/18/25 18:15 Amorphous Sediment Not Reportable 03/18/25 18:15 Urine Bacteria 4+ /hpf (NONE) H 03/18/25 18:15 Hyaline Casts 1.88 /lpf 03/18/25 18:15 Ur Oval Fat Bodies 1+ /hpf 03/18/25 18:15 All radiology interpretation(s) finalized by discharge Discharge Plan Discharge Patient Disposition: Clinical Impression: Sepsis, Metabolic encephalopathy, Urinary retention, Septic shock, Cardiac arrest, Coding Level of Care Code ED Magistrate Judge for Chg Fwd Documented by User: Sharonda De Anda MD 03/18/25 21:17 HPI - Altered Mental Status General: Chief Complaint: Urogenital-Male Stated Complaint: Urinary retention, x2 days Time Seen by Provider: 03/18/25 17:42 Related Data Home Medications ?Medication ?Instructions ?Recorded ?Confirmed atorvastatin 80 mg tablet 80 mg PO QAM 08/06/23 03/10/25 fbhezbgu-gjdzobps-jxkot acid 400 1 tab PO QAM 08/06/23 03/10/25 mcg-vit K 20 mcg-lycop 300 mcg tablet albuterol sulfate 2.5 mg/3 mL 2.5 mg inhalation Q4H PRN 09/12/24 03/10/25 (0.083 %) solution for nebulization Shortness Of Breath zoledronic acid 4 mg intravenous 4 mg IV .[id number] 09/12/24 03/10/25 solution magnesium L-lactate 84 mg 84 mg PO DAILY 09/28/24 03/10/25 tablet,extended release loratadine 10 mg tablet 10 mg PO DAILY 10/15/24 03/10/25 L.acid,paracasei,plant,rhamn-B.animalis,breve 1 cap PO BID 03/10/25 03/10/25 10 billion cell capsule acetaminophen 500 mg tablet 1,000 mg PO Q6H PRN Pain 03/10/25 03/10/25 clopidogrel 75 mg tablet 75 mg PO DAILY 03/10/25 03/10/25 Held on 03/15/25. Instructions: Resume on 03/21/25. escitalopram oxalate 10 mg tablet 10 mg PO BEDTIME 03/10/25 03/10/25 psyllium husk 3.4 gram/5.4 gram 1 tbsp PO DAILY 03/10/25 03/10/25 oral powder (Metamucil) sucralfate 1 gram tablet 1 g PO QID 03/10/25 03/10/25 Previous Rx's ?Medication ?Instructions ?Recorded metoprolol succinate 25 mg 12.5 mg (1/2 x 25 mg) PO DAILY #15 08/10/23 tablet,extended release 24 hr tabs Left AFO #1 ea 12/19/23 hydrocodone 5 mg-acetaminophen 325 1 tab PO Q8H PRN pain #7 tabs 03/07/25 mg tablet bumetanide 1 mg tablet 1 mg PO DAILY 30 days #30 tabs 03/13/25 gabapentin 300 mg capsule 30 mg (0.1 x 300 mg) PO BID #60 03/13/25 caps neomycin-bacitracn Zn-polymyx 3.5 1 applic topical Q12H #15 grams 03/13/25 mg-400 unit-5,000 unit/gram top oint (Triple Antibiotic) pantoprazole 40 mg tablet,delayed 40 mg PO DAILY #60 tabs 03/13/25 release amiodarone 200 mg tablet 200 mg PO BID #90 tabs 03/14/25 ferrous sulfate 325 mg (65 mg 325 mg PO DAILY #100 tabs 03/15/25 iron) tablet,delayed release midodrine 5 mg tablet 5 mg PO TID 30 days #90 tabs 03/17/25 pantoprazole 40 mg tablet,delayed 40 mg PO QAM #60 tabs 03/17/25 release (Protonix) vancomycin 250 mg capsule 250 mg PO QID 14 days #56 caps 03/17/25 Allergies Allergy/AdvReac Type Severity Reaction Status Date / Time No Known Allergies Allergy Verified 01/21/25 11:10 PFSH ED PFSH: Medical History (Updated 03/18/25 @ 20:36 by Yoko Franklin MD) Pulmonary embolism Chronic anticoagulation Mitral stenosis with regurgitation Symptomatic severe aortic stenosis with low ejection fraction CKD (chronic kidney disease) Mitral valve prolapse Systolic congestive heart failure Gastric ulcer GI bleed Multiple myeloma Coronary artery disease Surgical History (Updated 03/18/25 @ 00:00 by DEIDRA Tian) S/P TAVR (transcatheter aortic valve replacement) H/O esophagogastroduodenoscopy EGD- 11/05- Hiatal hernia Colonoscopy- 11/05- 2 Punctate ectasia of small colon Social History Smoking and tobacco/nicotine status: former use of tobacco/nicotine Quit status (tobacco/nicotine): has quit using Year quit tobacco: 1984 Former quit date comment: He smoked a pack a day for 20 years Additional social history: Wants full code is discussed with Contreras Linton MD on 03/10/2025 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 Procedures Central Line Placement Right IJ: Time Out Performed: No (Emergent) Patient Placed on Monitor/Pulse Ox: Yes Prep: mask and gloves Central Line Prep: Chlorhexidine scrub Ultrasound Used for Placement: Yes Central Line Lumen Inserted: single and triple Post Procedure: sutured in place, good blood return, all ports aspirated, flushed, capped and sterile dressing applied Post Procedure X-Ray: tip of catheter in good position and no pneumothorax seen Patient Tolerated Procedure: no complications Complications: none Additional Comments: Performed by Sharonda De Anda MD Intubation Time out performed: No sedative: Etomidate Mg Given: 20 paralytic: Rocuronium Mg Given: 100 Laryngoscope: fiber optic video scope ET Tube Size: 7.5 ET Tube Uncuffed: No Tube Secured Depth (cm): 23 Tube Secured Location: lips Tube Placement Confirmation: visualized tube passing through cords and confirmation by capnometry Patient Tolerated Procedure: no complications Intubation Complications: hypotension and hypoxia Additional Comments: Performed by Sharonda De Anda MD Course Vital Signs: Vital signs: Vital Signs Temperature 98.1 F 03/18/25 17:42 Pulse Rate 100 03/18/25 18:41 Respiratory Rate 16 03/18/25 20:11 Blood Pressure 105/60 03/18/25 18:19 Fraction of Inspir ed Oxygen 100 03/18/25 20:11 MDM - Altered Mental Status Lab Data 03/18/25 18:40 03/18/25 18:40 Radiology Impressions Chest X-Ray 03/18/25 20:25 IMPRESSION: Interval placement of enteric tube which courses outside the field of view below the level of hemidiaphragm. Laboratory Results WBC 16.95 10^3/uL (3.29-11.43) H 03/18/25 18:40 RBC 2.26 10^6/uL (3.85-5.65) L 03/18/25 18:40 Hgb 7.10 g/dL (11.27-16.99) L 03/18/25 18:40 Hct 23.8 % (37-53) L 03/18/25 18:40 MCV 105.3 fl (82-101) H 03/18/25 18:40 MCH 31.4 pg (27-33) 03/18/25 18:40 MCHC 29.8 g/dL (30-55) L 03/18/25 18:40 RDW 18.5 % (12.1-15.1) H 03/18/25 18:40 Plt Count 45 10^3/cmm (157-399) L 03/18/25 18:40 MPV 11.8 fL (7.4-10.4) H 03/18/25 18:40 Neut % (Auto) 94.0 % 03/18/25 18:40 Lymph % (Auto) 2.0 % 03/18/25 18:40 Terrell % (Auto) 0.4 % 03/18/25 18:40 Eos % (Auto) 0.1 % 03/18/25 18:40 Baso % (Auto) 0.1 % 03/18/25 18:40 Neut # (Auto) 15.92 10^3/uL (1.8-7.7) H 03/18/25 18:40 Lymph # (Auto) 0.3 10^3/uL (0.8-4.8) L 03/18/25 18:40 Terrell # (Auto) 0.1 10^3/uL (0.2-0.9) L 03/18/25 18:40 Eos # (Auto) 0.0 10^3/uL (0.0-0.8) 03/18/25 18:40 Baso # (Auto) 0.0 10^3/uL (0.0-0.1) 03/18/25 18:40 Nucleated RBC % (auto) 1.0 % 03/18/25 18:40 Nucleated RBCs # 0.2 /100WBC 03/18/25 18:40 Specimen Type Arterial 03/18/25 17:47 Sample Site Brachial, right 03/18/25 17:47 ABG pH 7.11 (7.35-7.45) L* 03/18/25 17:47 ABG pCO2 28.0 mmHg (35-45) L 03/18/25 17:47 ABG pO2 171.0 mmHg (80.0-100.0) H 03/18/25 17:47 ABG PO2/FiO2 Ratio 1710 03/18/25 17:47 ABG HCO3 8.8 mmol/L (22-26) L 03/18/25 17:47 ABG O2 Saturation 97.2 03/18/25 17:47 ABG Base Excess -19.3 mmol/L (-2.0-2.0) L 03/18/25 17:47 Andriy Test Pos 03/18/25 17:47 A-a O2 Gradient Not Reportable 03/18/25 17:47 Hematocrit 28.7 % (42-52) L 03/18/25 17:47 Hgb O2 Saturation 95.6 % (95-100) 03/18/25 17:47 Carboxyhemoglobin 0.3 %THgb (0.4-20.1) L 03/18/25 17:47 Methemoglobin 1.3 % (0.4-1.5) 03/18/25 17:47 Total Hemoglobin 9.4 g/dL (14-18) L 03/18/25 17:47 Sodium 133.0 mmol/L (131-143) 03/18/25 17:47 Potassium 3.7 mmol/L (3.5-5.0) 03/18/25 17:47 Glucose 71.0 mg/dL (70-115) 03/18/25 17:47 Ionized Calcium 1.2 mmol/L (1.1-1.4) 03/18/25 17:47 O2 Delivery Device Nrb 03/18/25 17:47 O2 Liters/Min 15.0 % 03/18/25 17:47 FiO2 10.0 % 03/18/25 17:47 Twist Maker ID Monro 03/18/25 17:47 Sodium 135 mmol/L (136-145) L 03/18/25 18:40 Potassium 3.8 mmol/L (3.5-5.1) 03/18/25 18:40 Chloride 106 mmol/L (98-107) 03/18/25 18:40 Carbon Dioxide 11 mmol/L (22-29) L 03/18/25 18:40 Anion Gap 21.8 (5-19) H 03/18/25 18:40 BUN 39 mg/dL (8-23) H 03/18/25 18:40 Creatinine 2.3 mg/dL (0.7-1.2) H 03/18/25 18:40 GFR Calculation Not Reportable 03/18/25 18:40 Glucose 45 mg/dL (65-115) L 03/18/25 18:40 Calculated Osmolality 286 mOsm/kg (285-295) 03/18/25 18:40 Lactic Acid 8.1 mmol/L (0.5-2.2) H* 03/18/25 18:40 Calcium 6.8 mg/dL (8.5-10.5) L 03/18/25 18:40 Total Bilirubin 1.5 mg/dL (0.15-1.2) H 03/18/25 18:40 AST 26 U/L (0-40) 03/18/25 18:40 ALT 9 U/L (0-41) 03/18/25 18:40 Alkaline Phosphatase 311 U/L (40-130) H 03/18/25 18:40 Total Protein 3.9 g/dL (6.6-8.7) L 03/18/25 18:40 Albumin 2.2 g/dL (3.5-5.2) L 03/18/25 18:40 Globulin 1.7 g/dL (1.3-4.6) 03/18/25 18:40 Urine Color Red (Yellow) A 03/18/25 18:15 Urine Appearance Turbid (CLEAR) A 03/18/25 18:15 Urine pH 8.0 (5-7) A 03/18/25 18:15 Ur Specific [place] 1.014 (1.005-1.030) 03/18/25 18:15 Urine Protein 3+ (Negative) A 03/18/25 18:15 Urine Glucose (UA) Negative (Normal) 03/18/25 18:15 Urine Ketones Negative (Negative) 03/18/25 18:15 Urine Blood 3+ (Negative) A 03/18/25 18:15 Urine Nitrate Positive (Negative) A 03/18/25 18:15 Urine Bilirubin 2+ (Negative) H 03/18/25 18:15 Urine Urobilinogen 0.2 mg/dL (Negative) 03/18/25 18:15 Ur Leukocyte Esterase 3+ (Negative) A 03/18/25 18:15 Urine RBC >100 /hpf (0-2) H 03/18/25 18:15 Urine WBC >100 /hpf (0-5) H 03/18/25 18:15 Ur Squamous Epith Cells 0-5 /hpf (0-5) 03/18/25 18:15 Amorphous Sediment Not Reportable 03/18/25 18:15 Urine Bacteria 4+ /hpf (NONE) H 03/18/25 18:15 Hyaline Casts 1.88 /lpf 03/18/25 18:15 Ur Oval Fat Bodies 1+ /hpf 03/18/25 18:15 Discharge Plan Discharge Patient Disposition: Clinical Impression: Sepsis, Metabolic encephalopathy, Urinary retention, Septic shock, Cardiac arrest, Coding Level of Care Code ED Magistrate Judge for [place]
--- OUTSIDE RECORDS SUMMARY | 2025-03-18 17:50 | XMS_ITS | Continuity of Care Document ---
Author Organization [employer] ([facility]) Address [address] [place] [address] Insurance Providers Payer Plan Claims Address Claims Phone Policy Number Group Number Relation Employer Guarantor Name Guarantor Guarantor Address Guarantor Phone [employer] ARE [id number] Self Rafy Sierra [address] [place], [place] [address] [employer] [id number] Self Rafy Sierra [address] [place], [place] [address] Problems Condition ICD9 code ICD10 code SNOMED code Start Date End Date S tatus Other displaced fracture of upper end of left humerus, subsequent encounter for fracture with routine healing S42.292D 03/17/2025 Acti ve Unspecified fracture of the lower end of left radius, subsequent encounter for closed fracture with routine healing S52.502D 03/17/2025 Active History of falling Z91.81 03/17/2025 Ac tive Enterocolitis due to Clostridium difficile, not specified as recurrent A04.72 03/17/2025 Active Orthostatic hypotension I95.1 03/17/2025 Active Acute on chronic systolic (congestive) heart failure I50.23 03/17/2025 Active Paroxysmal atrial fibrillation I48.0 03/17/2025 Active Atherosclerotic heart disease of [place] coronary artery without angina pectoris I25.10 03/17/2025 Active Presence of coronary angioplasty implant and graft Z95.5 03/17/2025 Active Nonrheumatic aortic (valve) stenosis I35.0 03/17/2025 Active Nonrheumatic mitral (valve) stenosis I34.2 03/17/2025 Active Presence of prosthetic heart valve Z95.2 03/17/2025 Active Other pancytopenia D61.818 03/17/2025 Ac tive Multiple myeloma not having achieved remission C90.00 03/17/2025 Active Chronic kidney disease, unspecified N18.9 03/17/2025 Active Gastric ulcer, unspecified as acute or chronic, without hemorrhage or perforation K25.9 03/17/2025 Active Personal history of nicotine dependence Z87.891 03/17/2025 Activ e Anemia, unspecified D64.9 03/17/2025 A ctive Results No Results Allergies, adverse reactions, alerts No known allergies and adverse reactions Immunizations Vaccine Route Date Status COVID-19 Vaccine Unassigned Route of Administration Refused Medications Medication Instructions Route Dosage Frequency Start Date Stop Date Indications Status acetaminophen 500 mg tablet (acetaminophen ) 2 tabs (1,000mg), oral, Every 6 Hours - PRN, for pain/fever oral 1.0 6.0 h 2024 Active albuterol sulfate 2.5 mg /3 mL (0.083 %) solution for nebulization (albuterol sulfate) 1 neb, inhalation, Every 4 Hours - PRN, for sob or wheezing inhalation 1.0 4.0 h 2024 Active amiodarone 200 mg tablet (amiodarone) 1 tab, oral, Twice A Day, for 10 days oral 1.0 12.0 h 03/27 Active atorvastatin 80 mg tablet (atorvastatin) 1 tab, oral, Once A Day oral 1.0 1.0 d 2024 Active bumetanide 1 mg tablet (bumetanide) 1 tab, oral, Once A Day oral 1.0 1.0 d 2024 Active Dulcolax (bisacodyl) (bisacodyl) 10 mg suppository (Dulcolax (bisacodyl) (bisacodyl)) 1 suppository, rectal, Once A Day - PRN, Give rectally if can't take p/o, if no results from [facility] rectal 1.0 1.0 d 2024 Active escitalopram oxalate 10 mg tablet (escitalopram oxalate) 1 tab, oral, At Bedtime oral 1.0 2024 Active ferrous sulfate 325 mg (65 mg iron) tablet (ferrous sulfate) 1 tab, oral, Once A Day Every Other Day, Per TI oral 1.0 1.0 d 2024 Active fidaxomicin 200 mg tablet (fidaxomicin) 1 tab, oral, Twice A Day, for 10 days oral 1.0 12.0 h 03/27 Active gabapentin 300 mg capsule (gabapentin) 1 cap, oral, Twice A Day oral 1.0 12.0 h 2024 Active hydrocodone-ac etaminophen 5-325 mg tablet (hydrocodone-a cetaminophen) 1 tab, oral, Every 8 Hours - PRN, for pain; exempt R52 oral 1.0 8.0 h 2024 Active Lactobacillus acidophilus 500 million cell capsule (Lactobacillus acidophilus) 1 cap, oral, Twice A Day, for 7 days; TI for probiotic oral 1.0 12.0 h 03/24 Active loratadine 10 mg tablet (loratadine) 1 tab, oral, Once A Day oral 1.0 1.0 d 2024 Active magnesium oxide 400 mg (241.3 mg magnesium) tablet (magnesium oxide) 1 tab, oral, Once A Day, Per TI oral 1.0 1.0 d 2024 Active Metamucil (with sugar) (psyllium husk (with sugar)) 3.4 gram powder in packet (Metamucil (with sugar) (psyllium husk (with sugar))) 1 packet, oral, Once A Day, Mix as directed oral 1.0 1.0 d 03/18 Active metoprolol succinate 25 mg tablet extended release 24 hr (metoprolol succinate) 1 tab, oral, Once A Day oral 1.0 1.0 d 2024 Active midodrine 5 mg tablet (midodrine) 1 tab, oral, Three Times A Day, at 7am, 11am, 3pm; Hold for SBP greater than 120 oral 1.0 8.0 h 2024 Active omeprazole 20 mg capsule,delaye d release(DR/EC) (omeprazole) 1 cap, oral, Twice A Day, for 14 days; TI for pantoprazole oral 1.0 12.0 h 03/31 Active sucralfate 1 gram tablet (sucralfate) 1 tab, oral, Before Meals and At Bedtime oral 1.0 2024 Active Thera-M (multivit-min- iron fum-folic ac) 19 mg iron- 400 mcg tablet (Thera-M (multivit-min- iron fum-folic ac)) 1 tab, oral, Once A Day oral 1.0 1.0 d 2024 Active Triple Antibiotic (neomycin-baci tracnzn-polymy xnb) 3.5mg-400 unit- 5,000 unit/gram ointment (Triple Antibiotic (neomycin-baci tracnzn-polymy xnb)) 1 application, topical, Twice A Day, to affected area topical 1.0 12.0 h 2024 Active Tylenol (acetaminophen ) 325 mg tablet (Tylenol (acetaminophen )) 2 tabs/650mg, oral, Every 6 Hours - PRN, as needed for PRN pain/increase d tempMay give rectally if necessary oral 1.0 6.0 h 2024 Active acetaminophen 500 mg tablet (acetaminophen ) 2 tabs (1,000 mg), oral, Every 6 Hours - PRN, for pain / fever oral 1.0 6.0 h 03/17 Active albuterol sulfate 2.5 mg /3 mL (0.083 %) solution for nebulization (albuterol sulfate) 1 neb, inhalation, Every 4 Hours - PRN, for sob or wheezing inhalation 1.0 4.0 h 03/17 Active atorvastatin 80 mg tablet (atorvastatin) 1 tab, oral, Once A Day oral 1.0 1.0 d 03/17 Active bumetanide 1 mg tablet (bumetanide) 1 tab, oral, Once A Day oral 1.0 1.0 d 03/17 Active clopidogrel 75 mg tablet (clopidogrel) 1 tab, oral, Once A Day oral 1.0 1.0 d 03/15 Active Daily-Pedro (with folic acid) (multivitamin with folic acid) 400 mcg tablet (Daily-Pedro (with folic acid) (multivitamin with folic acid)) 1 tab, oral, Once A Day oral 1.0 1.0 d 03/17 Active Eliquis (apixaban) 2.5 mg tablet (Eliquis (apixaban)) 1 tab, oral, Twice A Day oral 1.0 12.0 h 03/15 Active escitalopram oxalate 10 mg tablet (escitalopram oxalate) 1 tab, oral, At Bedtime oral 1.0 03/17 Active famotidine 20 mg tablet (famotidine) 1 tab, oral, Twice A Day oral 1.0 12.0 h 03/17 Active gabapentin 300 mg capsule (gabapentin) 1 cap, oral, Twice A Day oral 1.0 12.0 h 03/17 Active hydrocodone-ac etaminophen 5-325 mg tablet (hydrocodone-a cetaminophen) 1 tab, oral, Every 6 Hours - PRN, exempt R52, for pain oral 1.0 6.0 h 03/17 Active Lactobacillus acidophilus 500 million cell capsule (Lactobacillus acidophilus) 1 cap, oral, Twice A Day, TI for probiotic, 7 day auto stop per TI oral 1.0 12.0 h 03/17 Active loratadine 10 mg tablet (loratadine) 1 tab, oral, Once A Day oral 1.0 1.0 d 03/17 Active magnesium oxide 400 mg (241.3 mg magnesium) tablet (magnesium oxide) 1 tab, oral, Once A Day, TI for magnesium oral 1.0 1.0 d 03/15 Active Metamucil (psyllium husk) 3.4 gram/5.4 gram powder (Metamucil (psyllium husk)) 1 packet, oral, Once A Day, mix as directed oral 1.0 1.0 d 03/17 Active metoprolol succinate 25 mg tablet extended release 24 hr (metoprolol succinate) 0.5 tab (12.5 mg), oral, Once A Day oral 1.0 1.0 d 03/17 Active midodrine 5 mg tablet (midodrine) 1 tab, oral, Three Times A Day, give at 7am 11am and 3pm oral 1.0 8.0 h 03/15 Active omeprazole 20 mg capsule,delaye d release(DR/EC) (omeprazole) 1 cap, oral, Once A Day, TI for pantoprazole oral 1.0 1.0 d 03/15 Active sucralfate 1 gram tablet (sucralfate) 1 tab, oral, Before Meals and At Bedtime oral 1.0 03/17 Active Triple Antibiotic (neomycin-baci tracnzn-polymy xnb) 3.5mg-400 unit- 5,000 unit/gram ointment (Triple Antibiotic (neomycin-baci tracnzn-polymy xnb)) 1 alondra, topical, Every 12 Hours, apply to affected area(s) topical 1.0 12.0 h 03/17 Active Tubersol (tuberculin ppd) 5 tub. unit /0.1 mL solution (Tubersol (tuberculin ppd)) 0.1ml, intradermal, Once - One Time, Administer the morning after admission intradermal 1.0 03/13 Active Tubersol (tuberculin ppd) 5 tub. unit /0.1 mL solution (Tubersol (tuberculin ppd)) 0.1ml, intradermal, Once - One Time, Administer the morning after admission intradermal 1.0 03/18 Active Fiber (with aspartame) (psyllium husk) 3 gram/5.8 gram powder (Fiber (with aspartame) (psyllium husk)) 1 rounded tsp. (3.4 gm), oral, Once A Day, Mix as directed. oral 1.0 1.0 d 2024 Active Vital Signs Date Vital Result Comment 03/17/2025 03:12 PM Temperature (8310-5) 97.8 [degF] Respiratory Rate (9279-1) 20 /min Heart Rate (8867-4) 95 /min Blood Pressure Systolic (8480-6) 155 mm[Hg] Blood Pressure Diastolic (8462-4) 89 mm[Hg] Body Height (8302-2) 66 [in_us] Body Weight (78281-9) 176.6 [lb_av] Body Mass Index (14940-5) 28.5 kg/m2 03/17/2025 03:13 PM Oxygen Saturation (85228-5) 97 % 03/17/2025 07:02 PM Temperature (8310-5) 97.6 [degF] Oxygen Saturation (29077-8) 96 % Respiratory Rate (9279-1) 20 /min Heart Rate (8867-4) 67 /min Blood Pressure Systolic (8480-6) 139 mm[Hg] Blood Pressure Diastolic (8462-4) 80 mm[Hg] 03/18/2025 10:03 AM Temperature (8310-5) 98.1 [degF] Oxygen Saturation (26844-7) 98 % Respiratory Rate (9279-1) 17 /min Heart Rate (8867-4) 70 /min Blood Pressure Systolic (8480-6) 128 mm[Hg] Blood Pressure Diastolic (8462-4) 73 mm[Hg] 03/18/2025 02:37 PM Blood Pressure Systolic (8480-6) 1 34 mm[Hg] Blood Pressure Diastolic (8462-4) 81 mm[Hg] Social History No smoking Hx information available Encounters Type CPT Code Date Location Provider Indication s encounter report 03/17/2025 01:35 PM Chana Qiu DO 01 Advance Directives Directive Description Verification Date Supporting Document(s) Other Directive
--- OUTSIDE RECORDS SUMMARY | 2025-03-18 17:50 | XMS_ITS | Encounter Summary ---
Author Organization [address] [facility] Address [address] [place] [address] Care Team Providers Care Computer Assembler Name Role Phone Unavailable Primary Care Provider Unavailabl e Encounter Details Date Type Department Care Team (Latest Contact Info) Description 09/06/2006 Outpatient Historical [facility] [address] [place] [address] Umesh Collins MD [address] [place] [address] Benign Neoplasm of Skin of Trunk, except Scrotum (Primary Dx) Social History Tobacco Use Types Packs/Day Years Used Date Smoking Tobacco: Never Assessed Sex and Gender Information Value Date Recorded Sex Assigned at Not on file 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
--- OUTSIDE RECORDS SUMMARY | 2025-03-18 17:50 | XMS_ITS | Clinical Summary ---
Author Organization [facility] Address [address] [place] [address] Phone Care Team Providers Care Solar Installation Manager Name Role Phone Bruce Rees Primary Care Provider [phone] Allergies No known active allergies Medications lenalidomide (REVLIMID) 10 mg capsule Take 10 mg by mouth daily. Active daratumumab (DARZALEX) 20 mg/mL Solution Inject 20 mg by intravenous injection one time only. 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 There was a punctate ectasia in the left colon that was cauterized with a 7 Syrian gold probe at 15 W. 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
--- OUTSIDE RECORDS SUMMARY | 2025-03-18 17:50 | XMS_ITS | Clinical Summary ---
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
--- OUTSIDE RECORDS SUMMARY | 2025-03-18 17:50 | XMS_ITS | Continuity of Care Document ---
Author Organization [facility] Address [address] [place] [address] Care Team Providers Care Salesperson Furniture Name Role Phone Dr. Jose Qiu DO Attending Physician Medications Medication Frequency Instructions Diagnosis Start Date End Date Status Last Administered acetaminophen 500 mg tablet Every 6 Hours - PRN 2 tabs (1,000mg), oral, Every 6 Hours - PRN, for pain/fever Active albuterol sulfate 2.5 mg /3 mL (0.083 %) solution for nebulization Every 4 Hours - PRN 1 neb, inhalation, Every 4 Hours - PRN, for sob or wheezing Active amiodarone 200 mg tablet Twice A Day 1 tab, oral, Twice A Day, for 10 days 2024 Active 03/17/2025 06:48 PM atorvastatin 80 mg tablet Once A Day 1 tab, oral, Once A Day Active bumetanide 1 mg tablet Once A Day 1 tab, oral, Once A Day Active Dulcolax (bisacodyl) (bisacodyl) 10 mg suppository Once A Day - PRN 1 suppository, rectal, Once A Day - PRN, Give rectally if can't take p/o, if no results from [facility] Active escitalopram oxalate 10 mg tablet At Bedtime 1 tab, oral, At Bedtime Active 03/17/2025 06:48 PM ferrous sulfate 325 mg (65 mg iron) tablet Once A Day Every Other Day 1 tab, oral, Once A Day Every Other Day, Per TI Active fidaxomicin 200 mg tablet Twice A Day 1 tab, oral, Twice A Day, for 10 days 2024 Active 03/17/2025 06:48 PM gabapentin 300 mg capsule Twice A Day 1 cap, oral, Twice A Day Active 03/17/2025 06:48 PM hydrocodone-maricarmen taminophen 5-325 mg tablet Every 8 Hours - PRN 1 tab, oral, Every 8 Hours - PRN, for pain; exempt R52 Active Lactobacillus acidophilus 500 million cell capsule Twice A Day 1 cap, oral, Twice A Day, for 7 days; TI for probiotic 2024 Active loratadine 10 mg tablet Once A Day 1 tab, oral, Once A Day Active magnesium oxide 400 mg (241.3 mg magnesium) tablet Once A Day 1 tab, oral, Once A Day, Per TI Active Metamucil (with sugar) (psyllium husk (with sugar)) 3.4 gram powder in packet Once A Day 1 packet, oral, Once A Day, Mix as directed Active metoprolol succinate 25 mg tablet extended release 24 hr Once A Day 1 tab, oral, Once A Day Active midodrine 5 mg tablet Three Times A Day 1 tab, oral, Three Times A Day, at 7am, 11am, 3pm; Hold for SBP greater than 120 Active omeprazole 20 mg capsule,delayed release(DR/EC) Twice A Day 1 cap, oral, Twice A Day, for 14 days; TI for pantoprazole 2024 Active sucralfate 1 gram tablet Before Meals and At Bedtime 1 tab, oral, Before Meals and At Bedtime Active 03/17/2025 06:48 PM Thera-M (qldthsxe-ozw-a nikolas fum-folic ac) 19 mg iron- 400 mcg tablet Once A Day 1 tab, oral, Once A Day Active Triple Antibiotic (neomycin-bacit racnzn-polymyxn b) 3.5mg-400 unit- 5,000 unit/gram ointment Twice A Day 1 application, topical, Twice A Day, to affected area Active 03/17/2025 09:25 PM Tubersol (tuberculin ppd) 5 tub. unit /0.1 mL solution Once - One Time 0.1ml, intradermal, Once - One Time, Administer the morning after admission 2024 Active Tylenol (acetaminophen) 325 mg tablet Every 6 Hours - PRN 2 tabs/650mg, oral, Every 6 Hours - PRN, as needed for PRN pain/increased temp May give rectally if necessary Active acetaminophen 500 mg tablet Every 6 Hours - PRN 2 tabs (1,000 mg), oral, Every 6 Hours - PRN, for pain / fever 2024 Not Active albuterol sulfate 2.5 mg /3 mL (0.083 %) solution for nebulization Every 4 Hours - PRN 1 neb, inhalation, Every 4 Hours - PRN, for sob or wheezing 2024 Not Active atorvastatin 80 mg tablet Once A Day 1 tab, oral, Once A Day 2024 Not Active bumetanide 1 mg tablet Once A Day 1 tab, oral, Once A Day 2024 Not Active clopidogrel 75 mg tablet Once A Day 1 tab, oral, Once A Day 2024 Not Active Daily-Epdro (with folic acid) (multivitamin with folic acid) 400 mcg tablet Once A Day 1 tab, oral, Once A Day 2024 Not Active Eliquis (apixaban) 2.5 mg tablet Twice A Day 1 tab, oral, Twice A Day 2024 Not Active escitalopram oxalate 10 mg tablet At Bedtime 1 tab, oral, At Bedtime 2024 Not Active famotidine 20 mg tablet Twice A Day 1 tab, oral, Twice A Day 2024 Not Active gabapentin 300 mg capsule Twice A Day 1 cap, oral, Twice A Day 2024 Not Active hydrocodone-maricarmen taminophen 5-325 mg tablet Every 6 Hours - PRN 1 tab, oral, Every 6 Hours - PRN, exempt R52, for pain 2024 Not Active Lactobacillus acidophilus 500 million cell capsule Twice A Day 1 cap, oral, Twice A Day, TI for probiotic, 7 day auto stop per TI 2024 Not Active loratadine 10 mg tablet Once A Day 1 tab, oral, Once A Day 2024 Not Active magnesium oxide 400 mg (241.3 mg magnesium) tablet Once A Day 1 tab, oral, Once A Day, TI for magnesium 2024 Not Active Metamucil (psyllium husk) 3.4 gram/5.4 gram powder Once A Day 1 packet, oral, Once A Day, mix as directed 2024 Not Active metoprolol succinate 25 mg tablet extended release 24 hr Once A Day 0.5 tab (12.5 mg), oral, Once A Day 2024 Not Active midodrine 5 mg tablet Three Times A Day 1 tab, oral, Three Times A Day, give at 7am 11am and 3pm 2024 Not Active omeprazole 20 mg capsule,delayed release(DR/EC) Once A Day 1 cap, oral, Once A Day, TI for pantoprazole 2024 Not Active sucralfate 1 gram tablet Before Meals and At Bedtime 1 tab, oral, Before Meals and At Bedtime 2024 Not Active Triple Antibiotic (neomycin-bacit racnzn-polymyxn b) 3.5mg-400 unit- 5,000 unit/gram ointment Every 12 Hours 1 alondra, topical, Every 12 Hours, apply to affected area(s) 025 2024 Not Active Tubersol (tuberculin ppd) 5 tub. unit /0.1 mL solution Once - One Time 0.1ml, intradermal, Once - One Time, Administer the morning after admission 025 2024 Not Active Problems Code Type Problem ICD Code Effective Date Status ICD-10 Other displaced frac ture of upper end of left humerus, subsequent encounter for fracture with routine healing S42.292D 03/17/2025 Active ICD-10 Unspecified fracture of the lower end of left radius, subsequent encounter for closed fracture with routine healing S52.502D 03/17/2025 Active ICD-10 History of falling Z91.81 03/17/2025 Active ICD-10 Enterocolitis due to Clostridium difficile, not specified as recurrent A04.72 03/17/2025 Active ICD-10 Orthostatic hypotension I95.1 03/17/2025 A ctive ICD-10 Acute on chronic sys tolic (congestive) heart failure I50.23 03/17/2025 Active ICD-10 Paroxysmal atrial fibrillation I48.0 03/17 Active ICD-10 Atherosclerotic hear t disease of [place] coronary artery without angina pectoris I25.10 03/17/2025 Active ICD-10 Presence of coronary angioplasty implant and graft Z95.5 03/17/2025 Active ICD-10 Nonrheumatic mitral (valve) stenosis I34.2 03/17/2025 Active ICD-10 Nonrheumatic aortic (valve) stenosis I35.0 03/17/2025 Active ICD-10 Presence of prosthetic heart valve Z95.2 1 05/17/2024 Active ICD-10 Multiple myeloma not having achieved remission C90.00 03/17/2025 Active ICD-10 Other pancytopenia D61.818 03/17/2025 Active ICD-10 Chronic kidney disease, unspecified N18.9 03/17/2025 Active ICD-10 Gastric ulcer, unspe cified as acute or chronic, without hemorrhage or perforation K25.9 03/17/2025 Active ICD-10 Personal history of nicotine dependence Z87.891 03/17/2025 Active Current Allergies and Intolerances Category Substance Type Reaction Severity Begin Date Status Drug Allergy No known drug allergies Allergy Active Vital Signs Height: 66.0 in Date / Time Temperature Pulse (per minute) Respirations (per minute) Systolic BP (mmHg) Diastolic BP (mmHg) O2 Saturation (%) Weight BMI 2024 07:02 PM 97.6 F 67 20 139 80 96.0 2024 03:13 PM 97.0 2024 03:12 PM 97.8 F 95 20 155 89 176.6 lbs 28.5 Advance Directives Directive Note Full Code Insurance Providers Payer Policy type Group Name Group number Policy ID Address Phone Medicare Part A Medicare Part A [id number] Phone: Fax: Medicare Part B Medicare Part B [id number] Phone: Fax: Coinsurance A - [employer] [id number] [place] [address] Phone: Fax: Clinical Quick Admit Private Phone: Fax: Private Private Phone: Fax: Private Interest Private Phone: Fax: Private Copay - Ins/HMO Private Phone: Fax: Immunizations Vaccine Manager Corporate Communications Date Status Dose Series Complete COVID-19 Vaccine 03/17/2025 Refused Influenza Vaccine 03/17/2025 Refused Pneumococcal Vaccine 03/17/2025 Refused RSV Vaccine 03/17/2025 Refused Procedures Not available for this record Results Not available for this record Goals Goal Date Will have a BM at least ever y 3 days for 120 days since update/last review AND/OR will not experience any complications r/t to colostomy for 120 days from update/ last review AND/OR Will not experience any GI complications for 120 days since update/last review AND/OR Will remain clean, dry between incontinent episodes thru 120days from update/last review 06/12/2025 ADL approaches will meet the resident?s needs to enhance ability, maintain abilities, or provide quality. 06/17/2025 Encounters Admission Date Discharge Date Description MRN Visit Count 03/17/2025 13:35 LTPAC Admission [id number]
[2025-03-18 17:54] VITALS: BP 94/69
--- NOTE | 2025-03-18 17:59 | ECG_ITS ---
[facility] Test Date: 2025-03-18 Pat Name: Rafy Sierra Department: Room: Gender: Male Learning Manager: : 1945 Requested By: Yoko Mendez Order Number: [id number] Prince MD: Josephine Sewell M.D. Measurements Intervals [place] Rate: 125 P: 0 MI: 0 QRS: 170 QRSD: 157 T: -18 QT: 320 QTc: 462 Interpretive Statements ATRIAL FIBRILLATION WITH RAPID VENTRICULAR RESPONSE RIGHT BUNDLE BRANCH BLOCK [120+ ms QRS DURATION, UPRIGHT V1, 40+ ms S IN I/aVL/V4/V5/V6] LEFT POSTERIOR FASCICULAR BLOCK [QRS AXIS > 109, INFERIOR Q] POSSIBLE ANTERIOR MYOCARDIAL INFARCTION , OF INDETERMINATE AGE [30 ms Q WAVE IN V3/V4, OR R < 0.2 mV IN V4] Compared to ECG 03/16/2025 12:51:46 Left posterior fascicular block now present.Sinus rhythm no longer present Ventricular premature complex(es) no longer present.Short MI interval no longer present.Right-axis deviation no longer present ST (T wave) deviation no longer present Myocardial infarct finding still present Electronically Signed On 03-18-2025 23:50:22 MEDICAL CARE ADMINISTRATOR by Josephine Sewell M.D. [id number]
[2025-03-18 18:00] LABS: ABG PCO2 28.0 mmHg (35-45); Arterial Blood Gas Hematocrit 28.7 % (42-52); Blood Gas Allen Test Pos; Blood Gas LPM 15.0 %; Blood Gas Operator Identificat MONRO; Blood Gas Sample Site Brachial, right; Blood Gas Sample Type Arterial; Carboxyhemoglobin 0.3 %THgb (0.4-20.1); Glucose Level-ABG 71.0 mg/dL (70-115); HCO3 ABG 8.8 mmol/L (22-26); Ionized Calcium Level - ABG 1.2 mmol/L (1.1-1.4); Methemoglobin 1.3 % (0.4-1.5); Oxygen Saturation ABG 97.2; PO2 ABG 171.0 mmHg (80.0-100.0); PO2 FiO2 Ratio Arterial Blood 1710; Potassium Level - ABG 3.7 mmol/L (3.5-5.0); Sodium Level - ABG 133.0 mmol/L (131-143)
[2025-03-18 18:19] VITALS: BP 105/60
[2025-03-18 18:37] LABS: Glucose Urine UA Negative (Normal); Nitrate Urine Positive (Negative); Specific Gravity, Urine 1.014 (1.005-1.030)
[2025-03-18 18:37] LABS: ABG PH Result 7.11 (7.35-7.45)
[2025-03-18 18:41] VITALS: PULSE 100
[2025-03-18] MEDS: linezolid premix 600 MG/300 ML PREMIX 300 MG IV (18:48)
[2025-03-18 18:58] LABS: Hematocrit 23.8 % (37-53); Hemoglobin 7.10 g/dL (11.27-16.99); Mean Corpuscular HGB Conc 29.8 g/dL (30-55); Mean Corpuscular Hemoglobin 31.4 pg (27-33); Mean Corpuscular Volume 105.3 fl (82-101); Nucleated Red Blood Cells % 1.0 %; Platelet Count 45 10^3/cmm (157-399); Red Blood Count 2.26 10^6/uL (3.85-5.65); White Blood Count 16.95 10^3/uL (3.29-11.43)
[2025-03-18 19:12] LABS: UA Slide Review UA Slide Review Perf
[2025-03-18 19:12] LABS: Alanine Aminotransferase 9 U/L (0-41); Albumin Level 2.2 g/dL (3.5-5.2); Alkaline Phosphatase 311 U/L (40-130); Anion Gap 21.8 (5-19); Aspartate Amino Transferase 26 U/L (0-40); Blood Urea Nitrogen 39 mg/dL (8-23); Calcium 6.8 mg/dL (8.5-10.5); Carbon Dioxide 11 mmol/L (22-29); Chloride 106 mmol/L (98-107); Creatinine Clr Calc Pharmacy 25.7025; Globulin 1.7 g/dL (1.3-4.6); Glucose 45 mg/dL (65-115); Osmolality Calculated 286 mOsm/kg (285-295); Potassium 3.8 mmol/L (3.5-5.1); Sodium 135 mmol/L (136-145); Total Protein 3.9 g/dL (6.6-8.7)
[2025-03-18 19:13] LABS: Oval Fat Bodies Urine 1+ /hpf
[2025-03-18 19:17] LABS: Lactic Sepsis W/Reflex 8.1 mmol/L (0.5-2.2)
[2025-03-18 19:19] LABS: Slide Review Slide Review Perform
[2025-03-18] MEDS: norepinephrine 4 MG/250 ML BAG 30 MG IV (19:24)
[2025-03-18] MEDS: rocuronium 10 mg/mL INJ 5mL 100 MG IVP (19:33)
[2025-03-18] MEDS: etomidate 2 mg/mL INJ SDV 10 mL 20 MG IVP (19:33)
--- NOTE | 2025-03-18 19:54 | PC.NURSE ---
RSI NOTES: -100 PACO IVP @1948 -30 ETOMIDATE IVP @194 -INTUBATION @1949, MEASURING 24 AT LIP -VITALS @1952: BP 66/40 ON LEVO, HEART RATE 105, O2 100 INTUBATED
[2025-03-18] MEDS: EPINEPHrine 2.5 MG in sodium chloride 0.9% 250 ML 6.06 MG IV (19:59)
[2025-03-18 20:11] VITALS: RESP 16
--- NOTE | 2025-03-18 20:25 | XRR_ITS ---
PROCEDURE INFORMATION: Exam: XR Chest Exam date and time: 03/18/2025 8:06 PM Age: 80 years old Clinical indication: Device placement; Other: Og tube, ett, and central line placement TECHNIQUE: Imaging protocol: Radiologic exam of the chest. Views: 1 view. COMPARISON: CR (CHEST, ) 03/14/2025 11:33 AM FINDINGS: Tubes, catheters and devices: Enteric tube is present and courses outside the field of view below the level of phillip diaphragm. New line changes of prior TAVR. Lungs: Opacities within bilateral lower lobes. Pleural spaces: Bilateral pleural effusions. Heart/Mediastinum: Stable cardiomediastinal silhouette. Bones/joints: Unremarkable. XR/XR chest 1V portable [id number] IMPRESSION: Interval placement of enteric tube which courses outside the field of view below the level of hemidiaphragm.
[2025-03-18] MEDS: DOBUTamine drip 500 MG/250 ML PREMIX 12.25 MG IV (20:29)
[2025-03-18 20:37] LABS: Reflex Lactate Order REFLEX LACTIC ORDERD
--- NOTE | 2025-03-18 20:44 | PC.NURSE ---
[facility] been notified and has released the body.
--- NOTE | 2025-03-18 20:48 | PC.NURSE ---
2047 [facility] has been notified of patient . [facility] has released the body. Waiting to hear from [facility].
--- NOTE | 2025-03-18 21:01 | PC.NURSE ---
Addendum entered by Rekha Cardona RN 03/18/25 21:07: Fluids were found to be completed at the time of shift change at 1900. Normal saline boluses were infused to reflect this in the MAR. Original Note: Medication Rate changes including dobutamine, epinephrine, and norepinephrine drips were adjusted with MD verbal orders at bedside. These are reflected in the MAR.
--- NOTE | 2025-03-18 21:22 | PC.NURSE ---
2122 [facility] reports patient is not a candidate, may release to home.
--- NOTE | 2025-03-18 21:35 | W.PM.EVENTAC ---
Event Note Event Note: the patient was intubated and was not having adequate BP with feeble pulse, in septic shock vs hypovolemic shock s/p intubation and on vasopressors, severe acidosis Event Notes Attestations Time Spent in Patient Care: I was called by the ER physician for admission as urosepsis and septic shock s/p intubation, and came to evaluate the patient. The patient was on vasopressors, MAP was barely measurable with feeble pulses that were also questionable to palpate however monitor was showing heart rate around 40s and 50s. I did bedside ultrasound of the heart and it showed decrease left ventricular contraction and possible ejection fraction could be around 10 to 20% or low since there was no adequate contractility of all parts of the left ventricle. The patient coded and started on chest compression and code management as per ACLS protocol. The patient was also at the site of the door window watching the running of the code. I further went to her and spoke to her about patient's situation and further management. After thorough discussion, explaining all the risks and benefits and complications of the management and with his guarded prognosis in this severe critical condition, the agreed not to proceed with the code and to put him at comfort care. And patient . He was managed according to the protocol and family's wishes. I was able to talk to the sisters as well after the patient . They all were in alignment with the management of the medical team and appreciated the care. May the soul rest in peace
--- NOTE | 2025-03-18 21:49 | PC.NURSE ---
This nurse assumed care of pt @1900, upon assessment pt gcs of 8 and agonal breathing on 15L nonrebreather. ER provider and respiratory notified. Pt was intubated and central line placed. Pt was max on levophed and epi per MD bedside verbal orders. This nurse was at bedside with pt until TOD 2029. Due to verbal order from Dr. Perez to turn off bedside monitor, not able to provide documented vitals since 184.
[2025-03-19 11:26] LABS: Pan Gram-Negative Detected (NOT DETECT)
== END 2025-03-18 23:24 | disposition expired ==
PROVIDERS: Emergency Provider Emergency Medicine; PCP Electrodiagnostic Medicine
DX: A41.9 Sepsis, unspecified organism (principal); G93.41 Metabolic encephalopathy; R33.9 Retention of urine, unspecified; R65.21 Severe sepsis with septic shock; I46.9 Cardiac arrest, cause unspecified; I25.10 Atherosclerotic heart disease of native coronary artery without angina pectoris; N18.9 Chronic kidney disease, unspecified; I50.20 Unspecified systolic (congestive) heart failure
CPT/HCPCS: 31500; 36415; 36600; 71045; 80051; 80053; 81001; 82330; 82805; 83605; 85025; 87040; 87086; 87205; 93005; 94799; 96365; 96366; 96367; 96375; 99291; 99292; J0169; J1250; J2020; J2185; J3490; J7030; J7040; J7050; J9999